=== PATIENT | female | born 1975 | race Caucasian/White ===

== ENCOUNTER 2023-08-13 11:18 | Outpatient (AMB) | payer OTHER, SELFPAY ==
--- NOTE | 2023-08-13 11:21 | A.OFFVIS_ITS ---
Intake Vital Signs 08/13/23 11:24 Height 5 ft 7 in Weight 251 lb BMI 39.3 Blood Pressure Location Lt brachial Position Sitting Respiration 12 Pulse 96 Pulse Source Pulse Oximeter Pulse Oximetry (%) 99 Oxygen Delivery Method Room Air Intake Visit Reasons: Chronic Pain Syndrome/confirmed Allergies ketorolac [From Toradol] Adverse Reaction (Severe, Verified 08/13/23 11:25) Rash levofloxacin [From Levaquin] Adverse Reaction (Severe, Verified 08/13/23 11:25) Rash Medication List - Last Reconciled 08/13/23 by Vicki Noel LPN atenolol 25 mg PO DAILY gabapentin 300 mg PO DAILY methimazole 5 mg PO DAILY oxycodone 5 mg PO Q8H PRN valsartan 320 mg PO DAILY HPI Chronic Pain Syndrome/confirmed HPI Details 47-year-old female who presents today to the office for an evaluation of chronic pain syndrome. The patient was referred by Flor Rodriguez DNP. The patient has a history of more than five years of chronic back pain, chronic pelvic pain, and chronic knee pain. She has a longstanding history of opioid dependence and opioid prescriptions from multiple providers.? She reports constant lower back pain. The pain is rated at 7-8/10 in intensity in the lower back. There is no particular radiation down the lower extremities. She used to have some radiation of pins and needles in her right leg, but that has resolved. She denies any back surgery. She denies any radiating pain in her leg. She reports pain in her sacrum/coccyx region when sitting. She also reports shoulder pain due to shoulder injuries in the past. She used to walk six miles a day and ride a bike. She has to stop riding her bike due to knee pain. She has tried physical therapy with oral medication in the past. She has been hesitant to undergo corticosteroid injections out of fear of raising her blood pressure and blood sugars. [facility] Medical History (Updated 08/17/23 @ 10:17 by Vinicio Riley MD) Fracture of tooth Nausea Vertigo Chronic low back pain Endometriosis Toothache Essential hypertension Chronic pain syndrome Opioid abuse Anxiety Hyperthyroidism Review of Systems Const All systems reviewed & are unremarkable except as noted in HPI and below Physical Exam Vital Signs: Last Vital Signs Pulse 96 08/13/23 11:24 Resp 12 08/13/23 11:24 Pulse Ox 99 08/13/23 11:24 Oxygen Delivery Method Room Air 08/13/23 11:24 BMI result Body Mass Index 39.3 General: Appears afebrile. Alert and oriented. Mood and affect appropriate. Follows and participates in conversation appropriately. Respiratory effort is unlabored. Able to transition from sit to stand unassisted. Ambulates with bilaterally normal heel strike and toe off. Forward flexion reproduces pain. Extension is limited and also reproduces pain. Results Reviewed Results Reviewed: No imaging is available for review. Assessment & Plan Assessment & Plan (1) Lumbar spondylosis: Code(s): M47.816 - Spondylosis without myelopathy or radiculopathy, lumbar region (2) Intractable low back pain: Code(s): M54.59 - Other low back pain (3) Chronic pain syndrome: Code(s): G89.4 - Chronic pain syndrome Plan I had a long discussion with the patient regarding the role of various different treatment modalities available for her pain conditions. Given her age, I think she would benefit from a rehabilitative/regenerative paradigm in terms of treatment modalities as opposed to a palliative paradigm consisting of cortisone shots and opioid medications. We discussed a trial of lumbar medial branch/multifidus stimulation for her axial low back pain. A similar approach may be used for her left shoulder pain. I also briefly discussed platelet rich plasma injections to her shoulder and lumbar facet joint for longer-term regenerative potential. For now we will schedule her for right L3 medial branch nerve stimulation trial with the Sprint device. Patient is amenable to the plan. She requested assumption of her opioid prescription at our office. I counseled her that we are no longer accepting patients for chronic opioid management. I encouraged her to continue with home exercise program in combination with rehabilitative strategies that are available with us as well as actual physical therapy including stretching and strengthening. All questions were answered. Scribed for Dr. Riley by Britton Espinosa, director medical safety, on 08/13/2023. I, Dr. Riley, have personally reviewed and agree with the information entered by the scribe. Coding Level of Care Code New Pt Level 4 (36229) Diagnoses Lumbar spondylosis M47.816 Intractable low back pain M54.59 Chronic pain syndrome G89.4
[2023-08-13 11:24] VITALS: PULSE 96; RESP 12; O2SAT 99; BMI 39.3
== END 2023-08-13 12:11 | disposition home or self-care (01) ==
PROVIDERS: Visit Provider Internal Medicine
DX: M47.816 Spondylosis without myelopathy or radiculopathy, lumbar region (principal); M54.59 Other low back pain; G89.4 Chronic pain syndrome
CPT/HCPCS: 99204

== ENCOUNTER → 2023-08-13 11:18 | Outpatient (BNVA) | payer OTHER, SELFPAY | PROVIDERS: Visit Provider Internal Medicine ==

== ENCOUNTER 2024-05-27 16:06 | Emergency (ER) | payer OTHER, SELFPAY ==
--- NOTE | ~2024-05-27 | XR_ITS ---
EXAMINATION: CHEST 2 VIEWS CLINICAL INFORMATION: cough. COMPARISON: No recent pertinent prior studies are available for comparison. TECHNIQUE: PA and lateral views of the chest obtained. FINDINGS: The lungs are well expanded. No focal infiltrate, effusion, edema, or pneumothorax. Cardiac and mediastinal silhouettes are within normal limits for technique. No acute bony abnormality seen XR/XR chest 2V IMPRESSION: No evidence of acute disease Electronically signed by: Billy Kang MD 05/27/2024 07:00 PM EDT
--- NOTE | 2024-05-27 17:14 | ED.DENTAL ---
HPI - Dental/Oral General Chief complaint: Dental/Oral Stated complaint: Dental pain Time Seen by Provider: 05/27/24 20:11 Source: patient Mode of arrival: ambulatory Limitations: no limitations History of Present Illness ED Provider: Gregory Govea PA-C HPI Narrative: 48 yo female with history of chronic pain syndrome on chronic opiates who presents to the ER for evaluation of 04/19 severe dental pain due to a broken tooth in the left upper tooth. also reporting being sick for 2 weeks with productive cough, coughing so hard she urinates herself. is also sick. tested negative for covid 2 weeks ago but would like another test. MD Complaint: tooth pain Location: Tooth # (14) Onset (ago): day(s) Duration: constant Severity: severe Severity scale (1-10): 9 Relieving factors: nothing Exacerbating factors: chewing, cold and heat Context: history of dental caries, trauma (mechanism) and poor dental care Associated symptoms: gum swelling Treatment prior to arrival: none Related Data Home Medications ?Medication ?Instructions ?Recorded ?Confirmed atenolol 25 mg tablet 25 mg PO DAILY 08/13/23 08/13/23 gabapentin 300 mg capsule 300 mg PO DAILY 08/13/23 08/13/23 methimazole 5 mg tablet 5 mg PO DAILY 08/13/23 08/13/23 oxycodone 5 mg capsule 5 mg PO Q8H PRN 08/13/23 08/13/23 valsartan 320 mg tablet 320 mg PO DAILY 08/13/23 08/13/23 Previous Rx's ?Medication ?Instructions ?Recorded amoxicillin 875 mg-potassium 1 tab PO BID #20 tabs 05/27/24 clavulanate 125 mg tablet oxycodone 5 mg tablet 5 mg PO BID PRN severe pain (scale 05/27/24 score 7-10) #6 tabs Allergies Allergy/AdvReac Type Severity Reaction Status Date / Time ketorolac [From Toradol] AdvReac Severe Rash Verified 05/27/24 17:18 levofloxacin [From Levaquin] AdvReac Severe Rash Verified 05/27/24 17:18 Review of Systems Review of Systems: Yes all other systems are reviewed and are negative PMFSH Past Medical History Medical History (Updated 05/28/24 @ 00:01 by Marce Russell) Fracture of tooth Nausea Vertigo Chronic low back pain Endometriosis Toothache Essential hypertension Chronic pain syndrome Opioid abuse Anxiety Hyperthyroidism Social History Social History Advance Directives: No Advance Directives Information Provided: No Physical Exam Vital Signs: Vital Signs: Last Vital Signs Temp 98.9 F 05/27/24 20:56 Pulse 90 05/27/24 20:56 Resp 18 05/27/24 20:56 BP 130/81 05/27/24 20:56 Pulse Ox 100 05/27/24 20:56 O2 Del Method Room Air 05/27/24 20:56 BMI result Body Mass Index 39.4 Appearance: Alert. Oriented X3. No acute distress. Head: normocephalic, atraumatic. Eyes: Pupils equal, round and reactive to light. ENT: Pharynx with moist mucus membranes. poor dentition, several broken teeth. left upper molar broken down to the gum line w/ decay, tenderness, gingival swelling and erythema, no fluctuance. No tonsillar swelling or exudate. uvula midline. Neck: Normal inspection. Neck supple. no lymphadenopathy. CVS: Normal heart rate and rhythm. Pulses normal. Respiratory: No respiratory distress. Breath sounds normal. congested cough Abdomen: Soft and nontender. +BS x4 Skin: Skin warm and dry. Normal skin color. Normal skin turgor. No rashes. Extremities: No lower extremity edema. No joint swelling. Neuro/psych: Oriented X 3. grossly normal nonfocal, normal speech, steady gait Medications Administered Discontinued Medications Generic Name Dose Route Start Last Admin Trade Name Freq PRN Reason Stop Dose Admin Amoxicillin/Clavulanate Potassium 875 mg 05/27/24 20:24 05/27/24 20:37 Amoxicillin/Potassium Clav 875 Mg Tablet PO 05/27/24 20:25 875 mg ONCE ONE Administration Oxycodone HCl 5 mg 05/27/24 20:24 05/27/24 20:37 Oxycodone Hcl Immed Release 5 Mg Tablet PO 05/27/24 20:25 5 mg ONCE ONE Administration Medical Decision Making Medical Decision Making MDM Narrative: 48 yo female with history of chronic pain on chronic opiates, [employer] reviewed, here with left upper dental pain x2 days and cough x2 weeks, overall improving. no local dentist, she gets dental work in [place] where she spends half the year. no evidence of abscess on exam. cxr is clear, no PNA. viral swab negative will treat dental pain with augmentin and short course of oxycodone, unable to take NSAIDS due to allergy list of emergency dentist provided. return precautions were discuss Differential Diagnosis Differential Diagnoses: The differential diagnosis associated with the presentation includes toothache, dental abscess, decay covid, flu, PNA, bronchitis Lab Data MDM Lab Attestation statement: I reviewed the patient's lab results. negative viral studies Labs: Lab Results 05/27/24 Range/Units 17:55 Influenza Type A (PCR) NEGATIVE (Negative) Influenza Type B (PCR) NEGATIVE (Negative) RSV RNA Qual (PCR) NEGATIVE (Negative) SARS-CoV-2 RNA (RT-PCR) NEGATIVE (Negative) Independent Interpretation I performed an independent interpretation of an: Plain X-Ray Interpretation: cxr clear, no PNA Radiology Impression Discussion of test interpretation with radiology: I have reviewed the radiologist's reading. Independent Historian Clinical information obtained from an independent historian. History obtained from or confirmed by: Spouse Prescription Management I considered prescription management with: Pain Medication and Antibiotic Chronic Conditions Patient?s care impacted by: Other (chronic pain syndrome) Critical Care Time Critical Care Time Critical Care Time: No Discharge Plan Discharge Clinical Impression: Toothache, Acute viral syndrome Patient Disposition: Home, Self-Care Instructions: Viral Syndrome (ED), Toothache (ED) Additional Instructions: Your chest x-ray today was normal. You tested negative for COVID, flu, RSV. Take the prescribed antibiotics as directed, complete the entire course and do not miss any doses It is important that he follow up with a dentist as soon as possible. If you develop new or worsening symptoms call 911 or come back to the ER for further evaluation. Call or visit any of the clinics below to establish with a dentist: [facility] [address] [place] [address] [facility] [address] [place] [address] [facility] [address] [facility], [address] [address] [place] [address] [facility] [address] [place] [id number] [facility] [address] [place] [address] [place] [address] [place] [address] Prescriptions: New amoxicillin-pot clavulanate 875-125 mg tablet 1 tab PO BID Qty: 20 0RF oxycodone 5 mg tablet 5 mg PO BID PRN (Reason: severe pain (scale score 7-10)) Qty: 6 0RF Rx Instructions: Partial Fill upon patient request. No Action valsartan 320 mg tablet 320 mg PO DAILY atenolol 25 mg tablet 25 mg PO DAILY methimazole 5 mg tablet 5 mg PO DAILY gabapentin 300 mg capsule 300 mg PO DAILY oxycodone 5 mg capsule 5 mg PO Q8H PRN Interventions: ED Discharge Assessment Last Done: 05/27/24 20:56 Discharge Date/Time: 05/27/24 20:58 Print Language: [place]
[2024-05-27 17:16] VITALS: BP 135/90; PULSE 98; RESP 18; TEMP 37; O2SAT 100; BMI 39.4
[2024-05-27 18:37] LABS: Influenza A PCR NEGATIVE (Negative); Influenza B PCR NEGATIVE (Negative); Resp Syncy Virus RNA Qual PCR NEGATIVE (Negative); SARS COV2 PCR INHOUSE NEGATIVE (Negative)
[2024-05-27] MEDS: oxyCODONE HCl Immed Release 5 MG TABLET PO (20:37)
[2024-05-27] MEDS: Amoxicillin/Potassium Clav 875 MG TABLET PO (20:37)
[2024-05-27 20:56] VITALS: BP 130/81; PULSE 90; RESP 18; TEMP 37.2; O2SAT 100
== END 2024-05-27 20:58 | disposition home or self-care (01) ==
PROVIDERS: Physician Assistant; Emergency Provider Emergency Medicine
DX: B34.9 Viral infection, unspecified (principal); K08.89 Other specified disorders of teeth and supporting structures; R05.9 Cough, unspecified; Z03.818 Encounter for observation for suspected exposure to other biological agents ruled out
CPT/HCPCS: 0241U; 71046; 99283; 99284

== ENCOUNTER 2024-06-15 15:56 | Emergency (ER) | payer OTHER, SELFPAY ==
--- NOTE | ~2024-06-15 | XR_ITS ---
EXAMINATION: XR CHEST CLINICAL INFORMATION: Cough COMPARISON: 05/27/2024 TECHNIQUE: Frontal view of the chest was obtained. FINDINGS: No significant abnormality is noted involving the heart, lungs, mediastinum, bony thorax or soft tissues. XR/XR chest 1V IMPRESSION: Unremarkable examination. Electronically signed by: Ricardo Rajan MD 06/15/2024 09:55 PM EDT
[2024-06-15 16:11] VITALS: BP 176/96; PULSE 100; RESP 19; TEMP 36.6; O2SAT 100; BMI 32.9
--- NOTE | 2024-06-15 16:34 | ED.GENADULT ---
HPI - General Adult General Chief complaint: Dental/Oral Stated complaint: dental pain Time Seen by Provider: 06/15/24 20:29 Source: patient Mode of arrival: ambulatory Limitations: no limitations History of Present Illness ED Provider: sheri WOODSON narrative: Patient with multiple dental cavities complaining increased pain in left upper 2nd molar tooth for last 1 week plan to see dentist on Augmentin for cough for last 1 week patient has been coughing for last 1 month with wheezing in the evening time no fever no chills tested negative for COVID at urgent care last week Related Data Home Medications ?Medication ?Instructions ?Recorded ?Confirmed atenolol 25 mg tablet 25 mg PO DAILY 08/13/23 08/13/23 gabapentin 300 mg capsule 300 mg PO DAILY 08/13/23 08/13/23 methimazole 5 mg tablet 5 mg PO DAILY 08/13/23 08/13/23 oxycodone 5 mg capsule 5 mg PO Q8H PRN 08/13/23 08/13/23 valsartan 320 mg tablet 320 mg PO DAILY 08/13/23 08/13/23 Previous Rx's ?Medication ?Instructions ?Recorded amoxicillin 875 mg-potassium 1 tab PO BID #20 tabs 05/27/24 clavulanate 125 mg tablet oxycodone 5 mg tablet 5 mg PO BID PRN severe pain (scale 05/27/24 score 7-10) #6 tabs albuterol sulfate 90 mcg/actuation 2 puff inhalation Q6H PRN 06/15/24 aerosol inhaler shortness of breath or wheezing #8.5 grams azithromycin 500 mg tablet 500 mg PO DAILY 3 days #3 tabs 06/15/24 (Zithromax) benzonatate 200 mg capsule 200 mg PO TID PRN cough #20 caps 06/15/24 morphine 15 mg immediate release 15 mg PO Q8H PRN pain #15 tabs 06/15/24 tablet prednisone 20 mg tablet 40 mg (2 x 20 mg) PO DAILY #10 tabs 06/15/24 Allergies Allergy/AdvReac Type Severity Reaction Status Date / Time NSAIDS (Non-Steroidal Allergy Unknown Verified 06/15/24 16:13 Anti-Inflamma ketorolac [From Toradol] AdvReac Severe Rash Verified 05/27/24 17:18 levofloxacin [From Levaquin] AdvReac Severe Rash Verified 05/27/24 17:18 Review of Systems Review of Systems: Yes all other systems are reviewed and are negative [facility] Past Medical History Medical History Fracture of tooth Nausea Vertigo Chronic low back pain Endometriosis Toothache Essential hypertension Chronic pain syndrome Opioid abuse Anxiety Hyperthyroidism Social History Social History Advance Directives: No Advance Directives Information Provided: No Do you have a plan to hurt others: No Plan Physical Exam ED Vital Signs: Vital Signs - 24 hr 06/15/24 16:11 06/15/24 20:24 06/15/24 21:31 Temperature 98 F 98.7 F 98.6 F Pulse Rate 100 84 94 Respiratory Rate 19 18 16 Blood Pressure 176/96 H 157/78 H 149/69 H Pulse Oximetry 100 100 98 Oxygen Delivery Method Room Air Room Air Room Air 06/15/24 22:37 Temperature 98.6 F Pulse Rate 94 Respiratory Rate 16 Blood Pressure 149/69 H Pulse Oximetry 98 Oxygen Delivery Method Room Air BMI result Body Mass Index 32.9 Appearance: Alert. Oriented X3. No acute distress. ENT: Pharynx normal. Oral Mucosa moist Neck: Normal inspection. Neck supple. CVS: Normal heart rate and rhythm. Pulses normal. Respiratory: No respiratory distress. Equal air entry bilateral, bilateral prolonged expiratoion Abdomen: Soft and nontender. Bowel sounds are present, no mass palpable, Skin: Skin warm and dry. Normal skin color. Normal skin turgor. Extremities: No lower extremity edema. No calf tenderness Neuro: Oriented X 3. No motor deficit. Course Course Course Narrative: RME performed by Vicki Rebolledo PA-C. Patient is a 48 year old assigned female at presenting to the emergency department with dental pain and nasal congestion. Patient states that over the last month she has had nasal congestion and dental pain. Patient states that she is currently on augmentin for this and it is not helping. Detailed physical exam and review of systems are deferred to the superintendent of schools. Patient placed back in the waiting room pending room availability. Medications Administered Discontinued Medications Generic Name Dose Route Start Last Admin Trade Name Freq PRN Reason Stop Dose Admin Albuterol Sulfate 2 puff 06/15/24 20:55 06/15/24 22:31 Albuterol Sulfate 90 Mcg 8 Gm Inhaler INHALE 06/15/24 20:56 2 puff ONCE ONE Administration Azithromycin 500 mg 06/15/24 20:57 06/15/24 21:21 Azithromycin 500 Mg Tablet PO 06/15/24 20:58 500 mg ONCE ONE Administration Benzonatate 200 mg 06/15/24 20:55 06/15/24 21:20 Benzonatate 100 Mg Capsule PO 06/15/24 20:56 200 mg ONCE ONE Administration Dexamethasone 10 mg 06/15/24 20:55 06/15/24 21:20 Dexamethasone 2 Mg Tablet PO 06/15/24 20:56 10 mg ONCE ONE Administration Morphine Sulfate 15 mg 06/15/24 20:55 06/15/24 21:20 Morphine Sulfate Immed Release 15 Mg Tablet PO 06/15/24 20:56 15 mg ONCE ONE Administration Medical Decision Making Medical Decision Making MDM Narrative: Patient with diffuse dental infection with lung congestion and cough already on Augmentin other family member also sick with test was negative at prescribe Zithromax Differential Diagnosis Differential Diagnoses: The differential diagnosis associated with the presentation includes Discharge Plan Discharge Clinical Impression: Dental caries, Bronchitis Patient Disposition: Home, Self-Care Instructions: Acute Bronchitis (ED), Toothache (ED) Additional Instructions: Continue Augmentin Start taking his Zithromax 1 tablet daily for 3 days Prednisone cough drops and inhaler as prescribed Follow with your PCP Follow up with your dentist Prescriptions: New benzonatate 200 mg capsule 200 mg PO TID PRN (Reason: cough) Qty: 20 0RF albuterol sulfate 90 mcg/actuation HFA aerosol inhaler 2 puff inhalation Q6H PRN (Reason: shortness of breath or wheezing) Qty: 8.5 0RF morphine 15 mg tablet 15 mg PO Q8H PRN (Reason: pain) Qty: 15 0RF Rx Instructions: Partial Fill upon patient request. azithromycin [Zithromax] 500 mg tablet 500 mg PO DAILY 3 Days Qty: 3 0RF prednisone 20 mg tablet 40 mg PO DAILY Qty: 10 0RF No Action amoxicillin-pot clavulanate 875-125 mg tablet 1 tab PO BID Qty: 20 0RF oxycodone 5 mg tablet 5 mg PO BID PRN (Reason: severe pain (scale score 7-10)) Qty: 6 0RF Rx Instructions: Partial Fill upon patient request. valsartan 320 mg tablet 320 mg PO DAILY atenolol 25 mg tablet 25 mg PO DAILY methimazole 5 mg tablet 5 mg PO DAILY gabapentin 300 mg capsule 300 mg PO DAILY oxycodone 5 mg capsule 5 mg PO Q8H PRN Interventions: ED Discharge Assessment Last Done: 06/15/24 22:37 Discharge Date/Time: 06/15/24 22:38 Print Language: Thai
[2024-06-15 20:24] VITALS: BP 157/78; PULSE 84; RESP 18; TEMP 37.1; O2SAT 100
[2024-06-15] MEDS: Benzonatate 100 MG CAPSULE 200 MG PO (21:20)
[2024-06-15] MEDS: dexAMETHasone 2 MG TABLET 10 MG PO (21:20)
[2024-06-15] MEDS: Morphine Sulfate Immed Release 15 MG TABLET PO (21:20)
[2024-06-15] MEDS: Azithromycin 500 MG TABLET PO (21:21)
[2024-06-15 21:31] VITALS: BP 149/69; PULSE 94; RESP 16; TEMP 37; O2SAT 98
[2024-06-15] MEDS: Albuterol Sulfate 90 MCG 8 GM INHALER 2 PUFF INHALE (22:31)
[2024-06-15 22:37] VITALS: BP 149/69; PULSE 94; RESP 16; TEMP 37; O2SAT 98
== END 2024-06-15 22:38 | disposition home or self-care (01) ==
PROVIDERS: Emergency Provider Internal Medicine
DX: J40 Bronchitis, not specified as acute or chronic (principal); K02.9 Dental caries, unspecified; K08.89 Other specified disorders of teeth and supporting structures; Z79.899 Other long term (current) drug therapy
CPT/HCPCS: 71045; 99283; 99284; J8540

== ENCOUNTER 2024-11-09 12:45 | Emergency (ER) | payer OTHER, SELFPAY ==
[2024-11-09 12:52] VITALS: BP 146/85; PULSE 81; RESP 16; TEMP 36.4; O2SAT 99; BMI 39.9
--- NOTE | 2024-11-09 12:56 | ED_ITS ---
HPI - General Adult General Chief complaint: Back Pain/Injury Stated complaint: fall Time Seen by Provider: 11/09/24 17:25 Source: patient Mode of arrival: ambulatory Limitations: no limitations History of Present Illness ED Provider: Ricardo Antonio DO HPI narrative: 49-year-old female with 2 months of back pain after a fall on ice with another fall on ice several days ago and CT imaging performed yesterday at [facility] showing L5-S1 bulging disc with ongoing follow up with Orthopedic surgery presents to the emergency department due to persistent pain at home. Patient states she received 1 day of oxycodone prescribed yesterday and has run out. She reports GI upset and ?cardiac? issues when taking NSAIDs so she does not routinely take any. She states she has been taking acetaminophen as well and does not report relief with muscle relaxants. She states her main concern is she is unable to sleep at night secondary to the pain. She states she has another appointment this week with Orthopedic surgery for a pain management plan and MRI imaging performed as an outpatient. She denies any numbness, weakness of her legs, saddle anesthesia, urinary retention, urinary or fecal incontinence or any additional symptoms and reports her back pain as diffuse over the lumbar/sacral region occasionally radiating to the bilateral hips. PDMP reviewed and shows 1 day of oxycodone prescribed on 11/07/2024 and previous prescription in early September. The patient states she understands that she can not take both opiate therapy and other muscle relaxants in combination. She also reports chronic right upper jaw dental pain and just picked up a prescription of Augmentin yesterday. Related Data Home Medications ?Medication ?Instructions ?Recorded ?Confirmed atenolol 25 mg tablet 25 mg PO DAILY 08/13/23 08/13/23 gabapentin 300 mg capsule 300 mg PO DAILY 08/13/23 08/13/23 methimazole 5 mg tablet 5 mg PO DAILY 08/13/23 08/13/23 oxycodone 5 mg capsule 5 mg PO Q8H PRN 08/13/23 08/13/23 valsartan 320 mg tablet 320 mg PO DAILY 08/13/23 08/13/23 Previous Rx's ?Medication ?Instructions ?Recorded amoxicillin 875 mg-potassium 1 tab PO BID #20 tabs 05/27/24 clavulanate 125 mg tablet oxycodone 5 mg tablet 5 mg PO BID PRN severe pain (scale 05/27/24 score 7-10) #6 tabs albuterol sulfate 90 mcg/actuation 2 puff inhalation Q6H PRN 06/15/24 aerosol inhaler shortness of breath or wheezing #8.5 grams azithromycin 500 mg tablet 500 mg PO DAILY 3 days #3 tabs 06/15/24 (Zithromax) benzonatate 200 mg capsule 200 mg PO TID PRN cough #20 caps 06/15/24 morphine 15 mg immediate release 15 mg PO Q8H PRN pain #15 tabs 06/15/24 tablet prednisone 20 mg tablet 40 mg (2 x 20 mg) PO DAILY #10 tabs 06/15/24 meloxicam 7.5 mg tablet 7.5 mg PO DAILY #20 tabs 11/09/24 naloxone 4 mg/actuation nasal 4 mg intranasal Q2M PRN opioid 11/09/24 spray (Narcan) overdose #2 ea oxycodone 5 mg tablet 5 mg PO Q6H PRN pain #7 tabs 11/09/24 Allergies Allergy/AdvReac Type Severity Reaction Status Date / Time NSAIDS (Non-Steroidal Allergy Unknown Verified 11/09/24 12:52 Anti-Inflamma ketorolac [From Toradol] AdvReac Severe Rash Verified 11/09/24 12:52 levofloxacin [From Levaquin] AdvReac Severe Rash Verified 11/09/24 12:52 Review of Systems Review of Systems: Yes all other systems are reviewed and are negative PMFSH Past Medical History Medical History Fracture of tooth Nausea Vertigo Chronic low back pain Endometriosis Toothache Essential hypertension Chronic pain syndrome Opioid abuse Anxiety Hyperthyroidism Social History Social History Advance Directives: No Advance Directives Information Provided: No Physical Exam ED Vital Signs: Vital Signs - 24 hr 11/09/24 12:52 11/09/24 17:53 Temperature 97.6 F Pulse Rate 81 82 Respiratory Rate 16 18 Blood Pressure 146/85 H 148/85 H Pulse Oximetry 99 98 Oxygen Delivery Method Room Air Room Air BMI result Body Mass Index 39.9 Constitutional: ?Alert, oriented, speaking in full sentences, in acute pain distress with movement HEENT: ?Normocephalic, atraumatic. ?Moist mucous membranes, poor dentition with no area of fluctuance, erythema or tenderness Eyes: ?PERRL, EOMI Neck: ?Supple, nontender Cardio: 2+ DP pulses symmetrically Back: ?Normal range of motion, mild diffuse tenderness of the lumbar and sacral spine with no overlying skin changes Skin: ?No rash, no lesions Neuro: ?Alert and oriented to person, place and time, moves all 4 extremities, no focal deficits, 5/5 strength and full sensation intact of the bilateral lower extremities Extremities: ?No swelling or tenderness, full range of motion Psych: ?Calm, alert and cooperative, appropriate behavior Course Course Course Narrative: RME: 49 yold female presents to the ED to the low back pain exacerbation and dental pain. Patient states falling and was evaluated at [facility] ED last night with CT of spine show bulging of L5-S1. Hip images were normal. Patient presents today for worsening back pain and also dental pain. Patient was given antibiotics with Ancef pain yesterday. Patient is scheduled to move extraction. Patient denies any urinary/bowel incontinence, new trauma, any IV drug use. Patient just wants pain medication. Patient is allergic to Toradol and NSAIDs. Patient will be evaluated in ED Medications Administered Discontinued Medications Generic Name Dose Route Start Last Admin Trade Name Freq PRN Reason Stop Dose Admin Oxycodone HCl 5 mg 11/09/24 18:23 11/09/24 19:08 Oxycodone Hcl Immed Release 5 Mg Tablet PO 11/09/24 18:24 5 mg ONCE ONE Administration Medical Decision Making Medical Decision Making [facility] Narrative: Patient presenting with chronic back pain and request for pain management to help sleep. I do not see any recent prescriptions for opiate therapy aside from the 1 day describe a couple of days ago. The patient is neurovascularly intact and there are no signs of cord compression clinically. No further imaging is indicated today. I do feel it is reasonable to prescribe very short course of oxycodone and provided dose here. The patient wanted to operate a vehicle and has a ride home today. I also discussed trialing meloxicam at home that she may tolerate this better and prescribed this as well. The patient voices clear understanding after a long discussion about the long-term risks of opiate therapy and states she will call her orthopedic surgeon tomorrow to definitively arrange appointment. Additionally, the patient has no signs of dental infection today and can continue her prescribed Augmentin. Discharge Plan Discharge Clinical Impression: Intractable low back pain Patient Disposition: Home, Self-Care Additional Instructions: There are no signs of cord compression today. Please call your orthopedic surgeon as discussed tomorrow to arrange for an appointment. We gave you a dose of oxycodone here and a very short course at home. Take this as bottle directs to help with sleep and do not drive with this medication. You can also try a Lidoderm patch at home. Ice and heat as well. We also prescribed a course of meloxicam to try as this should be easier on your stomach. Return to the emergency department immediately if you develop ANY new or worsening symptoms, especially increased pain, losing control of your bladder or bowel movements, fevers (over 100.4 F), numbness in your groin/genital area, or numbness/tingling/weakness of the extremities. Prescriptions: New naloxone [Narcan] 4 mg/actuation spray,non-aerosol 4 mg intranasal Q2M PRN (Reason: opioid overdose) Qty: 2 0RF Rx Instructions: spray 1 dose into ONE nostril; alternate nostrils w each dose until help arrives oxycodone 5 mg tablet 5 mg PO Q6H PRN (Reason: pain) Qty: 7 0RF Rx Instructions: Partial Fill upon patient request. meloxicam 7.5 mg tablet 7.5 mg PO DAILY Qty: 20 0RF No Action amoxicillin-pot clavulanate 875-125 mg tablet 1 tab PO BID Qty: 20 0RF oxycodone 5 mg tablet 5 mg PO BID PRN (Reason: severe pain (scale score 7-10)) Qty: 6 0RF Rx Instructions: Partial Fill upon patient request. benzonatate 200 mg capsule 200 mg PO TID PRN (Reason: cough) Qty: 20 0RF albuterol sulfate 90 mcg/actuation HFA aerosol inhaler 2 puff inhalation Q6H PRN (Reason: shortness of breath or wheezing) Qty: 8.5 0RF morphine 15 mg tablet 15 mg PO Q8H PRN (Reason: pain) Qty: 15 0RF Rx Instructions: Partial Fill upon patient request. azithromycin [Zithromax] 500 mg tablet 500 mg PO DAILY 3 Days Qty: 3 0RF prednisone 20 mg tablet 40 mg PO DAILY Qty: 10 0RF valsartan 320 mg tablet 320 mg PO DAILY atenolol 25 mg tablet 25 mg PO DAILY methimazole 5 mg tablet 5 mg PO DAILY gabapentin 300 mg capsule 300 mg PO DAILY oxycodone 5 mg capsule 5 mg PO Q8H PRN Interventions: ED Discharge Assessment Last Done: 11/09/24 19:13 Discharge Date/Time: 11/09/24 19:13 Print Language: Turkish
[2024-11-09 17:53] VITALS: BP 148/85; PULSE 82; RESP 18; O2SAT 98
--- OUTSIDE RECORDS SUMMARY | 2024-11-09 18:44 | XMS_ITS ---
[facility] Name [facility] Organization [facility] History of Medication Use Medication Directions Dispensed Refills Start Date End Date Stat us chlorhexidine 0.12% mucous membrane liquid 0.018 gm =, 15 mL, Oral, BID, # 480 mL, 0 Refill(s), swish and spit; do not swallow, Pharmacy: [facility]/pharmacy #[id number], 15 mL Oral BID,Instr:swish and spit; do not swallow, 170, 04/03/24 20:09:00 EDT, Height/Length Measured, cm, 81.8, 04/03/24 20:09:00 EDT... 04/04/2024 ondansetron (ZOFRAN-ODT) 8 MG disintegrating tablet Take 1 tablet (8 mg total) by mouth every 8 (eight) hours as needed for nausea. 05/05/2024 active valsartan-hydroCHLOROt hiazide (DIOVAN-HCT) 320-25 MG per tablet 11/04/2017 acti ve ibuprofen (ADVIL,MOTRIN) 600 MG tablet Take 1 tablet (600 mg total) by mouth every 6 (six) hours as needed for pain. 11/15/2017 active Allergies Allergen Reaction Severity Comment Documented Date Source Statu s LEVAQUIN Eruption of skin (disorder) CTS H TORADOL Eruption of skin (disorder) [facility] Problems Problem Status Onset Date Problem Type Date of Resolution Source Essential hypertension active 2021-03-16 ProblemAct CTTHSFRAN Endometriosis active 2022-03-08 ProblemAct CTTH SFRAN Chronic dental pain active EncounterDiagnosisAc t CTTHSFRAN Opioid use active 2022-04-21 ProblemAct CTTHSFR AN Endometriosis (disorder) active ProblemAct [facility]
--- OUTSIDE RECORDS SUMMARY | 2024-11-09 18:44 | XMS_ITS ---
Author Organization [facility] Address [address] [place] [address] Care Team Providers Care Logistics Support Name Role Phone Fouzia Blank Primary Care Provider HERSON Laurent Unavailable [phone] Encounters Encounter Location Date Provider Diagnosis [facility] [address] [place] [id number] 07/25/2024 HERSON RODRIGUEZ Plan Of Treatment No Information Progress Notes * MONIKA JOHNSONDOB:1975 (49 yo F)Acc No.[id number]:07/25/2024 Patient:?JOHNSON, MONIKA :1975???Age:48 Y???Sex:Female [address] [facility], [place], [address] * * Date:?
--- OUTSIDE RECORDS SUMMARY | 2024-11-09 18:44 | XMS_ITS | Continuity of Care Document ---
Author Organization [facility] Address [address] [place] [phone] Phone [phone] Care Team Providers Care Security Clerk Name Role Phone LESA BABB DO Care Team Information Receiv er Unavailable
--- OUTSIDE RECORDS SUMMARY | 2024-11-09 18:44 | XMS_ITS | Clinical Summary ---
Author Organization [facility] Address [address] [place] [address] Care Team Providers Care Superintendent [employer] Name Role Phone Pcp, No Primary Care Provider Unavailabl e Allergies Active Allergy Reactions Criticality Noted Date Comments Ibuprofen Other (See Comments) 05/05/2024 Chest pain Levofloxacin Benign arrhythmia,Palpitation s,Rash/Dermatitis High 03/05/2008 Ketorolac Tromethamine Rash/Dermatitis Low 05/05/20 24 Medications Medication Sig Dispensed Refills Start Date End Date Status traZODone (DESYREL) 50 MG tablet trazodone 50 mg tablet 02/08/2019 Active temazepam (RESTORIL) 15 MG capsule 02/08/2015 Active diazepam (VALIUM) 5 MG tablet 02/24/2021 Active valsartan-hydrochloro thiazide (DIOVAN-HCT) 320-25 MG per tablet 03/09/2021 Acti ve atenolol (TENORMIN) 25 MG tablet 01/05/2021 Active oxyCODONE (ROXICODONE) 5 MG immediate release tablet 2x a day 02/24/2021 Active B Complex Vitamins (B COMPLEX PO) vitamin b complex with b12 Active Active Problems Problem Noted Date Diagnosed Date Essential hypertension 03/16/2021 Chronic pain of both knees 03/16/2021 Social History Tobacco Use Types Packs/Day Years Used Date Smoking Tobacco: Former Cigarettes 0.5 4 2 011 - 2014 Smokeless Tobacco: Never Alcohol Use Standard Drinks/Week Comments Not Currently 0 (1 standard drink = 0.6 oz pur e alcohol) PHQ-2 Answer Date Recorded PHQ-2 Total Score 4 03/16/2021 Sex and Gender Information Value Date Recorded Sex Assigned at Female 03/10/2024 6:44 PM EDT Gender Identity Female 03/10/2024 6:44 PM EDT Sexual Orientation Heterosexual (straight) 03/10 6:44 PM EDT Last Filed Vital Signs Vital Sign Reading Time Taken Comments Blood Pressure 155/86 05/05/2024 4:41 PM EDT Pulse 74 05/05/2024 4:41 PM EDT Temperature 37.1 ??C (98.7 ??F) 05/05/2024 4:41 PM ED T Respiratory Rate 16 05/05/2024 4:41 PM EDT Oxygen Saturation 100% 05/05/2024 4:41 PM EDT Inhaled Oxygen Concentration - - Weight - - Height - - Body Mass Index - - Plan of Treatment Health Maintenance Due Date Last Done Comments Hepatitis C Virus Screening 1977 HIV Screening 1990 DTaP/Tdap/Td Vaccines (1 - Tdap) 1996 Hepatitis B Vaccines (1 of 3 - 19+ 3-dose series) 1996 Pap Smear (Ages 21-65) 1998 Mammogram 2017 Colonoscopy 2022 Influenza Vaccine 04/10/2024 COVID-19 Vaccine ( - 2023-2 5 season) 2024 Pneumococcal Vaccine: Pediat yash (0-5 Years) and At-Risk Patients (6 to 49 Years) Aged Out No longer eligible b ased on patient's age to complete this topic Care Teams Superintendent Car Construction Relationship Specialty Start Date End Date Pcp, No PCP - General General Medicine 02/17/21
--- OUTSIDE RECORDS SUMMARY | 2024-11-09 18:44 | XMS_ITS | Data Portability ---
Author Organization [facility], [place] Address [address] [place] [address] Assessment Encounter Date Assessment Date Assessment LastModified by Organization Details LastModified Time 05/02/2024 05/02/2024 3 views lumbar spine were obtained interpreted from orthopedic standpoint today demonstrate no obvious fracture dislocation, no significant degenerative change noted We discussed x-ray and physical exam findings, as well as treatment options, risk, benefits. Patient understands the role of ice, heat, anti-inflammato demetri and Tylenol for pain control. They understand the importance of staying active with low impact activities, however we did discuss activity modifications. as well as the option for physical therapy., she declined this at today's visit stating that she would rather have her prescription pain medication management. I will have her follow-up with Dr. Cartwright, one of our injection specialists in the next few weeks to discuss continued evaluation and management of her low back pain. [email or web address] Not available 05/02/2024 15:02:23 Plan of Treatment Reminders Order Date Submit Date Provider Last Modified By Organization Details Last Modified Time Details Appointments None recorded. Lab None recorded. Referral None recorded. Procedures None recorded. Surgeries None recorded. Imaging XR, lumbosacral spine, 2 or 3 view 2023 024 adriane 71 [facility], [address] [facility], [facility] [address], [place], [address], 15:13:52 Medication Orders None recorded. Patient TargetsNo targets recorded. Patient Instructions Encounter Date Encounter Id Patient Instructions Last Modified By Organization Details Last Modified Time 05/02/2024 [id number] radiology overread* - 6 years of low back pain no new injury. Impression: no obvious fracture, dislocation or significant degenerative changes noted ASHLEY Not available 05/05/2024 12:28:07 Reason for Referral None Reported. Results Created Date Observation Date Name Description Value Unit Range Abnormal Flag Note LastModifiedBy Organization Detail LastModifiedTime 05/02/20 24 05/02/2024 XR, lumbo sacra l spine , 2 or 3 view [facility] eUID=[id number] 7.194 [id number] [id number] [facility] [address] [place] [address], [address], 05/02/2024 14:23:56 05/02/20 24 05/02/2024 XR, lumbo sacra l spine , 2 or 3 view [facility] eUID=[id number] 7.194 [id number] .[id number] [facility] [address] [place] [address] [address], [place], [address], 05/02/2024 14:23:58 05/02/20 24 05/02/2024 XR, lumbo sacra l spine , 2 or 3 view [facility] eUID=[id number] 7.1940 [id number] [facility] [address] [place] [address] [address], [place], [address], 05/02/2024 14:54:40 05/02/20 24 05/02/2024 XR, lumbo sacra l spine , 2 or 3 view [facility] eUID=[id number] 7.1940 [id number] [id number] [facility] [address] [place] [address] [address], [place], [address], 05/02/2024 14:54:42 05/05/20 24 05/02/2024 radio logy overr ead* No observ ation record ed. [email or web address] Not Available 2023 12:36:50 Result Notes None recorded. Problems Name Problem SNOMED Code Status Onset Date Resolution Date Notes Provider Name and Address Organization Details Recorded Time Low back pain 227446791 Active Romeo Guy [place], [place] - [facility] 05/02/2024 14:20:13 Problem Notes None recorded. Procedures Surgical History None recorded. Imaging Results Imaging Date Name Status LastModified by Organiz ation Details LastModified Time 05/02/2024 XR, lumbosacral spine, 2 or 3 view completed INTERFACE [facility] [address], [place], [address], 05/02/2024 14:23:56 05/02/2024 XR, lumbosacral spine, 2 or 3 view completed INTERFACE [facility] [address], [place], [address], 05/02/2024 14:23:58 05/02/2024 XR, lumbosacral spine, 2 or 3 view completed INTERFACE [facility] [address], [place], [address], 05/02/2024 14:54:40 05/02/2024 XR, lumbosacral spine, 2 or 3 view completed INTERFACE [facility] [address], [place], [address], 05/02/2024 14:54:42 05/02/2024 radiology overread* completed [email or web address] Information not available 05/05/2024 12:36:50 Procedure Notes None recorded. Medical Equipment None Reported. Medications Name Sig Start Date Stop Date Status Note LastModified by Organization Details LastModified Time amoxicillin 500 mg capsule TAKE 1 CAPSULE (500 MG TOTAL) BY MOUTH IN THE MORNING AT NOON AT BEDTIME FOR 5 DAYS active Not Available Not Available No t Available clindamycin HCl 300 mg capsule TAKE 1 CAPSULE BY MOUTH 3 TIMES A DAY FOR 7 DAYS active Not Available Not Available N ot Available tizanidine 4 mg tablet TAKE 1 TABLET BY MOUTH TWICE DAILY NEEDED active Not Available Not Available No t Available benzonatate 200 mg capsule active Not Available Not Available Not Available hydrocodone 5 mg-acetamino phen 325 mg tablet TAKE 1 TABLET BY MOUTH EVERY 4 TO 6 HOURS FOR 2 DAYS active Not Available Not Available No t Available prednisone 20 mg tablet TAKE 1 TABLET BY MOUTH EVERY DAY FOR 7 DAYS active Not Available Not Available No t Available atenolol 25 mg tablet TAKE 1 TABLET BY MOUTH DAILY active Not Available Not Available Not Available clindamycin HCl 150 mg capsule TAKE 1 CAPSULE BY MOUTH EVERY 6 HOURS FOR 7 DAYS active Not Available Not Available No t Available penicillin V potassium 500 mg tablet TAKE 1 TABLET BY MOUTH EVERY 6 HOURS FOR 7 DAYS active Not Available Not Available No t Available hydroxyzine HCl 50 mg tablet TAKE 1 TABLET BY MOUTH TWICE DAILY NEEDED FOR ANXIETY OR WITHDRAWAL SYMPTOMS active Not Available Not Available No t Available acetaminophe n 300 mg-codeine 30 mg tablet TAKE 1 TABLET BY MOUTH EVERY 12 HOURS active Not Available Not Available No t Available tramadol 50 mg tablet TAKE 1 TABLET BY MOUTH EVERY 6 HOURS NEEDED FOR PAIN FOR UP TO 4 DOSES active Not Available Not Available N ot Available ondansetron 8 mg disintegrati ng tablet active Not Available Not Available No t Available oxycodone-ac etaminophen 5 mg-325 mg tablet TAKE 2 TABLETS BY MOUTH EVERY 4 HOURS NEEDED FOR PAIN active Not Available Not Available No t Available amitriptylin e 10 mg tablet TAKE 1 TABLET BY MOUTH EVERY DAY DIRECTED active Not Available Not Available No t Available baclofen 10 mg tablet TAKE 1 TABLET BY MOUTH EVERY DAY AT BEDTIME active Not Available Not Available No t Available methimazole 5 mg tablet TAKE 1 TABLET BY MOUTH THREE TIMES DAILY DIRECTED active Not Available Not Available Not Available gabapentin 300 mg capsule TAKE 1 CAPSULE BY MOUTH THREE TIMES A DAY active Not Available Not Available Not Available morphine ER 15 mg tablet,exten ded release TAKE 1 TABLET BY MOUTH DAILY FOR PAIN active Not Available Not Available No t Available albuterol sulfate HFA 90 mcg/actuatio n aerosol inhaler active Not Available Not Available Not Available morphine 15 mg immediate release tablet active Not Available Not Available Not Available ondansetron 4 mg disintegrati ng tablet active Not Available Not Available No t Available diazepam 5 mg tablet TAKE 2 TABLET BY MOUTH DIRECTED - TAKE 1ST TABLET AN HOUR AND 2ND TABLET 1/2 BEFORE PROCEDURE NEEDED MAXIMUM DAILY DOSE IS 2 active Not Available Not Available No t Available amoxicillin 875 mg-potassium clavulanate 125 mg tablet TAKE 1 TABLET EVERY 12 HOURS BY ORAL ROUTE WITH MEAL(S) FOR 7 DAYS. active Not Available Not Available No t Available oxycodone 5 mg tablet TAKE 1 TABLET (5 MG) BY MOUTH EVERY 6 HOURS NEEDED FOR SEVERE PAIN active Not Available Not Available Not Available azithromycin 500 mg tablet active Not Available Not Available Not Available tizanidine 4 mg capsule TAKE 1 CAPSULE BY MOUTH AT BEDTIME NEEDED active Not Available Not Available No t Available pregabalin 100 mg capsule TAKE 1 CAPSULE BY MOUTH THREE TIMES DAILY DIRECTED active Not Available Not Available Not Available chlorhexidin e gluconate 0.12 % mouthwash SWICH AND SPIT 15 ML BY MOUTH TWICE A DAY active Not Available Not Available Not Available valsartan 320 mg-hydrochlo rothiazide 25 mg tablet TAKE 1 TABLET BY MOUTH EVERY DAY FOR 30 DAYS active Not Available Not Available No t Available oxycodone 10 mg tablet TAKE 1/2 TABLET BY MOUTH 3 TIMES A DAY NEEDED FOR PAIN active Not Available Not Available No t Available Vitals Date Recorded Body height Body mass index (BMI) Body weight Provider Name and Address Organization Details Last Updated DateTime 05/02/2024 170.18 cm 40.9 kg/m2 540369.61 g Gianna [facility] 05/02/2024 14:08:25 Social History None recorded. Functional Status None recorded. Mental Status None recorded. Family History Nothing Reported. Medical History No medical history recorded. Gynecological HistoryNo gynecological history recorded. Obstetrics History GPAL:G 0 P 0 0 0 0 Past Encounters Encounter ID Performer Location Encounter Start Date Encounter Closed Date Diagnosis/Indication Diagnosis SNOMED-CT Code Diagnosis ICD10 Code Diagnosis Note [id number] COLLIN SEAY [facility] [address] [place] [address] 05/02/2024 13:46:36 05/02/2024 15:13:52 Low back pain 234955626 M54.50 Health Concerns Section Related Observation LastModified by Organization Detai ls LastModified Time None Recorded Concern Status LastModified by Organization Details LastModified Time None Recorded Advance Directives Directive None Recorded Payers Encounter Date Sequence Insurance Name Policy Number Policy Chapa Covered Member ID Chapa Member ID Guarantor Name 05/02/2024 1 [employer] (MEDICARE REPLACEMENT/A DVANTAGE - PPO) Maylin Coppola [id number] Maylin Coppola Notes Date Note Type Note Provider Name and Address Organization Details Recorded Time 05/02/2024 text/html 48-year-old female presents today complaining of atraumatic low back pain ongoing for 6 years. 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 There is been no new change in her pain or any recent injury. She complains of low back pain about the lumbar paraspinal musculature, bilateral SIJ area. There is no radicular symptoms associated this pain. Currently she takes oxycodone and gabapentin for her pain. Patient denies any gait changes, balance changes, saddle area anesthesia or bowel/bladder incontinence. COLLIN SEAY NP [address] [place] [address], [phone] 05/02/2024 15:02:36 OBGyn Episode No OBEpisode recorded.
--- OUTSIDE RECORDS SUMMARY | 2024-11-09 18:44 | XMS_ITS | Patient Health Record ---
Author Organization [facility] Address [address] [place] [address] Care Team Providers Care Precipitate Washer Name Role Phone Fouzia Blank Primary Care Provider Antonio OrtegaCINDAHERSON Unavailable [phone] Allergies Allergen (clinical drug ingredient) Drug/Non Drug Allergy documented on EMR Reaction Allergy Type Onset Date Status ibuprofen Ibuprofen hives Drug Allergy Active Levaquin hives Drug Allergy Active ketorolac Ketorolac hives Drug Allergy Active Reason For Referral No Information Medications Medication SIG (Take, Route, Frequency, Duration) Notes Start Date End Date Status Iron (Ferrous Sulfate) 325 (65 Fe) MG 1 tablet Orally Three times a Week Active Baby Aspirin Active oxyCODONE HCl 5 MG 1 capsule as needed Orally three times a day Active methIMAzole 5 MG one half tablet Oral ly Once a day Active tiZANidine HCl 4 MG 1 capsule at bedtime as needed Orally Once a day Active Atenolol 25 MG 1 tablet Orally Once a day Active Valsartan-hydroCHLOROthiazi de 320-25 MG 1 tablet Orally Once a day Active Social History Tobacco Use: Social History Observation Description Date Details (start date - stop date) Never Smoker NA - NA Tobacco Control (Standard) Question Answer Notes Tobacco use: Nonsmoker Problems Problem Type SNOMED Code ICD Code Onset Dates Problem Status W/U Status Risk Notes Problem Osteoarthritis of knee (470086990) Bilateral primary osteoarthritis of knee (M17.0) Active confirmed Problem Cervical spondylosis without myelopathy (995780358) Spondylosis without myelopathy or radiculopathy, cervical region (M47.812) Active confirmed Problem Thoracic spondylosis without myelopathy (904005375) Spondylosis without myelopathy or radiculopathy, thoracic region (M47.814) Active confirmed Problem Lumbosacral spondylosis without myelopathy (78387963) Spondylosis without myelopathy or radiculopathy, lumbar region (M47.816) Active confirmed Problem 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) Active confirmed Vital Signs Heart Rate 92 /min 07/19/2024 Temperature 98.0 degrees Fahrenheit 07/19/2024 Oximetry 99 % 07/19/2024 Blood pressure diastolic 79 mm Hg 07/19/2024 Height 67 in 07/19/2024 Blood pressure systolic 118 mm Hg 07/19/2024 Weight 220 lbs 07/19/2024 BMI 34.45 kg/m2 07/19/2024 Encounters Encounter Location Date Provider Diagnosis [facility] [address] [place] [phone] 07/19/2024 [facility] Spondylosis without myelopathy or radiculopathy, cervical region M47.812 ; Spondylosis without myelopathy or radiculopathy, lumbar region M47.816 ; Other care home (current) drug therapy Z79.899 ; Bilateral primary osteoarthritis of knee M17.0 ; Other specified mononeuropathies of bilateral upper limbs G56.83 and Spondylosis without myelopathy or radiculopathy, thoracic region M47.814 [facility] [address] [place] [address] 07/24/2024 [facility] [address] [place] [address] 07/25/2024 [facility] [address] [place] [address] 07/21/2024 [facility] [address] [place] [address] 07/24/2024 [facility] Assessments Encounter Date Diagnosis (ICD Code) Assessment Notes Treatment Notes Treatment Clinical Notes Section Notes 07/19/2024 Spondylosis without myelopathy or radiculopathy, cervical region (ICD-10 - M47.812) 07/19/2024 Spondylosis without myelopathy or radiculopathy, lumbar region (ICD-10 - M47.816) regarding medication management, we reviewed the patient's current regimen and the patient can continue current regimen if needed regarding physical therapy, continue physical therapy exercises regarding radiological studies, I reviewed the patient's lumbar MRI study done on 07/05/2022 that revealed degenerative changes in the lumbar spine I ordered x-ray studies for the cervical spine and both knees today regarding the cervical spine and both knees the patient might be eligible for a trial of diagnostic cervical medial branch blocks and steroid injections for the knees in the future if the pain in those areas does not improve with physical therapy exercises regarding interventional procedures, the patient has tried and failed conservative treatments for the last 3 months including nonsteroidals, Tylenol, physical therapy exercises with no relief she has functional difficulty sitting, standing, walking, sleeping due to the lumbar pain she has tried nonsteroidals, Tylenol, physical therapy exercises with no relief she was found to have positive bilateral lumbar facet loading test on exam negative straight leg raising test pain score is more than VAS of 6 radiological studies revealed degenerative changes, and since the pain score is more than VAS of 6 I am requesting authorization for a trial of diagnostic bilateral lumbar L4-5, 5-S1 #2 facet joints diagnostic lumbar medial branch blocks with local anesthetics only. [address], [address] bilateral If successful the patient might be eligible for radiofrequency ablation. Thank you Dr. Wyatt for your kind referral, please feel free to call me with any questions 07/19/2024 Other intermodal dispatcher (current) drug therapy (ICD-10 - Z79.899) 07/19/2024 Bilateral primary osteoarthritis of knee (ICD-10 - M17.0) 07/19/2024 Other specified mononeuropathies of bilateral upper limbs (ICD-10 - G56.83) 07/19/2024 Spondylosis without myelopathy or radiculopathy, thoracic region (ICD-10 - M47.814) 07/19/2024 Other Plan Of Treatment No Information Insurance Providers Payer Name Payer Address Payer Phone Subscriber Number Group Number Insured Name Patient Relationship to Insured Coverage Start Date Coverage End Date [employer] PPO [address] [address] [place] [address] [phone] [id number] MONIKA JOHNSON Self - patient is the insured Medical (General) History Medical History History ICD Code obesity hypertension hyperlipidemia hypothyroidism DDD osteoarthritis endometriosis Surgical History Surgery Date(Month/Year) appendectomy left side oopharectomy
--- OUTSIDE RECORDS SUMMARY | 2024-11-09 18:45 | XMS_ITS | Encounter Summary ---
Author Organization [facility] Address [address] [place] [address] Phone Care Team Providers Care Aligning Inspector Name Role Phone MatyEmily marcum Joseph SCHROEDER- Primary Care Provider [phone] Sweetie Peters Primary Care Provider [phone] Fouzia Blank MD Primary Care Provider [phone] Encounter Details Date Type Department Care Team (Late st Contact Info) Description 05/29/2024 External Contact EXTERNAL LOCATION [address] [place] [phone] Lisandro, Default Provider Social History Tobacco Use Types Packs/Day Years Used Date Smoking Tobacco: Never Assessed Sex and Gender Information Value Date Recorded Sex Assigned at Not on file Gender Identity Not on file Sexual Orientation Not on file documented as of this encounter Miscellaneous Notes * External Discharge Summary - Default Provider Lisandro - 05/29/2024 9:13 PM EDT Powered by [id number] Basic Information Time Seen: Basic Information Time Seen: Parker Castillo MD / 05/29/2024 20:00 Chief Complaint patient complain of pain with menstrual period and pain with tooth was here the other night and wants something else for pain History of Present Illness 48-year-old female comes to urgent care complaining of tooth and abdominal pain Patient with history of endometriosis Patient reports pain in her right upper molar as well as abdominal pain. Patient has multiple complaints as well, complaining of cough and cold symptoms for the past 2 weeks which have since resolved. As of today no fever chest pain shortness of breath. No nausea or vomiting. Physical Exam Vitals & Measurements T: 36.2 ??C (Temporal Artery) HR: 100(Peripheral) RR: 20 BP: 164/80 SpO2: 99% HT: 170 cm WT: 110.000 kg(Measured) General: Awake, Alert HEENT: Anicteric sclera, MMM, cracked right upper posterior molar with no abscess Neck: Supple Respiratory: No increased WOB, CTAB Cardiac: Regular, non-tachycardic Abdomen: Non-distended, nontender to palpation, patient engages in voluntary guarding Skin: No rashes on exposed skin Procedure No qualifying data available. No qualifying data available. No qualifying data available. ED Course/Medical Decision Making 48-year-old female comes to the emergency department with tooth and abdominal pain Primary concern for dental injury. Patient with benign abdominal exam Providing topical analgesia for her tooth. Recommending that she follow-up with a dentist as well as her DIRECTOR CARDIOVASCULAR. Patient is requesting oxycodone at this time. States that her DIRECTOR CARDIOVASCULAR has retired and that she does not currently have a dentist. Review of prescription records shows that patient was prescribed 6 tablets of 5 mg oxycodone yesterday. She is also had several other prescriptions of similar opiate medications over the past month. She states that she is already used all of the oxycodone she was prescribed and insist that she requires an additional prescription. At this time I do not think it is appropriate to provide her with additional opiate medications. I do not suspect acute abdominal pathology. I suspect that this is more chronic in nature. Provided topical analgesia and recommending outpatient follow-up with dentist and reestablishing care with her DIRECTOR CARDIOVASCULAR. I do not think this patient requires imaging at this time. Advised the patient that if her symptomsget significantly worse that I recommend she return to an emergency department for further evaluation. Diagnosis and Plan 1. Tooth problem K08.9 - pain management [id number] Orders: Discharge Patient Problem List/Past Medical History Ongoing No chronic problems Medications What When Instructions Unchanged amoxicillin-clavulanate (amoxicillin-clavulanate 875 mg-125 mg oral tablet) Unchanged clindamycin (clindamycin 300 mg oral capsule) Unchanged oxyCODONE (oxyCODONE 5 mg oral tablet) Unchanged oxyCODONE-acetaminophen (oxyCODONE-acetaminophen 5 mg-325 mg oral tablet) Unchanged traMADol (traMADol 50 mg oral tablet) Unchanged valsartan-hydrochlorothiazide (valsartan-hydrochlorothiazide 320 mg-25 mg oral tablet) Allergies Levaquin Toradol ibuprofen Social History Sexual Self Described Orientation: Not Clinically Appropriate to Assess. What is your current gender identity? (Check all that apply) Identifies as female., 05/26/2024 Tobacco Smoking tobacco use: Never (less than 100 in lifetime)., 05/26/2024 Lab Results No qualifying data available. Diagnostic Results No qualifying data available. Consults No qualifying data available. documented in this encounter Plan of Treatment Upcoming Encounters Date Type Department Care Team (Late st Contact Info) Description 11/18/2024 11:00 AM EDT Office Visit [facility] [address] [facility] [place] [address] Jane Gao MD [address] [place] [address] documented as of this encounter Visit Diagnoses Not on filedocumented in this encounter Care Teams Aligning Inspector Relationship Specialty Start Date End Date Emily Diop FNP- PCP - General 08/01/22 07/11/24 Sweetie Peters PA PCP - General 07/12/24 07/15/24 Fouzia Blank MD [address] [place] [address] PCP - General 07/16/24 documented as of this encounter
--- OUTSIDE RECORDS SUMMARY | 2024-11-09 18:45 | XMS_ITS | Encounter Summary ---
Author Organization [facility] stem Address [address] [place] [address] Phone Care Team Providers Care Armor Reconnaissance Vehicle Crewman Name Role Phone Matytrixie Emily SCHROEDER- Primary Care Provider [phone] Sweetie Peters Primary Care Provider [phone] Fouzia Blank MD Primary Care Provider [phone] Encounter Details Date Type Department Care Team (Late st Contact Info) Description 06/21/2024 External Contact EXTERNAL LOCATION [address] [place] [phone] Lisandro, Default Provider Social History Tobacco Use Types Packs/Day Years Used Date Smoking Tobacco: Never Assessed Sex and Gender Information Value Date Recorded Sex Assigned at Not on file Gender Identity Not on file Sexual Orientation Not on file documented as of this encounter Miscellaneous Notes * External Discharge Summary - Default Provider Lisandro - 06/21/2024 2:16 PM EDT Powered by [id number] Patient: MAYLIN COPPOLA Age: 48 years Sex: FEMALE : 1975 Author: MARII DAVIS PA-C Attachments: None Free Text A rapid assessment was made on the patient in triage, and it was determined a more comprehensive evaluation was necessary. CC: dental pain HPI: 48 year old presents for revisit of persistent dental pain physical exam: gen: patient is alert in no acute distress CV: RRR Resp: breathing comfortably on room air Neuro: no gross focal deficits. Plan: Patient will be transferred to main emergency department where another provider will assume care and evaluation of the patient documented in this encounter Plan of Treatment Upcoming Encounters Date Type Department Care Team (Late st Contact Info) Description 11/18/2024 11:00 AM EDT Office Visit [facility] [address] [facility] [place] [phone] Jane Gao MD [address] [place] [address] documented as of this encounter Visit Diagnoses Not on filedocumented in this encounter Care Teams Armor Reconnaissance Vehicle Crewman Relationship Specialty Start Date End Date Emily Diop, FHA UNDERWRITER- PCP - General 08/01/22 07/11/24 Sweetie Peters PA PCP - General 07/12/24 07/15/24 Fouzia Blank MD [address] [place] [address] PCP - General 07/16/24 documented as of this encounter
--- OUTSIDE RECORDS SUMMARY | 2024-11-09 18:45 | XMS_ITS | Clinical Summary ---
Author Organization [facility] Address [address] [place] [address] Care Team Providers Care Tunnel Kiln Operator Name Role Phone Pcp, No MD Primary Care Provider Unavailabl e Allergies Active Allergy Reactions Criticality Noted Date Comments Levofloxacin Anaphylaxis High 05/04/2024 Nsaids (Non-Steroidal Anti-Inflammatory Drug) Palpitations Low 05/04/2024 Ketorolac Other (see comments) 05/04/2024 syncope Medications valsartan-hydroc hlorothiazide (DIOVAN-HCT) 320-25 mg per tablet Take 1 tablet by mouth in the morning. Active valsartan-hydroc hlorothiazide (Diovan HCT) 320-25 mg per tablet Take 1 tablet by mouth in the morning. 5 tablet 05/04/2024 Active Social History Tobacco Use Types Packs/Day Years Used Date Smoking Tobacco: Never Smokeless Tobacco: Never Tobacco Cessation:Counseling Given: Not Answered Alcohol Use Standard Drinks/Week Comments Not Currently 0 (1 standard drink = 0.6 oz pur e alcohol) Comments No Sex and Gender Information Value Date Recorded Sex Assigned at Not on file Legal Sex Female 8:30 PM EDT Gender Identity Not on file Sexual Orientation Not on file Last Filed Vital Signs Vital Sign Reading Time Taken Comments Blood Pressure 136/75 05/04/2024 10:38 PM EDT Pulse 84 05/04/2024 10:30 PM EDT Temperature 36.7 ??C (98.1 ??F) 05/04/2024 10:30 PM E DT Respiratory Rate 18 05/04/2024 10:31 PM EDT Oxygen Saturation 99% 05/04/2024 10:30 PM EDT Inhaled Oxygen Concentration - - Weight 83.9 kg (185 lb) 05/04/2024 8:44 PM EDT Height 170.2 cm (5' 7 ) 05/04/2024 8:44 PM EDT Body Mass Index 28.98 05/04/2024 8:44 PM EDT Plan of Treatment Not on file Insurance MEDICARE [employer] PPO Care Teams Tunnel Kiln Operator Relationship Specialty Start Date End Date Kelly Fine MD [address] [place] [address] PCP - General Internal Medicine 05/04/24
--- OUTSIDE RECORDS SUMMARY | 2024-11-09 18:45 | XMS_ITS ---
Author Organization [facility] Address [address] [place] [address] Care Team Providers Care Rad Technologist Name Role Phone Fouzia Blank Primary Care Provider NOHEMI Laurent Unavailable [phone] REASON FOR VISIT not sure where she's going for xr (doesn;t want to drive all the way here if she is not going to get medication along with injections) Medications Medication SIG (Take, Route, Frequency, Duration) Notes Start Date End Date Status Iron (Ferrous Sulfate) 325 (65 Fe) MG 1 tablet Orally Three times a Week Active Baby Aspirin Active oxyCODONE HCl 5 MG 1 capsule as needed Orally three times a day Active methIMAzole 5 MG one half tablet Oral ly Once a day Active Valsartan-hydroCHLOROthiazi de 320-25 MG 1 tablet Orally Once a day Active tiZANidine HCl 4 MG 1 capsule at bedtime as needed Orally Once a day Active Atenolol 25 MG 1 tablet Orally Once a day Active Encounters Encounter Location Date Provider Diagnosis [facility] [address] [place] [phone] 08/23/2024 NOHEMI RODRIGUEZ Plan Of Treatment No Information Progress Notes * MONIKA JOHNSONDOB:1975 (49 yo F)Acc No.[id number]:08/23/2024 Progress Notes Patient:?JOHNSON, MONIKA Provider:?Nohemi Rodriguez MD :1975???Age:48 Y???Sex:Female D ate:08/23/2024 [address] [place] [facility] Pcp:Fouzia Blank Subjective: * Chief Complaints: * ???1. Not sure where she's g oing for xr (doesn;t want to drive all the way here if she is not going to get medication along with injections). * Medical History:? * Medications:?Taking Iron (Fe rrous Sulfate) 325 (65 Fe) MG Tablet 1 tablet Orally Three times a Week , Taking Baby Aspirin , Taking oxyCODONE HCl 5 MG Capsule 1 capsule as needed Orally three times a day , Taking methIMAzole 5 MG Tablet one half tablet Orally Once a day , Taking tiZANidine HCl 4 MG Capsule 1 capsule at bedtime as needed Orally Once a day , Taking Atenolol 25 MG Tablet 1 tablet Orally Once a day , Taking Valsartan-hydroCHLOROthiazide 320-25 MG Tablet 1 tablet Orally Once a day Objective: * Vitals:? Assessment: Plan: * Treatment: * * Electronic signature of SHANICE PETERSON MD on 11/09/2024 at 06:44 PM EST Sign off status: Pending * Provider:?Nohemi Rodriguez MD Date:? 024 Generated for Laila cool/Steffany/[place] on:?11/09/2024 06:44 PM EST
--- OUTSIDE RECORDS SUMMARY | 2024-11-09 18:45 | XMS_ITS | Data Portability ---
Author Organization [facility] Address [address] [place] [id number] Assessment Encounter Date Assessment Date Assessment LastModified by Organization Details LastModified Time 06/09/2024 06/09/2024 Previous records reviewed that are available. [email or web address] Not available 06/09/2024 13:19:36 06/25/2024 06/25/2024 Patient presents with upper left dental pain and broken tooth. Patient states that she has a broken tooth that she has dental pain and she has been to the ER has been given Augmentin and azithromycin and clindamycin. Patient is heading back to [place] in the next couple days. Pt given dental block. Patient given short course of pain medication until she can return to [place]. Patient is currently still taking clindamycin. Return precautions provided Not available 06/26/2024 08:10:59 06/27/2024 06/27/2024 48-year-old with multiple follow-up visits at our offices and [facility]. Most of her visits have been regarding dental pain. I did see patient last month in conjunction with ALEXANDRE Villeda. At that visit patient reported over the next couple business days she would be meeting with Dr. Rodriguez for medical pain management of her chronic pain. She never wound up seeing chronic pain management and remains off of long-term opioids. For the past month patient has had approximately 14 visits related to dental pain. She has been given a couple short fills of opioid pain medication. She has been treated with Augmentin and clindamycin. She has been treated topically with viscous lidocaine and dental blocks. She is afebrile and appears fairly comfortable on exam today. She was most recently seen yesterday at our office in the emergency department. She was given 1 dose of oxycodone in the emergency department but further prescriptions for opioid medication were declined. Patient here requesting oxycodone for her dental pain. While she does have decayed molar teeth she does not appear to be in any degree of pain necessitating opioid medications. On review of her HEAD SAMPLER there are multiple fills for opioids from multiple states. 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 In terms of her dental pain, I discussed with her the appropriate stepwise approach is for using acetaminophen, topical medication such as lidocaine gel. If still ineffective, recommend NSAIDs. If still in severe and uncontrolled pain can then conceivably use opioid. Patient reports an allergy to NSAIDs. We delved into her rationale for this intolerance of NSAIDs. She states around age 33 she was taking ibuprofen for headaches and wound up subsequently developing SVT and atrial fibrillation. She states she was hospitalized in [place] and had negative evaluation. She was subsequently seen by [facility] cardiology and had a false positive nuclear stress test. She states she never had a cardiac catheterization but was told to generally try to avoid anti-inflammatorie s. She is unsure of any of the details. She is unable to confirm that she had any obstructive coronary disease. Lack of proceeding with a coronary catheterization by cardiology strongly supports the notion that patient did not have any concerns for obstructive coronary disease. I discussed with her side effects of anti-inflammatorie s. She is most concerned that can cause elevated blood pressure and she does have hypertension. She is concerned that hypertension can then lead to tachycardia which can then lead to recurrence of SVT or atrial fibrillation. I discussed with her that NSAIDs are not typically meant for routine daily use in most patients and that a short course is likely indicated in her circumstance. She still felt unsure because she feels NSAIDs can have cardiac side effects. Patient cites the [place] not approving of some NSAIDs due to cardiac issues and that is one reason she doesn't want to take them, but she is unable to create a rational parallel to her current situation. I offered to call [facility] cardiology with her in the office, have records faxed and reviewed in-person with her and make a decision at time of the visit regarding NSAIDs (the next logical treatment step for her). Patient declined. She routinely told me she was unsettled with taking anti-inflammatorie s because it could raise her blood pressure and I felt our conversation was nonproductive. I recommended we have a third-libertarian such as a nurse in the room to listen to the conversation the 3 of us were having but patient and significant other declined having anyone else in the room. I handed patient a sheet of local dental providers where she could get in for definitive management. Patient notes that she will be going back to [place] on the next business day and will see her dentist in the walk-in clinic there and doesn't feel she will need local dentist, but she has now been in and out of local urgent/emergency care since 05/01/2024 with dental problems. In addition, patient had some menstrual cramping. Her symptoms were perhaps worse than they have been in the past but she had only minimal discomfort on suprapubic palpation and did not appear to need any further evaluation today in terms of this. Patient and significant other continued the rationale for why I should prescribe oxycodone for patient. They stated that some providers were scared of prescribing opioids like yourself. Informed patient that her comment was inappropriate and I prescribe opiate pain medications when necessary. Patient significant other stated he called his oral surgeon who laughed at our treatment recommendations. I offered an appropriate treatment plan for this patient. I believe she truly does not have any reason she cannot take anti-inflammatorie s, especially for a short course. She has tolerated ibuprofen previously. She declined my rationale and stepwise approach for treatment and declined to me speaking with or getting records from her prior cardiology office to see what contraindication she could have to NSAIDs. I discussed with her that since she declines this next logical step of treatment I would be unable to proceed to the most extreme step for pain control, prescription for opioids. Patient was in no obvious physical distress at end of visit and able to ambulate down the [place]gett without any significant antalgic gait. My decision to not Rx opioids is based on my independent evaluation of patient and the above rational, step-walton treatment plan that I would treat any patient with, including my own family. Patient declines cardiology referral. She believes she has been having palpitations lately, but declines cardio referral or EKG today. Discussed with patient that her weight is significantly lower today than prior. Recommend we get an updated weight since today's reading is only a stated weight. Patient declines. Patient discussing her recent ED visits at [facility] and I reviewed the visit documentation with her. [email or web address] Not available 06/27/2024 17:20:42 Plan of Treatment Reminders Order Date Submit Date Provider Last Modified By Organization Details Last Modified Time Details Appointments None recorded. Lab lipid panel, serum [address] [facility], [address] [place] [address], [id number], 4 12:31:19 HbA1c (hemoglobin A1c), blood [address] [facility], [address] [place] [address], [id number], 4 12:31:19 lyme disease igg+igm, serum, reflex western blot [address] [facility], [address] [place] [address], [id number], 4 12:31:19 KADE (antinuclea r antibodies) screen, serum [email or web address] [place] [address] Lab, [address] [place] [address], [id number], 4 12:31:19 vitamin D, 25-hydroxy, total, serum [email or web address] [facility], [address] [place] [address], [id number], 4 12:31:19 rf (rheumatoid factor), serum [email or web address] [place] [address] Lab, [address] [place] [address], [id number], 4 12:31:19 ESR (erythrocyt e sedimentati on rate), blood [email or web address] [place] [address] Lab, [address] [place] [address], [id number], 4 12:31:19 C-reactive protein, quantitativ e, serum or plasma 2023 024 [email or web address] [facility], [address] [place] [address], [address], 4 12:31:19 CMP, serum or plasma 2023 024 [email or web address] [facility], [address] [place] [address], [address], 4 12:31:19 CBC 2023 024 [email or web address] [facility], [address] [place] [address], [id number], 4 12:31:19 Referral None recorded. Procedures None recorded. Surgeries None recorded. Imaging None recorded. Medication Orders hydrocodone 5 mg-acetamin ophen 325 mg tablet 2023 024 [email or web address] [facility] #22980, [address] [place] [address], [id number], 4 14:13:44 hydrocodone 5 mg-acetamin ophen 325 mg tablet 2023 [facility] #0419, [address] [place], [address], 4 14:13:47 valsartan 320 mg-hydrochl orothiazide 25 mg tablet 2023 024 [email or web address] [facility] #83713, [address] [place], [place], [id number], 4 18:14:13 valsartan 320 mg-hydrochl orothiazide 25 mg tablet 2023 024 [facility] #0419, [address] [place], [address], 4 18:16:11 prednisone 20 mg tablet 2023 [facility] #0419, [address] [facility], [place], [address], 14:13:13 LolliCaine 20 % mucosal gel packet 2023 [email or web address] Not available 05:31:24 valsartan 320 mg-hydrochl orothiazide 25 mg tablet 2023 [facility] #0419, [address] [facility], [place], [address], 19:40:16 amoxicillin 875 mg-potassiu m clavulanate 125 mg tablet 2023 [facility] [address], [place], [address], 16:57:07 Patient TargetsNo targets recorded. Patient Instructions Encounter Date Encounter Id Patient Instructions Last Modified By Organization Details Last Modified Time 06/09/2024 [id number] medical record request* - Patient here to establish please send records. ? This request is our first attempt to obtain medical records for a patient being treated at [facility]. [facility] STATES Provider must permit visual inspection within 10 days and furnish a copy within a reasonable time if the provider has space available to permit visual inspection or must provide a copy within 10 days if the provider does not have space available to permit visual inspection. If records are not received if 10 days, we will follow up via fax. Our preferred method of receiving records is fax. Thank you [email or web address] Not available 09/08/2024 09:05:45 06/25/2024 [id number] Meds as prescribed if symptoms get worse return here or go to the ER. Not available 06/25/2024 18:04:30 Reason for Referral None Reported. Problems Name Problem SNOMED Code Status Onset Date Resolution Date Notes Provider Name and Address Organization Details Recorded Time Toothache [id number] Active Corie Chavez, ALEXANDRE-LOBITO [address], [place], [address] , [facility] 14:31:48 Problem Notes None recorded. Procedures Surgical History Date Name Laterality Status Provider Name and Address Organization Details Recorded Time 06/25/2024 Procedure completed Alli Prasad PA-C [address], [place], [address], [facility] 06/26/2024 08:13:06 Imaging Results None recorded. Procedure Notes None recorded. Medical Equipment None Reported. Allergies Allergen ID Allergen Name Allergen Category Reaction Reaction Severity Criticality Documentation Date Start Date Code Code System Note Provider Name and Address Organization Details Recorded Time 434366 Levaquin medicatio n rash Not available Not available 05/30/2024 01138 2 RxNorm Not Available Not Available Not Available 701127 Non-stero idal anti-infl ammatory agent (product) medicatio n Not available Not available Not available 06/04/2024 22105 005 SNOMED 06/27 : [place] ated ibupr ofen previ oulsy . Had react ion to Tor[facility] - synco pe? Fabiola bernard saw [facility] appro x [facility], denie s us acces s to those recor ds to deter mine if she can take NSAID s or not. Fabiola bernard recal ls being told to gener ally avoid NSAID s, stati ng she has histo ry of SVT and AFib. She does not recou nt any histo ry of CAD or any objec tive evide nce as to why she canno t take NSAID s for acute pain. Discu ssed at 06/27 visit that opioi ds for pain would NOT be indic ated if she can take NSAID s but choos es not to try those first . With fabiola bernard denyi ng acces s to previ ous cardi ology recor ds, she is not allow ing us to make this infor med decis ion. Not Available Not Available Not Available 036175 hydrocodo ne Not available rash Not available low 06/27/2024 5489 RxNorm Not Available Not Available Not Available Medications Name Sig Start Date Stop Date Status Note LastModified by Organization Details LastModified Time amoxicill in 500 mg capsule TAKE 1 CAPSULE (500 MG TOTAL) BY MOUTH IN THE MORNING AT NOON AT BEDTIME FOR 5 DAYS 06/09 completed Not Available Not Available Not Available clindamyc in HCl 300 mg capsule TAKE 1 CAPSULE BY MOUTH 3 TIMES A DAY FOR 7 DAYS active pt states has 2-3 days left of antibiot ic 06/27/24 Not Available Not Available Not Available tizanidin e 4 mg tablet TAKE 1 TABLET BY MOUTH TWICE DAILY NEEDED 06/04 completed Not Available Not Available Not Available benzonata te 200 mg capsule 06/27 completed Not Available Not Available Not Available hydrocodo ne 5 mg-acetam inophen 325 mg tablet Take 1 tablet every 4-6 hours by oral route for 2 days. 06/26 completed Not Available Not Available Not Available prednison e 20 mg tablet Take 1 tablet every day by oral route for 7 days. 06/26 completed Not Available Not Available Not Available atenolol 25 mg tablet TAKE 1 TABLET BY MOUTH DAILY active Not Available Not Available No t Available clindamyc in HCl 150 mg capsule TAKE 1 CAPSULE BY MOUTH EVERY 6 HOURS FOR 7 DAYS 06/09 completed Not Available Not Available Not Available penicilli n V potassium 500 mg tablet TAKE 1 TABLET BY MOUTH EVERY 6 HOURS FOR 7 DAYS 06/04 completed Not Available Not Available Not Available hydroxyzi ne HCl 50 mg tablet TAKE 1 TABLET BY MOUTH TWICE DAILY NEEDED FOR ANXIETY OR WITHDRAW AL SYMPTOMS 06/04 completed Not Available Not Available Not Available acetamino phen 300 mg-codein e 30 mg tablet TAKE 1 TABLET BY MOUTH EVERY 12 HOURS 06/04 completed Not Available Not Available Not Available tramadol 50 mg tablet TAKE 1 TABLET BY MOUTH EVERY 6 HOURS NEEDED FOR PAIN FOR UP TO 4 DOSES active Not Available Not Available No t Available ondansetr on 8 mg disintegr ating tablet TAKE 1 TABLET BY MOUTH EVERY 8 HOURS NEEDED FOR NAUSEA active Not Available Not Available No t Available oxycodone -acetamin ophen 5 mg-325 mg tablet TAKE 2 TABLETS BY MOUTH EVERY 4 HOURS NEEDED FOR PAIN 06/04 completed Not Available Not Available Not Available amitripty line 10 mg tablet TAKE 1 TABLET BY MOUTH EVERY DAY DIRECTED 06/04 completed Not Available Not Available Not Available baclofen 10 mg tablet TAKE 1 TABLET BY MOUTH EVERY DAY AT BEDTIME 06/04 completed Not Available Not Available Not Available methimazo le 5 mg tablet TAKE 1 TABLET BY MOUTH THREE TIMES DAILY DIRECTED 06/27 completed Not Available Not Available Not Available gabapenti n 300 mg capsule TAKE 1 CAPSULE BY MOUTH THREE TIMES A DAY active Not Available Not Available No t Available morphine ER 15 mg tablet,ex tended release TAKE 1 TABLET BY MOUTH DAILY FOR PAIN 06/04 completed Not Available Not Available Not Available albuterol sulfate HFA 90 mcg/actua tion aerosol inhaler 06/27 completed Not Available Not Available Not Available morphine 15 mg immediate release tablet TAKE 1 TABLET BY MOUTH EVERY 8 HOURS NEEDED FOR PAIN 06/26 completed Not Available Not Available Not Available ondansetr on 4 mg disintegr ating tablet 06/04 completed Not Available Not Available Not Available diazepam 5 mg tablet TAKE 2 TABLET BY MOUTH DIRECTED - TAKE 1ST TABLET AN HOUR AND 2ND TABLET 1/2 BEFORE PROCEDUR E NEEDED MAXIMUM DAILY DOSE IS 2 06/04 completed Not Available Not Available Not Available amoxicill in 875 mg-potass ium clavulana te 125 mg tablet TAKE 1 TABLET EVERY 12 HOURS BY ORAL ROUTE WITH MEAL(S) FOR 7 DAYS. 06/25 completed Not Available Not Available Not Available oxycodone 5 mg tablet TAKE 1 TABLET BY MOUTH EVERY DAY AT BEDTIME NEEDED FOR PAIN FOR 3 DAYS active Not Available Not Available No t Available azithromy jewel 500 mg tablet TAKE 1 TABLET BY MOUTH EVERY DAY FOR 3 DAYS 06/24 completed Not Available Not Available Not Available tizanidin e 4 mg capsule TAKE 1 CAPSULE BY MOUTH AT BEDTIME NEEDED 06/04 completed Not Available Not Available Not Available pregabali n 100 mg capsule TAKE 1 CAPSULE BY MOUTH THREE TIMES DAILY DIRECTED 06/04 completed Not Available Not Available Not Available chlorhexi dine gluconate 0.12 % mouthwash SWICH AND SPIT 15 ML BY MOUTH TWICE A DAY active Not Available Not Available No t Available Clindamyc in 06/09 completed Not Available Not Available Not Available valsartan 320 mg-hydroc hlorothia zide 25 mg tablet TAKE 1 TABLET BY MOUTH EVERY DAY FOR 30 DAYS active Not Available Not Available No t Available oxycodone 10 mg tablet TAKE 1/2 TABLET BY MOUTH 3 TIMES A DAY NEEDED FOR PAIN 06/04 completed Not Available Not Available Not Available LolliCain e 20 % mucosal gel packet Take 1 applicat ion every 6 hours by mucous route as needed, for dental pain. 2023 active Not Available Not Available Not Avai lable Vitals Date Recorded Body height Body mass index (BMI) Body weight Oxygen saturation Oxygen saturation in Arterial blood by Pulse oximetry Respiratory rate Heart rate Body temperature Systolic blood pressure Diastolic blood pressure Provider Name and Address Organization Details Last Updated DateTime 4 170.18 cm 38.4 kg/m2 123421. 83 g 100 % 100 % 16 /min 84 /min 97.5 [degF] 128 mm[Hg] 82 mm[Hg] Karina Cortes LPN [facility] 4 11:43:17 Date Recorded Body height Body mass index (BMI) Body weight Respiratory rate Body temperature Oxygen saturation Oxygen saturation in Arterial blood by Pulse oximetry Heart rate Systolic blood pressure Diastolic blood pressure Provider Name and Address Organization Details Last Updated DateTime 4 170.18 cm 39.6 kg/m2 581090. 87 g 16 /min 98.6 [degF] 98 % 98 % 72 /min 136 mm[Hg] 88 mm[Hg] Taylor Cortes LPN [facility] 4 19:19:10 Date Recorded Body height Body mass index (BMI) Body weight Body temperature Respiratory rate Oxygen saturation Oxygen saturation in Arterial blood by Pulse oximetry Heart rate Systolic blood pressure Diastolic blood pressure Provider Name and Address Organization Details Last Updated DateTime 4 170.18 cm 39.6 kg/m2 012197. 87 g 97.7 [degF] 18 /min 100 % 100 % 78 /min 143 mm[Hg] 87 mm[Hg] Flora Cárdenas RN [facility] 4 16:59:30 Date Recorded Body height Body temperature Heart rate Oxygen saturation Oxygen saturation in Arterial blood by Pulse oximetry Respiratory rate Systolic blood pressure Diastolic blood pressure Provider Name and Address Organization Details Last Updated DateTime 4 170.18 cm 97.8 [degF] 76 /min 100 % 100 % 18 /min 146 mm[Hg] 82 mm[Hg] Irene Diaz [facility] 4 14:20:26 Date Recorded Body height Body mass index (BMI) Body weight Body temperature Heart rate Respiratory rate Oxygen saturation Oxygen saturation in Arterial blood by Pulse oximetry Systolic blood pressure Diastolic blood pressure Systolic blood pressure Diastolic blood pressure Provider Name and Address Organization Details Last Updated DateTime 4 170.18 cm 32.9 kg/m2 03373.4 g 97.5 [degF] 74 /min 18 /min 97 % 97 % 153 mm[Hg] 88 mm[Hg] 137 mm[Hg] 90 mm[Hg] Anushka Pickard MA [facility] 4 14:19:02 Social History Question Answer Notes LastModified by Organizat ion Details LastModified Time Tobacco Smoking Status Former Smoker Ambrosio Abraham RN [facility], [facility] 05/30/2024 13:52:52 What Is Your Level Of Alcohol Consumption? None [email or web address] Information not available 05/30/2024 Are You Blind Or Do You Have Difficulty Seeing? No [email or web address] Information not available 06/04/2024 Are You A Caregiver? No [email or web address] Information not available 06/04/2024 Are You Currently Employed? No Information not available 06/04/2024 Are You Deaf Or Do You Have Serious Difficulty Hearing? No [email or web address] Information not available 06/04/2024 What Is The Highest Grade Or Level Of School You Have Completed Or The Highest Degree You Have Received? [id number] Information not available 06/04/2024 When Did You Quit Smoking? 11-15yearssi [email or web address] ette [email or web address] Information not available 06/04/2024 Are There Any Guns Present In Your Home? No [email or web address] Information not available 06/04/2024 HIV Testing Offered Yes - Patient Declined [email or web address] Information not available 06/04/2024 Last Dental Visit 10 Years Ago In [place]. [email or web address] Information not available 06/04/2024 HepC Testing Offered Yes - Patient Declined [email or web address] Information not available 06/04/2024 Do You Have An Advance Directive? No [email or web address] Information not available 06/04/2024 Do You Have A Health Care Proxy On File? No [email or web address] Information not available 06/04/2024 Do You Have A MOLST Form On File? No [email or web address] Information not available 06/04/2024 What Was The Date Of Your Most Recent Tobacco Screening? 06/27/2024 [email or web address] Information not available 06/27/2024 How Many Children Do You Have? 0 [email or web address] Information not available 06/04/2024 What Is Your Relationship Status? [email or web address] Information not available 06/04/2024 Are You Passively Exposed To Smoke? No [email or web address] Information not available 06/04/2024 Do You Use Any Illicit Or Recreational Drugs? No [email or web address] Information not available 05/30/2024 Do You Or Have You Ever Used Any Other Forms Of Tobacco Or Nicotine? No [email or web address] Information not available 06/04/2024 Sex: Unknown Functional Status None recorded. Mental Status None recorded. Family History Relationship Description Onset Age of this Age Resolved Age Notes LastModified by Organization Details LastModified Time Mother Cerebrovascu lar accident [email or web address] Not available 14:14:35 Notes:ARCHANA TORO, 06/26/2024 Medical History Condition Response Communication Need N Gynecological History Statement/Question Response Flow Moderate Date of LMP 06/26/2024 LMP Approximate Frequency of Cycle (Q days) 5 Obstetrics History GPAL:G 0 P 0 0 0 0 Past Encounters Encounter ID Performer Location Encounter Start Date Encounter Closed Date Diagnosis/Indication Diagnosis SNOMED-CT Code Diagnosis ICD10 Code Diagnosis Note [id number] Louise Camarena PA-C [facility] - Urgent [address] [address] 05/30/2024 13:38:48 05/30/2024 14:47:06 Pulpitis 36892486 K04.01 Presentati on concerning for dental infection Finish course of abx as previously prescribed Advised rest, fluids, salt water gargles, regular NSAID's. Will provide short course of medication for breakthrou gh pain. Lollicaine s also provided. Needs to f/u with dentist for ultimate cure. RTC if sxs persist or worsen. Menorrhagia [id number] N9 2.0 History of endometrio sisNo current apparel pattern maker careMenses have been getting heavier and more painfulWil l order updated U/SReferra l submitted for pt to [facility] [id number] Kierra Urena, [facility] [address] [place] [address] 06/04/2024 10:40:01 06/04/2024 11:45:04 Chronic low back pain [id number] M54.50 Dr [facility] centersPer pt, annular tear and herniated disc.Pt has referral to Dr. Harrison's office. He will be back on Sunday.Ask ing for a bridge rx.Records /MRI [address] Jaquez and no indication for narcotic.E ncouraged pt to follow up with PM prescriber / PM injections .Continue gabapentin . Rx sent. Pulpitis [id number] K04.01 Pt has poor dentition and has been unable to find dentist recently.C ompleted course of abx.Huang yonny considered sending additional rx for hydrocodon e, but I do not typically treat dental infections with narcotics. After review of records, I will renew gabapentin but will not prescribe narcotics at this time. Endometrio sis of pelvis [id number] N80.9 Pelvic US pending. [id number] Lana Hale, [facility] [address] [place] [phone] 06/04/2024 16:04:57 06/04/2024 17:41:01 Toothache [id number] K08.89 [id number] Divine Ansari, [facility] [address] [place] [address] 06/09/2024 11:31:07 06/09/2024 12:46:27 Pulpitis [id number] K04.01 Using chlorhexid ine mouth rinse. Will treat sinusitis as well as for dental infection as she is having redness and swelling of surroundin g gums. If pain persists can consider use of magic mouthwash as an alternativ e to opioid. Acute sinusitis [id number] J01.90 Recommend rest, liquids and OTC analgesics . If worsens, including any high fever, worsened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
--- OUTSIDE RECORDS SUMMARY | 2024-11-09 18:45 | XMS_ITS | Encounter Summary ---
Author Organization [place] [address] Care Team Providers Care Body Coverer Name Role Phone Staci Rice KENNEDY Primary Care Provider [phone] Reason for Visit * Reason Comments Back Pain Pt present ambulator y for evaluation of right lower back pain. Pt sts she fell on the ice yesterday and pain has been there. Does have pmhx of disk herniation. Pain is non radiating. Encounter Details Date Type Department Care Team (Late st Contact Info) Description 10/11/2024 5:47 PM EST - 10/11/2024 7:10 PM EST Emergency [facility] Emergency [address] [place] [id number] Nav Lopez MD [address] [place] [address] Low back pain without sciatica, unspecified back pain laterality, unspecified chronicity (Primary Dx); Drug-seeking behavior Discharge Disposition: Home or Self Care Social History Tobacco Use Types Packs/Day Years Used Date Smoking Tobacco: Former Cigarettes Q uit: 2015 Smokeless Tobacco: Never Comments:Quit 2014 Alcohol Use Standard Drinks/Week Comments Not Currently 0 (1 standard drink = 0.6 oz pur e alcohol) Housing Instability Answer Date Recorde d Are you worried that in the next 2 months you may not have stable housing? No 07/01/2024 Food Access & Nutrition Answer Date Rec orded Do you have access to a vari ety of food including fruits and vegetables? Yes 07/01/2024 Access to Healthcare Answer Date Record ed Within the last 3 months, ho w many times did you visit the emergency department for your medical care? 1 07/12/2022 Health Literacy Answer Date Recorded How often do you need to hav e someone help you when you read instructions, pamphlets, or other written material from your doctor or pharmacy? Rarely 10/01/2023 Caregiver: How often do you need to have someone help you when you read instructions, pamphlets, or other written material from your doctor or pharmacy? Not on file 10/01/2023 Financial Risk Answer Date Recorded How hard is it for you to pa y for the very basics like food, housing, medical care, and air conditioning / heating? Somewhat hard 07/01/2024 Transportation Answer Date Recorded Has the lack of transportati on kept you from meetings, work, or from getting things needed for daily living? Yes Has the lack of transportati on kept you from medical appointments or from getting medications? Yes 07/01/2024 Social Isolation Answer Date Recorded How often do you feel lonely or isolated from those around you? Sometimes 07/01/2024 Food Risk Answer Date Recorded Within the past 12 months we worried whether our food would run out before we got money to buy more. Never true 07/01/2024 Within the past 12 months th e food we bought just didn't last and we didn't have money to get more. Never true 07/01/2024 [place] [facility] Literacy Answer Date Re corded How often do you need to hav e someone help you when you read instructions, pamphlets, or other written material from your doctor or pharmacy? Rarely 07/01/2024 Caregiver: How often do you need to have someone help you when you read instructions, pamphlets, or other written material from your doctor or pharmacy? Rarely 07/01/2024 Education Answer Date Recorded What is the highest level of school you have completed or the highest degree you have received? 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 Not on file Not on file Not on file documented as of this encounter Last Filed Vital Signs Vital Sign Reading Time Taken Comments Blood Pressure 147/75 10/11/2024 4:00 PM EST Pulse 91 10/11/2024 4:00 PM EST Temperature 36.3 ??C (97.4 ??F) 10/11/2024 4:00 PM ES T Respiratory Rate 16 10/11/2024 4:00 PM EST Oxygen Saturation 100% 10/11/2024 4:00 PM EST Inhaled Oxygen Concentration - - Weight - - Height - - Body Mass Index - - documented in this encounter Discharge Instructions * Discharge Instructions* LONG Dickson - 10/11/2024 6:26 PM EST You are seen in the ER for evaluation of a fall resulting in a injury to your lower back. X-ray imaging did not show any fracture to your lumbar spine or pelvis. Please continue to use your previously prescribed muscle relaxers and pain medication. Please call to arrange a follow-up appointment with your previously seen pain management provider for reevaluation. Please return to the ER for any discussed or worsening symptoms. * Attachments The following attachments cannot be sent through Care Everywhere. * Back Pain (Korean) documented in this encounter Medications at Time of Discharge ascorbic acid (VITAMIN C) 1,000 mg tablet Take 1 tablet (1,000 mg total) by mouth 1 (one) time each day. atenoloL (TENORMIN) 25 mg tabletIndications :Encounter to establish care with new doctor TAKE 1 TABLET BY MOUTH ONCE DAILY 90 tablet 01/31/2024 cholecalciferol (VITAMIN D-3) 50 mcg (2,000 unit) tablet Take 1 tablet (2,000 Units total) by mouth 1 (one) time each day. 90 tablet 03/08/2022 gabapentin (NEURONTIN) 300 mg capsule Take 1 capsule (300 mg total) by mouth 3 (three) times a day. 12/09/2022 valsartan-hydroCH LOROthiazide (DIOVAN-HCT) 320-25 mg per tablet TAKE 1 TABLET BY MOUTH DAILY 90 tablet 01/31/2024 documented as of this encounter Discharge Disposition Disposition Code Departure Means Destination Comment s Home or Self Care documented in this encounter Progress Notes * LONG Kowalski - 10/11/2024 3:58 PM EST The patient Maylin Coppola is a 49 y.o. female who presents with R sided lumbar back pain since falling on the ice yesterday. Has a couple herniated discs . Is on baby ASA. Deies other injury, LE numbness/weakness, incontinence. ED Triage Vitals Temp Pulse Resp BP -- -- -- -- SpO2 Temp src Heart Rate Source Patient Position -- -- -- -- BP Location FiO2 (%) -- -- Physical Exam: No midline lumbar spine TTP, R paralumabr TTP. BLE strength and sensation intact. Medical Decision Making: x-ray, analgesia A brief triage medical screening exam was performed by Stefani suazo PA . Initial orders including diagnostics implemented. Patient to be fully evaluated, treated, and disposition arranged by Provider on duty. Orders placedby LONG Kowalski that result in a positive finding or have an abnormal test result will be the sole responsibility of the provider that assumes final care over this patient. * LONG Dickson - 10/11/2024 3:15 PM EST Chief Complaint Patient presents with Back Pain Pt present ambulatory for evaluation of right lower back pain. Pt sts she fell on the ice yesterdayand pain has been there. Does have pmhx of disk herniation. Pain is non radiating. HISTORY OF PRESENT ILLNESS: Maylin Coppola is a 49 y.o. female, with PMHx of chronic back pain for which she is followed by pain management at [facility], presenting to the ER for evaluation of a fall resulting in low back pain. She reports that yesterday she slipped and fell backwards on the snow and ice and injured her lower back. Since then she has had worsening of her chronic back pain. She denies any blood thinner use, head strike, neck pain, upper back pain, saddle anesthesia, pain radiation to her legs, urine or bowel incontinence or retention, inability to ambulate. Asides from herback pain, no other injuries from the fall. PMD: Staci Rice NP REVIEW OF SYSTEMS: All other systems reviewed including constitutional, integumentary, HEENT, cardiovascular, respiratory, gastrointestinal, genitourinary, musculoskeletal, neurologic, hematologic/lymphatic, allergic/immunologic, endocrine, psychiatric, and are negative unless indicated in the HPI. Past Medical History: Diagnosis Date Anxiety Disease of thyroid gland Endometriosis Hypertension Past Surgical History: Procedure Laterality Date APPENDECTOMY LEFT OOPHORECTOMY Left 2006 Social History Tobacco Use Smoking status: Former Current packs/day: 0.00 Types: Cigarettes Quit date: 2014 Years since quittin.0 Smokeless tobacco: Never Tobacco comments: Quit 2014 Vaping Use Vaping status: Never Used Substance Use Topics Alcohol use: Not Currently Drug use: Not Currently Types: Marijuana/Cannabis Comment: uses marijuana tinture for sleep Family History Problem Relation Name Age of Onset Stroke Mother Hypertension Mother Atrial fibrillation Father Hypertension Sister No Known Problems Sister Current Outpatient Medications Medication Instructions ascorbic acid (VITAMIN C) 1,000 mg, oral, Daily atenoloL (TENORMIN) 25 mg tablet TAKE 1 TABLET BY MOUTH ONCE DAILY cholecalciferol (VITAMIN D-3) 2,000 Units, oral, Daily gabapentin (NEURONTIN) 300 mg, oral, 3 times daily valsartan-hydroCHLOROthiazide (DIOVAN-HCT) 320-25 mg per tablet TAKE 1 TABLET BY MOUTH DAILY Allergies Allergen Reactions Levofloxacin Anaphylaxis, Palpitations and Rash Other reaction(s): Irregular Heart Rate Ibuprofen Palpitations, Rash and Dizziness Ketorolac Hives and Rash Hydrocodone Rash ED Triage Vitals [10/11/24 1600] Temp Heart Rate Resp BP 36.3 ??C (97.4 ??F) 91 16 (!) 147/75 SpO2 Temp Source Heart Rate Source Patient Position 100 % Temporal Monitor -- BP Location FiO2 (%) -- -- PHYSICAL EXAMINATION: GENERALIZED APPEARANCE: Patient is a middle-aged female who is laying on the stretcher and is in no apparent distress. VITAL SIGNS: Reviewed by me SKIN: Warm, dry. (-) cyanosis, (-) rash HEAD: (+) normocephalic, (+) atraumatic, (-) scalp swelling, (-) tenderness EYES: (-) conjunctival pallor, (-) scleral icterus ENMT: Mucous membranes moist. Oropharynx clear, (-) erythema; airway patent. (-) stridor NECK: Supple, (-) tenderness CHEST AND RESPIRATORY: Lungs are clear to auscultation bilaterally. (-) chest wall tenderness. HEART AND CARDIOVASCULAR: Regular rate and rhythm. ABDOMEN AND GI: Soft, Non-distended. (-) tenderness. (-) guarding, rebound, or rigidity. (-) palpable masses appreciated. (-) CVA tenderness MUSCULOSKELETAL/EXTREMITIES: (-) deformities, (+) normal capillary refill intact. Distal pulses 2+,equal bilaterally. BACK: (-) (+) diffuse lumbar spine tenderness NEURO AND PSYCH: A&O x 4. Strength is 5/5 in all 4 extremities, equal throughout. Sensation is grossly intact. The diagnostic results contained in this document reflect the information available to the physician at the time of the patient encounter. Final results, when completed, will be found in the patient's [facility] medical chart. DIAGNOSTICS: Laboratory results: Labs Reviewed - No data to display Radiology results: XR Lumbar Spine 2-3 Views Final Result Impression: No compression fracture or subluxation of the lumbar spine. No discrete fracture or dislocation within the pelvic osseous structures. Mild degenerative changes of the lumbar spine without significant listhesis or scoliosis. Mild lower lumbar facet arthropathy. Mild degenerative change of the bilateral sacroiliac joints. Intact soft tissues of the pelvis and lumbar spine. -------- FINAL REPORT -------- Dictated By: Juju Weber Dictated Date: 10/11/2024 17:36 Assigned Physician: Juju Weber Reviewed and Electronically Signed By: Juju Weber Signed Date: 10/11/2024 17:40 Workstation ID: [id number] Transcribed By: Self Edit Transcribed Date: 10/11/2024 17:36 XR Pelvis 1-2 Views Final Result Impression: No compression fracture or subluxation of the lumbar spine. No discrete fracture or dislocation within the pelvic osseous structures. Mild degenerative changes of the lumbar spine without significant listhesis or scoliosis. Mild lower lumbar facet arthropathy. Mild degenerative change of the bilateral sacroiliac joints. Intact soft tissues of the pelvis and lumbar spine. -------- FINAL REPORT -------- Dictated By: Juju Weber Dictated Date: 10/11/2024 17:36 Assigned Physician: Juju Weber Reviewed and Electronically Signed By: Juju Weber Signed Date: 10/11/2024 17:40 Workstation ID: [id number] Transcribed By: Self Edit Transcribed Date: 10/11/2024 17:36 Pulse ox: 100% on RA, indicating adequate oxygenation. EMERGENCY DEPARTMENT COURSE AND TREATMENT: Initial examination and assessment performed. Decision made to obtain prior medical records. Prior medical records reviewed by me. Contributory information noted. Medical Decision Making: Maylin Coppola is a 49 y.o. female with PMHx of chronic back pain for which she is followed by pain management at [facility], presenting to the ER for evaluation of a fall resulting in worsening of her lower back pain. Fall was purely mechanical in nature and she did not sustain any other injuries, head strike, loss conscious, neck pain and she is without any back pain red flags and has been seen ambulating. Prior to my evaluation patient was seen and evaluated by a provider triage to initiate appropriate x-ray imaging of her L-spine and pelvis which returned negative for any acute findings which showed chronic degenerative findings. All results were relayed to the patient whom is request ing a bridge prescription for her opiate pain medication stating that she cannot get a hold of her pain management provider at [facility]. Made patient aware that she received a 30-day supply of her oxycodone on 09/13/2024 and that she will not be receiving a refill of this today and that she must follow-up with her pain management provider. Will provide her with a one-time dose while here in e ED. Patient ready has prescription for muscle relaxers at home. Patient otherwise stable for discharge at this time with instructions to follow-up with her pain management provider at [facility]. Sheverbalized understanding of the conditions to return to ED and she will follow-up as discussed. Of note, during discharge process when patient was receiving her oral pain med from GALA Mcadams,patient then told the DISTRIBUTION ESTIMATOR that this provider would send her with a paper prescription for opiate pain medication. This conversation never happened and this provider made no such promises to the patient or spouse. Patient's condition remained stable during Emergency Department evaluation. Clinical Impressions as of 10/11/24 1842 Low back pain without sciatica, unspecified back pain laterality, unspecified chronicity Drug-seeking behavior PLAN AND FOLLOW-UP: The results and limitations of this evaluation including the need for possible further care, treatment, and testing were discussed. Follow-up as instructed WITHOUT FAIL, or if unable to do so return to the emergency department. These instructions were given to the patient who was given the opportunity to ask questions and verbalized understanding. ED Prescriptions None PHYSICIAN NOTE The PIO, Benito Craig PA-C, conducted the evaluation, management, and treatment of this patient. I was the Supervising Physician. I was available for real time consultation, as needed by the PIO. Benito Craig PA-C [facility] Emergency Department 10/11/24 6:32 PM EST LONG Dickson 10/11/241834 LONG Dickson 10/11/241844 Cosigned by Nav Lopez MD at 10/12/2024 1:32 AM EST documented in this encounter Plan of Treatment Not on file documented as of this encounter Procedures Procedure Name Priority Date/Time Associated Diagnosis Comments XR PELVIS 1-2 VIEWS STAT 10/11/2024 5 :34 PM EST XR LUMBAR SPINE 2-3 VIEWS STAT 10/11/2024 5:34 PM EST documented in this encounter Results * XR Pelvis 1-2 Views (10/11/2024 5:34 PM EST) Anatomical Region Laterality Modality Body, Pelvis Radiographic Arlin ging 10/11/2024 5:36 PM EST Impressions 10/11/2024 5:40 PM EST Impression: No compression fracture or subluxation of the lumbar spine. No discrete fracture or dislocation within the pelvic osseous structures. Mild degenerative changes of the lumbar spine without significant listhesis or scoliosis. ??Mild lower lumbar facet arthropathy. Mild degenerative change of the bilateral sacroiliac joints. Intact soft tissues of the pelvis and lumbar spine. -------- FINAL REPORT -------- Dictated By: Juju Weber Dictated Date: 10/11/2024 17:36 Assigned Physician: Juju Weber Reviewed and Electronically Signed By: Juju Weber Signed Date: 10/11/2024 17:40 Workstation ID: [id number] Transcribed By: Self Edit Transcribed Date: 10/11/2024 17:36 Narrative 10/11/2024 5:40 PM EST Comparison: None. Procedure Note Juju Weber MD - 10/11/2024 Comparison: None. IMPRESSION: Impression: No compression fracture or subluxation of the lumbar spine. No discrete fracture or dislocation within the pelvic osseousstructures. Mild degenerative changes of the lumbar spine without significantlisthesis or scoliosis. Mild lower lumbar facet arthropathy. Mild degenerative change of the bilateral sacroiliac joints. Intact soft tissues of the pelvis and lumbar spine. -------- FINAL REPORT -------- Dictated By: Juju Weber Dictated Date: 10/11/2024 17:36 Assigned Physician: Juju Weber Reviewed and Electronically Signed By: Juju Weber Signed Date: 10/11/2024 17:40 Workstation ID: [id number] Transcribed By: Self Edit Transcribed Date: 10/11/2024 17:36 Stefani ALVES IMG XR PROCEDURES Final Resu lt * XR Lumbar Spine 2-3 Views (10/11/2024 5:34 PM EST) Anatomical Region Laterality Modality Spine, L-spine Radiographic Arlin ging 10/11/2024 5:36 PM EST Impressions 10/11/2024 5:40 PM EST Impression: No compression fracture or subluxation of the lumbar spine. No discrete fracture or dislocation within the pelvic osseous structures. Mild degenerative changes of the lumbar spine without significant listhesis or scoliosis. ??Mild lower lumbar facet arthropathy. Mild degenerative change of the bilateral sacroiliac joints. Intact soft tissues of the pelvis and lumbar spine. -------- FINAL REPORT -------- Dictated By: Juju Weber Dictated Date: 10/11/2024 17:36 Assigned Physician: uJju Weber Reviewed and Electronically Signed By: Juju Weber Signed Date: 10/11/2024 17:40 Workstation ID: [id number] Transcribed By: Self Edit Transcribed Date: 10/11/2024 17:36 Narrative 10/11/2024 5:40 PM EST Comparison: None. Procedure Note Juju Weber MD - 10/11/2024 Comparison: None. IMPRESSION: Impression: No compression fracture or subluxation of the lumbar spine. No discrete fracture or dislocation within the pelvic osseousstructures. Mild degenerative changes of the lumbar spine without significantlisthesis or scoliosis. Mild lower lumbar facet arthropathy. Mild degenerative change of the bilateral sacroiliac joints. Intact soft tissues of the pelvis and lumbar spine. -------- FINAL REPORT -------- Dictated By: Juju Weber Dictated Date: 10/11/2024 17:36 Assigned Physician: Juju Weber Reviewed and Electronically Signed By: Juju Weber Signed Date: 10/11/2024 17:40 Workstation ID: [id number] Transcribed By: Self Edit Transcribed Date: 10/11/2024 17:36 Stefani ALVES IMG XR PROCEDURES Final Resu lt documented in this encounter Visit Diagnoses Diagnosis Low back pain without sciatica, unspecified back pain laterality, unspecified chronicity- Primary Drug-seeking behavior Other, mixed, or unspecified nondependent drug abuse, unspecified documented in this encounter Administered Medications Inactive Administered Medications - up to 3 most recent administrations Medication Order MAR Action Action Date Dose Rate Site cyclobenzaprine (FLEXERIL) tablet 10 mg 10 mg, oral, Once, On 10/11/24 at 1603, For 1 dose Given 10/11/2024 5:03 PM EST 10 mg lidocaine 4 % patch 1 patch 1 patch, Topical, Administer over 12 Hours, Once, On 10/11/24 at 1603, For 1 dose, Apply to R posterior hip Patch Applied 10/11/2024 5:04 PM EST 1 patch Other oxyCODONE (ROXICODONE) immediate release tablet 5 mg 5 mg, oral, Once, On 10/11/24 at 1825, For 1 dose Given 10/11/2024 6:37 PM EST 5 mg documented in this encounter Active and Recently Administered Medications Times are shown in EST. Scheduled Medication Order 10/09/2024 10/10/2024 10/11/2024 cyclobenzaprine (FLEXERIL) tablet 10 mg (COMPLETED) 10 mg, oral, Once, On 10/11/24 at 1603, For 1 dose 1703 (Given - Provid er: Melany Segura LPN) lidocaine 4 % patch 1 patch 1 patch, Topical, Administer over 12 Hours, Once, On 10/11/24 at 1603, For 1 dose, Apply to R posterior hip 1704 (Patch Applied - Provider: Melany Segura LPN - Comment: R Hip)1910 (Due: Patch Removed - Provider: Automatic Discharge Provider - Comment: Time automatically adjusted from order being discontinued) oxyCODONE (ROXICODONE) immediate release tablet 5 mg (COMPLETED) 5 mg, oral, Once, On 10/11/24 at 1825, For 1 dose 1837 (Given - Provid er: Yandy Mcadams LPN) documented in this encounter Additional Health Concerns Assessment Noted Time PHQ-9 Depression Total Score: 4 07/01/20 10:28 AM EDT A fall risk assessment has been complete d for the patient 10/01/2023 10:36 AM EST documented as of this encounter Care Teams Body Coverer Relationship Specialty Start Date End Date Staci Rice NP [address] [place] [address] PCP - General Internal Medicine 07/16/24 Edmund Cartagena Consulting Physician Pain Medicine 10/05/23 documented as of this encounter
--- OUTSIDE RECORDS SUMMARY | 2024-11-09 18:45 | XMS_ITS | Encounter Summary ---
Author Organization [facility] Address [address] [place] [address] Phone Care Team Providers Care B2B Appointment Setter Name Role Phone MatytrixieEmily- Primary Care Provider [phone] Sweetie Peters Primary Care Provider [phone] Fouzia Blank MD Primary Care Provider [phone] Encounter Details Date Type Department Care Team (Late st Contact Info) Description 06/22/2024 External Contact EXTERNAL LOCATION [address] [place] [phone] Lisandro, Arelis Provider Social History Tobacco Use Types Packs/Day Years Used Date Smoking Tobacco: Never Assessed Sex and Gender Information Value Date Recorded Sex Assigned at Not on file Gender Identity Not on file Sexual Orientation Not on file documented as of this encounter Miscellaneous Notes * External Discharge Summary - Default Provider Lisandro - 06/22/2024 1:58 PM EDT Powered by [id number] Patient: AMYLIN COPPOLA Age: 48 years Sex: FEMALE : 1975 Author: KERRY SOFIA Attachments: None Free Text Patient briefly evaluated in triage 48-year-old female patient Andrea presenting with complaints of persistent dental pain, stating she ran out of pain medications and does not yet have a dentist. Was seen for the same yesterday. Brief physical exam: Nontoxic in appearance, ambulates into triage without difficulty or apparent discomfort. Normal work of breathing with equal chest rise. Visualized extremities are well-perfused,skin is warm and dry. No gross neurologic deficits Triaged to the main ED documented in this encounter Plan of Treatment Upcoming Encounters Date Type Department Care Team (Late st Contact Info) Description 11/18/2024 11:00 AM EDT Office Visit [facility] [address] [facility] [place] [phone] Jane Gao MD [address] [place] [address] documented as of this encounter Visit Diagnoses Not on filedocumented in this encounter Care Teams B2B Appointment Setter Relationship Specialty Start Date End Date Emily Diop, BIOMETRIC TECHNICIAN- PCP - General 08/01/22 07/11/24 Sweetie Peters PA PCP - General 07/12/24 07/15/24 Fouzia Blank MD [address] [place] [id number] PCP - General 07/16/24 documented as of this encounter
--- OUTSIDE RECORDS SUMMARY | 2024-11-09 18:45 | XMS_ITS | Clinical Summary ---
Author Organization [facility] Address [address] [place] [address] Phone Care Team Providers Care Senior Gis Analyst Name Role Phone Dwayne Staci KENNEDY Primary Care Provider [phone] Allergies Active Allergy Reactions Criticality Noted Date Comments Hydrocodone Rash Low 06/29/2024 Ibuprofen Palpitations,Rash,Di zzin ess Medium 07/12/2022 Ketorolac Hives,Rash Medium 07/12/2022 Levofloxacin Anaphylaxis,Palpitat ions ,Rash High 03/05/2008 Other reaction(s): Irregular Heart Rate Medications ascorbic acid (VITAMIN C) 1,000 mg tablet Take 1 tablet (1,000 mg total) by mouth 1 (one) time each day. Active cholecalciferol (VITAMIN D-3) 50 mcg (2,000 unit) tablet Take 1 tablet (2,000 Units total) by mouth 1 (one) time each day. 90 tablet 03/08/2022 Active valsartan-hydro CHLOROthiazide (DIOVAN-HCT) 320-25 mg per tablet TAKE 1 TABLET BY MOUTH DAILY 90 tablet 01/31/2024 Active atenoloL (TENORMIN) 25 mg tabletIndicatio ns:Encounter to establish care with new doctor TAKE 1 TABLET BY MOUTH ONCE DAILY 90 tablet 01/31/2024 Active gabapentin (NEURONTIN) 300 mg capsule Take 1 capsule (300 mg total) by mouth 3 (three) times a day. 12/09/2022 Active Active Problems Problem Noted Date Diagnosed Date Encounter to establish care 07/16/2024 Assessment & Plan (07/16/2024 1:46 PM EST): Multiple joint pain 07/01/2024 Assessment & Plan (07/16/2024 1:46 PM EST): Orders: Ambulatory referral to Rheumatology; Future Anaplasma phagocytophilum and ehrlichia chaffeensis antibody, IGG and IGM; Future Borrelia burgdorferi antibodies IgG and IgM, western blot; Future Assessment & Plan (07/01/2024 12:08 PM EDT): Patient appears to have fibromyalgia but we will rule out inflammatory disorders Immunization due 07/01/2024 Assessment & Plan (07/01/2024 12:09 PM EDT): Patient has declined influenza vaccine, COVID-19 vaccine, Adacel and hepatitis B vaccination Encounter for screening mamm ogram for malignant neoplasm of breast 07/01/2024 Assessment & Plan (07/01/2024 12:09 PM EDT): Patient is average risk. Mammogram was ordered Cervical cancer screening 07/01/2024 Assessment & Plan (07/01/2024 12:09 PM EDT): Patient was referred to [facility] gynecology Annual physical exam 07/01/2024 Assessment & Plan (07/01/2024 12:06 PM EDT): Patient will do regular aerobic exercise, low-fat and low carbohydrate diet and seatbelt use Chronic pain syndrome 07/01/2024 Assessment & Plan (07/01/2024 12:07 PM EDT): History and physical exam is highly suggestive of fibromyalgia. There is no significant arthritis in neck, shoulder and knee joints. Opioids are not indicated for chronic pain syndrome. Patient will continue with gabapentin 300 mg 3 times a day. She refuses to take duloxetine. She is not compliant with gabapentin Prediabetes 07/12/2022 Assessment & Plan (07/01/2024 12:08 PM EDT): Patient is known to have prediabetes. She will be eating low carbohydrate diet and daily exercise Assessment & Plan (07/12/2022 12:44 PM EDT): Patient? s last 3 A1C results are Lab Results Component Value Date HGBA1C 5.7 (H) 07/11/2022 Medication adjustment?: Diet modifications only at this time. Recommendations are as follows: Importance of a proper low carb diet was emphasized such as staying away from bread, pasta, potatoes, rice, corn, sweetened drinks, and baked goods. Patient also advised to increase exercise as tolerated and discussed the benefits of keeping BMI in the normal range. Hyperthyroidism 07/12/2022 Assessment & Plan (07/01/2024 12:09 PM EDT): Follows with [place] [facility]. She is not on methimazole anymore Assessment & Plan (10/24/2022 6:30 AM EST): Patient has a low TSH and normal T4, I explained to her this is borderline. She is extremely symptomatic and states she is anxious, having insomnia, etc. States she has been dealing with her thyroid for many years. Last visit she was started on a low-dose of Tapazole for the interim to see how this helps with her symptomatology, she hadnt started it d/t fear of alopecia, she would like 2nd opinion for her treatment, new endo referral was placed for her. Assessment & Plan (07/12/2022 12:44 PM EDT): Patient has a low TSH and normal T4, I explained to her this is borderline. She is extremely symptomatic and states she is anxious, having insomnia, etc. States she has been dealing with her thyroid for many years. She does have an granulizing machine operator that she is going to follow-up with. We will trial starting her on a low-dose of Tapazole for the interim to see how this helps with her symptomatology. However, she was made abundantly clear that the granulizing machine operator will very likely change her therapy. Atypical pigmented lesion 07/12/2022 Assessment & Plan (07/12/2022 12:44 PM EDT): Referral to Derm. Thyroid nodule 06/09/2022 Assessment & Plan (07/01/2024 12:07 PM EDT): Patient apparently follows with [place] [facility] and she will need to go for needle biopsy. She do not remember her granulizing machine operator. We will try to get records. Assessment & Plan (10/24/2022 6:29 AM EST): She needs a new thyroid u/s, order was placed. Assessment & Plan (07/12/2022 12:44 PM EDT): Patient is here granulizing machine operator to follow-up on this. Assessment & Plan (06/09/2022 12:59 PM EDT): I have no records of this thyroid nodule but she will need evaluation with an ultrasound in the near future. Breast nodule 06/09/2022 Overview (07/01/2024): BIOPsY neg Assessment & Plan (07/01/2024 12:10 PM EDT): Patient apparently had breast biopsy which was negative and she do not feel the nodule anymore. Vitamin D deficiency 06/09/2022 Assessment & Plan (07/12/2022 12:43 PM EDT): Patient? s vitamin D is low and patient advised to take __4000___ iu of vitamin D supplementation to assist in repletion for 6 months, they are then to switch over to 2000 iu of vitamin D per day, that script was placed. Will recheck labs again. Assessment & Plan (06/09/2022 12:58 PM EDT): I will check her levels. Class 2 severe obesity due t o excess calories with serious comorbidity and body mass index (BMI) of 36.0 to 36.9 in adult 06/09/2022 Assessment & Plan (07/16/2024 1:46 PM EST): Opioid use 04/21/2022 Assessment & Plan (07/01/2024 12:08 PM EDT): Opioids are not indicated for chronic pain anymore.. Assessment & Plan (10/24/2022 6:37 AM EST): See anxiety tab. Assessment & Plan (06/09/2022 1:03 PM EDT): See arthritis section. Assessment & Plan (05/02/2022 3:14 PM EDT): Opioid contract signed today. Last dose of oxycodone was approx 20 hours ago. Urine toxicology completed today. Addendum: urine sample was not sent out for toxicology. Patient was given 7 days of opioid medication, enough to get her to her next PCP apt. Endometriosis 03/08/2022 Assessment & Plan (07/01/2024 12:09 PM EDT): Patient was referred to [facility] gynecology Assessment & Plan (07/12/2022 12:46 PM EDT): Referral to OB. Assessment & Plan (06/09/2022 1:03 PM EDT): Referral to gynecology for further evaluation and management. Assessment & Plan (05/02/2022 3:15 PM EDT): Endometriosis should be managed by OBGYN. Patient states she is in need of one at this time. Referral placed. Assessment & Plan (03/08/2022 6:15 PM EDT): Opioid use BID due to such. We did not discuss this in the office today, since most of the conversation was about Valium. I will discuss inappropriate use of chronic opioid use at the next office apt. In the future, will begin tapering down. Unsure if she follows with OBGYN. Anxiety 03/08/2022 Assessment & Plan (07/01/2024 12:10 PM EDT): Patient has scored 4 on PHQ-9 and 15 and ALBA-7. She refuses to take SSRI medications including duloxetine. No suicidal ideations Assessment & Plan (10/24/2022 10:05 AM EST): Emphasized that her hyperthyroidism is what is causing the exacerbation of her anxiety and her valium is just a bandaid on it. She was requesting more, I advised her that I am not willing to go up but I could refer her to psychiatry, she was in agreement with that. Originally I said I would cover her valium for 3 months until she was able to establish with [facility] and have an evaluation. However, we performed a customary UDS- she told me she took her oxycodone last the day prior, 10/19/22 in the afternoon and her valium was 6 days prior on a Sunday d/t running out. Her uds results below, there are no opioids in her system, she is prescribed 90 tabs a month from her pain medicine provider. Given the fact that her last reported time of taking the medication and it not being produced in her urine, I ethically do not feel comfortable to continue to prescribe her valium anymore. I was advised by my collaborating MD, Dr. Giles, to alert her pain management provider of these results, which I did do. She was on a low dose, 38 a month since July 2022 and has been out of them for the past week, so very low risk for any adverse outcomes for abrupt discontinuation. She last picked up her script in 09/26/22 and ran out by 10/14/22 per her report. Pain Management Panel Pain Management Panel Latest Ref Rng & Units 10/20/2022 AMPHETAMINE SCRN UR Negative <1000 ng/mL Negative BARBITURATE SCRN UR Negative <200 ng/mL Negative BENZODIAZEPINE SCRN UR Negative <200 ng/mL Positive(A) COCAINE SCREEN, URINE Negative <300 ng/mL Negative METHADONE SCREEN, URINE Negative <300 ng/mL Negative OPIATE SCRN UR Negative <300 ng/mL Negative PCP SCRN UR Negative <25 ng/mL Negative CANNABINOID PRESENCE Negative <50 ng/mL Positive(A) Assessment & Plan (07/12/2022 12:45 PM EDT): Explained to patient that she cannot stay on benzodiazepines for the rest of her life due to the risk of dementia and how they are not a good medication to control her anxiety. Patient agreed to start Celexa daily. Continue to quickly titrate her off the high doses of benzodiazepines. We discussed in depth how it takes 3 to 4 weeks to titrate to euthymic levels in their brain. Patient will measure today is 0% and I will ask them at their next visit how much better they are feeling. Treatment with SSRI discussed with patient including the potential side effects of drowsiness, dizziness, jitteriness, nightmares, mood changes, suicidal ideation and/or allergic reaction. If the patient is to experience any of these side effect or allergic reaction then they are to call me during office hours or report to Urgent Care. Assessment & Plan (06/09/2022 1:01 PM EDT): Patient is taking Valium twice daily, she last had a dispensed on 05/19/2022. She saw another provider that is out of her health system and a separate provider name than the one she got the oxycodone from. I am unsure who this provider is. I would not prescribing these long-term as they are not appropriate controllers. The lead to increased dementia and a controller medication would need to be considered. Patient was prescribed a medication that is in the class called benzodiazepine (benzos). They work by triggering a tranquilizing chemical in the brain (LISETH inhibition.) Side effects include but are not limited to: dizziness, drowsiness, poor co-ordination and feelings of depression. Driving or operating machinery or performing other hazardous asks can be dangerous while using these drugs. Drinking alcohol in combination with benzos may heighten these effects and should not be done. Psychological and or physical dependence may occur with prolonged use (>10 days). Do not stop treatment abruptly if there is prolong use. Slow taper to discontinuation. Most recent research is focusing on the possible adverse effects on cognition (thinking and reasoning ability) in patients using benzos for long periods of time. Therefore again short duration of medication is recommended. Assessment & Plan (03/08/2022 6:13 PM EDT): Patient was previously medicated with Valium 5 mg BID. Last dispense of such was 01/13/2022. She is out of the withdrawal period and I will no longer be prescribing this for her. Did review the literature which showed increased risk of central nervous system disturbances including oversedation, dizziness, impaired coordination, cognitive dysfunction , potential dementia, falls, balance issues with chronic use of benzodiazepines. This is especially severe in older patients. These adverse effects may lead to falls, fractures, and other accidents, particularly when used in combination with opioids. These medications also have a likelihood for addiction, which I have concerns for at this time. Safe, effective ways to manage anxiety reviewed with the patient: including SSRIs, SNRIs, other off-label medication options for such. She declines other medication options. I have given her information for [facility] and have encouraged her to follow up with Psychiatry. Resolved Problems Problem Noted Date Diagnosed Date Resolved Date Elevated BP without diagnosis of hypertension 07/12/2007/12/2022 Hematuria 07/12/2022 07/01/2024 Assessment & Plan (07/12/2022 12:46 PM EDT): Likely secondary to her endometriosis, referral to OB. Arthritis 06/09/2022 07/01/2024 Assessment & Plan (07/12/2022 12:46 PM EDT): Patient is seeing pain management, per I stop they are giving her 90 tablets of oxycodone a month. Assessment & Plan (06/09/2022 1:03 PM EDT): She is taking twice daily dosing of oxycodone, her last dispense was 06/06/2022 rom a provider that I am unsure where they are located because they were out of our health system. This is not something I will be prescribing long-term as it is not a a medication that is meant to be utilized long-term. I will refer her to pain management if she is interested in next visit. I will titrate her down to avoid risk of withdrawal. Hypertension 03/08/2022 07/12/2022 Assessment & Plan (06/09/2022 12:55 PM EDT): BP Readings from Last 3 Encounters: 06/09/22 124/80 04/27/22 122/86 04/21/22 118/72 Blood pressure is well controlled with current medication. Med changes today : none needed The patient is not experiencing any chest pain or pressure. No orthopnea or paroxysmal nocturnal dyspnea. No edema. No palpitations or syncope. No focal neurologic deficit. No severe headaches or acute visual changes. The patient is aware of the need to avoid added salt. The patient is aware of the importance of weight reduction with exercise. Assessment & Plan (03/08/2022 6:10 PM EDT): Currently taking Valsartan-HCTZ 320-25 mg daily and atenolol 25 mg daily. BP controlled in the office today. Insomnia 03/08/2022 07/01/2024 Assessment & Plan (05/02/2022 3:14 PM EDT): Trazodone prescription sent to the pharmacy for her. Assessment & Plan (03/08/2022 6:14 PM EDT): I will send in 30 tablets of Trazodone for her to help with sleep. Of course, diet and exercise should be exhausted in addition to medication options. Patient encouraged to increase exercise to a goal of 150 minutes of moderate-intensity exercise per week. Hx of thyroid nodule 03/08/2022 023 Assessment & Plan (04/21/2022 3:40 PM EDT): She has seen Endocrinology. I do not have the records. She was again encouraged to have records faxed over to our office. Assessment & Plan (03/08/2022 6:17 PM EDT): Patient reports this history. States she is working with someone to establish with [employer]. She refuses blood work in our office today. She was asked to send office notes to our office. She is apparently working with provider in [place], which is also concerning for medication duplicates. Encounters Date Type Department Care Team Description 10/11/2024 5:47 PM EST - 10/11/2024 7:10 PM EST Emergency [facility] Emergency [facility] [place] [address] Nav Lopez MD Low back pain without sciatica, unspecified back pain laterality, unspecified chronicity (Primary Dx); Drug-seeking behavior Discharge Disposition: Home or Self Care from Last 3 Months Surgical History Surgery Date Site/Laterality Comments APPENDECTOMY LEFT OOPHORECTOMY 09/10/2006 - 09/09/2007 Left Medical History Medical History Date Comments Anxiety Hypertension Endometriosis Disease of thyroid gland Family History Medical History Relation Name Comments Atrial fibrillation Father Hypertension Mother Stroke Mother Hypertension Sister 1 No Known Problems Sister 2 Relation Name Status Comments Father Alive Mother Alive Sister 1 Alive Sister 2 Alive Social History Tobacco Use Types Packs/Day Years Used Date Smoking Tobacco: Former Cigarettes Q uit: 2014 Smokeless Tobacco: Never Comments:Quit 2014 Alcohol Use [...] money to get more. 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 Not on file Not on file Obstetrics History Para Term AB IAB SAB Ectopic Multiple Livin g Live Births 1 1 1 Date Outcome GA Total Labor Labor/2nd/3rd Weight Sex Type Anes PTL Shannon A1 A5 Name Clin Ectopic Last Filed Vital Signs Vital Sign Reading Time Taken Comments Blood Pressure 147/75 10/11/2024 4:00 PM EST Pulse 91 10/11/2024 4:00 PM EST Temperature 36.3 ??C (97.4 ??F) 10/11/2024 4:00 PM ES T Respiratory Rate 16 10/11/2024 4:00 PM EST Oxygen Saturation 100% 10/11/2024 4:00 PM EST Inhaled Oxygen Concentration - - Weight 113 kg (249 lb 12.8 oz) 07/16/2024 1:01 P M EST Height 170.2 cm (5' 7 ) 07/16/2024 1:01 PM EST Body Mass Index 39.12 07/16/2024 1:01 PM EST Plan of Treatment Health Maintenance Due Date Last Done Comments Breast Cancer Screening 1977 Hepatitis A Vaccines (1 of 2 - Risk 2-dose series) 1996 Hepatitis B Vaccines (1 of 3 - 19+ 3-dose series) 1996 Cervical Cancer Screening: Pap Smear 1998 Colorectal Cancer Screening: Colonoscopy 09/25/2019 Medicare Annual Wellness Visit 10/01/2024 10/01/2023, 07/12/2022 COVID-19 Vaccine (3 - season) 2025 05/12/2021, 04/08/2021 Postponed from 05/11/2024 (Patient Refused) DTaP,Tdap,and Td Vaccines (1 - Tdap) 07/01/2025 Postponed from 1996 (Patient Refused) Depression Screening 07/01/2025 07/01/2024 HIV Screening 07/01/2025 Postponed from 09/25/2019 (Patient Refused) Hypertension/CHF/CAD Annual BMP Blood Test 07/01/2025 07/01/2024, 07/01/2024, 10/01/2023, Additional history exists Influenza Vaccine (#1) 2025 Postp oned from 05/11/2024 (Patient Refused) Social Influencers of Health Screening 07/01/2025 07/01/2024, 07/12/2022 Cholesterol Screening (Lipid Panel) 07/01/2029 07/01/2024, 10/01/2023, 07/11/2022 Hepatitis C Screening Completed 07/01/2024 , 10/01/2023, 10/01/2023 HIB Vaccines Aged Out No longer eligi ble based on patient's age to complete this topic HPV Vaccines Aged Out No longer eligi ble based on patient's age to complete this topic IPV Vaccines Aged Out No longer eligi ble based on patient's age to complete this topic MMR Vaccines Aged Out No longer eligi ble based on patient's age to complete this topic Meningococcal ACWY Vaccine Aged Out N o longer eligible based on patient's age to complete this topic Meningococcal B Vacine Aged Out No lo nger eligible based on patient's age to complete this topic Pneumococcal Vaccine: Pediatrics (0 to 5 Years) and At-Risk Patients (6 to 64 Years) Aged Out No longer eligible based on patient's age to complete this topic RSV Immunization Patients Under 20 months Aged Out No longer eligible based on patient's age to complete this topic Varicella Vaccines Aged Out No longer eligible based on patient's age to complete this topic Procedures Procedure Name Priority Date/Time Associated Diagnosis Comments XR PELVIS 1-2 VIEWS STAT 10/11/2024 5 :34 PM EST XR LUMBAR SPINE 2-3 VIEWS STAT 10/11/2024 5:34 PM EST HEPATITIS C ANTIBODY WITH REFLEX TO MOLECULAR STUDY Routine 07/01/2024 11:40 AM EDT Multiple joint pain COMPREHENSIVE METABOLIC PANEL Routine 07/01/2024 11:40 AM EDT Multiple joint pain LIPID PANEL Routine 07/01/2024 11:40 AM EDT Class 2 severe obesity due to excess calories with serious comorbidity and body mass index (BMI) of 36.0 to 36.9 in adult (CMS/[facility]) from Last 3 Months or Most Recently Relevant to Health Maintenance Results * XR Pelvis 1-2 Views (10/11/2024 [...] Weber Signed Date: 10/11/2024 17:40 Workstation ID: [id number] Transcribed By: Self Edit Transcribed Date: 10/11/2024 [...] Weber Signed Date: 10/11/2024 17:40 Workstation ID: [id number] Transcribed By: Self Edit Transcribed Date: 10/11/2024 [...] Weber Signed Date: 10/11/2024 17:40 Workstation ID: [id number] Transcribed By: Self Edit Transcribed Date: 10/11/2024 [...] Weber Signed Date: 10/11/2024 17:40 Workstation ID: [id number] Transcribed By: Self Edit Transcribed Date: 10/11/2024 17:36 Stefani ALVES IMG XR PROCEDURES Final Resu lt * Hepatitis C antibody with reflex to molecular study (07/01/2024 11:40 AM EDT) Hepatitis C Antibody Negative/ Nonreacti ve Negative/ Nonreacti ve LAB CHEMISTRY METHOD 07/01/2024 6:15 PM EDT [facility] Blood Venous blood specimen / Unknown Venipuncture / Unknown 07/01/2024 11:40 AM EDT 07/01/2024 11:40 AM EDT Narrative [facility] - 07/01/2024 6:15 PM EDT 1. These results were obtained with Siemens analyzer, aHCV assay. Results obtained from other manufacturers' methods may not be used interchangeably. ?? August 2008. 2. POSITIVE / REACTIVE Reported to the [facility]. Quantitative HCV RNA by PCR will follow. 3. LOW POSITIVE/LOW REACTIVITY Confirmation by Quantitative HCV RNA by PCR will follow. 4. NEGATIVE / NONREACTIVE result is normal. 5. [facility] requires all positive results to include an ALT. This test will reflex. No charge. us Vinicio Siddiqi MD LAB BLOOD ORDERABLES Final Resul t Performing Organization Address City/[facility]/ZIP Co de Phone Number [facility] [address] [place] [address] * Lipid panel (07/01/2024 11:40 AM EDT) Cholesterol 178 <200 mg/dL LAB CHEMISTRY METHOD 07/01/2024 3:[address] [facility] Triglycerides 144 <150 mg/dL LAB CHEMISTRY METHOD 07/01/2024 3:[address] [facility] HDL 68 >59 mg/dL LAB CHEMISTRY METHOD 07/01[facility]2024 [facility] Comment: <35 mg/dl is the cut-point for increased Coronary Heart Disease (CHD) risk. LDL Calculated 81 0 - 99 mg/dL LAB CHEMISTRY METHOD 07/01/2024 3:[facility] PM [facility] VLDL Cholesterol Georgi 28.8 <=30 mg/dL LAB CHEMISTRY METHOD 07/01/2024 3:05 PM [facility] Blood Venous blood specimen / Unknown Venipuncture / Unknown 07/01/2024 11:40 AM EDT 07/01/2024 11:40 AM EDT us Vinicio Siddiqi MD LAB BLOOD ORDERABLES Final Resul t [facility] [address] [place] [address] * (ABNORMAL) Comprehensive metabolic panel (07/01/2024 11:40 AM EDT) Sodium 137 136 - 145 mmol/L LAB CHEMISTRY METHOD 07/01/2024 3:[address] [facility] Potassium 3.8 3.5 - 5.1 mmol/L LAB CHEMISTRY METHOD 07/01/2024 3:[address] [facility] Chloride 103 98 - 107 mmol/L LAB CHEMISTRY METHOD 07/01/2024 3:05 PM [facility] CO2 28 21 - 32 mmol/L LAB CHEMISTRY METHOD 07/01/2024 3:05 PM [facility] Anion Gap 6 3 - 11 LAB CHEMISTRY METHOD 07/01/2024 3:05 PM [facility] Glucose 123(H) 70 - 99 mg/dL LAB CHEMISTRY METHOD 07/01/2024 3:05 PM [facility] BUN 9 7 - 18 mg/dL LAB CHEMISTRY METHOD 07/01/2024 3:05 PM [facility] Creatinine 0.64 0.55 - 1.02 mg/dL LAB CHEMISTRY METHOD 07/01/2024 3:05 PM [facility] eGFR 111 >=60 mL/min/1. 73m2 LAB CHEMISTRY METHOD 07/01/2024 3:05 PM [facility] Comment: Please note that this estimated GFR value is not recommended for use in individuals under the age of 18, individuals with unstable creatinine concentrations (including and acute renal failure), or individuals with extremes of body mass or diet (including amputees, paraplegics and obese individuals). Calculation based on the??Chronic Kidney Disease Epidemiology Collaboration (CKD-EPI) equation refit??without adjustment for race. BUN/Creatinine Ratio 14.1 12.0 - 20.0 LAB CHEMISTRY METHOD 07/01/2024 3:05 PM [facility] Calcium 9.9 8.5 - 10.1 mg/dL LAB CHEMISTRY METHOD 07/01/2024 3:05 PM [facility] AST (SGOT) 9(L) 15 - 37 unit/L LAB CHEMISTRY METHOD 07/01/2024 3:05 PM [facility] ALT (SGPT) 19 13 - 56 unit/L LAB CHEMISTRY METHOD 07/01/2024 3:[address] [facility] Alkaline Phosphatase 75 42 - 98 unit/L LAB CHEMISTRY METHOD 07/01/2024 3:[address] [facility] Total Protein 7.3 6.4 - 8.2 g/dL LAB CHEMISTRY METHOD 07/01/2024 3:[address] [facility] Albumin 3.5 3.4 - 5.0 g/dL LAB CHEMISTRY METHOD 07/01/2024 3:[address] [facility] Total Bilirubin 0.6 0.2 - 1.0 mg/dL LAB CHEMISTRY METHOD 07/01/2024 3:[address] [facility] Blood Venous blood specimen / Unknown Venipuncture / Unknown 07/01/2024 11:40 AM EDT 07/01/2024 11:40 AM EDT Vinicio Siddiqi MD LAB BLOOD ORDERABLES Final Resul t [facility] [address] [place], [place] [id number] from Last 3 Months or Most Recently Relevant to Health Maintenance Insurance [employer] MEDICARE ADVANTAGE MEDICARE Care Teams Senior Gis Analyst Relationship Specialty Start Date End Date Staci Rice NP [address] [place] [address] PCP - General Internal Medicine 07/16/24 Edmund Cartagena Consulting Physician Pain Medicine 10/05/23
--- OUTSIDE RECORDS SUMMARY | 2024-11-09 18:45 | XMS_ITS | Clinical Summary ---
Author Organization [facility] Address [address] [place] [address] Phone Care Team Providers Care Kitchen Food Server Name Role Phone Fouzia Blank MD Primary Care Provider [phone] Allergies Active Allergy Reactions Criticality Noted Date Comments Ibuprofen Dizziness,Palpitatio ns,Rash Medium 07/12/2022 Pt states she gets Chest Pain Ketorolac Hives,Rash Medium 07/12/2022 Levofloxacin Palpitations,Rash,An aphylaxis High 03/05/2008 Other Reaction(s): Arrhythmia Other reaction(s): Irregular Heart Rate Ketorolac Tromethamine Rash Low 03/03/2024 Medications Medication Sig Dispensed Refills Start Date End Date Status traMADol (Ultram) 50 MG tablet Take 1 tablet (50 mg) by mouth every 6 (six) hours if needed for severe pain for up to 5 doses. 5 tablet 03/03/2024 Active oxyCODONE (Roxicodone) 5 MG immediate release tablet Take 1 tablet (5 mg) by mouth every 6 (six) hours if needed for severe pain. 10 tablet 07/12/2024 Active Social History Tobacco Use Types Packs/Day Years Used Date Smoking Tobacco: Never Smokeless Tobacco: Never Tobacco Cessation:Counseling Given: Not Answered Alcohol Use Standard Drinks/Week Comments Not Currently 0 (1 standard drink = 0.6 oz pur e alcohol) Sex and Gender Information Value Date Recorded Sex Assigned at Not on file Gender Identity Not on file Sexual Orientation Not on file Last Filed Vital Signs Vital Sign Reading Time Taken Comments Blood Pressure 110/59 07/12/2024 3:02 PM EDT Pulse 72 07/12/2024 3:02 PM EDT Temperature 36.8 ??C (98.2 ??F) 07/12/2024 12:01 PM E DT Respiratory Rate 18 07/12/2024 3:02 PM EDT Oxygen Saturation 97% 07/12/2024 3:02 PM EDT Inhaled Oxygen Concentration - - Weight 95.3 kg (210 lb) 07/12/2024 12:01 PM EDT Height 170.2 cm (5' 7 ) 07/12/2024 12:01 PM EDT Body Mass Index 32.89 07/12/2024 12:01 PM EDT Plan of Treatment Upcoming Encounters Date Type Department Care Team (Late st Contact Info) Description 11/18/2024 11:00 AM EDT Office Visit [facility] [address] [facility] [place] [address] Jane Gao MD [address] [place] [address] Health Maintenance Due Date Last Done Comments CT Colonography 1975 Cologuard 1975 Colonoscopy 1975 Colorectal Cancer Screening 1975 Creatinine Level 1977 FIT 1975 FOBT 1975 Lipid Panel 1975 Medicare Annual Wellness (AWV) 1975 Potassium Level 1977 Sigmoidoscopy 1977 MMR Vaccines (1 of 1 - Stand sarkis series) 1978 DTaP/Tdap/Td Vaccines (1 - Tdap) 1984 Hepatitis C Screening 1995 Hepatitis A Vaccines (1 of 2 - Risk 2-dose series) 1996 Hepatitis B Vaccines (1 of 3 - 19+ 3-dose series) 1996 Pap Smear 1998 Cervical Cancer Screening 2007 HPV/Cotest 2007 Mammogram 2017 Influenza Vaccine (#1) 2024 Zoster Vaccines (1 of 2) 2027 HIB Vaccines Aged Out No longer eligi ble based on patient's age to complete this topic HPV Vaccines Aged Out No longer eligi ble based on patient's age to complete this topic IPV Vaccines Aged Out No longer eligi ble based on patient's age to complete this topic Meningococcal Vaccine Aged Out No maximiliano rosie eligible based on patient's age to complete this topic Pneumococcal Vaccine: Pediat rics (0 to 5 Years) and At-Risk Patients (6 to 64 Years) Aged Out No longer eligible b ased on patient's age to complete this topic Rotavirus Vaccines Aged Out No longer eligible based on patient's age to complete this topic Care Teams Kitchen Food Server Relationship Specialty Start Date End Date Fouzia Blank MD [address] [place] [address] PCP - General 07/16/24
--- OUTSIDE RECORDS SUMMARY | 2024-11-09 18:45 | XMS_ITS ---
Author Organization [facility] Address [address] [place] [address] Care Team Providers Care Level Vial Setter Name Role Phone Fouzia Blank Primary Care Provider HERSON Laurent Unavailable [phone] Encounters Encounter Location Date Provider Diagnosis [facility] [address] [place] [phone] 07/24/2024 HERSON RODRIGUEZ Plan Of Treatment No Information Progress Notes * MONIKA JOHNSONDOB:1975 (49 yo F)Acc No.[id number]:07/24/2024 Patient:?JOHNSON, MONIKA :1975???Age:48 Y???Sex:Female [facility] [facility] [place], [address] * * Date:?
--- OUTSIDE RECORDS SUMMARY | 2024-11-09 18:45 | XMS_ITS | Encounter Summary ---
Author Organization [facility] Address [address] [place] [address] Phone Care Team Providers Care Pattern Carrier Name Role Phone Matytrixie Emily SCHROEDER- Primary Care Provider [phone] Sweetie Peters Primary Care Provider [phone] Fouzia Blank MD Primary Care Provider [phone] Encounter Details Date Type Department Care Team (Late st Contact Info) Description 05/01/2024 External Contact EXTERNAL LOCATION [address] [place] [phone] Lisandro, Default Provider Social History Tobacco Use Types Packs/Day Years Used Date Smoking Tobacco: Never Assessed Sex and Gender Information Value Date Recorded Sex Assigned at Not on file Gender Identity Not on file Sexual Orientation Not on file documented as of this encounter Miscellaneous Notes * External Discharge Summary - Default Provider Lisandro - 05/01/2024 3:12 PM EDT Powered by [id number] Patient: MAYLIN COPPOLA Age: 48 years Sex: FEMALE : 1975 Author: KERRY SOFIA Attachments: None Free Text Patient briefly evaluated in triage 48-year-old female patient presenting with complaints of a broken tooth in her left upper jaw. States his tooth was partially broken to begin with and she bit into and all of that was not pitted. Hasbeen taking Tylenol with no relief. Brief physical exam: Nontoxic in appearance, ambulates into triage without difficulty or apparent discomfort. Normal work of breathing with equal chest rise. Visualized extremities are well-perfused,skin is warm and dry. No gross neurologic deficits Patient reports chest pain with Toradol ibuprofen therefore we will forego this potential therapy, triaged to the main ED or disposition area for management documented in this encounter Plan of Treatment Upcoming Encounters Date Type Department Care Team (Late st Contact Info) Description 11/18/2024 11:00 AM EDT Office Visit [facility] [address] [facility] [place] [address] Jane Gao MD [address] [place] [address] documented as of this encounter Visit Diagnoses Not on filedocumented in this encounter Care Teams Pattern Carrier Relationship Specialty Start Date End Date Emily Diop, FACILITIES ENGINEER- PCP - General 08/01/22 07/11/24 Sweetie Peters PA PCP - General 07/12/24 07/15/24 Fouzia Blank MD [address] [place] [address] PCP - General 07/16/24 documented as of this encounter
--- OUTSIDE RECORDS SUMMARY | 2024-11-09 18:45 | XMS_ITS | Encounter Summary ---
Author Organization [facility] Address [address] [place] [address] Phone Care Team Providers Care Mission Analyst Name Role Phone MatyEmily marcum [facility] Primary Care Provider [phone] Sweetie Peters Primary Care Provider [phone] Fouzia Blank MD Primary Care Provider [phone] Encounter Details Date Type Department Care Team (Late st Contact Info) Description 06/22/2024 External Contact EXTERNAL LOCATION [address] [place] [phone] Lisandro, Default Provider Social History Tobacco Use Types Packs/Day Years Used Date Smoking Tobacco: Never Assessed Sex and Gender Information Value Date Recorded Sex Assigned at Not on file Gender Identity Not on file Sexual Orientation Not on file documented as of this encounter Miscellaneous Notes * External Discharge Summary - Default Provider Lisandro - 06/22/2024 12:58 AM EDT Powered by [id number] [address] [address] NAME: MAYLIN COPPOLA ADM/RES DATE: 06/22/24 MED REC # [id number] DICTATED BY: Humble Steinberg MD LOCATION: [facility] ATTENDING MD: Humble Steinberg MD DATE OF : 79 [employer] SUPERVISOR: Celi,Doctor HISTORY OF PRESENT ILLNESS Date/Time Seen by Provider: 06/22/24 0223 Chief Complaint: Dental pain Source: Patient HPI: This a 48-year-old female presents the emergent care for dental pain. On initial evaluation the patient requested that we perform the history with her present. Will reassess when returns. HISTORY Medical History Any pertinent medical history: Yes COVID-19 Vaccination completed Yes HTN: Yes Social History Tobacco Use: Never Used Vape: No ALLERGIES AND HOME MEDICATIONS Allergies Allergies: Coded Allergies: NSAIDS (Non-Steroidal Anti-Inflamma (06/21/24) ketorolac (From TORADOL) (Rash (ALG) 07/11/23) levofloxacin (From LEVAQUIN) (RASH/PALPITATIONS 07/03/23) Home Medications Reconcile Home Medications: Active Scripts AMOXICILLIN/POTASSIUM CLAV (Amox-Clav 875-125 MG Tablet) 1 TAB ORAL Q12H AMOXICILLIN/POTASSIUM CLAV (Amox-Clav 875-125 MG Tablet) 1 TAB ORAL Q12H #20 TABS Prov: 07/03/23 Reported Medications Atenolol (Atenolol 25 MG) 25 MG DAILY REVIEW OF SYSTEMS Review of Systems: See HPI, greater than 10 pertinent review of systems reviewed with the patient an are otherwise negative. EC EXAM Vital Signs: Vital Signs Date Time Temp Pulse Resp B/P B/P Pulse O2 O2 Flow FiO2 Mean Ox Delivery Rate 06/22 0132 98.2 80 16 100 Room Air Vital Sign Status: Normal Physical Exam: General: Patient is well-appearing, nontoxic. HEENT: Pupils equal, round, reactive to light. Extraocular muscles intact. Sclera white. Conjunctiva clear. Lungs: No respiratory distress. Breathing normally. No tachypnea. Musculoskeletal: All joints have full range of motion. Strength 5 out of 5 bilateral upper and lower extremities. Skin: Warm and dry with no rash or lesions. Lymphatics: No peripheral edema. Neuro: Awake, alert, oriented. GCS = 15. Psych: Alert, cooperative, well behaved with normal affect. DIAGNOSTIC STUDIES HIV Testing HIV testing offered+ Declined Date offered: 06/22/24 [facility] Emergent Care Course: This a 48-year-old female who presents for left upper dental pain. On initial evaluation the patient requested that I wait for her to arrive before performing history and physical. I read her previous records which included her emergency department visit from in which she presented with similar symptoms, she was requesting narcotics however this was not given to her, she was offered other routes of analgesia but deferred and left the emergency department. I evaluated her PDMP as well as her prescription logs which notes 10 pills of 5 mg oxycodone from [facility][id number] on 06/20 which was also noted in the emergency department documentation. Upon agreeing to evaluating her when her returns and leaving to attend to other patients, I indicated to the patient that she will not be receiving narcotics on her visit here regardless, and she stated that she would like to leave. While I was with other patients, allegedly the patient had been discussing with nurses indicating that she was unhappy with her care. She subsequently was refusing to leave. I spoke with the patient as she was speaking with nursing as police had been called while she was leaving without completing a full medical screening examination, considering she was deciding to leave. She was frustrated that she was not being given narcotic medications and stated that she felt like she was not evaluated. I indicated this was correct, narcotic medications will be given, I did offer her a dental block which is a reasonable alternative, and I never disagreed to completing a medical screening examination for her she decided to leave on her own accord. Her and her continue to argue with me, and considering she had already left her room and was stating that she does not believe the hospital records are correct or the [facility] PDMP records are correct, I could not stand the room any longer and needed to attend other patients. Considering she has had a full medical screening examination within the last 24 hours and multiple evaluations recently as well as multiple narcotic prescriptions including 7 providers for controlled substance prescriptions within the last year I do not believe she requires further evaluation and she can check back in if she needs to. The police subsequently escorted her out as she continued to be irate with the nursing staff. Pain Score (0-10): 10 BMI: 32.9 Medications/allergies reviewed Yes Tobacco Use+ Never Used Departure Departure Forms: Adult Blood Pressure/Pain Return to Work/School Release Referrals: Other,Doctor (PCP) Clinical Impression: Primary Impression: Pain, dental Disposition: AGAINST MEDICAL ADVICE/ELOPE Condition STABLE at 0600 documented in this encounter Plan of Treatment Upcoming Encounters Date Type Department Care Team (Late st Contact Info) Description 11/18/2024 11:00 AM EDT Office Visit [facility] [address] [facility] [place] [address] Jane Gao MD [address] [place] [address] documented as of this encounter Visit Diagnoses Not on filedocumented in this encounter Care Teams Mission Analyst Relationship Specialty Start Date End Date Emily Diop, SR. LOGISTICS ANALYST- PCP - General 08/01/22 07/11/24 Sweetie Peters PA PCP - General 07/12/24 07/15/24 Fouzia Blank MD [address] [place] [address] PCP - General 07/16/24 documented as of this encounter
--- OUTSIDE RECORDS SUMMARY | 2024-11-09 18:45 | XMS_ITS | Encounter Summary ---
Author Organization [facility] Address [address] [place] [address] Phone Care Team Providers Care Instructional Technology Specialist Name Role Phone MatyEmily marcum Joseph SCHROEDER- Primary Care Provider [phone] Sweetie Peters Primary Care Provider [phone] Fouzia Blank MD Primary Care Provider [phone] Encounter Details Date Type Department Care Team (Late st Contact Info) Description 06/24/2024 External Contact EXTERNAL LOCATION [address] [place] [phone] Lisandro, Default Provider Social History Tobacco Use Types Packs/Day Years Used Date Smoking Tobacco: Never Assessed Sex and Gender Information Value Date Recorded Sex Assigned at Not on file Gender Identity Not on file Sexual Orientation Not on file documented as of this encounter Miscellaneous Notes * External Discharge Summary - Default Provider Lisandro - 06/24/2024 3:43 PM EDT Powered by [id number] Patient: MAYLIN COPPOLA Age: 48 years Sex: FEMALE : 1975 Author: FRED CRANE Attachments: None Free Text BRIEF TRIAGE ENCOUNTER CC: Dental pain HPI: 48-year-old female presenting for dental pain. She has been seen here multiple times recently for dental pain. Says that she has a cracked left upper molar that has been causing her quite a bit of pain, has been on antibiotics and was prescribed oxycodone which she ran out of and is having significant pain still. Denies any fever or chills, difficulty swallowing, throat or neck swelling or pain. She was seen here through triage yesterday but left before completion of care. Physical: General: Alert and oriented x3, in no acute distress. Nontoxic. HEENT: normocephalic, atrumatic. Has a few cracked or broken teeth, primary tooth of concern is theleft upper molar which is cracked with no surrounding erythema, no purulent drainage. Posterior oropharynx is clear. No facial swelling or edema, erythema or warmth. Muskuloskeletal: Moving all 4 extremities with no obvious bony deformities. Skin: No obvious rashes, lesions, or wounds. Assessment and plan: 48-year-old female presenting for dental pain, this is her fourth time recently. There does not appear to be any drainable abscess or signs of significant infection, she is currently on antibiotics, per chart review of other notes, it seems inappropriate to prescribe further opioid pain management at this time, she has allergies to ibuprofen and NSAIDs. I informed the patient that there would be nothing else that we can do for her besides give her Tylenol here, I advised that I would likely discharge her home and encourage close follow-up with her dentist and PCP. She become quite frustrated that I was not willing to prescribe her any further stronger pain medications and says that she would like to see another provider. She will be triaged to the main [facility] for furtherevaluation and management. documented in this encounter Plan of Treatment Upcoming Encounters Date Type Department Care Team (Late st Contact Info) Description 11/18/2024 11:00 AM EDT Office Visit [facility] [address] [facility] [place] [phone] Jane Gao MD [address] [place] [address] documented as of this encounter Visit Diagnoses Not on filedocumented in this encounter Care Teams Instructional Technology Specialist Relationship Specialty Start Date End Date Emily Diop FNP-BC PCP - General 08/01/22 07/11/24 Sweetie Peters PA PCP - General 07/12/24 07/15/24 Fouzia Blank MD [address] [place] [address] PCP - General 07/16/24 documented as of this encounter
--- OUTSIDE RECORDS SUMMARY | 2024-11-09 18:45 | XMS_ITS | Encounter Summary ---
Author Organization [facility] Address [address] [place] [address] Phone Care Team Providers Care Senior It Engineer Name Role Phone Emily Diop [facility] Primary Care Provider [phone] Sweetie Peters Primary Care Provider [phone] Rishabh Blank MD Primary Care Provider [phone] Encounter Details Date Type Department Care Team (Late st Contact Info) Description 06/26/2024 External Contact EXTERNAL LOCATION [address] [place] [phone] Lisandro, Default Provider Social History Tobacco Use Types Packs/Day Years Used Date Smoking Tobacco: Never Assessed Sex and Gender Information Value Date Recorded Sex Assigned at Not on file Gender Identity Not on file Sexual Orientation Not on file documented as of this encounter Miscellaneous Notes * External Discharge Summary - Default Provider Lisandro - 06/26/2024 4:45 PM EDT Powered by [id number] Patient: MAYLIN COPPOLA Age: 48 years Sex: FEMALE : 1975 Author: TOLU LAND Attachments: None Basic Information Time seen: 06/26/24 17:05:56. Pt Identification: ID dulce maria was verified for correct name and .. Mode of Arrival: Ambulatory. PCP: RISHABH BLANK MD. History of Present Illness Chief Complaint: Dental pain. HPI: This is a 48-year-old female who presents to the emergency department for the fifth time in 1 week. She complains of dental pain. States that this been going on for a long time and that she plans on following up with a dentist as soon as she returns home to [place]. During one of her recent visits, and I-STOP report was generated that indicates multiple narcotic prescriptions from different providers over the past 2 years. She is taking antibiotics. She denies fever, chills, facial swelling or difficulty swallowing.. Past Medical/ Family/ Social History Medical history: Chronic pain. Social history: Tobacco history Never smoker, Alcohol history No, Drugs: Denies drug use. Physical Examination Vital signsT:37 P:84 AP: RR:18 SB:162 DB:87 . Exam:General: Vital signs are stable. Patient is alert and oriented x3. HEENT: Head is normocephalic, atraumatic. There is fracture and decay of the left upper posterior most molar. There is no surrounding gum swelling. Musculoskeletal: Moves all four extremities. Neuro: There are no gross focal deficits. Skin: Warm and dry. No obvious rashes or lesions. . Medical Decision Making Reassessment Patient presenting to the emergency department once again for evaluation of dental pain. She is specifically asking for oxycodone. She has received multiple prescriptions for the same. She states that she is allergic to Toradol, and cannot take other NSAIDs because of a cardiac issue . She will not receive any narcotic prescription today. I do not believe that this would be responsible, given her I-STOP findings. She does not appear to be in any distress. I believe this to be more or less a chronic issue. She was given 1 dose of oxycodone in the emergency department. She was advised to continue her antibiotics and Tylenol. She should follow-up to see a dentist as soon as she can. Diagnosis Acute on chronic dental pain Condition: stable Discharge to: Home Follow up with RISHABH Maddox As Needed Disclaimer This note was partially generated using voice recognition system, and there may be some incorrect words, spellings, and punctuation that were not noted in checking the note before saving. documented in this encounter Plan of Treatment Upcoming Encounters Date Type Department Care Team (Late st Contact Info) Description 11/18/2024 11:00 AM EDT Office Visit [facility] [address] [place] [address] [place] [address] Jane Gao MD [address] [place] [address] documented as of this encounter Visit Diagnoses Not on filedocumented in this encounter Care Teams Senior It Engineer Relationship Specialty Start Date End Date Emily Diop, [facility]- PCP - General 08/01/22 07/11/24 Sweetie Peters PA PCP - General 07/12/24 07/15/24 Rishabh Blank MD [address] [place] [id number] PCP - General 07/16/24 documented as of this encounter
--- OUTSIDE RECORDS SUMMARY | 2024-11-09 18:45 | XMS_ITS | Encounter Summary ---
Author Organization [facility] Address [address] [place] [address] Phone Care Team Providers Care Immigration Coordinator Name Role Phone [facility] Primary Care Provider [phone] Sweetie Peters Primary Care Provider [phone] Fouzia Blank MD Primary Care Provider [phone] Encounter Details Date Type Department Care Team (Late st Contact Info) Description 05/01/2024 External Contact EXTERNAL LOCATION [address] [place] [phone] iLsandro, Default Provider Social History Tobacco Use Types Packs/Day Years Used Date Smoking Tobacco: Never Assessed Sex and Gender Information Value Date Recorded Sex Assigned at Not on file Gender Identity Not on file Sexual Orientation Not on file documented as of this encounter Miscellaneous Notes * External Discharge Summary - Default Provider Lisandro - 05/01/2024 12:20 PM EDT Powered by [id number] [place] [id number] ER History and Physical Status: Signed Mnemonic: Patient name: Maylin Coppola Date of : 1975 Age/Sex: 48 / F ADM Date: 05/01/24 Loc: ER cc: LONG Abdalla; Kevin Hairston MD This Copy To: Addendum # 1 change in mdm to i reviewed the patient's ISTOP This addendum was Initialized in the [employer] System by LONG Helton on 05/06/24 at 1434. Addendum Signed By: Santiago Ram <Electronically signed by Santiago ALVES> 05/06/24 1434 Kevin Hairston MD <Electronically signed by Kevin Hairston MD> 05/07/24 0713 End of Addendum # 1 HPI - General Medical Adult General Time Seen by Provider: 05/01/24 13:21 Triage Chief Complaint: Dental/Oral Patient Stated Complaint in Triage: Busted tooth, no sleep x2 days Provider Chief Complaint: Same HPI Narrative Patient is a 48-year-old female who presents emergency room complaining of tooth ache. She states that she broke her tooth yesterday and has her tooth and a container. She states that she is here from [place] and they fly out Sunday. She states that she is here for pain medicines. She states that she usually takes oxycodone for chronic pain but she forgot her pills in [place]. She states that she is waiting to see her dentist in [place] on Sunday. States that she just needs couple pills. Until she goes back to [place] Review of Systems Status of ROS Reports: 10 or more systems reviewed and unremarkable except as noted in History and below [facility] Social History Smoking Status: Never smoker Alcohol Intake Frequency: does not drink Substance Use Type: does not use Exam Physical Exam Physical Exam Narrative: General: Alert no acute distress HEENT: Atraumatic normocephalic, EOMI, PERRLA,, moist membranes, no facial swelling, severe dental decay noted throughout, tenderness to palpation of the left upper first molar with dental decay, no surrounding gingival erythema Neck: Supple with trachea midline Respiratory: Clear to auscultate bilaterally with equal chest expansion, no respiratory distress Cardiac: S1-S2 present with RRR Abdomen: Soft, nontender throughout Back: Normal inspection Extremities: No pitting edema noted Skin: Warm and dry Psych: Cooperative with normal affect Neuro: Alert and oriented Course Vital Signs Triage Vital Signs: 3 Temperature 97.2 F L 05/01/24 12:31 Pulse Rate 81 05/01/24 12:31 Respiratory Rate 16 05/01/24 12:31 Blood Pressure 154/89 H 05/01/24 12:31 Pulse Oximetry 99 05/01/24 12:31 Oxygen Delivery Method Room Air 05/01/24 12:31 ED Vital Signs: 3 05/01/24 12:31 Temperature 97.2 F L Pulse Rate [Pulse Oximetry] 81 Respiratory Rate 16 Blood Pressure [Right Arm] 154/89 H Pulse Oximetry 99 Oxygen Delivery Method Room Air Medical Decision Making Medical Decision Making Medical Decision Making Narrative: Patient presents emergency room for toothache requesting oxycodone. . She states that she is allergic to Motrin and cannot have Toradol. I did offer her dental block in which she states that she has had it before and she would rather just have oxycodone. Informed her that I will check her records as oxycodone is a controlled substance. Patient's at bedside came out afterwards and was asking for different provider because I was rude and was not compassionate. He I did review the patient takes knee which show significant narcotic use by different providers including emergency room providers. I did confront the patient of this and her and her stated that they will go somewhere else and eloped. They were demonstrating drug-seeking behavior. I did offer antibiotics initially as well Discharge Plan Discharge Patient Disposition: Eloped Clinical Impression: Drug-seeking behavior Condition: Fair Print Language: Citizen Of [place] This report was initialized in the [employer] System by DAVON on 05/01/24 at 1417. Documented By: LONG Abdalla on 05/01/24 at 1414. Electronically Signed By: LONG Abdalla 05/01/24 1417 Kevin Hairston MD 05/01/24 1450 documented in this encounter Plan of Treatment Upcoming Encounters Date Type Department Care Team (Late st Contact Info) Description 11/18/2024 11:00 AM EDT Office Visit [facility] [address] [facility] [place] [phone] Jane Gao MD [address] [place] [id number] documented as of this encounter Visit Diagnoses Not on filedocumented in this encounter Care Teams Immigration Coordinator Relationship Specialty Start Date End Date Emily Diop, [facility]- PCP - General 08/01/22 07/11/24 Sweetie Peters PA PCP - General 07/12/24 07/15/24 Fouzia Blank MD [address] [place] [id number] PCP - General 07/16/24 documented as of this encounter
--- OUTSIDE RECORDS SUMMARY | 2024-11-09 18:45 | XMS_ITS | Encounter Summary ---
Author Organization [facility] Address [address] [place] [address] Phone Care Team Providers Care Named Account Executive Name Role Phone MatyEmily marcum Joseph [facility] Primary Care Provider [phone] Sweetie Peters Primary Care Provider [phone] Rishabh Blank MD Primary Care Provider [phone] Encounter Details Date Type Department Care Team (Late st Contact Info) Description 06/19/2024 External Contact EXTERNAL LOCATION [address] [place] [phone] Lisandro, Default Provider Social History Tobacco Use Types Packs/Day Years Used Date Smoking Tobacco: Never Assessed Sex and Gender Information Value Date Recorded Sex Assigned at Not on file Gender Identity Not on file Sexual Orientation Not on file documented as of this encounter Miscellaneous Notes * External Discharge Summary - Default Provider Lisandro - 06/19/2024 7:18 PM EDT Powered by [id number] Patient: MAYLIN COPPOLA Age: 48 years Sex: FEMALE : 1975 Author: ESCOBAR SOSA PA-C Attachments: None Basic Information Time seen: 06/19/24 19:30:54. Pt Identification: ID dulce maria was verified for correct name and .. Mode of Arrival: Standard. PCP: RISHABH BLANK MD. History of Present Illness Chief Complaint: Left upper dental pain. HPI: This is a 48-year-old female patient who presents to the ED today for chief complaint of left upper dental pain. Patient states that she has had an ongoing throbbing pain in her left upper molarfor the last week or so. The tooth is already broken in several spots. Her dentist is down in [place], but she does not plan on returning back home until next month. She has also been experiencing cough and cold symptoms for the last month. She has been to several outside urgent cares where she hashad 3 negative chest x-rays as well as negative COVID- 19 and flu tests. She recently completed a course of Augmentin which just ended yesterday. Denies fevers, chills, stridor, trismus, drooling, chest pain, or dyspnea.. Past Medical/ Family/ Social History Medical history: Negative. Surgical history: Reviewed as documented in chart. Social history: Reviewed as documented in chart. Medications: Reviewed, None. Physical Examination Vital signs Temperature Oral 36.5 DegC Peripheral Pulse Rate 88 bpm Respiratory Rate 18 br/min Systolic Blood Pressure 151 mmHg HI Diastolic Blood Pressure 89 mmHg Oxygen Saturation 99 % Oxygen Mode Room Air Dosing Weight 94.45 KG Height/Length Measured 170.18 cm . Exam:CONSTITUTIONAL: _Appears mildly uncomfortable while sitting in chair in room, otherwise well appearing, nontoxic EYES: _Pupils are equally round, extraocular movements intact without nystagmus, clear conjunctiva,nonicteric sclera HENT: _Normocephalic, atraumatic, moist mucous membranes. Nose is congested. Oropharynx is clear without exudates. There is symmetrical rise of the soft palate without uvula deviation. There is no stridor, trismus, or drooling appreciated. Dental examination reveals an approximate 75% avulsed left upper molar. There is surrounding gingival erythema with slight swelling appreciated to the lateral aspect. This does not extend into the hard palate. NECK: _Nontender and supple with no nuchal rigidity, no lymphadenopathy, full range of motion NECK: _Full active range of motion. No thyroid enlargement appreciated PULMONARY: _Normal chest rise and fall, no respiratory distress or stridor CARDIOVASCULAR: _Regular rate, intact distal perfusion GASTROINTESTINAL: _Nondistended GENITOURINARY: _Deferred LYMPHATICS: _Deferred MUSCULOSKELETAL: _No gross deformities SKIN: _Warm, dry, no jaundice, hives, or petechia NEUROLOGIC: _Alert and oriented at baseline status. No acute focal neurological deficits. PSYCHIATRIC: _Normal mood and affect. Impression and Plan This is a 48-year-old female patient who presents to the ED today for chief complaint of left upperdental pain. Patient is not interested in having her URI symptoms worked up further, stating that she has already had 3 negative chest x- rays as well as negative COVID-19 and flu test. She is just here for her left upper dental pain. It is reassuring she does not have signs or symptoms concerning for Tomer's angina, therefore will defer further medical interventions at this time. I had an at length discussion with the patient regarding antibiotic use as she has been on several in the last few months for both dental infections as well as what sounds like viral symptoms. She verbalized her understanding and plans on following up with her dentist when she is back home. Prescriptions for clindamycin, oxycodone, and Peridex were sent to her preferred pharmacy. She was instructed to not drive,operate heavy machinery, or drink alcohol while taking the oxycodone. She has an intolerance to NSAIDs, so she was counseled on multiple supportive care measures including the use of Tylenol and frequent warm salt water rinses. She was given strict return precautions back to the ED and was discharged in stable condition. Medical Decision Making Diagnosis 1) left upper dental infection RX written this visit: chlorhexidine topical(Peridex 0.12% topical liquid) 15 Milliliter 0.018 gram (Swish & Spit) TWOTIMES A DAY Dispensed: 480 clindamycin(clindamycin 300 mg oral capsule) 1 cap 300 Milligram (Oral) THREE TIMES A DAY Dispensed: 21 oxycodone(oxycodone 5 mg oral tablet) 1 Tablet 5 Milligram (Oral) Every 6 Hours As needed: For PainDispensed: 10 Condition: stable Discharge to: Home Follow up with A dentist Within 5 to 7 days; Patient was given the following educational materials DENTAL ABSCESS Medications given in ED clindamycin(clindamycin) 300 Milligram (Oral) oxycodone(oxycodone) 5 Milligram (Oral) Immediate Release (IR) Tablet Disclaimer This note was partially generated using voice recognition system, and there may be some incorrect words, spellings, and punctuation that were not noted in checking the note before saving. documented in this encounter Plan of Treatment Upcoming Encounters Date Type Department Care Team (Late st Contact Info) Description 11/18/2024 11:00 AM EDT Office Visit [facility] [address] [facility] [place] [phone] Jane Gao MD [address] [place] [address] documented as of this encounter Visit Diagnoses Not on filedocumented in this encounter Care Teams Named Account Executive Relationship Specialty Start Date End Date Emily Diop, GENERAL LABORER- PCP - General 08/01/22 07/11/24 Sweetie Peters PA PCP - General 07/12/24 07/15/24 Rishabh Blank MD [address] [place] [address] PCP - General 07/16/24 documented as of this encounter
--- OUTSIDE RECORDS SUMMARY | 2024-11-09 18:45 | XMS_ITS | Encounter Summary ---
Author Organization [facility] Address [address] [place] [address] Phone Care Team Providers Care Binding Bench Worker Name Role Phone MatyEmily marcum Joseph [facility] Primary Care Provider [phone] Sweetie Peters Primary Care Provider [phone] Fouzia Blank MD Primary Care Provider [phone] Encounter Details Date Type Department Care Team ([facility] st Contact Info) Description 06/21/2024 External Contact EXTERNAL LOCATION [address] [place] [phone] Syedxfadia, Default Provider Social History Tobacco Use Types Packs/Day Years Used Date Smoking Tobacco: Never Assessed Sex and Gender Information Value Date Recorded Sex Assigned at Not on file Gender Identity Not on file Sexual Orientation Not on file documented as of this encounter Miscellaneous Notes * External Discharge Summary - Default Provider Lisandro - 06/21/2024 11:29 PM EDT Powered by [id number] ED PHYSICIAN ASSESSMENT [address] [address] Name: MAYLIN COPPOLA MED REC #: [id number] ROOM/BED: ED ADM/RES DATE: 06/21/24 DIS DATE: ATTENDING MD: Mandeep Hernandez MD DATE OF : [birth year] DICTATING MD: Mandeep Hernandez MD NEWSPAPER DELIVERY COUNSELOR: Divine Ansari NP HISTORY Date/Time Seen by Provider: 06/22/24 0009 Chief Complaint: dental pain HPI: 48 yo female presents to the emergency department for evaluation of left upper molar dental pain. Patient has been to other emergency departments and urgent care for similar symptoms, was given prescription for oxycodone 5 mg at [facility] within the past 24 hours, but states the medication has been working to control pain. ALLERGIES AND HOME MEDICATIONS Allergies Allergies: Coded Allergies: NSAIDS (Non-Steroidal Anti-Inflamma (06/21/24) ketorolac (From TORADOL) (Rash (ALG) 07/11/23) levofloxacin (From LEVAQUIN) (RASH/PALPITATIONS 07/03/23) Home Medications Reconcile Home Medications: Active Scripts AMOXICILLIN/POTASSIUM CLAV (Amox-Clav 875-125 MG Tablet) 1 TAB ORAL Q12H AMOXICILLIN/POTASSIUM CLAV (Amox-Clav 875-125 MG Tablet) 1 TAB ORAL Q12H #20 TABS Prov: 07/03/23 REVIEW OF SYSTEMS Review of Systems: 10 system review of systems was negative unless otherwise noted in the HPI ED EXAM Vital Signs: Vital Signs Date Time Temp Pulse Resp B/P B/P Pulse O2 O2 Flow FiO2 Mean Ox Delivery Rate 06/21 2308 96.8 79 16 158/86 100 Room Air Physical Exam: General: alert, cooperative HEENT: Poor dentition, dental carry noted left upper molar Neuro: moving all extremities appropriately and symmetrically x4, no facial droop or slurred speech CV: Regular rate and rhythm, no murmurs Resp: CTAB, no wheezes, rhonchi or rales Abdominal: Soft, nondistended MSK: No gross deformities Skin: dry, intact. DIAGNOSTIC STUDIES HIV Testing HIV testing offered+ Declined Date offered: 07/03/23 [facility] ED Course: 48-year-old female presents the emergency department with left upper molar dental pain, acute on chronic; patient was given clindamycin and oxycodone prescription at outside hospital within the past 24 hours; states that pain medication has not been helping. At this time for patient I discussed pain management options including ropivacaine dental block , and none narcotic analgesia, including Tylenol; at this time patient is refusing. Patient and left the department subsequently. Patient stated that she does have an oral surgeon whom she plans to follow-up with. Do you have pain: Yes Pain Score (0-10): 7 DEPARTURE Patient Instructions: Toothache (ED) Additional Instructions: Please return immediately to the emergency department for any worsening symptoms, such as fever, inability to eat or drink or any other concerning symptoms. Departure Forms: Adult Blood Pressure/Pain Return to Work/School Release Referrals: Divine Ansari STEAM BLOCKER (PCP) Clinical Impression: Primary Impression: Tooth pain Disposition: * Routine Discharge Home Time of disposition: 23 Condition: STABLE at 0025 documented in this encounter Plan of Treatment Upcoming Encounters Date Type Department Care Team (Late st Contact Info) Description 11/18/2024 11:00 AM EDT Office Visit [facility] [address] [facility] [place] [address] Jane Gao MD [address] [place] [address] documented as of this encounter Visit Diagnoses Not on filedocumented in this encounter Care Teams Binding Bench Worker Relationship Specialty Start Date End Date Emily Diop, COMMISSARY HELPER- PCP - General 08/01/22 07/11/24 Sweetie Peters PA PCP - General 07/12/24 07/15/24 Fouzia Blank MD [address] [place] [address] PCP - General 07/16/24 documented as of this encounter
[2024-11-09] MEDS: oxyCODONE HCl Immed Release 5 MG TABLET PO (19:08)
[2024-11-09 19:13] VITALS: BP 148/85; PULSE 82; RESP 18; TEMP 36.8; O2SAT 98
== END 2024-11-09 19:13 | disposition home or self-care (01) ==
PROVIDERS: Emergency Provider Emergency Medicine
DX: S39.92XA Unspecified injury of lower back, initial encounter (principal); W00.0XXA Fall on same level due to ice and snow, initial encounter; Y93.01 Activity, walking, marching and hiking; Y92.9 Unspecified place or not applicable; Y99.8 Other external cause status; Z79.899 Other long term (current) drug therapy
CPT/HCPCS: 99283

== ENCOUNTER 2024-12-10 15:48 | Emergency (ER) | payer OTHER, SELFPAY ==
--- NOTE | ~2024-12-10 | US_ITS ---
CLINICAL HISTORY: BL leg swelling Venous duplex ultrasound bilateral lower extremity Comparison: None Findings: The visualized deep veins are fully compressible with normal Doppler color flow and spectral tracings. In right lower extremity veins [id number] were not visualized. No popliteal cyst. IMPRESSION: 1. Negative for bilateral lower extremity deep vein thrombosis. This document has been electronically signed by: Tanya Fernandez MD on 12/10/2024 17:21:17
[2024-12-10 16:09] VITALS: BP 150/83; PULSE 117; RESP 18; TEMP 36.8; O2SAT 98; BMI 34.5
--- NOTE | 2024-12-10 16:23 | ED_ITS ---
HPI - General Adult General Chief complaint: Extremity Injury, Lower Stated complaint: Swelling both ankles/legs Time Seen by Provider: 12/10/24 22:39 Source: patient Mode of arrival: ambulatory Limitations: no limitations History of Present Illness ED Provider: Sari Pham NP HPI narrative: Patient is a 49-year-old female who presents emergency department for evaluation of 2 different complaints. She has been experiencing bilateral lower extremity redness and swelling over the past week. Reports that she has been seen at various urgent cares as well as [facility] in [facility], was told that she had cellulitis. Reports that after leaving the hospital she did not take the antibiotic she want to be certain that she really needed the antibiotics in the past she has experienced significant stomach upset from antibiotics therefore has not been treating this accordingly. She states that the redness and swelling has not significantly changed but is not getting any better. She denies any associated fevers or chills. She states that she has had similar symptoms once in the past. She also states that while at [facility] she endorsed them that she has been having a pressure sensation in her head intermittently over the past month. A CT scan was obtained and subsequently an MRI which showed a brain tumor. She states that they discussed with her transferred to [facility] for neurosurgical evaluation, there seems to be some underlying displeasure with care family had received at this hospital ultimately she was not transferred there. She does not have any care establish for Neurosurgery follow-up. When asked she denies headache, dizziness, lightheadedness, vision changes, numbness or tingling of the extremities. Related Data Home Medications ?Medication ?Instructions ?Recorded ?Confirmed atenolol 25 mg tablet 25 mg PO DAILY 08/13/23 08/13/23 gabapentin 300 mg capsule 300 mg PO DAILY 08/13/23 08/13/23 methimazole 5 mg tablet 5 mg PO DAILY 08/13/23 08/13/23 oxycodone 5 mg capsule 5 mg PO Q8H PRN 08/13/23 08/13/23 valsartan 320 mg tablet 320 mg PO DAILY 08/13/23 08/13/23 Previous Rx's ?Medication ?Instructions ?Recorded amoxicillin 875 mg-potassium 1 tab PO BID #20 tabs 05/27/24 clavulanate 125 mg tablet oxycodone 5 mg tablet 5 mg PO BID PRN severe pain (scale 05/27/24 score 7-10) #6 tabs albuterol sulfate 90 mcg/actuation 2 puff inhalation Q6H PRN 06/15/24 aerosol inhaler shortness of breath or wheezing #8.5 grams azithromycin 500 mg tablet 500 mg PO DAILY 3 days #3 tabs 06/15/24 (Zithromax) benzonatate 200 mg capsule 200 mg PO TID PRN cough #20 caps 06/15/24 morphine 15 mg immediate release 15 mg PO Q8H PRN pain #15 tabs 06/15/24 tablet prednisone 20 mg tablet 40 mg (2 x 20 mg) PO DAILY #10 tabs 06/15/24 meloxicam 7.5 mg tablet 7.5 mg PO DAILY #20 tabs 11/09/24 naloxone 4 mg/actuation nasal 4 mg intranasal Q2M PRN opioid 11/09/24 spray (Narcan) overdose #2 ea oxycodone 5 mg tablet 5 mg PO Q6H PRN pain #7 tabs 11/09/24 cephalexin 500 mg capsule 500 mg PO QID #28 caps 12/11/24 Allergies Allergy/AdvReac Type Severity Reaction Status Date / Time NSAIDS (Non-Steroidal Allergy Unknown Verified 12/10/24 16:10 Anti-Inflamma ketorolac [From Toradol] AdvReac Severe Rash Verified 12/10/24 16:10 levofloxacin [From Levaquin] AdvReac Severe Rash Verified 12/10/24 16:10 Review of Systems 2 Review of Systems: Yes all other systems are reviewed and are negative PMFSH Past Medical History Attestation statement: The following information was validated with the patient. Source: old records reviewed Medical History Fracture of tooth Nausea Vertigo Chronic low back pain Endometriosis Toothache Essential hypertension Chronic pain syndrome Opioid abuse Anxiety Hyperthyroidism Social History Social History Advance Directives: No Advance Directives Information Provided: Yes Do you have a plan to hurt others: No Plan Physical Exam ED Vital Signs: Vital Signs - 24 hr 12/10/24 16:09 12/10/24 21:49 12/11/24 00:22 Temperature 98.2 F 98.2 F 98.1 F Pulse Rate 117 H 106 H 108 H Respiratory Rate 18 20 20 Blood Pressure 150/83 H 144/79 H 137/92 H Pulse Oximetry 98 99 99 Oxygen Delivery Method Room Air Room Air Room Air BMI result Body Mass Index 34.5 Appearance: Alert.?Oriented to person, place and time. No acute distress.?Normal affect. Eyes: Pupils equal, round and reactive to light.? ENT: Pharynx normal.?? Neck: Normal inspection.? Neck supple.?? CVS: Heart sounds normal. ? Pulses normal.?? Respiratory: No respiratory distress.? Lung sounds clear to auscultation bilaterally?? Abdomen: Soft and non-tender. Normoactive bowel sounds. ?? Skin: Skin warm and dry.? Normal skin color.? Extremities: 1+ bilateral lower extremity pitting edema with erythema and warmth from the ankle to the mid calf circumferential and symmetrical bilaterally without open wounds or lesions. 1+ DP/PT pulse. Neuro: Moves all extremities spontaneously. Sensation intact bilaterally. CN II- XII intact. No focal neuro deficits. Ambulates with normal steady gait. Course Course Course Narrative: This is an RME: Additional HPI, ROS, PE not included below will be deferred to primary provider. RME assessment and note performed by: Nelly Meza PA-C This is a 49-year-old female who presents emergency department with concerns for bilateral leg swelling and redness. She was seen at a hospital in [place] however left against medical advice. She states that she was told she had cellulitis in her lower legs and was given 1 dose of Keflex. She states that she was hesitant to take her antibiotics as she was concerned for side effects. Patient also reports that she was found to have a mass in her brain. Patient with bilateral pitting edema noted with erythema and warmth noted. Will obtain labs, ultrasound, further ER evaluation needed. Plan: labs, us, further ER eval needed Medical Decision Making Medical Decision Making MDM Narrative: Patient is a 49-year-old female with past medical history of vertigo, endometriosis, chronic pain syndrome, history of opiate abuse ago, hypertension, anxiety, hyperthyroidism who presents emergency department for evaluation of bilateral lower extremity cellulitis previously diagnosed not currently on any treatment for, and incidental finding of a brain mass for which she has not received neurosurgical evaluation as per HPI. Overall she is well-appearing, nontoxic, afebrile. Chest no focal neurological deficits at the time of my evaluation. The bilateral lower extremities are neurovascularly intact distally. Bilateral venous duplex ultrasound was obtained prior to my assumption of care and is without evidence of DVT. On review of her serum labs she has a leukocytosis, has a mild normocytic anemia that does not meet transfusion criteria, no thrombocytopenia. No electrolyte derangement. No ASHLEY. Minimally elevated AST/ALT with benign abdominal examination unlikely acute biliary etiology. She has no respiratory distress, lung sounds are clear to the apices bilaterally, BNP is normal, do not suspect that the lower extremity edema is secondary to CHF and she has a history of such. Feel that she would benefit from antibiotics for the cellulitis, she declines receiving a dose in the emergency department this evening as she has not had anything to eat recently she prefers to take this at home. I have sent prescription to her pharmacy. She did request her antihypertensive medications as she did not take them today including valsartan, HCTZ, atenolol, she is mildly hypertensive here but not consistent with hypertensive crisis and she is asymptomatic. I have provided him with a dose of her antihypertensive medications. Provided with contact information to [facility] neurosurgical office. I did review the below MRI image findings from prior hospital with my attending Dr. 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 No acute intracranial abnormality . Differential Diagnosis Differential Diagnoses: The differential diagnosis associated with the presentation includes (See narrative above) Admission/Observation Consideration of admission/observation: Escalation of care including admission/observation considered Lab Data MDM Lab Attestation statement: I reviewed the patient's lab results. (See narrative above) 12/10/24 17:29 12/10/24 17:29 Labs: Lab Results 12/10/24 Range/Units 17:29 WBC 10.5 (4.8-10.8) X10*3/uL RBC 4.28 (4.20-5.50) X10*6/uL Hgb 11.0 L (12.0-16.0) g/dl Hct 34.9 L (37.0-47.0) % MCV 81.5 (80.0-98.0) fL MCH 25.7 L (27.0-33.0) pg MCHC 31.5 (31.0-35.0) g/dl RDW 14.2 (11.0-16.0) % Plt Count 358 (160-400) X10*3/uL MPV 10.1 (9.4-12.3) fL Immature Gran % (Auto) 0.5 H (0.0-0.4) % Neut % (Auto) 58.7 (45-73) % Lymph % (Auto) 29.5 (20-40) % [place] % (Auto) 8.3 (2-11) % Eos % (Auto) 2.6 (0-4) % Baso % (Auto) 0.4 (0-2) % Lymph # (Auto) 3.1 (1.2-4.9) X10*3/uL [place] # (Auto) 0.9 (0.1-1.2) X10*3/uL Eos # (Auto) 0.3 (0.0-0.4) X10*3/uL Baso # (Auto) 0.0 (0.0-0.2) X10*3/uL Abs Immat Gran (auto) 0.05 H (0.00-0.03) X10*3/uL Absolute Neuts (auto) 6.2 (2.0-8.3) x10*3/uL Absolute Nucleated RBC 0.000 (0.0-0.012) X10*3/uL Nucleated RBC % (auto) 0.0 (0.0-0.2) /100WBC Sodium 139 (135-145) mmol/L Potassium 3.4 (3.3-5.1) mmol/L Chloride 105 (96-108) mmol/L Carbon Dioxide 26 (22-29) mmol/L Anion Gap 11 L (12-20) BUN 5 L (9-16) mg/dL Creatinine 0.58 (0.5-1.4) mg/dL Estim Creat Clear Calc 145.6 Estimated GFR > 60 Random Glucose 135 H (60-115) mg/dL Calcium 8.8 (8.4-10.2) mg/dL Magnesium 1.9 (1.6-2.6) mg/dL Total Bilirubin 0.5 (0.0-1.0) mg/dL Direct Bilirubin 0.2 (0.0-0.5) mg/dL AST 32 H (5-31) U/L ALT 56 H (0-31) U/L Alkaline Phosphatase 60 (39-117) U/L B-Natriuretic Peptide < 10 (<100) pg/mL Total Protein 6.8 (6.5-8.0) g/dL Albumin 3.5 (3.5-5.0) g/dL Independent Historian Clinical information obtained from an independent historian. History obtained from or confirmed by: Spouse External Record Review External record reviewed: Prior outpatient radiology Prescription Management I considered prescription management with: Antibiotic Chronic Conditions Patient?s care impacted by: Other (See narrative above) Discharge Plan Discharge Clinical Impression: Cellulitis of both lower extremities, Brain mass Patient Disposition: Home, Self-Care Instructions: Cellulitis (ED) Additional Instructions: Prescription for antibiotic is being sent to your pharmacy [facility] in [place] as discussed. Cephalexin take 4 times daily for 7 days. As mentioned, monitor for signs of worsening of infection if there is significant spread past the area on the skin that is marked you should seek prompt re-evaluation. Further symptoms that would be worrisome include fevers, chills, worsening pain, swelling, inability to feel the lower legs. When you were evaluated at [facility] in [facility], there was an incidental finding of a brain mass, as previously discussed this warrants further evaluation with a neurosurgeon. Reassuringly, urine neurological examination today is without abnormal findings. It is important that you follow-up with a neurosurgeon. Locally the closest neurosurgeon office would be associated with [facility], you may contact their office guarding a new patient appointment. [facility] neurosurgery; [address] [place] [address]. Phone number is [phone] Prescriptions: New cephalexin 500 mg capsule 500 mg PO QID Qty: 28 0RF No Action amoxicillin-pot clavulanate 875-125 mg tablet 1 tab PO BID Qty: 20 0RF oxycodone 5 mg tablet 5 mg PO BID PRN (Reason: severe pain (scale score 7-10)) Qty: 6 0RF Rx Instructions: Partial Fill upon patient request. benzonatate 200 mg capsule 200 mg PO TID PRN (Reason: cough) Qty: 20 0RF albuterol sulfate 90 mcg/actuation HFA aerosol inhaler 2 puff inhalation Q6H PRN (Reason: shortness of breath or wheezing) Qty: 8.5 0RF morphine 15 mg tablet 15 mg PO Q8H PRN (Reason: pain) Qty: 15 0RF Rx Instructions: Partial Fill upon patient request. azithromycin [Zithromax] 500 mg tablet 500 mg PO DAILY 3 Days Qty: 3 0RF prednisone 20 mg tablet 40 mg PO DAILY Qty: 10 0RF naloxone [Narcan] 4 mg/actuation spray,non-aerosol 4 mg intranasal Q2M PRN (Reason: opioid overdose) Qty: 2 0RF Rx Instructions: spray 1 dose into ONE nostril; alternate nostrils w each dose until help arrives oxycodone 5 mg tablet 5 mg PO Q6H PRN (Reason: pain) Qty: 7 0RF Rx Instructions: Partial Fill upon patient request. meloxicam 7.5 mg tablet 7.5 mg PO DAILY Qty: 20 0RF valsartan 320 mg tablet 320 mg PO DAILY atenolol 25 mg tablet 25 mg PO DAILY methimazole 5 mg tablet 5 mg PO DAILY gabapentin 300 mg capsule 300 mg PO DAILY oxycodone 5 mg capsule 5 mg PO Q8H PRN Referrals: Physician,Unknown J [Primary Care Provider] - Print Language: Libyan
[2024-12-10 17:35] LABS: MANUAL DIFF FLAG NO
[2024-12-10 17:36] LABS: Basophils Percent Auto 0.4 % (0-2); Eosinophils Absolute Auto 0.3 X10*3/uL (0.0-0.4); Eosinophils Percent Auto 2.6 % (0-4); Hematocrit 34.9 % (37.0-47.0); Imm Gran Abs Auto 0.05 X10*3/uL (0.00-0.03); Imm Gran Pct Auto 0.5 % (0.0-0.4); Lymphocytes Absolute Auto 3.1 X10*3/uL (1.2-4.9); Lymphocytes Percent Auto 29.5 % (20-40); Mean Corpuscular HGB Conc 31.5 g/dl (31.0-35.0); Mean Corpuscular Hemoglobin 25.7 pg (27.0-33.0); Mean Corpuscular Volume 81.5 fL (80.0-98.0); Mean Platelet Volume 10.1 fL (9.4-12.3); Monocytes Absolute Auto 0.9 X10*3/uL (0.1-1.2); Monocytes Percent Auto 8.3 % (2-11); Neutrophils Absolute Auto 6.2 x10*3/uL (2.0-8.3); Neutrophils Percent Auto 58.7 % (45-73); Platelet Count 358 X10*3/uL (160-400); Red Blood Count 4.28 X10*6/uL (4.20-5.50); Red Cell Distribution Width 14.2 % (11.0-16.0); White Blood Count 10.5 X10*3/uL (4.8-10.8)
[2024-12-10 17:50] LABS: Alanine Aminotransferase 56 U/L (0-31); Albumin Level 3.5 g/dL (3.5-5.0); Alkaline Phosphatase 60 U/L (39-117); Anion Gap 11 (12-20); Aspartate Amino Transferase 32 U/L (5-31); Bilirubin Direct 0.2 mg/dL (0.0-0.5); Bilirubin Total 0.5 mg/dL (0.0-1.0); Blood Urea Nitrogen 5 mg/dL (9-16); Calcium 8.8 mg/dL (8.4-10.2); Carbon Dioxide 26 mmol/L (22-29); Chloride 105 mmol/L (96-108); Creatinine Clr Calc Pharmacy 145.6; Estimated Glomerular Filt Rate > 60; Glucose Random 135 mg/dL (60-115); Magnesium 1.9 mg/dL (1.6-2.6); Potassium 3.4 mmol/L (3.3-5.1); Sodium 139 mmol/L (135-145); Total Protein 6.8 g/dL (6.5-8.0)
[2024-12-10 17:56] LABS: B Type Natriuretic Peptide < 10 pg/mL (<100)
[2024-12-10 21:49] VITALS: BP 144/79; PULSE 106; RESP 20; TEMP 36.8; O2SAT 99
[2024-12-11 00:22] VITALS: BP 137/92; PULSE 108; RESP 20; TEMP 36.7; O2SAT 99
[2024-12-11 00:48] VITALS: BP 137/92; PULSE 108
[2024-12-11] MEDS: atenoloL 25 MG TABLET PO (00:48)
[2024-12-11] MEDS: hydroCHLOROthiazide 25 MG TABLET PO (00:48)
[2024-12-11] MEDS: Valsartan 320 MG TABLET PO (00:49)
--- NOTE | 2024-12-11 01:18 | PC.NURSE ---
T/w went in room to outline redness on legs, give meds and provide discharge instructions when pt stated they would be going to another hospital because they did not agree with the care here. Pt and then reporting they were told they would be seeing a male doctor. They were unhappy with the care they received today and were talking poorly about staff. upset stating that his is in pain, upset that [employer] would not order pain medication requesting oxycodone. Stating the other hospital was supposed to send it and never did. T/w spoke with [employer] and and who did not disagree with [employer] disposition. T/w attempted to discharge patient after medication was administered and pt was in the bathroom while was in the room and they were talking negatively about staff. T/w informed them the discharge would be reviewed when pt was done in the bathroom. After approximately 15 minutes pt came out of the bathroom and when t/w attempted to review discharge paperwork pt stated I know how to read and refused to sign discharge paperwork. 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 As they were leaving they stated that it was against their hippa writes to discuss their care with another doctor. Charge nurse aware of situation with patient
[2024-12-11 01:29] VITALS: BP 137/92; PULSE 108; RESP 18; TEMP -17.7; TEMP 0; O2SAT 0
== END 2024-12-11 01:10 | disposition home or self-care (01) ==
PROVIDERS: Physician Assistant Medical; Emergency Provider Emergency Medicine Emergency Medical Services
DX: L03.116 Cellulitis of left lower limb (principal); L03.115 Cellulitis of right lower limb; G93.9 Disorder of brain, unspecified; R60.0 Localized edema; Z79.899 Other long term (current) drug therapy
CPT/HCPCS: 36415; 80048; 80076; 83735; 83880; 85025; 87040; 93970; 99284

== ENCOUNTER → 2024-12-10 16:25 | Outpatient (BNV) | payer OTHER, SELFPAY | PROVIDERS: Visit Provider Specialist | DX: R22.43 Localized swelling, mass and lump, lower limb, bilateral (principal) | CPT/HCPCS: 93970 ==

== ENCOUNTER 2025-01-18 14:13 | Emergency (ER) | payer OTHER, SELFPAY ==
[2025-01-18 14:24] VITALS: BP 150/86; PULSE 83; RESP 18; TEMP 37; O2SAT 97; BMI 38.7
--- NOTE | 2025-01-18 14:25 | ED_ITS ---
HPI - General Adult General Chief complaint: Headache Stated complaint: headache hx of brain mass Time Seen by Provider: 01/18/25 16:07 Source: patient Mode of arrival: ambulatory Limitations: no limitations History of Present Illness ED Provider: Dr. Jorge Alberto Joseph HPI narrative: 49-year-old female history of vertigo, chronic lower back pain, endometriosis, hypertension, chronic pain syndrome, opiate use disorder, anxiety, hyperthyroidism, brain tumor who presents emergency department for evaluation of headache. Patient states she was diagnosed with a brain tumor on 12/08/2024 and has had a follow-up MRI. Patient states she has a 10 mm x 7 mm x 7 mm tumor that is deep in her brain. She states that she recently went to the [facility] and was scheduled for three-month follow-up to follow the tumor. She states that that has also concerns that she might have lymphadenopathy and that she may need a malignancy workup. Patient states that she has chronic pain and has been taking oxycodone for her pain. She states she has run out of her oxycodone. She is currently complaining of a 7/10 pressure-like headache located on the top of her head and to her right temporal area. She states she gets this headache 2 to 3 times a week. The headaches associated with dizziness, nausea, photophobia and phonophobia. She states that occasionally her hands get tingly. She denied any perioral numbness or difficulty talking. She states she has had visual changes which she describes as double vision. She has had no scotoma. The patient states that since lying back from [place] the pressure in her headache is gotten worse, therefore she came to the emergency department for evaluation. The patient is from [place], [place] and states she is having difficulty with her insurance and that is why she came to [facility] to get see for her headache. This is her 3rd ED visit here since 11/09/2024 where she was seen with intractable lower back pain, brain mass in today for headache. Related Data Home Medications ?Medication ?Instructions ?Recorded ?Confirmed atenolol 25 mg tablet 25 mg PO DAILY 08/13/23 08/13/23 gabapentin 300 mg capsule 300 mg PO DAILY 08/13/23 08/13/23 methimazole 5 mg tablet 5 mg PO DAILY 08/13/23 08/13/23 oxycodone 5 mg capsule 5 mg PO Q8H PRN 08/13/23 08/13/23 valsartan 320 mg tablet 320 mg PO DAILY 08/13/23 08/13/23 Previous Rx's ?Medication ?Instructions ?Recorded amoxicillin 875 mg-potassium 1 tab PO BID #20 tabs 05/27/24 clavulanate 125 mg tablet oxycodone 5 mg tablet 5 mg PO BID PRN severe pain (scale 05/27/24 score 7-10) #6 tabs albuterol sulfate 90 mcg/actuation 2 puff inhalation Q6H PRN 06/15/24 aerosol inhaler shortness of breath or wheezing #8.5 grams azithromycin 500 mg tablet 500 mg PO DAILY 3 days #3 tabs 06/15/24 (Zithromax) benzonatate 200 mg capsule 200 mg PO TID PRN cough #20 caps 06/15/24 morphine 15 mg immediate release 15 mg PO Q8H PRN pain #15 tabs 06/15/24 tablet prednisone 20 mg tablet 40 mg (2 x 20 mg) PO DAILY #10 tabs 06/15/24 meloxicam 7.5 mg tablet 7.5 mg PO DAILY #20 tabs 11/09/24 naloxone 4 mg/actuation nasal 4 mg intranasal Q2M PRN opioid 11/09/24 spray (Narcan) overdose #2 ea oxycodone 5 mg tablet 5 mg PO Q6H PRN pain #7 tabs 11/09/24 cephalexin 500 mg capsule 500 mg PO QID #28 caps 12/11/24 Allergies Allergy/AdvReac Type Severity Reaction Status Date / Time NSAIDS (Non-Steroidal Allergy Unknown Verified 01/18/25 14:29 Anti-Inflamma ketorolac [From Toradol] AdvReac Severe Rash Verified 01/18/25 14:29 levofloxacin [From Levaquin] AdvReac Severe Rash Verified 01/18/25 14:29 Review of Systems 2 Review of Systems: Yes all other systems are reviewed and are negative PMFSH Past Medical History Medical History Fracture of tooth Nausea Vertigo Chronic low back pain Endometriosis Toothache Essential hypertension Chronic pain syndrome Opioid abuse Anxiety Hyperthyroidism Social History Social History Smoked in Last 30 Days: No Use of substances other than those prescribed or required for medical reasons: No Advance Directives: No Advance Directives Information Provided: Yes Patient : No Physical Exam ED Vital Signs: Vital Signs - 24 hr 01/18/25 14:24 01/18/25 15:28 Temperature 98.6 F 98.4 F Pulse Rate 83 87 Respiratory Rate 18 16 Blood Pressure 150/86 H 139/85 Pulse Oximetry 97 98 Oxygen Delivery Method Room Air Room Air BMI result Body Mass Index 38.7 vital signs revealed elevated blood pressure of 150/86 Exam: General: Awake, alert in no distress Head: Normocephalic, atraumatic EENT: PERRL, Lids normal, sclera normal, conjunctiva normal, nose normal , ears normal, throat without erythema or exudates Neck: Supple, no adenopathy Lung: breath sounds symmetric, no wheezing, rales or rhonchi Chest: symmetric movement, nontender Heart: regular rate and rhythm, normal S1, S2 no murmurs or rubs Abdomen: soft, non-tender, nondistended, normal bowel sounds Back: no vertebral tenderness, no CVAT Extremities: no deformities, moves all extremities symmetrically Neuro: General: Awake, alert, oriented, normal speech Cranial nerves: Cranial nerves intact Strength:moves all extremities symmetrically , normal symmetric strength Cerebellar: Good irbwdh-bc-ocow-to-finger, good rapid finger movement, normal heel to roland Psych: Pleasant, cooperative Course Course Course Narrative: RME performed by Vicki Rebolledo PA-C. Patient is a 49 year old assigned female at presenting to the emergency department with worsening headaches. Patient states that she was recently diagnosed with a brain mass (she follows with [facility] and [facility] in [place]). Patient states that ever since flying back here, she has had worsening pressure in her head and she is out of the oxycodone the surgeon in [place] gave her because they are by law only allowed to prescribe 5 days worth. Detailed physical exam and review of systems are deferred to the contract forester. Patient placed back in the waiting room pending room availability. Medical Decision Making Medical Decision Making MDM Narrative: 49-year-old female history of vertigo, chronic lower back pain, endometriosis, hypertension, chronic pain syndrome, opiate use disorder, anxiety, hyperthyroidism, brain tumor who presents emergency department for evaluation of headache. Patient states she was diagnosed with a brain tumor on 12/08/2024 and has had a follow-up MRI. Patient states she has a 10 mm x 7 mm x 7 mm tumor that is deep in her brain. She states that she recently went to the [facility] and was scheduled for three-month follow-up to follow the tumor. She states that that has also concerns that she might have lymphadenopathy and that she may need a malignancy workup. Patient states that she has chronic pain and has been taking oxycodone for her pain. She states she has run out of her oxycodone. She is currently complaining of a 7/10 pressure-like headache located on the top of her head and to her right temporal area. She states she gets this headache 2 to 3 times a week. The headaches associated with dizziness, nausea, photophobia and phonophobia. She states that occasionally her hands get tingly. She denied any perioral numbness or difficulty talking. She states she has had visual changes which she describes as double vision. She has had no scotoma. vital signs revealed an elevated blood pressure otherwise unremarkable. Physical examination neurologic exam were normal. Differential diagnosis: Includes but is not limited to Migraine headache, headache, anemia, electrolyte abnormalities , multiple prescriptions for controlled substances from multiple providers and multiple pharmacies - concerning for drug-seeking behavior Course: 16:55 my independent interpretation patient's laboratory evaluation is as follows: Platelet count elevated 404,000. WBC normal 10,400. CMP was normal. At this time I suspect that the patient has a migraine-like syndrome and I did give her oxycodone 10 mg orally. In reviewing the patient's [place] prescription monitoring program there are several very concerning issues. Patient has had 45 prescriptions from 29 different prescribers from 14 pharmacies. The patient lives in [place] in his here in [place] without a good explanation seeking care for her headaches. Given these findings, I am concerned that she may be addicted to prescription opiates and I did discuss this with her. Told her that I can not give her a prescription. I told her that she needs to get 1 doctor that can manage her chronic pain. The patient was discharged home with printed and verbal instructions on migraine-like headaches. I do not think that this headache is related to the vaibhav tumor that she is describing especially since the [facility] that she saw recommended a imaging study in 3 months and no other acute studies.. Admission/Observation Consideration of admission/observation: Escalation of care including admission/observation considered ( Yes) Lab Data MDM Lab Attestation statement: I reviewed the patient's lab results. 01/18/25 14:38 01/18/25 14:38 Labs: Lab Results 01/18/25 Range/Units 14:38 WBC 10.4 (4.8-10.8) X10*3/uL RBC 4.92 (4.20-5.50) X10*6/uL Hgb 13.0 (12.0-16.0) g/dl Hct 40.5 (37.0-47.0) % MCV 82.3 (80.0-98.0) fL MCH 26.4 L (27.0-33.0) pg MCHC 32.1 (31.0-35.0) g/dl RDW 14.4 (11.0-16.0) % Plt Count 404 H (160-400) X10*3/uL MPV 10.4 (9.4-12.3) fL Immature Gran % (Auto) 0.5 H (0.0-0.4) % Neut % (Auto) 61.6 (45-73) % Lymph % (Auto) 29.3 (20-40) % [place] % (Auto) 7.0 (2-11) % Eos % (Auto) 1.1 (0-4) % Baso % (Auto) 0.5 (0-2) % Lymph # (Auto) 3.0 (1.2-4.9) X10*3/uL [place] # (Auto) 0.7 (0.1-1.2) X10*3/uL Eos # (Auto) 0.1 (0.0-0.4) X10*3/uL Baso # (Auto) 0.1 (0.0-0.2) X10*3/uL Abs Immat Gran (auto) 0.05 H (0.00-0.03) X10*3/uL Absolute Neuts (auto) 6.4 (2.0-8.3) x10*3/uL Absolute Nucleated RBC 0.000 (0.0-0.012) X10*3/uL Nucleated RBC % (auto) 0.0 (0.0-0.2) /100WBC Sodium 139 (135-145) mmol/L Potassium 4.3 D (3.3-5.1) mmol/L Chloride 103 (96-108) mmol/L Carbon Dioxide 26 (22-29) mmol/L Anion Gap 14 (12-20) BUN 8 L (9-16) mg/dL Creatinine 0.68 (0.5-1.4) mg/dL Estim Creat Clear Calc 132.0 Estimated GFR > 60 Random Glucose 110 (60-115) mg/dL Calcium 9.6 D (8.4-10.2) mg/dL Magnesium 2.3 (1.6-2.6) mg/dL Total Bilirubin 1.1 H (0.0-1.0) mg/dL AST 20 (5-31) U/L ALT 17 (0-31) U/L Alkaline Phosphatase 61 (39-117) U/L Total Protein 7.8 (6.5-8.0) g/dL Albumin 4.2 (3.5-5.0) g/dL Independent Historian Clinical information obtained from an independent historian. History obtained from or confirmed by: Spouse External Record Review External record reviewed: Other ( ED records) Chronic Conditions Patient?s care impacted by: Hypertension Discharge Plan Discharge Clinical Impression: Acute headache Patient Disposition: Home, Self-Care Additional Instructions: Your blood work was unremarkable except for an elevated platelet count of 404,000, this has not related to your headaches. Your physical examination was unremarkable, you had a normal neurologic exam which is reassuring. At this time, I do not think that the headache that your experiencing today is related to your brain tumor in his more likely related to a migraine-like headache or other headache pattern. You were given oxycodone 10 mg orally here in the emergency department for your headache. I did review your [place] prescription monitoring program. You have received 45 prescriptions for controlled medications from 29 different prescribe from 14 pharmacies. You received prescriptions for oxycodone on 12/29/2024, 12/31/2024 and 01/03/2025 from 3 different providers. This has a very concerning pattern. You should consider getting off narcotic medications in getting a pain management doctor to try to manage your pain without narcotic medications. Follow-up with your doctor in 2 days. Please return to the emergency department if your symptoms get worse or if you develop any symptoms that are concerning to you. Prescriptions: No Action amoxicillin-pot clavulanate 875-125 mg tablet 1 tab PO BID Qty: 20 0RF oxycodone 5 mg tablet 5 mg PO BID PRN (Reason: severe pain (scale score 7-10)) Qty: 6 0RF Rx Instructions: Partial Fill upon patient request. cephalexin 500 mg capsule 500 mg PO QID Qty: 28 0RF benzonatate 200 mg capsule 200 mg PO TID PRN (Reason: cough) Qty: 20 0RF albuterol sulfate 90 mcg/actuation HFA aerosol inhaler 2 puff inhalation Q6H PRN (Reason: shortness of breath or wheezing) Qty: 8.5 0RF morphine 15 mg tablet 15 mg PO Q8H PRN (Reason: pain) Qty: 15 0RF Rx Instructions: Partial Fill upon patient request. azithromycin [Zithromax] 500 mg tablet 500 mg PO DAILY 3 Days Qty: 3 0RF prednisone 20 mg tablet 40 mg PO DAILY Qty: 10 0RF naloxone [Narcan] 4 mg/actuation spray,non-aerosol 4 mg intranasal Q2M PRN (Reason: opioid overdose) Qty: 2 0RF Rx Instructions: spray 1 dose into ONE nostril; alternate nostrils w each dose until help arrives oxycodone 5 mg tablet 5 mg PO Q6H PRN (Reason: pain) Qty: 7 0RF Rx Instructions: Partial Fill upon patient request. meloxicam 7.5 mg tablet 7.5 mg PO DAILY Qty: 20 0RF valsartan 320 mg tablet 320 mg PO DAILY atenolol 25 mg tablet 25 mg PO DAILY methimazole 5 mg tablet 5 mg PO DAILY gabapentin 300 mg capsule 300 mg PO DAILY oxycodone 5 mg capsule 5 mg PO Q8H PRN Print Language: British
[2025-01-18 14:53] LABS: MANUAL DIFF FLAG NO
[2025-01-18 14:54] LABS: Basophils Absolute Auto 0.1 X10*3/uL (0.0-0.2); Basophils Percent Auto 0.5 % (0-2); Eosinophils Absolute Auto 0.1 X10*3/uL (0.0-0.4); Eosinophils Percent Auto 1.1 % (0-4); Hematocrit 40.5 % (37.0-47.0); Imm Gran Abs Auto 0.05 X10*3/uL (0.00-0.03); Imm Gran Pct Auto 0.5 % (0.0-0.4); Lymphocytes Percent Auto 29.3 % (20-40); Mean Corpuscular HGB Conc 32.1 g/dl (31.0-35.0); Mean Corpuscular Hemoglobin 26.4 pg (27.0-33.0); Mean Corpuscular Volume 82.3 fL (80.0-98.0); Mean Platelet Volume 10.4 fL (9.4-12.3); Monocytes Absolute Auto 0.7 X10*3/uL (0.1-1.2); Neutrophils Absolute Auto 6.4 x10*3/uL (2.0-8.3); Neutrophils Percent Auto 61.6 % (45-73); Platelet Count 404 X10*3/uL (160-400); Red Blood Count 4.92 X10*6/uL (4.20-5.50); Red Cell Distribution Width 14.4 % (11.0-16.0); White Blood Count 10.4 X10*3/uL (4.8-10.8)
[2025-01-18 15:20] LABS: Alanine Aminotransferase 17 U/L (0-31); Albumin Level 4.2 g/dL (3.5-5.0); Alkaline Phosphatase 61 U/L (39-117); Anion Gap 14 (12-20); Aspartate Amino Transferase 20 U/L (5-31); Bilirubin Total 1.1 mg/dL (0.0-1.0); Blood Urea Nitrogen 8 mg/dL (9-16); Calcium 9.6 mg/dL (8.4-10.2); Carbon Dioxide 26 mmol/L (22-29); Chloride 103 mmol/L (96-108); Estimated Glomerular Filt Rate > 60; Glucose Random 110 mg/dL (60-115); Magnesium 2.3 mg/dL (1.6-2.6); Potassium 4.3 mmol/L (3.3-5.1); Sodium 139 mmol/L (135-145); Total Protein 7.8 g/dL (6.5-8.0)
[2025-01-18 15:28] VITALS: BP 139/85; PULSE 87; RESP 16; TEMP 36.9; O2SAT 98
[2025-01-18 16:09] VITALS: BP 122/74; PULSE 80; RESP 18; TEMP 36.7; O2SAT 98
[2025-01-18] MEDS: oxyCODONE HCl Immed Release 5 MG TABLET 10 MG PO (17:22)
[2025-01-18 17:23] VITALS: BP 122/79; PULSE 81; RESP 14; TEMP 36.8; O2SAT 98
== END 2025-01-18 17:36 | disposition home or self-care (01) ==
PROVIDERS: Physician Assistant Medical; Emergency Provider Emergency Medicine Emergency Medical Services
DX: R51.9 Headache, unspecified (principal); I10 Essential (primary) hypertension; M54.50 Low back pain, unspecified; R42 Dizziness and giddiness; R11.0 Nausea; H53.149 Visual discomfort, unspecified; Z79.899 Other long term (current) drug therapy
CPT/HCPCS: 36415; 80053; 83735; 85025; 99283; 99284

== ENCOUNTER 2025-03-22 02:00 | Emergency (ER) | payer OTHER, SELFPAY ==
--- OUTSIDE RECORDS SUMMARY | 2025-01-13 07:25 | XMS_ITS ---
Author Organization [facility] Address [address] [place] [address] [address] [place] [address] Care Team Providers Care Air Defence Officer Name Role Phone Conchita Mathis Primary Care Provider Jaylen Santiago Unavailable [phone] REASON FOR VISIT knee, hip and lumbar radiculopathy Encounters Encounter Location Date Provider [facility] [address] [facility] [address] [place] [address] 01/13/2025 Jaylen Huerta Assessments Encounter Date Diagnosis [...] patient was also directed to our website [email or web address] for more information regarding specific treatment options, non-opioid alternatives, opioid REMS patient counseling guide, narcan, bowel regimen, and tips for managing chronic pain. 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
[2025-03-22 02:06] VITALS: BP 148/89; PULSE 85; RESP 17; TEMP 36.3; O2SAT 98; BMI 34.5
[2025-03-22 02:51] LABS: MANUAL DIFF FLAG NO
[2025-03-22 02:54] LABS: Hematocrit 38.7 % (37.0-47.0); Hemoglobin 12.9 g/dl (12.0-16.0); Imm Gran Abs Auto 0.05 X10*3/uL (0.00-0.03); Imm Gran Pct Auto 0.6 % (0.0-0.4); Lymphocytes Absolute Auto 3.2 X10*3/uL (1.2-4.9); Mean Corpuscular HGB Conc 33.3 g/dl (31.0-35.0); Mean Corpuscular Hemoglobin 26.9 pg (27.0-33.0); Mean Corpuscular Volume 80.6 fL (80.0-98.0); NRBC Abs Auto 0.000 X10*3/uL (0.0-0.012); NRBC Pct Auto 0.0 /100WBC (0.0-0.2); Platelet Count 335 X10*3/uL (160-400); Red Blood Count 4.80 X10*6/uL (4.20-5.50); White Blood Count 8.4 X10*3/uL (4.8-10.8)
[2025-03-22 03:09] LABS: Alanine Aminotransferase 34 U/L (0-31); Albumin Level 4.1 g/dL (3.5-5.0); Alkaline Phosphatase 73 U/L (39-117); Anion Gap 14 (12-20); Aspartate Amino Transferase 25 U/L (5-31); Blood Urea Nitrogen 5 mg/dL (9-16); Calcium 9.4 mg/dL (8.4-10.2); Carbon Dioxide 24 mmol/L (22-29); Chloride 106 mmol/L (96-108); Creatinine Clr Calc Pharmacy 134.0; Estimated Glomerular Filt Rate > 60; Potassium 3.3 mmol/L (3.3-5.1); Sodium 141 mmol/L (135-145); Total Protein 7.8 g/dL (6.5-8.0)
--- OUTSIDE RECORDS SUMMARY | 2025-03-22 03:44 | XMS_ITS ---
Author Name [facility] Organization Unknown Results Test Name/Text Value Interpretation Date Range Source THROAT, CULTURE (FOR STREP) NO BETA HEMOLYTIC STREPTOCOCCI ISOLATED. 5 [facility] Glucose Bld-mCnc 93.0 mg/dL Normal 5 70 - 199 [facility] Calcium SerPl-mCnc 8.9 mg/dL Normal 5 8.4 - 10.2 [facility] Albumin SerPl-mCnc 4.0 g/dL Normal 5 3.5 - 5 [facility] Glucose SerPl-mCnc 101.0 mg/dL Normal 5 70 - 199 [facility] Chloride SerPl-sCnc 100.0 mmol/L Normal 01/02/20 2 5 98 - 107 [facility] AST SerPl-cCnc 31.0 unit/L Normal 5 5 - 40 [facility] Sodium SerPl-sCnc 137.0 mmol/L Normal 5 135 - 145 [facility] Potassium SerPl-sCnc 4.6 mmol/L Normal 5 3.5 - 5.1 [facility] Anion Gap SerPl-sCnc 7.0 Normal 5 5 - 14 [facility] BUN SerPl-mCnc 10.0 mg/dL Normal 5 7 - 17 [facility] ALP SerPl-cCnc 52.0 unit/L Normal 5 34 - 104 [facility] BUN/Creat SerPl 14.3 Normal 5 12 - 20 [facility] Prot SerPl-mCnc 7.6 g/dL Normal 5 6.4 - 8.5 [facility] ALT SerPl-cCnc 16.0 unit/L Normal 5 7 - 52 [facility] CO2 SerPl-sCnc 30.0 mmol/L Normal 5 24 - 32 [facility] Bilirub SerPl-mCnc 0.6 mg/dL Normal 5 0.3 - 1 [facility] Creat SerPl-mCnc 0.7 mg/dL Normal 5 0.5 - 1 [facility] eGFRcr SerPlBld CKD-EPI 2020 108.0 mL/min/1.73m2 Normal 5 - [facility] TSH SerPl DL<=0.005 mIU/L-aCnc 0.46 mcIU/mL Normal 5 0.45 - 5.33 [facility] Magnesium SerPl-mCnc 2.1 mg/dL Normal 5 1.7 - 2.8 [facility] LACTIC ACID 1.2 mmol/L Normal 5 0.5 - 2.2 [facility] BUN SerPl-mCnc 16.0 mg/dL Normal 5 8 - 21 [facility] Prot SerPl-mCnc 7.3 g/dL Normal 5 6.3 - 8.3 [facility] CO2 SerPl-sCnc 27.0 mmol/L Normal 5 22 - 33 [facility] ALP SerPl-cCnc 61.0 U/L Normal 5 32 - 122 [facility] Anion Gap Bld-sCnc 8.0 Normal 5 7 - 17 [facility] Potassium SerPl-sCnc 4.3 mmol/L Normal 5 3.4 - 5.3 [facility] BUN/Creat SerPl 20.0 Ratio Normal 5 10 - 25 [facility] Bilirub SerPl-mCnc 0.6 mg/dL Normal 5 0.2 - 1 [facility] Globulin Ser Calc-mCnc 3.4 g/dL Normal 5 1.5 - 3.9 [facility] Creat SerPl-mCnc 0.8 mg/dL Normal 5 0.4 - 1.1 [facility] ALT SerPl-cCnc 20.0 U/L Normal 5 10 - 50 [facility] Sodium SerPl-sCnc 138.0 mmol/L Normal 5 136 - 145 [facility] AST SerPl-cCnc 19.0 U/L Normal 5 10 - 50 [facility] Chloride SerPl-sCnc 103.0 mmol/L Normal 12/29/19 2 5 98 - 107 [facility] Albumin/Glob SerPl 1.1 Ratio Normal 5 1 - 3 [facility] GFR/BSA.pred SerPlBld JIX-[id number] >90.0 Normal 5 59 - [facility] Calcium SerPl-mCnc 9.1 mg/dL Normal 5 8.7 - 10.5 [facility] Glucose SerPl-mCnc 144.0 mg/dL Above high normal 12/10 5 65 - 99 [facility] Albumin SerPl-mCnc 3.9 g/dL Normal 5 3.5 - 5 [facility] INR PPP 1.1 Normal 5 [facility] Prothrombin time 11.8 seconds Normal 5 10 - 13.5 [facility] Anticoagulant NO ANTI COAGULANT MEDS Normal 5 [facility] WBC num Bld Auto 8.2 Thou/uL Normal 5 4 - 11 [facility] MCH RBC Qn Auto 25.8 pg Below low normal 12/29/19 2 5 26 - 34 [facility] Eosinophil/leuk NFr Bld Auto 3.0 % Normal 5 [facility] Platelet num Bld Auto 384.0 Thou/uL Normal 5 150 - 450 [facility] Neutrophils/leuk NFr Bld Auto 43.1 % Normal 5 [facility] Imm Granulocytes/leuk NFr Bld Auto 0.2 % Normal 5 [facility] MCV RBC Auto 84.0 fL Normal 5 80 - 100 [facility] Neutrophils num Bld Auto 3.54 Thou/uL Normal 5 2 - 7.5 [facility] PMV Bld Auto 10.7 fL Normal 5 7.5 - 12.5 [facility] RBC num Bld Auto 4.42 Mil/uL Normal 5 4 - 5.4 [facility] Lymphocytes num Bld Auto 3.51 Thou/uL Normal 5 1.5 - 4.5 [facility] Monocytes num Bld Auto 0.85 Thou/uL Normal 5 0.2 - 1.5 [facility] Hgb Bld-mCnc 11.4 g/dL Below low normal 5 11.7 - 15.7 [facility] Basophils num Bld Auto 0.04 Thou/uL Normal 5 0 - 0.2 [facility] Basophils/leuk NFr Bld Auto 0.5 % Normal 5 [facility] Lymphocytes/leuk NFr Bld Auto 42.8 % Normal 5 [facility] Imm Granulocytes num Bld Auto 0.02 Thou/uL Normal 5 0 - 0.1 [facility] Eosinophil num Bld Auto 0.25 Thou/uL Normal 5 0 - 0.7 [facility] Hct VFr Bld Auto 37.2 % Normal 5 35 - 47 [facility] RDW RBC Auto-Rto 14.8 % Above high normal 5 11.5 - 14.5 [facility] Monocytes/leuk NFr Bld Auto 10.4 % Normal 5 [facility] MCHC RBC Auto-mCnc 30.6 g/dL Normal 5 30 - 36 [facility] Fortine LC Free Ur-mCnc 5.89 mg/L Normal 5 - [facility] Fortine LC Free/Lambda Free Ur 7.27 Normal 5 - [facility] Lambda LC Free Ur-mCnc 0.81 mg/L Normal 5 - [facility] Prot Ur-mCnc 6.0 mg/dL Below low normal 5 - [facility] Prot/Creat Ur 0.07 mg/mg creat Normal 5 - [facility] Creat Ur-mCnc 89.2 mg/dL Normal 5 [facility] Sp Gr Ur 1.01 Normal 5 1.005 - 1.03 [facility] Leukocyte esterase Ur Ql Strip Trace Abnormal 5 - [facility] Ketones Ur-mCnc Negative Normal 5 - [facility] Glucose Ur Ql Negative Normal 5 - [facility] Nitrite Ur Ql Negative Normal 5 - [facility] Mucous Threads #/area UrnS HPF Present Abnormal 5 - [facility] WBC #/area UrnS HPF 4.0 /HPF Normal 12/15/19 2 5 0 - 5 [facility] Prot Ur Strip-mCnc Negative Normal 5 - [facility] RBC #/area UrnS HPF <1.0 /HPF Normal 12/15/19 2 5 0 - 3 [facility] Bacteria #/area UrnS HPF Present Abnormal 5 - [facility] Hgb Ur Ql Negative Normal 5 - [facility] Clarity Ur Clear Normal 5 - [facility] Squamous #/area UrnS HPF 21.0 /HPF Above high normal 5 0 - 5 [facility] Color Ur Yellow Normal 5 - [facility] pH Ur 6.0 pH Normal 5 5 - 8 [facility] Magnesium SerPl-mCnc 1.8 mg/dL Normal 5 1.7 - 2.8 [facility] AST SerPl-cCnc 24.0 unit/L Normal 5 5 - 40 [facility] Creat SerPl-mCnc 0.6 mg/dL Normal 5 0.5 - 1 [facility] Potassium SerPl-sCnc 3.5 mmol/L Normal 5 3.5 - 5.1 [facility] Sodium SerPl-sCnc 137.0 mmol/L Normal 5 135 - 145 [facility] Prot SerPl-mCnc 7.3 g/dL Normal 5 6.4 - 8.5 [facility] BUN SerPl-mCnc 6.0 mg/dL Below low normal 5 7 - 17 [facility] Albumin SerPl-mCnc 3.7 g/dL Normal 5 3.5 - 5 [facility] Chloride SerPl-sCnc 98.0 mmol/L Normal 12/15/19 2 5 98 - 107 [facility] ALT SerPl-cCnc 36.0 unit/L Normal 5 7 - 52 [facility] Glucose SerPl-mCnc 123.0 mg/dL Normal 5 70 - 199 [facility] ALP SerPl-cCnc 55.0 unit/L Normal 5 34 - 104 [facility] Bilirub SerPl-mCnc 0.6 mg/dL Normal 5 0.3 - 1 [facility] Anion Gap SerPl-sCnc 9.0 Normal 5 5 - 14 [facility] Calcium SerPl-mCnc 9.0 mg/dL Normal 5 8.4 - 10.2 [facility] BUN/Creat SerPl 10.0 Below low normal 12/15/19 2 5 12 - 20 [facility] CO2 SerPl-sCnc 30.0 mmol/L Normal 5 24 - 32 [facility] eGFRcr SerPlBld CKD-EPI 2020 112.0 mL/min/1.73m2 Normal 5 - [facility] BNP SerPl-mCnc 90.0 pcg/mL Normal 5 0 - 100 [facility] BNP SerPl-mCnc 140.0 pcg/mL Normal 5 - [facility] Creat SerPl-mCnc 0.6 mg/dL Normal 5 0.5 - 1 [facility] Glucose SerPl-mCnc 120.0 mg/dL Normal 5 70 - 199 [facility] BUN/Creat SerPl 10.0 Below low normal 12/14/19 2 5 12 - 20 [facility] Chloride SerPl-sCnc 103.0 mmol/L Normal 12/14/19 2 5 98 - 107 [facility] eGFRcr SerPlBld CKD-EPI 2020 112.0 mL/min/1.73m2 Normal 5 - [facility] Sodium SerPl-sCnc 139.0 mmol/L Normal 5 135 - 145 [facility] BUN SerPl-mCnc 6.0 mg/dL Below low normal 5 7 - 17 [facility] Potassium SerPl-sCnc 3.5 mmol/L Normal 5 3.5 - 5.1 [facility] Anion Gap SerPl-sCnc 9.0 Normal 5 5 - 14 [facility] Calcium SerPl-mCnc 8.1 mg/dL Below low normal 12/13 5 8.4 - 10.2 [facility] CO2 SerPl-sCnc 27.0 mmol/L Normal 5 24 - 32 [facility] Magnesium SerPl-mCnc 1.9 mg/dL Normal 5 1.7 - 2.8 [facility] LACTIC ACID 1.0 mmol/L Normal 5 0.5 - 2.2 [facility] Eosinophil/leuk NFr Bld Auto 2.8 % Normal 5 0 - 6 [facility] Basophils # Bld Auto 0.0 K/mcL Normal 5 0 - 0.2 [facility] MCV RBC Auto 80.9 FL Normal 5 78 - 100 [facility] Platelet # Bld Auto 322.0 K/mcL Normal 12/14/19 2 5 150 - 450 [facility] Basophils/leuk NFr Bld Auto 0.5 % Normal 5 0 - 2 [facility] RBC # Bld Auto 3.89 M/mcL Below low normal 5 4.2 - 5.4 [facility] MCH RBC Qn Auto 26.0 pcg Normal 5 25 - 33 [facility] MCHC RBC Auto-mCnc 32.1 g/dL Normal 5 32 - 36 [facility] Neutrophils # Bld Auto 4.1 K/mcL Normal 5 1.8 - 7.8 [facility] Hct VFr Bld Auto 31.5 % Below low normal 02 5 37 - 47 [facility] Lymphocytes # Bld Auto 3.1 K/mcL Normal 5 1 - 3.2 [facility] WBC # Bld Auto 8.2 K/mcL Normal 5 4 - 10.5 [facility] Monocytes/leuk NFr Bld Auto 9.1 % Normal 5 2 - 12 [facility] Lymphocytes/leuk NFr Bld Auto 37.3 % Normal 5 20 - 48 [facility] RDW RBC Auto-Rto 15.7 % Normal 5 12.1 - 16.2 [facility] Eosinophil # Bld Auto 0.2 K/mcL Normal 5 0 - 0.5 [facility] PMV Bld Auto 8.7 FL Normal 5 7.4 - 11.4 [facility] Monocytes # Bld Auto 0.7 K/mcL Normal 5 0 - 0.8 [facility] Neutrophils/leuk NFr Bld Auto 50.3 % Normal 5 44 - 74 [facility] Hgb Bld-mCnc 10.1 g/dL Below low normal 5 12.5 - 16 [facility] BNP SerPl-mCnc 33.0 pcg/mL Normal 5 - [facility] Troponin I SerPl HS-mCnc 3.0 ng/L Normal 5 0 - 14 [facility] Procalcitonin SerPl-mCnc <0.05 ng/mL Normal 5 - [facility] eGFRcr SerPlBld CKD-EPI 2020 112.0 mL/min/1.73m2 Normal 5 - [facility] Potassium SerPl-sCnc 3.2 mmol/L Below low normal 5 3.5 - 5.1 [facility] Glucose SerPl-mCnc 126.0 mg/dL Normal 5 70 - 199 [facility] BUN SerPl-mCnc 7.0 mg/dL Normal 5 7 - 17 [facility] Sodium SerPl-sCnc 139.0 mmol/L Normal 5 135 - 145 [facility] Creat SerPl-mCnc 0.6 mg/dL Normal 5 0.5 - 1 [facility] CO2 SerPl-sCnc 28.0 mmol/L Normal 5 24 - 32 [facility] Calcium SerPl-mCnc 8.4 mg/dL Normal 5 8.4 - 10.2 [facility] BUN/Creat SerPl 11.7 Below low normal 12/14/19 2 5 12 - 20 [facility] Chloride SerPl-sCnc 100.0 mmol/L Normal 12/14/19 2 5 98 - 107 [facility] Anion Gap SerPl-sCnc 11.0 Normal 5 5 - 14 [facility] LACTIC ACID 2.6 mmol/L Above high normal 5 0.5 - 2.2 [facility] MCV RBC Auto 82.0 FL Normal 5 78 - 100 [facility] RDW RBC Auto-Rto 15.4 % Normal 5 12.1 - 16.2 [facility] Lymphocytes # Bld Auto 3.1 K/mcL Normal 5 1 - 3.2 [facility] Basophils # Bld Auto 0.1 K/mcL Normal 5 0 - 0.2 [facility] Platelet # Bld Auto 336.0 K/mcL Normal 12/14/19 2 5 150 - 450 [facility] Basophils/leuk NFr Bld Auto 0.6 % Normal 5 0 - 2 [facility] PMV Bld Auto 8.5 FL Normal 5 7.4 - 11.4 [facility] Monocytes # Bld Auto 0.7 K/mcL Normal 5 0 - 0.8 [facility] Neutrophils/leuk NFr Bld Auto 56.1 % Normal 5 44 - 74 [facility] WBC # Bld Auto 9.3 K/mcL Normal 5 4 - 10.5 [facility] Eosinophil/leuk NFr Bld Auto 2.7 % Normal 5 0 - 6 [facility] Monocytes/leuk NFr Bld Auto 7.9 % Normal 5 2 - 12 [facility] Lymphocytes/leuk NFr Bld Auto 32.7 % Normal 5 20 - 48 [facility] Hct VFr Bld Auto 33.7 % Below low normal 02 5 37 - 47 [facility] MCH RBC Qn Auto 26.4 pcg Normal 5 25 - 33 [facility] RBC # Bld Auto 4.11 M/mcL Below low normal 5 4.2 - 5.4 [facility] MCHC RBC Auto-mCnc 32.2 g/dL Normal 5 32 - 36 [facility] Eosinophil # Bld Auto 0.3 K/mcL Normal 5 0 - 0.5 [facility] Neutrophils # Bld Auto 5.2 K/mcL Normal 5 1.8 - 7.8 [facility] Hgb Bld-mCnc 10.8 g/dL Below low normal 5 12.5 - 16 [facility] History of Medication Use Medication Directions Dispensed Refills Start Date End Date Status acetaminophen (Tylenol) tablet 975 mg 975 mg, oral, Once, On Sun02/27/25 at 2006, For 1 dose 2024 completed oxyCODONE (Roxicodone) immediate release tablet 10 mg 10 mg, oral, Once, On Sun02/27/25 at 2120, For 1 dose, TO GO 2024 completed valsartan (DIOVAN) tablet 320 mg 320 mg, oral, Once, On Sun02/27/25 at 0535, For 1 dose 2024 completed 1 tab(s) Oral every 6 hours prn for 3 days 5-325 MG Tablet, 1 tab(s) Oral every 6 hours prn completed oxyCODONE (ROXICODONE) immediate release tablet 5 mg 5 mg, oral, Once, On Sun02/04/25 at 1744, For 1 dose 2024 completed oxyCODONE (ROXICODONE) 5 mg immediate release tablet Take 2 tablets (10 mg total) by mouth every 6 (six) hours if needed for severe pain. Max Daily Amount: 40 mg active hydroCHLOROthiazide (HYDRODIURIL) 25 MG tablet Take 1 tablet (25 mg total) by mouth daily. active oxyCODONE (ROXICODONE) 10 mg immediate release tablet Take 1 tablet (10 mg total) by mouth 4 times daily (every 6 hours) as needed for severe pain. Max Daily Amount: 40 mg active valsartan-hydroCHLOROt hiazide (DIOVAN-HCT) 320-25 MG per tablet Take 1 tablet by mouth daily. active amoxicillin-clavulanat e (AUGMENTIN) 500-125 mg per tablet Take 1 tablet by mouth 2 (two) times a day for 4 days. active atenoloL (TENORMIN) 25 mg tablet TAKE 1 TABLET BY MOUTH ONCE DAILY active cephalexin (KEFLEX) 250 mg/5 mL suspension 250 mg 250 mg, oral, Every 6 hours scheduled, First dose on Sun12/15/24 at 1200, For 4 days, Indication: Skin/Soft Tissue active enoxaparin (LOVENOX) injection 40 mg 40 mg, subcutaneous, Every 24 hours scheduled, First dose on Sun12/15/24 at 0900, Indication: VTE/PE Prophylaxis active valsartan (DIOVAN) tablet 320 mg [Order 1 Start] Name: valsartan (DIOVAN) tablet 320 mg Signed Summary: 320 mg, oral, Daily, First dose on Sun12/15/24 at 0945 [Order 1 End] [Order 2 Start] Name: hydroCHLOROthiazide (MICROZIDE) capsule 25 mg Signed Summary: 25 mg, oral, Daily, First dose on Sun12/15/24 at 0945 [Order 2 End] active valsartan-hydroCHLOROt hiazide (DIOVAN-HCT) 320-25 mg per tablet TAKE 1 TABLET BY MOUTH DAILY active diazePAM (VALIUM) tablet 5 mg 5 mg, oral, 2 times daily PRN, anxiety, Starting on Sun12/14/24 at 1206 active ceFAZolin (ANCEF) 2 g in sterile water 20 mL IV syringe 2 g, intravenous, Administer over 3 Minutes, Every 8 hours, First dose (after last modification) on 12/13/24 at 0530, For 5 days, Indication: Skin/Soft Tissue 2024 aborted bumetanide (BUMEX) injection 1 mg 1 mg, intravenous, Once, On Sun12/14/24 at 1145, For 1 dose 2024 completed potassium chloride (KLOR-CON M20) CR tablet 40 mEq 40 mEq, oral, Once, On Sun12/14/24 at 0900, For 1 dose, Tablet may be swallowed whole (do not crush/chew/suck on) OR broken in half and each half swallowed separately OR dissolved (whole tablet) in ~4 ounces of water (allow ~2 minutes to dissolve, stir well and administer immediately). 2024 completed fentaNYL (PF) (SUBLIMAZE) injection 50 mcg 50 mcg, intravenous, Once, On Sun12/12/24 at 2050, For 1 dose 2024 completed morphine 2 mg/mL injection 2 mg 2 mg, intravenous, Once, On 12/13/24 at 0415, For 1 dose 2024 completed vancomycin (VANCOCIN) 1,000 mg in sodium chloride 0.9 % 250 mL IVPB 1,000 mg, intravenous, at 250 mL/hr, Administer over 60 Minutes, Once, On Sun12/12/24 at 2157, For 1 dose, Indication: Skin/Soft Tissue 2024 completed atenoloL (TENORMIN) tablet 25 mg 25 mg, oral, Daily, First dose on 12/13/24 at 0900, Hold sbp<100 p<60 active spironolactone (ALDACTONE) tablet 25 mg active cephalexin (KEFLEX) 500 mg capsule Take 1 capsule (500 mg total) by mouth 3 (three) times a day for 10 days. 2024 aborted oxyCODONE (OXY-IR) 5 mg immediate release capsule Take 1 capsule (5 mg total) by mouth every 6 (six) hours if needed for severe pain for up to 3 days. Max Daily Amount: 20 mg 2024 aborted oxyCODONE (ROXICODONE) 5 mg immediate release tablet Take 1 tablet (5 mg total) by mouth every 6 (six) hours if needed for severe pain for up to 4 days. Max Daily Amount: 20 mg 024 2024 active ondansetron (ZOFRAN-ODT) 8 MG disintegrating tablet Take 1 tablet (8 mg total) by mouth every 8 (eight) hours as needed for nausea. active chlorhexidine 0.12% mucous membrane liquid 0.018 gm =, 15 mL, Oral, BID, # 480 mL, 0 Refill(s), swish and spit; do not swallow, Pharmacy: [facility]/pharmacy #[id number], 15 mL Oral BID,Instr:swish and spit; do not swallow, 170, 04/03/24 20:09:00 EDT, Height/Length Measured, cm, 81.8, 04/03/24 20:09:00 EDT... 024 atenoloL (TENORMIN) 25 mg tablet TAKE 1 TABLET BY MOUTH ONCE DAILY 2024 active valsartan-hydroCHLOROt hiazide (DIOVAN-HCT) 320-25 mg per tablet TAKE 1 TABLET BY MOUTH DAILY 024 2024 active gabapentin (NEURONTIN) 300 mg capsule Take 1 capsule (300 mg total) by mouth 3 (three) times a day. 023 active gabapentin (NEURONTIN) capsule 300 mg 300 mg, oral, Nightly, First dose on 12/13/24 at 2100 023 active cholecalciferol (VITAMIN D-3) 50 mcg (2,000 unit) tablet Take 1 tablet (2,000 Units total) by mouth 1 (one) time each day. 022 active cholecalciferol (VITAMIN D-3) 50 mcg (2,000 unit) tablet Take 1 tablet (2,000 Units total) by mouth 1 (one) time each day. 022 active diazepam (VALIUM) 5 MG tablet 021 active atenolol (TENORMIN) 25 MG tablet 021 active traZODone (DESYREL) 50 MG tablet trazodone 50 mg tablet 019 active ibuprofen (ADVIL,MOTRIN) 600 MG tablet Take 1 tablet (600 mg total) by mouth every 6 (six) hours as needed for pain. 018 active valsartan-hydroCHLOROt hiazide (DIOVAN-HCT) 320-25 MG per tablet 018 active temazepam (RESTORIL) 15 MG capsule 015 active ascorbic acid (VITAMIN C) 1,000 mg tablet Take 1 tablet (1,000 mg total) by mouth 1 (one) time each day. active ascorbic acid (VITAMIN C) 1,000 mg tablet Take 1 tablet (1,000 mg total) by mouth 1 (one) time each day. active B Complex Vitamins (B COMPLEX PO) vitamin b complex with b12 active diazePAM (VALIUM) 5 mg tablet TAKE 2 TABLET BY MOUTH DIRECTED - TAKE 1ST TABLET AN HOUR AND 2ND TABLET 1/2 BEFORE PROCEDURE NEEDED MAXIMUM DAILY DOSE IS 2 active diazePAM (VALIUM) 5 mg tablet TAKE 2 TABLET BY MOUTH DIRECTED - TAKE 1ST TABLET AN HOUR AND 2ND TABLET 1/2 BEFORE PROCEDURE NEEDED MAXIMUM DAILY DOSE IS 2 active diclofenac (VOLTAREN) 50 mg EC tablet TAKE 1 TABLET, DELAYED RELEASE (ENTERIC COATED) ORALLY TWICE A DAY TAKE WITH FOOD NEEDED active diclofenac (VOLTAREN) 50 mg EC tablet TAKE 1 TABLET, DELAYED RELEASE (ENTERIC COATED) ORALLY TWICE A DAY TAKE WITH FOOD NEEDED active gabapentin (NEURONTIN) 300 MG capsule Take 1 capsule (300 mg total) by mouth 3 (three) times a day. active spironolactone (ALDACTONE) 25 mg tablet Take 1 tablet (25 mg total) by mouth 1 (one) time each day in the morning. active tiZANidine (ZANAFLEX) 2 mg tablet TAKE 1-2 TABLETS ORALLY EVERY [address] WHEN TAKING TIZANIDINE active tiZANidine (ZANAFLEX) 2 mg tablet TAKE 1-2 TABLETS ORALLY EVERY [address] WHEN TAKING TIZANIDINE active Allergies Allergen Reaction Severity Comment Documented Date Source Status KETOROLAC RASHOTHER 02/27/2025 [facility] active RED DYE GI INTOLERANCE 12/31/2024 [facility] act leila HYDROCODONE RASH/DERMATITIS 06/29/2024 [facility] a ctive KETOROLAC TROMETHAMINE RASH/DERMATITIS 05/05/2024 [facility] active NSAIDS UNKNOWN/PATIENT AND FAMILY UNABLE TO DEFINE 05/03/2024 [facility] active NSAIDS (NON-STEROIDAL ANTI-INFLAMMATORY DRUG) 05/03/2024 [facility] active LEVOFLOXACIN RASH/DERMATITISR REYNA 03/05/2008 [facility] active IBUPROFEN OTHER (SEE COMMENTS)DIZZINE SS Chest pain [facility] LEVAQUIN RASH CTSH TORADOL RASH CTS Problems Problem Status Onset Date Problem Type Date of Resolution Source Myalgia, unspecified site active ProblemAct [facility] Anxiety disorder, unspecified active ProblemAct [facility] Low back pain, unspecified active ProblemAct [facility] Neoplasm of uncertain behavior of brain, unspecified active ProblemAct [facility] Pain in unspecified knee active ProblemAct [facility] Essential (primary) hypertension active ProblemAct [facility] Chronic pain syndrome active ProblemAct [facility] Headache, unspecified active ProblemAct [facility] Insomnia, unspecified active ProblemAct [facility] Multiple joint pain active 2024-06-11 2 ProblemAct [facility] Hyperthyroidism active 2 ProblemAct [facility] Opioid use disorder active 2024-12-10 3 ProblemAct [facility] Endometriosis active 2022-02-09 9 ProblemAct [facility] Immunization due active 2024-06-11 2 ProblemAct [facility] Cervical cancer screening active 2024-06-11 2 ProblemAct [facility] Encounter for screening mammogram for malignant neoplasm of breast active 2024-06-11 2 ProblemAct [facility] Brain mass active EncounterDiagnosisAct [facility] Edema, unspecified type active 6 ProblemAct [facility] Class 2 severe obesity due to excess calories with serious comorbidity and body mass index (BMI) of 36.0 to 36.9 in adult (CMS/HCC V24, [facility] V28) active 2022-05-13 0 ProblemAct [facility] Breast nodule active 2022-05-13 0 ProblemAct [facility] Encounter to establish care active 6 ProblemAct [facility] Prediabetes active 2 ProblemAct [facility] Vitamin D deficiency active 2022-05-13 0 ProblemAct [facility] Drug-seeking behavior active 2024-06-11 2 ProblemAct [facility] Anxiety active 2022-02-09 9 ProblemAct [facility] Other chronic pain active EncounterDiagnosisAct [facility] Atypical pigmented lesion active 2 ProblemAct [facility] Cellulitis active 4 ProblemAct [facility] Medical orders for life-sustaining treatment (MOLST) form in chart active 2024-11-09 4 ProblemAct [facility] Thyroid nodule active 2022-05-13 0 ProblemAct [facility] Neoplasm of uncertain behavior of brain, unspecified active ProblemAct [facility] Low back pain, unspecified active ProblemAct [facility] Chronic pain syndrome active ProblemAct [facility] Headache, unspecified active ProblemAct [facility] Intracranial mass active 2024-12-10 0 ProblemAct [facility] Essential hypertension active 7 ProblemAct [facility] Chronic pain of both knees active 7 ProblemAct [facility] Chronic dental pain active EncounterDiagnosisAc t [facility] Opioid use active 2022-04-10 2 ProblemAct [facility] Endometriosis (disorder) active ProblemAct [facility] Encounters Encounter Type Encounter Reason Primary Diagnosis Location Date Emergency headache Headache, unspecified [facility] 03/21/2025 Emergency HEADACHES HEADACHES [facility] 03/20/2025 Emergency I NEED PAIN MANAGEMENT I NEED PAIN MANAGEMENT [facility] 03/20/2025 Emergency HEAD PRESSURE, CLUSTER HEADHEACHE, BRAIN TUMOR HEAD PRESSURE, CLUSTER HEADHEACHE, BRAIN TUMOR [facility] 03/20/2025 Emergency HEADACHES CLUSTER BRAIN TUMOR HEADACHES CLUSTER BRAIN TUMOR [facility] 03/19/2025 Emergency MIGRAINE H/A MIGRAINE H/A [facility] 03/13/2025 Emergency Headache, unspecified Headache, unspecified [facility] 02/27/2025 Emergency HEADACHE, BRAIN TUMOR Headache, unspecified [facility] 02/27/2025 Emergency Persons encountering health services in other specified circumstances Persons encountering health services in other specified circumstances [facility] 02/27/2025 Ambulatory [facility] 02/27/2025 Ambulatory [facility] 02/26/2025 Emergency HEAD ACHE, REQ REFILL HEAD ACHE, REQ REFILL [facility] 02/25/2025 Ambulatory [facility] 02/25/2025 Ambulatory Chronic pain syndrome Chronic pa in syndrome [facility] 02/13/2025 Emergency RX REFILL RX REFILL [facility] 02/11/2025 Ambulatory [facility] 02/11/2025 Ambulatory [facility] 02/11/2025 Emergency HEADACHE HEADACHE [facility] 02/07/2025 [facility] 02/05/2025 Ambulatory [facility] 02/05/2025 Emergency medication refill Encounter for issue of repeat prescription [facility] 02/04/2025 Ambulatory Intracranial space-occupying lesion found on diagnostic imaging of central nervous system Intracranial space-occupying lesion found on diagnostic imaging of central nervous system [facility] 02/02/2025 Ambulatory [facility] 01/30/2025 Ambulatory [facility] 01/29/2025 Ambulatory Other chronic pain Other chronic pain [facility] 01/29/2025 Ambulatory [facility] 01/29/2025 Ambulatory [facility] 01/29/2025 Ambulatory [facility] 01/29/2025 Ambulatory Intracranial space-occupying lesion found on diagnostic imaging of central nervous system Intracranial space-occupying lesion found on diagnostic imaging of central nervous system [facility] 01/28/2025 Ambulatory [facility] 01/12/2025 Ambulatory Intracranial space-occupying lesion found on diagnostic imaging of central nervous system Intracranial space-occupying lesion found on diagnostic imaging of central nervous system [facility] 01/02/2025 Ambulatory [facility] 01/02/2025 Ambulatory Intracranial space-occupying lesion found on diagnostic imaging of central nervous system Intracranial space-occupying lesion found on diagnostic imaging of central nervous system [facility] 01/01/2025 Emergency Medical eval Opioid use, unspecified, uncomplicated [facility] 12/31/2024 Emergency Headache, unspecified Headache, unspecified [facility] 12/31/2024 Inpatient Headache, unspecified Headache, unspecified [facility] 12/28/2024 Inpatient Leg Swelling Edema, unspecified [facility] 12/14/2024 Ambulatory [facility] 07/24/2024 Emergency Other specified disorders of teeth and supporting structures Other specified disorders of teeth and supporting structures [facility] 06/29/2024 Emergency Disorder of teeth an d supporting structures, unspecified Disorder of teeth and supporting structures, unspecified [facility] [place]/28/2024 Emergency Other specified disorders of teeth and supporting structures Other specified disorders of teeth and supporting structures [facility] [place]/05/2024 Emergency Other specified disorders of teeth and supporting structures Other specified disorders of teeth and supporting structures [facility] 05/05/2024 Emergency Other specified disorders of teeth and s Other specified disorders of teeth and supporting structures [facility] 05/04/2024 Emergency tooth pain Other specified disorders of teeth and supporting structures [facility] 05/03/2024 Emergency Malingerer (consciou s simulation) Malingerer (conscious simulation) [facility] 03/10/2024 Emergency Other specified disorders of teeth and supporting structures Other specified disorders of teeth and supporting structures [facility] 08/25/2023 Emergency DENTAL PAIN DENTAL PAIN [facility] 08/24/2023 Emergency BROKEN TOOTH/ FILLIN G CAME OUT/PAIN LT ARM BROKEN TOOTH/ FILLING CAME OUT/PAIN LT ARM [facility]. 08/23/2023 Care Team Organization Name Specialty Phone Email Start Date End Da te [facility] 03/13/2025 [facility] 02/27/2025 [facility] 02/27/2025 [facility] GONZALEZ OSCAR Primary Care 02/13/2025 [facility] provided,No Primary Care 02/07/2025 [facility] Patient remember Primary Care 02/07/2025 [facility] No provided Primary Care 02/07/2025 [facility] PHYSICIAN Primary Care 02/04/2025 [facility] NO PHYSICIAN Primary Care 02/04/2025 [facility] 12/15/2024 [facility] NO PHYSICIAN Primary Care 12/13/2024 [facility] 12/12/2024 [facility] 07/25/2024 [facility] [place]/2024 [facility] [place]/[facility]/2024 [facility] NO PCP Primary Care 05/05/2024 [facility] 05/05/2024 [facility] none Primary Care 05/03/2024 [facility] PCPONLY NONE Primary Care 2023 [facility] NO PCP Primary Care 03/11/2024 [facility] PCP Licensed And Certified Midwife 03/11/2024 [facility] provided,No Primary Care 09/30/2023 [facility] 08/26/2023 [facility] 08/25/202308/10 [facility] provided No Primary Care 08/25/2023 [facility]. No provided Primary Care
--- OUTSIDE RECORDS SUMMARY | 2025-03-22 03:44 | XMS_ITS | Clinical Summary ---
Author Organization [facility] Address [address] [place] [address] Care Team Providers Care Broach Grinder Name Role Phone Saba Al DO Primary Care Provider [phone] Allergies Active Allergy Reactions Criticality Noted Date Comments Hydrocodone Rash/Dermatitis Low 06/29/2024 Ibuprofen Other (See Comments) 05/05/2024 Chest pain Latex Rash/Dermatitis Low 02/27/2025 Levofloxacin Benign arrhythmia,Palpitatio ns,Rash/Dermatitis High 03/05/2008 Nsaids Other (See Comments),Palpitation s,Unknown/Patient and Family Unable to Define Medium 05/03/2024 Red Dye #40 (Allura Red) GI Intolerance/Nausea/Vo miting Low 12/31/2024 Ketorolac Tromethamine Rash/Dermatitis Low 05/05/20 24 Medications traZODone (DESYREL) 50 MG tablet trazodone 50 mg tablet 02/09/20 19 Active temazepam (RESTORIL) 15 MG capsule 02/09/20 15 Active diazepam (VALIUM) 5 MG tablet 02/25/20 21 Active atenolol (TENORMIN) 25 MG tablet 01/06/20 21 Active B Complex Vitamins (B COMPLEX PO) vitamin b complex with b12 Active gabapentin (NEURONTIN) 300 MG capsule Take 1 capsule (300 mg total) by mouth 3 (three) times a day. Active valsartan-hydroC HLOROthiazide (DIOVAN-HCT) 320-25 MG per tabletIndication s:Essential hypertension Take 1 tablet by mouth daily. 30 tablet 12/30/19 25 Active hydroCHLOROthiaz yola (HYDRODIURIL) 25 MG tabletIndication s:Essential hypertension Take 1 tablet (25 mg total) by mouth daily. 10 tablet 12/31/19 25 Active Additional Information Patient not taking.Reported on 02/13/2025 aspirin 81 MG chewable tablet Chew 1 tablet (81 mg total) daily. Active ascorbic acid (VITAMIN C) 1000 MG tablet Take 1 tablet (1,000 mg total) by mouth daily. Active Iron, Ferrous Sulfate, 325 (65 Fe) MG Tab Take by mouth 3 (three) times a week. Active LORazepam (ATIVAN) 1 MG tablet Take 1 tablet (1 mg total) by mouth daily as needed. FOR ANXIETY 01/16/20 25 Active oxyCODONE-acetam inophen (PERCOCET) 5-325 mg per tablet Take 1 tablet by mouth. 01/14/20 25 Active cloNIDine (CATAPRES) 0.1 MG tabletIndication s:Essential hypertension Take 1 tablet (0.1 mg total) by mouth 2 (two) times a day. 120 tablet 01/29/20 25 025 Active methocarbamol (ROBAXIN) 500 MG tablet 02/01/20 25 Active oxyCODONE (ROXICODONE) 10 mg immediate release tabletIndication s:Chronic pain syndrome Take 1 tablet (10 mg total) by mouth 3 times daily (every 8 hours) as needed for severe pain. Max Daily Amount: 30 mg 9 tablet 02/14/20 25 Active baclofen (LIORESAL) 10 MG tabletIndication s:Chronic pain syndrome Take 1 tablet (10 mg total) by mouth 2 (two) times a day as needed (Take twice a day as needed for severe muscle spasms and musculoskeletal pain). 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 Other chronic pain 02/02/2025 Liver lesion 01/01/2025 Assessment & Plan (01/01/2025 2:20 PM EDT): Patient's CT 12/28/24 Within the inferior most aspect of the right hepatic lobe there is a hypodense, slightly lobulated lesion measuring up to 5.1 x 4.8 x 3.8cm and approximately 45 Hounsfield units. Findings are nonspecific and could represent complex cystic structure. Given the primary neoplasm a metastatic lesion cannot be entirely excluded. Ultrasound or hepatic MRI without and with contrast could help further evaluate if clinically indicated. No additional hepatic parenchymal lesion or biliary ductal dilatation. Patient says has hemangioma before. Discussed ordering ultrasound, patient would like this ordered. Intracranial mass 12/28/2024 Assessment & Plan (01/01/2025 2:54 PM EDT): [place], patient is currently in [place] comfortable with establishing pcp with [facility]. Patient says also goes back and forth to [place]. Patient is going to [place] today is scheduled for follow up with neurosurgery 01/09/25 through [facility] patient says they are trying to determine if this is benign. Patient says initially not having symptoms but now having headaches. Discussed CT scan with Multiple subcentimeter superior mediastinal lymph nodes without significant lymphadenopathy, patient made aware. Thoracic spondylosis without myelopathy 11/19/19 Narcotic abuse 11/18/2024 Lumbosacral spondylosis without myelopathy 11/18 Liver hemangioma 11/18/2024 Depressive disorder 11/18/2024 Multiple joint pain 07/01/2024 Drug-seeking behavior 07/01/2024 Hyperthyroidism 07/12/2022 Prediabetes 07/12/2022 Vitamin D deficiency 06/09/2022 Class 2 severe obesity due t o excess calories with serious comorbidity and body mass index (BMI) of 36.0 to 36.9 in adult 06/09/2022 Breast nodule 06/09/2022 Overview (02/04/2025): BIOPsY neg Opioid use 04/21/2022 Overview (02/04/2025): Last Assessment & Plan: See anxiety tab. Endometriosis 03/08/2022 Overview (02/04/2025): Last Assessment & Plan: Referral to OB. Essential hypertension 03/16/2021 Assessment & Plan (01/01/2025 2:16 PM EDT): Patient is on hydrochlorothiazide additional 25mg for 7-10 days prescription shows 10 days patient says due to lymphedema, patient's also takes valsartan-hydrochlorothiazide 320-25mg and atenolol 25mg. Patient says bp has been lower than normal in ED yesterday 121/68. Chronic pain of both knees 03/16/2021 Osteoarthritis of both knees 07/28/2018 Overview (02/04/2025): Diagnosis made later by [facility] [place] Liver abscess 03/16/2007 Overview (02/04/2025): Have 2 lesions found on ultrasound from 2018, follow up most likely needed Encounters Date Type Department Care Team Description 03/17/2025 Telephone [facility] [address] [place] [address] Saba Al DO 03/02/2025 Nurse Triage [facility] [address] [place] [address] Pcp, No 03/01/2025 Travel 02/27/2025 2:18 AM EDT - 02/27/2025 3:33 AM EDT Emergency [facility] Emergency Department [address] [place] [address] Encounter for medication administration (Primary Dx) Discharge Disposition: Home or Self Care 02/24/2025 Telephone [facility] [address] [place] [address] Saba Al DO Other 02/19/2025 Refill [facility] [address] [place] [address] Saba Al DO Chronic pain syndrome (Primary Dx) 02/19/2025 Refill [facility] [address] [place] [address] Saba Al DO Chronic pain syndrome 02/18/2025 Telephone [facility] [place] [address] [place] [phone] Saba Al DO 02/13/2025 1:30 PM EDT Office Visit [facility] [place] [address] [place] [address] Saba Al DO Chronic pain syndrome (Primary Dx); Inflammatory back pain; Brain mass; Establishing care with new doctor, encounter for; BMI 37.0-37.9, adult; Elevated cholesterol; Elevated glucose; Vitamin D deficiency; Vitamin B12 deficiency; Folate deficiency; Iron deficiency anemia, unspecified iron deficiency anemia type 02/13/2025 Travel 02/11/2025 2:10 PM EDT Ancillary Procedure [facility] Radiology [address] [place] [phone] Provider, File Room 02/11/2025 2:05 PM EDT Ancillary Procedure [facility] [address] [place] [phone] Provider, File Room 02/02/2025 1:10 PM EDT Telemedicine [facility] [address] [phone] Laurie Tristan APRN Intracranial mass (Primary Dx); Other chronic pain; Anxiety about health 01/29/2025 6:05 PM EDT Telemedicine [facility] [address] [phone] Skylar Olivera MD Other chronic pain (Primary Dx); Mass of brain 01/29/2025 2:25 PM EDT Ancillary Procedure [facility] [address] [place] [phone] Provider, File Room 01/29/2025 2:25 PM EDT Ancillary Procedure [facility] [address] [place] [phone] Provider, File Room 01/28/2025 3:00 PM EDT Telemedicine [facility] Telehealth [address] [place] [phone] Oksana Hutchison PA-C Intracranial mass (Primary Dx); Essential hypertension 01/28/2025 Travel 01/20/2025 Scanned Document [facility] [place] [address] [facility] [address] [place] [address] Primary Care, Scan 01/08/2025 Telephone [facility] [address] [facility] [place] [phone] Pcp, No 01/03/2025 Telephone [facility] [address] [place] [address] Skylar Olivera MD 01/02/2025 9:[address] [facility] [address] [place] [phone] Skylar Olivera MD Intracranial mass (Primary Dx); Uncontrolled pain 01/02/2025 Scanned Document [facility] [address] [facility] [address] [facility] [place] [phone] Provider, Generic 01/01/2025 12:15 PM EDT Telemedicine [facility] [address] [place] [address] Angelica Rios PA-C Intracranial mass (Primary Dx); Liver lesion; Anemia, unspecified type; Essential hypertension 01/01/2025 Telephone [facility] Telehealth [address] [place] [address], [place] [address] Angelica Rios PA-C 01/01/2025 Telephone [facility] [address] [place] [address], [place] [address] Angelica Rios PA-C 12/31/2024 2:04 PM EDT - 12/31/2024 4:27 PM EDT Emergency [facility] Emergency Department [address] [place] [address] Headache (Primary Dx); Chronic pain; Opioid use Discharge Disposition: Home or Self Care 12/31/2024 Travel 12/30/2024 Telephone [facility] [address] [facility] [place] [address] Pcp, No PALL[facility]I Outreach 12/28/2024 2:58 PM EDT - 12/29/2024 3:03 PM EDT Hospital Encounter [facility] [address] [place] [address] Nico Elias MD Patel, Kishan, MD Butler, Christopher, APRN Mohamed, Mohamed S, MD Headache (Primary Dx); Brain mass; Essential hypertension; Intracranial mass Discharge Disposition: Home or Self Care 12/28/2024 Travel from Last 3 Months Family History Medical History Relation Name Comments Heart disease Father Multiple myeloma Maternal Uncle Stroke Mother Skin cancer Paternal Aunt Relation Name Status Comments Father Alive Maternal Uncle Mother Alive Paternal Aunt Social History Tobacco Use Types Packs/Day Years Used Date Smoking Tobacco: Former Cigarettes 0.5 4 2 011 - 2015 Smokeless Tobacco: Never Tobacco Cessation:Counseling Given: Not Answered Alcohol Use Standard Drinks/Week Comments Not Currently 0 (1 standard drink = 0.6 oz pur e alcohol) [facility] Utilities Answer Date Recorded In the past 12 months has e electric, gas, oil, or water [employer] threatened to shut off services in your home? No 12/29/2024 PHQ-2 Answer Date Recorded PHQ-2 Total Score 4 03/16/2021 Hunger Vital Sign Answer Date Recorded Within the past 12 months, y ou worried that your food would run out before you got the money to buy more. Never true 12/30/19 25 Within the past 12 months, t he food you bought just didn't last and you didn't have money to get more. Never true 12/29/2024 PRAPARE - Transportation Answer Date Re corded In the past 12 months, has l ack of transportation kept you from medical appointments or from getting medications? No 12/10 In the past 12 months, has l ack of transportation kept you from meetings, work, or from getting things needed for daily living? No 12/29/2024 Housing Stability Vital Sign Answer [place] e Recorded In the last 12 months, was t here a time when you were not able to pay the mortgage or rent on time? No 12/29/2024 In the past 12 months, how m any times have you moved where you were living? 1 12/29/2024 At any time in the past 12 m [facility], were you homeless or living in a mcc (including now)? No 12/29/2024 Comments No Sex and Gender Information Value Date Recorded Sex Assigned at Female 03/10/2024 6:44 PM EDT Legal Sex Female 12:12 PM EDT Gender Identity Female 03/10/2024 6:44 PM EDT Sexual Orientation Heterosexual (straight) 03/10 6:44 PM EDT Last Filed Vital Signs Vital Sign Reading Time Taken Comments Blood Pressure 145/81 02/27/2025 2:16 AM EDT Pulse 94 02/27/2025 2:16 AM EDT Temperature 35.7 C (96.2 F) 02/27/2025 2:16 AM EDT Respiratory Rate 18 02/27/2025 2:16 AM EDT Oxygen Saturation 97% 02/27/2025 2:16 AM EDT Inhaled Oxygen Concentration - - Weight 111 kg (245 lb) 02/13/2025 1:09 PM EDT Height 172.7 cm (5' 8 ) 02/13/2025 1:09 PM EDT Body Mass Index 37.25 02/13/2025 1:09 PM EDT Plan of Treatment Health Maintenance Due Date Last Done Comments Hepatitis C Virus Screening 1977 HIV Screening 1990 Annual Wellness Visit 1995 Chronic Controlled Substance Toxicology Screening 1995 Controlled Substance Agreement Initial and Annual Review 1995 Physical 1995 DTaP/Tdap/Td Vaccines (1 - Tdap) 1996 Hepatitis B Vaccines (1 of 3 - 19+ 3-dose series) 1996 Pap Smear (Ages 21-65) 1998 Mammogram 2017 Colonoscopy 2022 COVID-19 Vaccine ( - 2023-2 5 season) 2024 05/12/2021, 04/08/2021 Influenza Vaccine 04/10/2025 Chronic Controlled Substance User PDMP Review 05/28/2025 02/27/2025, 02/13/2025 Pneumococcal Vaccine: Pediatric (0-5 Years) and At-Risk Patients (6 to 49 Years) Aged Out No longer eligible b ased on patient's age to complete this topic Procedures Procedure Name Priority Date/Time Associated Diagnosis Comments MR HEAD ARCHIVE FOR REFERENCE ONLY Routine 02/11/2025 2:[address] HEAD ARCHIVE FOR REFERENCE ONLY Routine 02/11/2025 2:04 PM EDT MR HEAD ARCHIVE FOR REFERENCE ONLY Routine 01/29/2025 2:[address] HEAD ARCHIVE FOR REFERENCE ONLY Routine 01/29/2025 2:21 PM EDT MRI BRAIN W W/O CONTRAST STAT 12/28/2024 11:[address] CHEST/ABDOMEN+PELVIS W/O CONTRAST Routine 12/28/2024 9:44 PM EDT XR HIP W PELVIS 2 OR 3 VIEWS-LEFT STAT 12/28/2024 5:[address] HEAD W/O CONTRAST STAT 12/28/2024 5:08 PM EDT PROTIME-INR STAT 12/28/2024 3:46 PM EDT COMPREHENSIVE METABOLIC PANEL STAT 12/28/2024 3:46 PM EDT COMPLETE BLOOD COUNT, WITH DIFFERENTIAL STAT 12/28/2024 3:46 PM EDT from Last 3 Months Results * MR Head Archive for Reference Only (02/11/2025 2:08 PM EDT) Only the most recent of2 resultswithin the time period is included. Narrative PRAMOD - 02/11/2025 2:08 PM EDT This study has been auto finalized and does not contain a result. us File Room Provider IMG DIGITIZE FILMS Final Resu lt Performing Organization Address [facility] de Phone Number PRAMOD [phone] * CT Head Archive for Reference Only (02/11/2025 2:04 PM EDT) Only the most recent of2 resultswithin the time period is included. Narrative PRAMOD - 02/11/2025 2:04 PM EDT This study has been auto finalized and does not contain a result. us File Room Provider IMG DIGITIZE FILMS Final Resu lt Performing Organization Address [facility] de Phone Number PRAMOD [phone] * MRI Brain w w/o contrast (12/28/2024 11:34 PM EDT) Anatomical Region Laterality Modality Head Magnetic Resonan ce 12/28/2024 10:5 7 PM EDT Impressions 12/29/2024 9:24 AM EDT 1. No acute intracranial abnormality. 2. Circumscribed lesion in the right ventricle with benign features. 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 Consider short-term interval follow-up to assess stability/progression. Please note, this is a preliminary resident report for the purpose of identifying acute or emergent findings. Full attending radiologist report/addendum to follow. Interpreted by: Nimesh Walker DO Efficiency Miner I personally reviewed the images and the resident's preliminary report and AGREE with the report as it is now presented. Narrative 12/29/2024 9:24 AM EDT EXAM: MRI OF THE BRAIN WITHOUT AND WITH CONTRAST INDICATION: Known intraventricular tumor COMPARISON: CT head 12/28/2024 TECHNIQUE: Multiplanar multisequence MR imaging of the brain was obtained on the high field 1.5 Ivette MRI unit without and following the administration of 9 mL Gadavist intravenous contrast. FINDINGS: This examination is limited by patient motion during image acquisition. No acute infarct or intracranial hemorrhage. No hydrocephalus, extra-axial collection, or herniation. Circumscribed, T2 FLAIR hyperintense lesion in the body of the right lateral ventricle measures 10 x 7 x 7 mm (AP, transverse and craniocaudad was present. No appreciable restricted diffusion. No susceptibility artifact. No enhancement. Scattered T2 hyperintensities in the periventricular and deep white matter consistent with mild underlying microangiopathy. The midline structures are normal. The cerebellum and brainstem are normal. The craniocervical junction is normal. Osseous marrow signal intensity is homogenous. The visualized soft tissues are without significant abnormality. No signal abnormality within the paranasal sinuses or within the mastoid air cells. Procedure Note Malcolm Holly MD - 12/29/2024 EXAM: MRI OF THE BRAIN WITHOUT AND WITH CONTRAST INDICATION: Known intraventricular tumor COMPARISON: CT head 12/28/2024 TECHNIQUE: Multiplanar multisequence MR imaging of the brain was obtained on the high field 1.5 Ivette MRI unit without and following the administration of 9 mL Gadavist intravenous contrast. FINDINGS: This examination is limited by patient motion during image acquisition. No acute infarct or intracranial hemorrhage. No hydrocephalus, extra-axial collection, or herniation. Circumscribed, T2 FLAIR hyperintense lesion in the body of the right lateral ventricle measures 10 x 7 x 7 mm (AP, transverse and craniocaudad was present. No appreciable restricted diffusion. No susceptibility artifact. No enhancement. Scattered T2 hyperintensities in the periventricular and deep white matter consistent with mild underlying microangiopathy. The midline structures are normal. The cerebellum and brainstem are normal. The craniocervical junction is normal. Osseous marrow signal intensity is homogenous. The visualized soft tissues are without significant abnormality. No signal abnormality within the paranasal sinuses or within the mastoid air cells. IMPRESSION: 1. No acute intracranial abnormality. 2. Circumscribed lesion in the right ventricle with benign features. 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 Consider short-term interval follow-up to assess stability/progression. Please note, this is a preliminary resident report for the purpose of identifying acute or emergent findings. Full attending radiologist report/addendum to follow. Interpreted by: Nimesh Walker DO Efficiency Miner I personally reviewed the images and the resident's preliminary report and AGREE with the report as it is now presented. Tashi Mesa MD [facility] [place] MRI ORDERABLES Final Result * CT Chest/abdomen+pelvis w/o contrast (12/28/2024 9:44 PM EDT) Anatomical Region Laterality Modality Chest, Abdomen, Pelvis Computed Tomography 12/28/2024 9:37 PM EDT Impressions 12/30/2024 12:35 PM EDT Unremarkable exam. No evidence of metastatic disease. ATTENDING ADDENDUM: Within the inferior most aspect of the right hepatic lobe there is a hypodense, slightly lobulated lesion measuring up to 5.1 x 4.8 x 3.8 cm and approximately 45 Hounsfield units. Findings are nonspecific and could represent a complex cystic structure. Given the primary neoplasm a metastatic lesion cannot be entirely excluded. Ultrasound or hepatic MRI without and with contrast could help further evaluate if clinically indicated. No additional hepatic parenchymal lesion or biliary ductal dilatation. The addended findings were discussed with Dr. Jackson at 12:35 PM on 12/30/2024 and it was ascertained that the content and urgency of the report was understood at the time of direct communication. I personally reviewed the images and the resident's preliminary report and made the MAJOR addendum above ([id number]). Narrative 12/30/2024 12:35 PM EDT EXAMINATION: CT CHEST, ABDOMEN AND PELVIS WITHOUT CONTRAST CLINICAL INFORMATION: metastatic workup, Pt refuses contrast COMPARISON: CT head and MRI brain 12/28/2024 TECHNIQUE: Multidetector volumetric imaging was performed from the thoracic inlet through the pubic symphysis. Sagittal and coronal reformatted images were obtained on the technologist workstation. This CT examination was performed using dose optimization techniques as appropriate, variously including the following: * Automated exposure control * Adjustment of mA and/or kV according to patient size (this includes techniques or standardized protocols for targeted exams where dose is matched to indication/reason for exam; i.e. extremities or head) * Use of iterative reconstruction technique Total exam dose-length product: 712 mGy-cm FINDINGS: CHEST-- LUNG/PLEURA: Central airways are patent. No focal consolidation. No nodules or masses. No pleural effusion or pneumothorax. MEDIASTINUM: Normal heart size. No pericardial effusion. Multiple subcentimeter superior mediastinal lymph nodes without significant lymphadenopathy. Evaluation limited without contrast. Normal thyroid. CORONARY ARTERY CALCIFICATIONS: None. VASCULAR: Normal caliber thoracic aorta. CHEST WALL/AXILLA: Unremarkable. No axillary lymphadenopathy. ABDOMEN-- LIVER: Normal size, contours, and attenuation. No focal lesion. GALLBLADDER: Normal. PANCREAS: Normal. SPLEEN: Normal. ADRENAL GLANDS: Normal. KIDNEYS: Normal renal parenchyma. No hydronephrosis. No calculi. BLADDER: Normal. GASTROINTESTINAL TRACT: Stomach nondistended. Normal small bowel. Normal colon. Appendectomy. No bowel obstruction. PERITONEUM: No free fluid. ABDOMINAL WALL/SOFT TISSUES: No hernia. LYMPHOVASCULAR: No abdominopelvic lymphadenopathy. Normal caliber aorta. No atherosclerosis. PELVIC VISCERA: Normal. OSSEOUS: No acute or suspicious osseous findings. Procedure Note Aquiles Nelson MD - 12/30/2024 EXAMINATION: CT CHEST, ABDOMEN AND PELVIS WITHOUT CONTRAST CLINICAL INFORMATION: metastatic workup, Pt refuses contrast COMPARISON: CT head and MRI brain 12/28/2024 TECHNIQUE: Multidetector volumetric imaging was performed from the thoracic inlet through the pubic symphysis. Sagittal and coronal reformatted images were obtained on the technologist workstation. This CT examination was performed using dose optimization techniques as appropriate, variously including the following: * Automated exposure control * Adjustment of mA and/or kV according to patient size (this includes techniques or standardized protocols for targeted exams where dose is matched to indication/reason for exam; i.e. extremities or head) * Use of iterative reconstruction technique Total exam dose-length product: 712 mGy-cm FINDINGS: CHEST-- LUNG/PLEURA: Central airways are patent. No focal consolidation. No nodules or masses. No pleural effusion or pneumothorax. MEDIASTINUM: Normal heart size. No pericardial effusion. Multiple subcentimeter superior mediastinal lymph nodes without significant lymphadenopathy. Evaluation limited without contrast. Normal thyroid. CORONARY ARTERY CALCIFICATIONS: None. VASCULAR: Normal caliber thoracic aorta. CHEST WALL/AXILLA: Unremarkable. No axillary lymphadenopathy. ABDOMEN-- LIVER: Normal size, contours, and attenuation. No focal lesion. GALLBLADDER: Normal. PANCREAS: Normal. SPLEEN: Normal. ADRENAL GLANDS: Normal. KIDNEYS: Normal renal parenchyma. No hydronephrosis. No calculi. BLADDER: Normal. GASTROINTESTINAL TRACT: Stomach nondistended. Normal small bowel. Normal colon. Appendectomy. No bowel obstruction. PERITONEUM: No free fluid. ABDOMINAL WALL/SOFT TISSUES: No hernia. LYMPHOVASCULAR: No abdominopelvic lymphadenopathy. Normal caliber aorta. No atherosclerosis. PELVIC VISCERA: Normal. OSSEOUS: No acute or suspicious osseous findings. IMPRESSION: Unremarkable exam. No evidence of metastatic disease. ATTENDING ADDENDUM: Within the inferior most aspect of the right hepatic lobe there is a hypodense, slightly lobulated lesion measuring up to 5.1 x 4.8 x 3.8 cm and approximately 45 Hounsfield units. Findings are nonspecific and could represent a complex cystic structure. Given the primary neoplasm a metastatic lesion cannot be entirely excluded. Ultrasound or hepatic MRI without and with contrast could help further evaluate if clinically indicated. No additional hepatic parenchymal lesion or biliary ductal dilatation. The addended findings were discussed with Dr. Jackson at 12:35 PM on 12/30/2024 and it was ascertained that the content and urgency of the report was understood at the time of direct communication. I personally reviewed the images and the resident's preliminary report and made the MAJOR addendum above (RADPAL3). Tashi Mesa MD [facility] ORDERABLES Final Result * XR Hip w pelvis 2 or 3 views-Left (12/28/2024 5:17 PM EDT) Anatomical Region Laterality Modality Hip Left Computed Radiogr aphy 12/28/2024 5:17 PM EDT Impressions 12/28/2024 5:20 PM EDT Normal left hip. Narrative 12/28/2024 5:20 PM EDT EXAMINATION: XR HIP, LEFT CLINICAL INFORMATION: left hip pain COMPARISON: None available. TECHNIQUE: Two views of the left hip. FINDINGS: No fracture. Alignment is anatomic. Hip joint space is maintained. Soft tissues are unremarkable. Procedure Note Fiorella Garcia MD - 12/28/2024 EXAMINATION: XR HIP, LEFT CLINICAL INFORMATION: left hip pain COMPARISON: None available. TECHNIQUE: Two views of the left hip. FINDINGS: No fracture. Alignment is anatomic. Hip joint space is maintained. Soft tissues are unremarkable. IMPRESSION: Normal left hip. Nico Elias MD [facility] ORDERAB LES Final Result * CT Head w/o contrast (12/28/2024 5:08 PM EDT) Anatomical Region Laterality Modality Head Computed Tomogra phy 12/28/2024 4:57 PM EDT Impressions 12/28/2024 5:35 PM EDT 1. Ovoid mass in the anterior right lateral ventricle may represent choroid plexus cyst. Recommend further evaluation with nonemergent contrast enhanced MRI. 2. No acute intracranial abnormalities. Differential diagnoses included ependymoma or potentially a atypical colloid cyst, ependymal and subependymal lesion as well. MRI indicated as above. No hydrocephalus. Interpreted by: Cl Espinoza DO Efficiency Miner I personally reviewed the images and the resident's preliminary report and AGREE with the report as it is now presented (RADPAL1). Narrative 12/28/2024 5:35 PM EDT EXAMINATION: CT HEAD WITHOUT CONTRAST CLINICAL INFORMATION: hx of brain mass presenting with headache, dizziness COMPARISON: None available. TECHNIQUE: Noncontrast CT of the head was performed. DLP: 793 mGy-cm DOSE LOWERING TECHNIQUES: This CT examination was performed using dose optimization techniques as appropriate, variously including the following: - Automated exposure control - Adjustment of mA and/or kV according to patient size (this includes techniques or standardized protocols for targeted exams were dose is matched to indication/reason for exam; i.e. extremities or head) - Use of iterative reconstruction technique FINDINGS: Ovoid soft tissue mass in the anterior right lateral ventricle measuring 1.0 x 0.6 cm in the axial plane. No acute intracranial hemorrhage or large edematous territorial infarction. No abnormal mass effect or midline shift. Benavides to white matter differentiation is well preserved. No extra-axial fluid collections. No hydrocephalus. No significant volume loss. There is no abnormal attenuation within the brain parenchyma. The cerebellar tonsils are well positioned. No acute osseous or soft tissue abnormality. Visualized portions of the orbits are unremarkable. The mastoid air cells and visualized portions of the paranasal sinuses are well aerated. Procedure Note Jacques Redmond MD - 12/28/2024 EXAMINATION: CT HEAD WITHOUT CONTRAST CLINICAL INFORMATION: hx of brain mass presenting with headache, dizziness COMPARISON: None available. TECHNIQUE: Noncontrast CT of the head was performed. DLP: 793 mGy-cm DOSE LOWERING TECHNIQUES: This CT examination was performed using dose optimization techniques as appropriate, variously including the following: - Automated exposure control - Adjustment of mA and/or kV according to patient size (this includes techniques or standardized protocols for targeted exams were dose is matched to indication/reason for exam; i.e. extremities or head) - Use of iterative reconstruction technique FINDINGS: Ovoid soft tissue mass in the anterior right lateral ventricle measuring 1.0 x 0.6 cm in the axial plane. No acute intracranial hemorrhage or large edematous territorial infarction. No abnormal mass effect or midline shift. Benavides to white matter differentiation is well preserved. No extra-axial fluid collections. No hydrocephalus. No significant volume loss. There is no abnormal attenuation within the brain parenchyma. The cerebellar tonsils are well positioned. No acute osseous or soft tissue abnormality. Visualized portions of the orbits are unremarkable. The mastoid air cells and visualized portions of the paranasal sinuses are well aerated. IMPRESSION: 1. Ovoid mass in the anterior right lateral ventricle may represent choroid plexus cyst. Recommend further evaluation with nonemergent contrast enhanced MRI. 2. No acute intracranial abnormalities. Differential diagnoses included ependymoma or potentially a atypical colloid cyst, ependymal and subependymal lesion as well. MRI indicated as above. No hydrocephalus. Interpreted by: Cl sEpinoza DO Efficiency Miner I personally reviewed the images and the resident's preliminary report and AGREE with the report as it is now presented (RADPAL1). us Nico Elias MD IM CT ORDERABLES Final Result * (ABNORMAL) Complete Blood Count, with Differential (12/28/2024 3:46 PM EDT) White Blood Cell Count 8.2 4.0 - 11.0 Thou/uL 12/28/2024 4:09 PM [facility] Platelet Count 384 150 - 450 Thou/uL 12/28/2024 4:09 PM [facility] Hemoglobin 11.4(L) 11.7 - 15.7 g/dL 12/28/2024 4:09 PM [facility] Hematocrit 37.2 35.0 - 47.0 % 12/28/2024 4:09 PM [facility] Red Blood Cell Count 4.42 4.00 - 5.40 Mil/uL 12/28/2024 4:09 PM [facility] MCV 84 80 - 100 fL 12/28/2024 4:09 PM EDT [facility] MCH 25.8(L) 26.0 - 34.0 pg 12/28/2024 4:09 PM EDT [facility] MCHC 30.6 30.0 - 36.0 g/dL 12/28/2024 4:09 PM [facility] RDW 14.8(H) 11.5 - 14.5 % [facility] 10.7 7.5 - 12.5 fL 12/28/2024 4:09 PM [facility] Neutrophils Auto 43.1 % 12/29[facility] Immature Granulocytes 0.2 % 12/28/2024 4:09 PM [facility] Lymphocytes Auto 42.8 % 12/29/19 4:09 PM [facility] Monocytes Auto 10.4 % 12/28/2024 4:09 PM [facility] Eosinophils Auto 3.0 % 12/29/19 4:09 PM [facility] Basophils Auto 0.5 % 12/28/2024 4:09 PM [facility] Abs Neutrophils Auto 3.54 2.00 - 7.50 Thou/uL 12/28/2024 4:09 PM [facility] Abs Immature Granulocytes 0.02 0.00 - 0.10 Thou/uL 12/28/2024 4:09 PM [facility] Abs Lymphocytes Auto 3.51 1.50 - 4.50 Thou/uL [facility] Abs Monocytes Auto 0.85 0.20 - 1.50 Thou/uL 12/28/2024 4:09 PM [facility] Abs Eosinophils Auto 0.25 0.00 - 0.70 Thou/uL 12/[facility]24 [facility] Abs Basophils Auto 0.04 0.00 - 0.20 Thou/uL 12/28/2024 4:09 PM [facility] Blood Blood specimen / Unknown 12/28/2024 3:46 PM EDT 12/28/2024 3:57 PM EDT Chely Martinez MD LAB BLOOD [place] [address], [address] [address] * INR (12/28/2024 3:46 PM EDT) Anticoagulant NO ANTI COAGULANT MEDS 12/28/2024 3:30 PM EDT [facility] Prothrombin Time (PT) 11.8 10.0 - 13.5 seconds 12/28/2024 4:13 PM EDT [facility] INR 1.1 12/28/2024 4:13 PM EDT [facility] Comment:INR Therapeutic Rang es: Standard dose anticoagulant 2.0 to 3.0, High dose anticoagulant 2.5-3.5. Blood Blood specimen / Unknown 12/28/2024 3:46 PM EDT 12/28/2024 3:57 PM EDT Chely Martinez MD LAB BLOOD [place] [address], [address] [address] * (ABNORMAL) Comprehensive Metabolic Panel (12/28/2024 3:46 PM EDT) Glucose 144(H) 65 - 99 mg/dL 12/28/2024 4:23 PM EDT [facility] Comment:Fasting: <100 mg/dL, Non-Fasting: <200 mg/dL (ADA 2005) Blood Urea Nitrogen (BUN) 16 8 - 21 mg/dL 12/28/2024 4:23 PM EDT [facility] Creatinine 0.8 0.4 - 1.1 mg/dL 12/28/2024 4:23 PM EDT [facility] eGFR >90 >59 12/28/2024 4:23 PM EDT [facility] Comment:CKD-EPI (2020) in mL /min/1.73 sq meters. Sodium 138 136 - 145 mmol/L 12/28/2024 4:23 PM EDT [facility] Potassium 4.3 3.4 - 5.3 mmol/L 12/28/2024 4:23 PM [facility] Chloride 103 98 - 107 mmol/L 12/28/2024 4:23 PM [facility] CO2 27 22 - 33 mmol/L 12/28/2024 4:23 PM [facility] Calcium 9.1 8.7 - 10.5 mg/dL 12/28/2024 4:23 PM T [facility] Alkaline Phosphatase 61 32 - 122 U/L 12/28/2024 4:23 PM EDT [facility] Aspartate Aminotrans (AST) 19 10 - 50 U/L 12/28/2024 4:23 PM [facility] Alanine Aminotrans (ALT) 20 10 - 50 U/L 12/28/2024 4:23 PM [facility] Bilirubin, Total 0.6 0.2 - 1.0 mg/dL 12/28/2024 4:23 PM [facility] Protein, Total 7.3 6.3 - 8.3 g/dL 12/28/2024 4:23 PM [facility] Albumin 3.9 3.5 - 5.0 g/dL 12/28/2024 4:23 PM [facility] BUN/Creatinine Ratio 20 10.0 - 25.0 Ratio 12/28/2024 4:23 PM [facility] Globulin 3.4 1.5 - 3.9 g/dL 12/28/2024 4:23 PM [facility] Albumin/Globulin Ratio 1.1 1.0 - 3.0 Ratio 12/28/2024 4:23 PM [facility] Anion Gap 8 7 - 17 12/28/2024 4:23 PM [facility] Blood Blood specimen / Unknown 12/28/2024 3:46 PM EDT 12/28/2024 3:57 PM EDT Chely Martinez MD LAB BLOOD ORDERABLES Final Result [address] [address], [address] [address] from Last 3 Months Insurance [facility] MEDICARE [facility] MEDICARE [facility] MEDICARE [place] [id number] Advance Directives * Full Code (Latest Code Status on File) Date Activated Date Inactivated Comments 12/28/2024 8:53 PM 12/31/2024 1:40 PM Question Answer Comments Decision Thoroughly Discussed with: Patient Care Teams Broach Grinder Relationship Specialty Start Date End Date Saba Al DO [address] [place] [id number] PCP - General Internal Medicine 03/17/25
--- OUTSIDE RECORDS SUMMARY | 2025-03-22 03:44 | XMS_ITS | Data Portability ---
Author Organization [facility], [place] Address [address] [place] [address] Assessment Encounter Date Assessment Date Assessment LastModified [...] or 3 view 2023 024 adriane 71 [facility], [address] [place] [address], [facility], [place], [address], 15:13:52 Medication Orders None recorded. Patient TargetsNo targets recorded. Patient Instructions Encounter Date Encounter Id Patient Instructions Last Modified By Organization Details Last Modified Time 05/02/2024 [id number] radiology overread* - 6 years of low back pain no new injury. Impression: no obvious fracture, dislocation or significant degenerative changes noted ASHLEY Not available 05/05/2024 12:28:07 Reason for Referral None Reported. Results Created Date Observation Date Name Description Value Unit Range Abnormal Flag Note LastModifiedBy Organization Detail LastModifiedTime 05/02/20 24 05/02/2024 XR, lumbo sacra l spine , 2 or 3 view [facility] eUID=[id number] 7.194 [id number] .[id number] INTERFACE [facility] [address] [place] [address] [facility] [address], [address], 05/02/2024 14:23:56 05/02/20 24 05/02/2024 XR, lumbo sacra l spine , 2 or 3 view [facility] eUID=[id number] [id number] 7.194 [id number] .37466 [facility] [address] [place] [address] Ave [facility], [place], [address], 05/02/2024 14:23:58 05/02/20 24 05/02/2024 XR, lumbo sacra l spine , 2 or 3 view [facility] eUID=[id number] [id number] 7.1940 [id number] 3.4507 .09448 [facility] [address] [place] [address] [address], [place], [address], 05/02/2024 14:54:40 05/02/20 24 05/02/2024 XR, lumbo sacra l spine , 2 or 3 [id number] [id number] 7.1940 [id number] 3.4507 .83436 [facility] [address] [place] [address] Ave [facility], [place], [address], 05/02/2024 14:54:42 05/05/20 24 05/02/2024 radio logy overr ead* No observ ation record ed. [email or web address] Not Available 2023 12:36:50 Result Notes Documentation Provider Name and Address Organization Details Recorded Time Xr, Lumbosacral Spine, 2 Or 3 View : StudyInstanceUID=[id number] Not Available [facility], 1928–1983 05/02/2024 14:23:56 Xr, Lumbosacral Spine, 2 Or 3 View : StudyInstanceUID=[id number] Not Available [facility], 1928–1983 05/02/2024 14:23:58 Xr, Lumbosacral Spine, 2 Or 3 View : StudyInstanceUID=[id number] Not Available [facility], 1928–1983 05/02/2024 14:54:40 Xr, Lumbosacral Spine, 2 Or 3 View : StudyInstanceUID=[id number] Not Available [facility], 1928–1983 05/02/2024 14:54:42 Problems Name Problem SNOMED Code Status Onset Date Resolution Date Notes Provider Name and Address Organization Details Recorded Time Low back pain 622592348 Active 024 Arlette Guy [facility] 05/02/2024 14:20:13 Problem Notes None recorded. Medical Equipment None Reported. [...] Updated DateTime 05/02/2024 170.18 cm 40.9 kg/m2 879475.61 g Gianna [facility] 05/02/2024 14:08:25 Social History None recorded. Functional Status None recorded. Mental Status None recorded. Family History Nothing Reported. Medical History No medical history recorded. Gynecological HistoryNo gynecological history recorded. Obstetrics History GPAL:G 0 P 0 0 0 0 Past Encounters Encounter ID Performer Location Encounter Start Date Encounter Closed Date Diagnosis/Indication Diagnosis SNOMED-CT Code Diagnosis ICD10 Code Diagnosis Note [id number] Ash Jones MD [facility] [address] [place] [phone] 05/02/2024 13:46:36 05/02/2024 15:13:52 Low back pain 938640942 M54.50 Health Concerns Section Related Observation LastModified by Organization Detai ls LastModified Time None Recorded Concern Status LastModified by Organization Details LastModified Time None Recorded Advance Directives Directive None Recorded Payers Insurance Date Sequence Insurance Name Policy Number Policy Chapa Covered Member ID Chapa Member ID Guarantor Name 11/05/2024 1 [employer] (MEDICARE REPLACEMENT/A DVANTAGE - PPO) Maylin Coppola [id number] Maylin Coppola Notes Date Note Type Note Provider Name and Address Organization Details Recorded Time 05/02/2024 text/html 48-year-old female presents today complaining of atraumatic low back pain ongoing for 6 years. 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 COLLIN SEAY, KENNEDY [address] [place], [address], [facility] 05/02/2024 15:02:36 OBGyn Episode No OBEpisode recorded.
--- OUTSIDE RECORDS SUMMARY | 2025-03-22 03:45 | XMS_ITS | Continuity of Care Document ---
Author Organization [facility] Address [address] [place] [address] Phone [phone] Care Team Providers Care Hvac Service Manager Name Role Phone LESA BABB DO Care Team Information Receiv er Unavailable
--- OUTSIDE RECORDS SUMMARY | 2025-03-22 03:45 | XMS_ITS | Clinical Summary ---
Author Organization [facility] Address [address] [place] [address] Care Team Providers Care Armor Reconnaissance Vehicle Crewman Name Role Phone Pcp, No MD Primary [...] 84 05/04/2024 10:30 PM EDT Temperature 36.7 C (98.1 F) 05/04/2024 10:30 PM EDT Respiratory Rate 18 05/04/2024 10:31 PM EDT Oxygen Saturation 99% 05/04/2024 10:30 PM EDT Inhaled Oxygen Concentration - - Weight 83.9 kg (185 lb) 05/04/2024 8:44 PM EDT Height 170.2 cm (5' 7 ) 05/04/2024 8:44 PM EDT Body Mass Index 28.98 05/04/2024 8:44 PM EDT Plan of Treatment Not on file Insurance MEDICARE [employer] PPO Care Teams Armor Reconnaissance Vehicle Crewman Relationship Specialty Start Date End Date Kelly Fine MD [address] [place] [address] PCP - General Internal Medicine 05/04/24
--- OUTSIDE RECORDS SUMMARY | 2025-03-22 03:45 | XMS_ITS | Patient Health Record ---
Author Organization [facility] Address [address] [place] [address] Care Team Providers Care Construction Or Leak Gang Laborer Name Role Phone Fouzia Blank Primary Care Provider Antonio OrtegaCINDAHERSON Unavailable [phone] Allergies Allergen (clinical drug ingredient) Drug/Non Drug [...] Status Risk Notes Problem Osteoarthritis of knee (640058191) Bilateral primary osteoarthritis of knee (M17.0) Active confirmed Problem Cervical spondylosis without myelopathy (693202364) Spondylosis without myelopathy or radiculopathy, cervical region (M47.812) Active confirmed Problem Thoracic spondylosis without myelopathy (617303911) Spondylosis without myelopathy or radiculopathy, thoracic region (M47.814) Active confirmed Problem Lumbosacral spondylosis without myelopathy (31228726) Spondylosis without myelopathy or radiculopathy, lumbar region (M47.816) Active confirmed Problem 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) Active confirmed Vital Signs Heart Rate 92 /min 07/19/2024 Temperature 98.0 degrees Fahrenheit 07/19/2024 Blood pressure diastolic 79 mm Hg 07/19/2024 Oximetry 99 % 07/19/2024 Height 67 in 07/19/2024 Blood pressure systolic 118 mm Hg 07/19/2024 Weight 220 lbs 07/19/2024 BMI 34.45 kg/m2 07/19/2024 Encounters Encounter Location Date Provider Diagnosis [facility] [address] [place] [phone] 07/19/2024 [facility] Spondylosis without myelopathy or radiculopathy, cervical region M47.812 ; Spondylosis without myelopathy or radiculopathy, lumbar region M47.816 ; Other residential (current) drug therapy Z79.899 ; Bilateral primary osteoarthritis of knee M17.0 ; Other specified mononeuropathies of bilateral upper limbs G56.83 and Spondylosis without myelopathy or radiculopathy, thoracic region M47.814 [facility] [address] [place] [phone] 07/24/2024 [facility] [address] [place] [phone] 07/25/2024 [facility] [address] [place] [phone] 07/21/2024 [facility] [address] [place] [phone] 07/24/2024 [facility] Assessments Encounter Date Diagnosis (ICD Code) Assessment [...] medial branch blocks with local anesthetics only. 19265, 65873 bilateral If successful the patient might be eligible for radiofrequency ablation. Thank you Dr. Wyatt for your kind referral, please feel free to call me with any questions 07/19/2024 Other termite helper (current) drug therapy (ICD-10 - Z79.899) 07/19/2024 [...] End Date [employer] Medicare PPO [address] [address] [place] [address] [id number] MONIKA JOHNSON Self - patient is the insured Medical (General) History Medical History History ICD Code obesity hypertension hyperlipidemia hypothyroidism DDD osteoarthritis endometriosis Surgical History Surgery Date(Month/Year) appendectomy left side oopharectomy
[2025-03-22 07:05] VITALS: BP 131/85; PULSE 89; RESP 16; TEMP 36.8; O2SAT 98
--- NOTE | 2025-03-22 07:22 | ED.HA ---
HPI - Headache General Chief Complaint: Headache Stated Complaint: headache Time Seen by Provider: 03/22/25 07:22 Source: patient and family () Mode of arrival: ambulatory Limitations: no limitations History of Present Illness ED Provider: HPI Narrative: 49-year-old woman, reports seeing Dr. Castañeda at [facility] for intraventricular mass, states has been out of her medications and some medications for her flight to [facility], she also states that she has a pain manage my physician in [place] however after further discussion it is that she is planning to obtain a pain management physician in [place], and she is requesting medications for her flight to [facility]. Related Data Home Medications ?Medication ?Instructions ?Recorded ?Confirmed atenolol 25 mg tablet 25 mg PO DAILY 08/13/23 08/13/23 gabapentin 300 mg capsule 300 mg PO DAILY 08/13/23 08/13/23 methimazole 5 mg tablet 5 mg PO DAILY 08/13/23 08/13/23 oxycodone 5 mg capsule 5 mg PO Q8H PRN 08/13/23 08/13/23 valsartan 320 mg tablet 320 mg PO DAILY 08/13/23 08/13/23 Previous Rx's ?Medication ?Instructions ?Recorded amoxicillin 875 mg-potassium 1 tab PO BID #20 tabs 05/27/24 clavulanate 125 mg tablet oxycodone 5 mg tablet 5 mg PO BID PRN severe pain (scale 05/27/24 score 7-10) #6 tabs albuterol sulfate 90 mcg/actuation 2 puff inhalation Q6H PRN 06/15/24 aerosol inhaler shortness of breath or wheezing #8.5 grams azithromycin 500 mg tablet 500 mg PO DAILY 3 days #3 tabs 06/15/24 (Zithromax) benzonatate 200 mg capsule 200 mg PO TID PRN cough #20 caps 06/15/24 morphine 15 mg immediate release 15 mg PO Q8H PRN pain #15 tabs 06/15/24 tablet prednisone 20 mg tablet 40 mg (2 x 20 mg) PO DAILY #10 tabs 06/15/24 meloxicam 7.5 mg tablet 7.5 mg PO DAILY #20 tabs 11/09/24 naloxone 4 mg/actuation nasal 4 mg intranasal Q2M PRN opioid 03/02/25 spray (Narcan) overdose #2 ea oxycodone 5 mg tablet 5 mg PO Q6H PRN pain #7 tabs 11/09/24 cephalexin 500 mg capsule 500 mg PO QID #28 caps 12/11/24 Allergies Allergy/AdvReac Type Severity Reaction Status Date / Time NSAIDS (Non-Steroidal Allergy Unknown Verified 03/22/25 02:07 Anti-Inflamma ketorolac (From Toradol) AdvReac Severe Rash Verified 03/22/25 02:07 levofloxacin (From Levaquin) AdvReac Severe Rash Verified 03/22/25 02:07 Review of Systems Constitutional: Constitutional: Reports as per [facility] Past Medical History Medical History Fracture of tooth Nausea Vertigo Chronic low back pain Endometriosis Toothache Essential hypertension Chronic pain syndrome Opioid abuse Anxiety Hyperthyroidism Social History Social History Smoked in Last 30 Days: No Use of substances other than those prescribed or required for medical reasons: No Advance Directives: No Advance Directives Information Provided: Yes Do you have a plan to hurt others: No Plan Physical Exam Vital Signs: Vital Signs: Last Vital Signs Temp 98.3 F 03/22/25 07:05 Pulse 89 03/22/25 07:05 Resp 16 03/22/25 07:05 BP 131/85 03/22/25 07:05 Pulse Ox 98 03/22/25 07:05 O2 Del Method Room Air 03/22/25 07:05 BMI result Body Mass Index 34.5 Const: Other: Patient is speaking full sentences alert and oriented x4, no facial asymmetry noted Patient is ambulatory Moving upper and lower extremities symmetrically Medical Decision Making Medical Decision Making MDM Narrative: I reviewed patient's prior visits, 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 Multiple visits to various hospitals for the same. Neurological examination at bedside unremarkable, explained to the patient that due to her red flags in the THEORETICAL PHYSICS TEACHER system I am not able to prescribe outpatient opiates for her we will medicate her in ED. Lab Data 03/22/25 02:46 03/22/25 02:46 Labs: Lab Results 03/22/25 Range/Units 02:46 WBC 8.4 (4.8-10.8) X10*3/uL RBC 4.80 (4.20-5.50) X10*6/uL Hgb 12.9 (12.0-16.0) g/dl Hct 38.7 (37.0-47.0) % MCV 80.6 (80.0-98.0) fL MCH 26.9 L (27.0-33.0) pg MCHC 33.3 (31.0-35.0) g/dl RDW 14.2 (11.0-16.0) % Plt Count 335 (160-400) X10*3/uL MPV 9.7 (9.4-12.3) fL Immature Gran % (Auto) 0.6 H (0.0-0.4) % Neut % (Auto) 52.5 (45-73) % Lymph % (Auto) 38.0 (20-40) % [place] % (Auto) 6.6 (2-11) % Eos % (Auto) 1.7 (0-4) % Baso % (Auto) 0.6 (0-2) % Lymph # (Auto) 3.2 (1.2-4.9) X10*3/uL [place] # (Auto) 0.6 (0.1-1.2) X10*3/uL Eos # (Auto) 0.1 (0.0-0.4) X10*3/uL Baso # (Auto) 0.1 (0.0-0.2) X10*3/uL Abs Immat Gran (auto) 0.05 H (0.00-0.03) X10*3/uL Absolute Neuts (auto) 4.4 (2.0-8.3) x10*3/uL Absolute Nucleated RBC 0.000 (0.0-0.012) X10*3/uL Nucleated RBC % (auto) 0.0 (0.0-0.2) /100WBC Sodium 141 (135-145) mmol/L Potassium 3.3 D (3.3-5.1) mmol/L Chloride 106 (96-108) mmol/L Carbon Dioxide 24 (22-29) mmol/L Anion Gap 14 (12-20) BUN 5 L (9-16) mg/dL Creatinine 0.63 (0.5-1.4) mg/dL Estim Creat Clear Calc 134.0 Estimated GFR > 60 Random Glucose 109 (60-115) mg/dL Calcium 9.4 (8.4-10.2) mg/dL Total Bilirubin 0.4 (0.0-1.0) mg/dL Direct Bilirubin 0.2 (0.0-0.5) mg/dL AST 25 (5-31) U/L ALT 34 H (0-31) U/L Alkaline Phosphatase 73 (39-117) U/L Total Protein 7.8 (6.5-8.0) g/dL Albumin 4.1 (3.5-5.0) g/dL Discharge Plan Discharge Clinical Impression: Recurrent headache Patient Disposition: Home, Self-Care Additional Instructions: As discussed I am not able to prescribe outpatient opiate medications due to the reasons with discussed, I did medicate you in ER, it would be easier for you to be started on Suboxone for chronic pain in the [facility] area. I understand you do not have a PCP or pain management locally however utilization of emergency department for refilling of opiate medications at least in the [facility] is systematically discouraged. Prescriptions: No Action amoxicillin-pot clavulanate 875-125 mg tablet 1 tab PO BID Qty: 20 0RF oxycodone 5 mg tablet 5 mg PO BID PRN (Reason: severe pain (scale score 7-10)) Qty: 6 0RF Rx Instructions: Partial Fill upon patient request. cephalexin 500 mg capsule 500 mg PO QID Qty: 28 0RF benzonatate 200 mg capsule 200 mg PO TID PRN (Reason: cough) Qty: 20 0RF albuterol sulfate 90 mcg/actuation HFA aerosol inhaler 2 puff inhalation Q6H PRN (Reason: shortness of breath or wheezing) Qty: 8.5 0RF morphine 15 mg tablet 15 mg PO Q8H PRN (Reason: pain) Qty: 15 0RF Rx Instructions: Partial Fill upon patient request. azithromycin [Zithromax] 500 mg tablet 500 mg PO DAILY 3 Days Qty: 3 0RF prednisone 20 mg tablet 40 mg PO DAILY Qty: 10 0RF naloxone [Narcan] 4 mg/actuation spray,non-aerosol 4 mg intranasal Q2M PRN (Reason: opioid overdose) Qty: 2 0RF Rx Instructions: spray 1 dose into ONE nostril; alternate nostrils w each dose until help arrives oxycodone 5 mg tablet 5 mg PO Q6H PRN (Reason: pain) Qty: 7 0RF Rx Instructions: Partial Fill upon patient request. meloxicam 7.5 mg tablet 7.5 mg PO DAILY Qty: 20 0RF valsartan 320 mg tablet 320 mg PO DAILY atenolol 25 mg tablet 25 mg PO DAILY methimazole 5 mg tablet 5 mg PO DAILY gabapentin 300 mg capsule 300 mg PO DAILY oxycodone 5 mg capsule 5 mg PO Q8H PRN Print Language: Angolan
[2025-03-22] MEDS: oxyCODONE HCl Immed Release 5 MG TABLET 20 MG PO (07:52)
[2025-03-22 07:57] VITALS: BP 112/87; PULSE 88; RESP 16; TEMP 36.2; O2SAT 96
[2025-03-22 08:05] VITALS: BP 112/87; PULSE 88; RESP 16; TEMP 36.2; O2SAT 96
== END 2025-03-22 08:05 | disposition home or self-care (01) ==
PROVIDERS: Emergency Provider Emergency Medicine
DX: R51.9 Headache, unspecified (principal); Z79.899 Other long term (current) drug therapy
CPT/HCPCS: 36415; 80048; 80076; 85025; 99283; 99284

== ENCOUNTER 2025-07-13 09:35 | Emergency (ER) | payer OTHER, SELFPAY ==
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
--- OUTSIDE RECORDS SUMMARY | 2025-01-15 05:10 | XMS_ITS ---
Author Organization [facility] Address [address] [place] [address] [address] [place] [address] Care Team Providers Care Machinist Supervisor Name Role Phone Conchita Mathis Primary Care Provider Jaylen Santiago Unavailable [phone] REASON FOR VISIT knee, hip and lumbar radiculopathy Encounters Encounter [facility] Date [facility] [address] [facility] [address] [place] [address] 01/15/2025 Jaylen Huerta Assessments Encounter Date Diagnosis (ICD Code) Assessment Notes Treatment Notes Treatment Clinical Notes Section Notes 01/15/2025 Other Diagnostics: -Imaging: -Labs: Medications: - -Failed: [...] patient was also directed to our website [email or web address] for more information regarding specific treatment options, non-opioid alternatives, opioid REMS patient counseling guide, narcan, bowel regimen, and tips for managing chronic pain. Plan Of Treatment No Information Progress Notes * Maylin COPPOLA MDOB:[birth year] (49 yo F)Acc No.[id number]:01/15/2025 Progress Notes Patient: Maylin BROWN Provider: Merlin Huerta MD :1975 A ge:49 Y S ex:Female Date:01/15/2025 Address:[facility] [address], [address] [place], [place] [id number] Pcp:Conchita Mathis Subjective: * Chief Complaints: * 1 . Knee, hip and lumbar radiculopathy. * HPI: P ain Management: 01/15/25 The patient presents to our office to [...] a drink first thing in the morning (Eye-clinical lab assistant) to steady your nerves or to get [...] of Jos Huerta MD on 07/13/2025 at 01:06 PM EST Sign off status: Pending * Provider: Merlin Huerta MD Date: 0 01/15/2025 Generated for Aureliai silvina/Steffany/eTransmitting on: 09/12/2024 01:06 PM EST History and Physical Notes * [...] a drink first thing in the morning (Eye-clinical lab assistant) to steady your nerves or to get [...]
--- OUTSIDE RECORDS SUMMARY | 2025-01-20 10:30 | XMS_ITS ---
Author Organization [facility] Address [address] [place] [address] Care Team Providers Care Treasurer [employer] Name Role Phone Conchita Mathis Primary Care Provider Jaylen Santiago Unavailable [phone] REASON FOR VISIT knee, hip and lumbar radiculopathy Encounters Encounter Location Date [facility] [address] [facility] [address] [place] [address] 01/20/2025 Jaylen Huerta Plan Of Treatment No Information Progress Notes * Maylin COPPOLA MDOB:[birth year] (49 yo F)Acc No.[id number]:01/20/2025 Progress Notes Patient: Maylin BROWN Provider: Merlin Huerta MD :1975 A ge:49 Y S ex:Female Date:01/20/2025 Address:[address], [address], [facility] Pcp:Conchita Mathis Subjective: * Chief Complaints: * 1 . Knee, hip and lumbar radiculopathy. * Medical History: Objective: * Vitals: Assessment: Plan: * Treatment: * Billing Information: * Visit Code: * Procedure Codes: * Electronic signature of Jos Huerta MD on 07/13/2025 at 01:06 PM EST Sign off status: Pending * Provider: Merlin Huerta MD Date: 01/20/2025 Generated for Aureliai ng/Faxing/eTransmitting on: 09/12/2024 01:06 PM EST
--- OUTSIDE RECORDS SUMMARY | 2025-01-28 12:30 | XMS_ITS ---
Author Organization [facility] Address [address] [address] Care Team Providers Care Slip Operator Name Role Phone ETHAN DUBON Unavailable [phone] REASON FOR VISIT Hospital Discharge/Follow Up, icu tech Encounters Encounter Location Date Provider Diagnosis [facility] [address] [address] 01/28/2025 ETHAN DUBON Plan Of Treatment No Information Progress Notes * Maylin COPPOLADOB:1975 (49 yo F)Acc No.[id number]:01/28/2025 Patient: Maylin BROWN Provider: Gretchen Dubon :1975 A ge:49 Y S ex:Female Date:01/28/2025 Address:[address] [place] [address] Subjective: * Chief Complaints: * 1 . Hospital Discharge/Follow Up, icu tech. * Medical History: Objective: * Vitals: Assessment: Plan: * Treatment: * * Electronic signature of JACQUELINE JIMENEZ MD on 07/13/2025 at 01:07 PM EST Sign off status: Pending * Provider: Gretchen Dubon Date: 0 01/28/2025 Generated for Laila cool/Steffany/[place] on: 09/12/2024 01:07 PM EST
--- OUTSIDE RECORDS SUMMARY | 2025-01-29 05:00 | XMS_ITS ---
Author Organization [facility] Address [address] [address] Care Team Providers Care Bakery Technician Name Role Phone ETHAN DUBON [phone] Allergies No Known Allergies REASON FOR VISIT hospital discharge Encounters Encounter Location Date Provider Diagnosis [facility] [address] [address] 01/29/2025 ETHAN DUBON Plan Of Treatment No Information Progress Notes * Maylin COPPOLADOB:1975 (49 yo F)Acc No.[id number]:01/29/2025 Progress Notes Patient: Maylin BROWN Provider: Gretchen Dubon :1975 A ge:49 Y S ex:Female Date:01/29/2025 Address:[address] [place], [place] [id number] Subjective: * Chief Complaints: * 1 . Hospital discharge. * HPI: C onstitutional: 49-year-old female presents for initial visit. * ROS: N egative, as per HPI . * Medical History: M edical History Verified. * Surgical History: D enies Past Surgical History. * Hospitalization/Major Diagno stic Procedure: D enies Past Hospitalization. * Family History: N on-Contributory. * Social History: h istory of smoking? No Alcohol? No Drugs/Marijuana? No Caffeine intake? No Have you ever felt you needed to Cut down on your drinking? No Have people Annoyed you by criticizing your drinking? No Have you ever felt Guilty about drinking? No Have you ever felt you needed a drink first thing in the morning (Eye-soda room operator) to steady your nerves or to get rid of a hangover? No . * Medications: N one * Allergies: N .K.D.A. Objective: * Vitals: * Physical Examination: G eneral: alert, oriented, no acute distress HEENT: PERRLA, EOMI Heart: S1S2 present Lungs: Clear bilaterally Neuro: Alert/Oriented x 3 . Assessment: Plan: * Treatment: * Procedure Codes: 9 9401 P/M CLINICAL REHAB SPECIALIST, INDIV 15 MIN * Preventive Medicine: W hat kind of exercises do you enjoy? cardio How do you prefer your medications? pills? Liquid? injected? pills What foods will you be willing to give up for better health? fast food Do you have any goals related to your health that we can work together on? yes Are there any barriers to reaching the goals in your treatment? no How can we address the barriers to your treatment? n/a Do you understand why the doctor prescribed this medicine? yes Do you understand how to take your medication? yes Do you understand your healthcare needs? yes When was your last dentist appointment? need referral? n/a . * * Electronic signature of JACQUELINE JIMENEZ MD on 07/13/2025 at 01:06 PM EST Sign off status: Pending * Provider: Gretchen Dubon Date: 0 01/29/2025 Generated for Laila Viveros/[place] on: 09/12/2024 01:06 PM EST History and Physical Notes * HPI (History of Present Illness) Category Sub-Category Detail Notes Category Not es Constitutional 49-year-old gretchen leger presents for initial visit. Physical Examination Category Sub-Category Detail Notes Section Note s General: alert, oriented, no acute distress HEENT: PERRLA, EOMI Heart: S1S2 present Lungs: Clear bilaterally Neuro: Alert/Oriented x 3
--- OUTSIDE RECORDS SUMMARY | 2025-04-06 11:30 | XMS_ITS ---
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 * HPI: C onstitutional: Televisit consent obtained from the patient: 49-year-old female presents for initial visit. * [...] a drink first thing in the morning ([employer] program technician) to steady your nerves or to get rid of a hangover? No . * Medications: N one * Allergies: N .K.D.A. Objective: * Vitals: Assessment: Plan: * Treatment: * Procedure Codes: 9 9401 P/M COMFORT FILLER, INDIV 15 MIN * Preventive Medicine: W [...] Pending * Provider: Gretchen Dubon Date: 0 04/06/2025 Generated for Laila Viveros/Antonysmatul on: 09/12/2024 01:06 PM EST History and Physical Notes * HPI (History of Present Illness) Category Sub-Category Detail Notes Category Not es Constitutional Televisit consent obtained from the patient: 49-year-old female presents for initial visit.
--- OUTSIDE RECORDS SUMMARY | 2025-04-25 05:00 | XMS_ITS ---
Author Organization [facility] Address [address] [place] [address] Care Team Providers Care Supervisor Mirror Fabrication Name Role Phone Carlos Grace Primary Care Provider REASON FOR VISIT Psychiatry Consultation Encounters Encounter Location Date Provider Diagnosis [facility] [address] [place] [address] 04/25/2025 Carlos Grace Plan Of Treatment No Information Progress Notes * Maylin COPPOLADOB:1975 (49 yo F)Acc No.[id number]:04/25/2025 Progress Notes Patient: Maylin BROWN Provider: Lucy Grace MD :1975 A ge:49 Y S ex:Female Date:04/25/2025 Address:[address] [place] [address] Subjective: * Chief Complaints: * 1 . Psychiatry Consultation. * Medical History: Objective: * Vitals: Assessment: Plan: * Treatment: * Billing Information: * Visit Code: * Procedure Codes: * Electronic signature of Ethan Grace on 07/13/2025 at 01:07 PM EST Sign off status: Pending * Provider: Lucy Grace MD Date: 0 04/25/2025 Generated for Laila cool/Steffany/eTmary ellensmatul on: 09/12/2024 01:07 PM EST
--- OUTSIDE RECORDS SUMMARY | 2025-05-05 11:30 | XMS_ITS ---
Author Organization [facility] Address [address] [place] [address] Care Team Providers Care Early Interventionist Name Role Phone Aramis Spain Primary Care Provider REASON FOR VISIT Chronic Pain Encounters Encounter Location Date Provider Diagnosis [facility] [address] [place] [address] 05/05/2025 Aramis Spain Plan Of Treatment Next Appt Details Provider Name:Debbie Lopez , 08/12/2025 02:00:00 PM, [address], [place], [address], Progress Notes * Maylin COPPOLADOB:1975 (49 yo F)Acc No.[id number]:05/05/2025 Patient: Maylin BROWN Provider: Liliya Spain APRN :1975 A ge:49 Y S ex:Female Date:05/05/2025 Address:[address] [place], [place] [id number] Subjective: * Chief Complaints: * 1 . Chronic Pain. * Medical History: Objective: * Vitals: Assessment: Plan: * Treatment: Care Plan: * Problems: * Images: * Electronic signature of Scout Spain APRN on 07/13/2025 at 01:08 PM EST Sign off status: Pending * Provider: Liliya Spain APRN Date: 0 05/05/2025 Generated for Laila cool/Steffany/eTmary ellensmitting on: 09/12/2024 01:08 PM EST
--- OUTSIDE RECORDS SUMMARY | 2025-07-07 06:30 | XMS_ITS ---
Author Organization [facility] Address [address] [place] [address] Care Team Providers Care Powdered Metal Supervisor Name Role Phone Aramis Spain Primary Care Provider [phone] REASON FOR VISIT est care Encounters Encounter Location Date Provider Diagnosis [facility] [address] [place] [address] 07/07/2025 Aramis Spain Plan Of Treatment Next Appt Details Provider Name:Debbie Jaylanzi , 08/12/2025 02:00:00 PM, [address], [place], [address], Progress Notes * Maylin COPPOLADOB:1975 (49 yo F)Acc No.[id number]:07/07/2025 Patient: Maylin BROWN Provider: Liliya Spain APRN :1975 A ge:49 Y S ex:Female Date:07/07/2025 Address:[address] [place], [place] [id number] Subjective: * Chief Complaints: * 1 . Est care. * Medical History: Objective: * Vitals: Assessment: Plan: * Treatment: * Images: * Electronic signature of Scout Spain APRN on 07/13/2025 at 01:07 PM EST Sign off status: Pending * Provider: Liliya Spain APRN Date: Generated for Aureliai ng/Faefra/eTransmitting on: 09/12/2024 01:07 PM EST
--- OUTSIDE RECORDS SUMMARY | 2025-07-08 11:00 | XMS_ITS ---
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 Name Role Phone Aramis Spain Primary Care Provider Debbie Mcnair Unavailable [phone] Allergies Allergen (clinical drug ingredient) Drug/Non Drug Allergy documented on EMR Reaction Allergy Type Onset Date Status ibuprofen stomach upset Drug Allergy Act leila Reason For Referral Reason EVAL AND TREAT Diagnosis 1 Chronic pain (G89.29 ) Diagnosis 2 Hip pain (M25.559) Diagnosis 3 Back pain (M54.9) Referral Organization [facility] Referring Provider First Name Debbie Referring Provider Last Name Xu Referring Provider Speciality Nurse Prac titioner Referred Provider Specialty Pain Managem ent General Notes Evan Pain Managem ent , P: [phone], F: [phone], Gisella Bethea 07/09/2025 09:59:30 AM > Sent Referral Priority Routine REASON FOR VISIT Establishing care w/new provider, Brain mass, Chronic pain (L hip pain and lower back pain) Medications Medication SIG (Take, Route, Frequency, Duration) Notes Start Date End Date Status gabapentin 300 mg 1 cap(s) orally 3 ti mes a day; Duration: 30 days Active Vitamin C 500 mg 1 tab bid Act leila oxyCODONE 10 mg 1 tab(s) orally every 12 hours 4 times daily Active atenolol 25 mg 1 tab(s) orally once a day Active cloNIDine 0.1 mg 1 tab(s) orally 2 ti mes a day Active levoFLOXacin 250 mg 1 tab(s) orally ever y 24 hours Active hydrochlorothiazide-losarta n 25 mg-100 mg 1 tab(s) orally once a day Active Social History AUDIT-C (Standard) Question Answer Notes Did you have a drink contain ing alcohol in the past year? Yes How often did you have a dri nk containing alcohol in the past year? Monthly or less (1 point) How many drinks did you have on a typical day when you were drinking in the past year? 1 or 2 drinks (0 point) How often did you have six o r more drinks on one occasion in the past year? 2 to 4 times a month (2 points) Points 3 Interpretation Positive Problems Problem Type SNOMED Code ICD Code Onset Dates Problem Status W/U Status Risk Notes Problem Chronic pain (32612430) Chronic pain (G89.29) Active confirmed Problem Hyperthyroidism (48817361) Hyperthyroidism (E05.90) Active confirmed Problem Brain mass (490258488) Brain mass (G93.9) Active confirmed Problem Neuropathy (484867756) Neuropathy (G62.9) Active confirmed Problem Elevated blood pressure (50437429) Elevated blood pressure (I10) Active confirmed Vital Signs Temperature 98.3 degrees Fahrenheit 07/08/20 25 Blood pressure systolic 138 mm Hg 07/08/20 25 Blood pressure diastolic 80 mm Hg 025 Heart Rate 91 /min 07/08/2025 Respiratory Rate 16 /min 07/08/2025 Height 67 In 07/08/2025 Weight 248 lbs 07/08/2025 Oximetry 98 % 07/08/2025 BMI 38.84 kg/m2 07/08/2025 Encounters Encounter Location Date Provider Diagnosis [address] [address] 07/08/2025 Debbie Mcnair Screening for lipid disorders Z13.220 ; Encounter to establish care with new provider Z76.89 ; Screening for deficiency anemia Z13.0 ; Encounter for screening for other disorder Z13.89 ; Depression screen Z13.31 ; Alcohol screening Z13.39 ; Chronic pain G89.29 ; Hyperthyroidism E05.90 ; Brain mass G93.9 ; Neuropathy G62.9 and Elevated blood pressure I10 Assessments Encounter Date Diagnosis (ICD Code) Assessment Notes Treatment Notes Treatment Clinical Notes Section Notes 07/08/2025 Screening for lipid disorders (ICD-10 - Z13.220) - Baseline labs ordered for preventive screening as part of establishing care/CPE. - Will f/u with lab results. 07/08/2025 Encounter to establish care with new provider (ICD-10 - Z76.89) - Baseline labs ordered for preventive screening as part of establishing care. - Will f/u with lab results. 07/08/2025 Screening for deficiency anemia (ICD-10 - Z13.0) - Baseline labs ordered for preventive screening as part of establishing care. - Will f/u with lab results. 07/08/2025 Encounter for screening for other disorder (ICD-10 - Z13.89) - Baseline labs ordered for preventive screening as part of establishing care/CPE. - Will f/u with lab results. 07/08/2025 Depression screen (ICD-10 - Z13.31) 07/08/2025 Alcohol screening (ICD-10 - Z13.39) 07/08/2025 Chronic pain (ICD-10 - G89.29) - Patient requesting oxycodone for chronic L hip pain and lower back pain. - Assessment: High-risk medication use/ concern for opioid dependence. - PDMP reviewed today, which shows multiple controlled substance prescriptions from various prescribers and states, including recent oxycodone prescriptions from emergency departments. - Due to high risk for misuse and multi-state prescribing pattern, no controlled substances will be prescribed at this time. - Patient left the office before results of PDMP could be discussed and before a treatment plan could be finalized; patient contacted after visit to inform her of findings and to discuss safe pain management options and referral to pain management. 07/08/2025 Hyperthyroidism (ICD-10 - E05.90) - Tolerating current levothyroxine regimen. - Follow up with Endocrinology as scheduled. - TSH ordered for evaluation and management. 07/08/2025 Brain mass (ICD-10 - G93.9) - Follow up with neurosurgeon as scheduled. - Offered referral to neuro in [place]; declined at this time. 07/08/2025 Neuropathy (ICD-10 - G62.9) 07/08/2025 Elevated blood pressure (ICD-10 - I10) - Patient reports history of high blood pressure - Blood pressure today is 138/80. - Will repeat at CPE appt and reasses. - Lifestyle: Encouraged low sodium diet, adequate hydration, regular physical activity, weight management, and limiting caffeine and alcohol intake. 07/08/2025 Other Spent with patient 50 min time allotted for a regular evaluation and management visit in addition to any other services performed the same day. More than half of that time was spend on counseling and care coordination. The time included face to face interactions with patient, reviewing records, performing a physical exam, and other activities that contribute to the patient's care. - Baseline labs ordered for preventive screening as part of establishing care/CPE. - Will f/u with lab results. Plan Of Treatment Medication Medication Name Sig Start Date Stop Date Notes gabapentin 300 mg 1 cap(s) orally 3 ti mes a day; Duration: 30 days Treatment Notes Assessment Notes Screening for lipid disorders - Baseline labs ordered for preventive screening as part of establishing care/CPE. - Will f/u with lab results. Encounter to establish care with new provider - Baseline labs ordered for preventive screening as part of establishing care. - Will f/u with lab results. Screening for deficiency anemia - Baseline labs ordered for preventive screening as part of establishing care. - Will f/u with lab results. Encounter for screening for other disord er - Baseline labs ordered for preventive screening as part of establishing care/CPE. - Will f/u with lab results. Chronic pain - Patient requesting oxycodone for chronic L hip pain and lower back pain. - Assessment: High-risk medication use/ concern for opioid dependence. - PDMP reviewed today, which shows multiple controlled substance prescriptions from various prescribers and states, including recent oxycodone prescriptions from emergency departments. - Due to high risk for misuse and multi-state prescribing pattern, no controlled substances will be prescribed at this time. - Patient left the office before results of PDMP could be discussed and before a treatment plan could be finalized; patient contacted after visit to inform her of findings and to discuss safe pain management options and referral to pain management. Hyperthyroidism - Tolerating current levothyroxine regimen. - Follow up with Endocrinology as scheduled. - TSH ordered for evaluation and management. Brain mass - Follow up with neurosurgeon as scheduled. - Offered referral to neuro in [place]; declined at this time. Elevated blood pressure - Patient reports history of high blood pressure - Blood pressure today is 138/80. - Will repeat at CPE appt and reasses. - Lifestyle: Encouraged low sodium diet, adequate hydration, regular physical activity, weight management, and limiting caffeine and alcohol intake. Other Spent with patient 50 min time allotted for a regular evaluation and management visit in addition to any other services performed the same day. More than half of that time was spend on counseling and care coordination. The time included face to face interactions with patient, reviewing records, performing a physical exam, and other activities that contribute to the patient's care. - Baseline labs ordered for preventive screening as part of establishing care/CPE. - Will f/u with lab results. Pending Test Test Name Order Date COMPREHENSIVE METABOLIC PANEL W/EGFR *CBC (INCLUDES DIFF/PLT) 07/08/2025 *LIPID PANEL 07/08/2025 *TSH, 3RD GENERATION 07/08/2025 *URINALYSIS, COMPLETE W/REFLEX TO CULTUR E 07/08/2025 Referrals Referral Date Details 07/08/2025 07/08/2025, EVAL AND TREAT Next Appt Details Follow Up: Schedule CPE, [place] son: Provider Name:Debbie miranda, 08/12/2025 02:00:00 PM, [address] [place] [address], [id number], Progress Notes * Maylin COPPOLADOB:1975 (49 yo F)Acc No.[id number]:07/08/2025 Patient: Maylin BROWN Provider: Nasima Mcnair APRN :1975 A ge:49 Y S ex:Female Date:07/08/2025 Address:[address] [place] [address], [place] [address] Pcp:Aramis Spain Subjective: * Chief Complaints: * 1 . Establishing care w/new provider. 2. Brain mass. 3. Chronic pain (L hip pain and lower back pain). * HPI: R gloria for Visit: 49 y o female patient with a medical history of endometriosis, hyperthyroidism, elevated blood pressure and chronic pain (lower back and L hip pain) presents to establish care. - S he is in no acute distress. - She lives in [place]; Used to live in [place]; travels back and forth to [place]. Traveled 1.5 hours for this office visit; having difficulty finding a PCP in her area of [place]. Patient concerns: - Started having headaches in 2023; MRI completed in [place]; found a soft tissue mass; likely benign in nature. - Seen at [facility] in December or a repeat MRI; no major changes. - F/b Neurosurgeon in [place] who ordered a repeat MRI and recommended repeat MRI every 3 -4 months. - She is having trouble getting the repeat MRI because she is claustrophobic and needs an open MRI.? - Currently having i ntermittent headaches; no vision issues, no dizziness, no nausea, vomiting or sensitivity to light. - She is also requesting refill of gabapentin and Oxycodone for chronic pain; states she use to follow pain management in the past. Denies fever, chills, fatigue, or weight loss. Denies chest pain, palpitations, shortness of breath, cough, or wheezing. Denies nausea, vomiting, diarrhea, constipation, or abdominal pain. Denies joint pain, swelling, stiffness, or muscle weakness. Denies current headache, dizziness, numbness, or tingling. Denies anxiety, depression, or mood changes. Denies polyuria, polydipsia, rash, or recurrent infections. F/b: [facility] in [facility]: Dr. Spivey Neurologist: [facility]; Dr. Jagdish Castañeda. D epression Screening: PHQ-9 L ittle interest or pleasure in doing things S everal days, F eeling down, depressed, or hopeless S everal days, T rouble falling or staying asleeep, or sleeping too much M ore than half the days, F eeling tired or having little energy M ore than half the days, P oor appetite or overeating S everal days, F eeling bad about yourself or that you are a failure, or have let yourself or your family down S everal days, T rouble concentrating on things, such as reading the newspaper or watching television?Several days, M oving or speaking so slowly that other people could have noticed; or the opposite, being so fidgety or restless that you have been moving around a lot more than usual N ot at all, T houghts that you would be better off or hurting yourself in some way N ot at all, T otal Score 9 , I nterpretation M ild Depression. * ROS: - ALLERGY: Cough n one. C ongestion n one. E ye symptoms?none. R ml n one. - CONSTITUTIONAL: denies B eileen aches. d enies M alaise. F ever?None. d enies C hills. d enies S weats. d enies W eight loss. d enies?Weight gain. d enies L oss of appetite. d enies G eneralized weakness. d enies F atigue. - CARDIOLOGY: denied C hest Pain. d enied S hortness of breath.?denied P alpitations. L ightheadedness d enies. d enied P edal Edema. O rthopnea d enies. P ND (paroxsymal nocturnal dyspnea) d enies. S yncope d enies.? - DERMATOLOGY: Rash n one. D ry/sensitive skin d enied. - ENDOCRINOLOGY: Polyuria n one. P olydipsia n one. W eight change n one. F atigue n one. T emperature sensitivity n one. S kin/hair changes?none. B owel changes n one. P alpitations n one. S leep disturbance n one. - ENT: Ear symptoms n one. N marcela symptoms n one reported.?Throat symptoms n one reported. S inus symptoms n one reported. V oice symptoms n one. - HEMATOLOGY/LYMPH NODES: Swollen glands n one. A bnormal bleeding n one.?Bruising n one. B one pain n one. - GASTROENTEROLOGY: Abdominal pain n one. N ausea/Vomiting n one. H eartburn denies. I ndigestion none. D ysphagia denies. B loating none. A ltered bowel habits n one. R ectal bleeding n one. - FEMALE REPRODUCTIVE: Abnormal vaginal discharge d enies. I rregular menses? denies. D ysmenorrhea denies. D yspareunia denies. I nfertility denies. S TD's none. B reast complaints n one. P elvic pain none. ? - MUSCULOSKELETAL: Joint pain Admits, L hip chronic pain . D enies J oint stiffness, none. D enies J oint swelliing, none. A rthritis? Admits. o ther L ower back pain chronic . - NEUROLOGY: Headache p ressure-like, chronic, not associated with:, aura. W eakness n one. T ingling/Numbness n one. S peech change n one. V isual change n one. D izziness none. M leela Loss none. G ait abnormality? none. S eizures none. - OPHTHALMOLOGY: Visual change n one. E ye irritation n one. P eriorbital problem n one. - PSYCHOLOGY: Anxiety none. D epression none. P sychotic symptoms none. E ating disorder d enies. S leep disturbance none. S uicidal thoughts denied. - RESPIRATORY: denies S hortness of Breath. d enies C ough. d enies C hest pain. d enies W heezing. d enies C hest congestion. d enies?Hemoptysis. d enies O rthopnea. - UROLOGY: Dysuria none. U rinary frequency none. U rinary urgency none. H ematuria denies. O bstructive symptoms d enies. U rinary incontinence denies. K idney stones denies. U rethral discharge denies. * Medical History: C hronic pain- Back and L hip, Headaches (pressure-like), Hyperthyroidism, Elevated blood pressure. * Social History: A MAREK-C (Standard) D id you have a drink containing alcohol in the past year? Y es,?How often did you have a drink containing alcohol in the past year? M onthly or less (1 point), H ow many drinks did you have on a typical day when you were drinking in the past year? 1 or 2 drinks (0 point), H ow often did you have six or more drinks on one occasion in the past year? 2 to 4 times a month (2 points), P oints 3 , I nterpretation P ositive.? * Medications: T aking atenolol 25 mg tablet 1 tab(s) orally once a day , Taking cloNIDine 0.1 mg tablet 1 tab(s) orally 2 times a day , Taking gabapentin 300 mg capsule 1 cap(s) orally 3 times a day , Taking hydrochlorothiazide-losartan 25 mg-100 mg tablet 1 tab(s) orally once a day , Taking levoFLOXacin 250 mg tablet 1 tab(s) orally every 24 hours , Taking oxyCODONE 10 mg tablet, extended release 1 tab(s) orally every 12 hours 4 times daily, Taking Vitamin C 500 mg 1 tab bid , Medication List reviewed and reconciled with the patient * Allergies: I buprofen: Stomach Upset. Objective: * Vitals: B WY:38.84Index, Wt: 248, Ht: 67 In, BP:138/80, Temp: 98.3 F, HR: 91 /min, RR: 16 /min, SaO2: 98 %. * Physical Examination: - GENERAL: General Appearance: a lert and oriented, no acute distress.? - SKIN: Rash: n one. - LYMPH NODES: Cervical: n one. S upraclavicular: n one. - HEENT: Head: a traumatic, normocephalic. - NECK: General: u nremarkable. C ervical Lymph Nodes: n o lymphadenopathy noted. T hyroid: u nremarkable. N rip Mass: n one palpated. J VD: n one. C arotid bruit: n one. - HEART: PMI: n on-displaced. R ate: n ormal. R hythm:?regular. H eart sounds: n ormal S1S2. M urmurs: n one. - LUNGS: Effort: n ormal. R ate: n ormal. B reath sounds: C TA bilaterally, no wheezing/rhonchi/rales. A irflow: n ormal. - ABDOMEN: General: s oft. B owel Sounds: n ormal. T enderness: n one. R ebound tenderness: a bsent. G uarding: n one. D istention:?none. L iver, spleen: n o hepatosplenomegaly. M asses: n one palpated. B ruits: n one audible. A scites: n one observed. - BACK: Tenderness: n one. - EXTREMITIES: Edema: n one. - NEUROLOGICAL: Orientation: a lert and oriented X 3. C ognition: n ormal. C ranial nerves: C N's II-XII grossly intact. M otor: n ormal strength bilaterally. S ensory: n ormal. G ait: n ormal. T remor: n one noted. Assessment: * Assessment: 1. E ncounter to establish care with new provider - Z76.89 (Primary) 2 . S creening for lipid disorders - Z13.220 3 . S creening for deficiency anemia - Z13.0 4 . E ncounter for screening for other disorder - Z13.89 5 . Depression screen - Z13.31 6 . A lcohol screening - Z13.39 ?7. C hronic pain - G89.29 8 . H yperthyroidism - E05.90 9 . B rain mass - G93.9 1 0. N europathy - G62.9 1 1. E levated blood pressure - I10 Plan: * Treatment: 2. S creening for lipid disorders L AB: *LIPID PANEL Notes: - Baseline labs ordered for preventive screening as part of establishing care/CPE. - Will f/u with lab results. 3. S creening for deficiency anemia L AB: *CBC (INCLUDES DIFF/PLT) Notes: - Baseline labs ordered for preventive screening as part of establishing care. - Will f/u with lab results. 4. E ncounter for screening for other disorder Notes: - Baseline labs ordered for preventive screening as part of establishing care/CPE. - Will f/u with lab results. 5. C hronic pain Notes: - Patient requesting oxycodone for chronic L hip pain and lower back pain. - Assessment: High-risk medication use/ concern for opioid dependence. - PDMP reviewed today, which shows multiple controlled substance prescriptions from various prescribers and states, including recent oxycodone prescriptions from emergency departments. - Due to high risk for misuse and multi-state prescribing pattern, no controlled substances will be prescribed at this time. - Patient left the office before results of PDMP could be discussed and before a treatment plan could be finalized; patient contacted after visit to inform her of findings and to discuss safe pain management options and referral to pain management. Referral To:Pain Management Reason:EVAL AND TREAT 6. H yperthyroidism L AB: *TSH, 3RD GENERATION Notes: - Tolerating current levothyroxine regimen. - Follow up with Endocrinology as scheduled. - TSH ordered for evaluation and management. 7. B rain mass Notes: - Follow up with neurosurgeon as scheduled. - Offered referral to neuro in [place]; declined at this time. 8. N europathy Refill gabapentin capsule, 300 mg, 1 cap(s), orally, 3 times a day, 30 days, 90 Capsule, Refills 0.? 9. E levated blood pressure L AB: COMPREHENSIVE METABOLIC PANEL W/EGFR L AB: *URINALYSIS, COMPLETE W/REFLEX TO CULTURE Notes: - Patient reports history of high blood pressure - Blood pressure today is 138/80. - Will repeat at CPE appt and reasses. - Lifestyle: Encouraged low sodium diet, adequate hydration, regular physical activity, weight management, and limiting caffeine and alcohol intake. 10. O thers Notes: Spent with patient 50 min time allotted for a regular evaluation and management visit in addition to any other services performed the same day. More than half of that time was spend on counseling and care coordination. The time included face to face interactions with patient, reviewing records, performing a physical exam, and other activities that contribute to the patient's care. - Baseline labs ordered for preventive screening as part of establishing care/CPE. - Will f/u with lab results. Referral To:Pain Management Reason:EVAL AND TREAT * Procedure Codes: 9 6127 BRIEF EMOTIONAL/BEHAV ASSMT, 39076 Alcohol Screening [facility] * Follow Up: S noel CABEZAS * Images: * Sign off status: Completed true * Provider: Nasima Mcnair APRN Date: Generated for Laila cool/Steffany/Shravanitting on: 09/12/2024 01:08 PM EST History and Physical Notes * HPI (History of Present Illness) Category Sub-Category Detail Notes Category Not es Depression Screening PHQ-9 Little inte rest or pleasure in doing things: Several days Feeling down, depressed, or hopeless: Se veral days Trouble falling or staying a sleeep, or sleeping too much: More than half the days Feeling tired or having little energy: M ore than half the days Poor appetite or overeating: Several day s Feeling bad about yourself o r that you are a failure, or have let yourself or your family down: Several days Trouble concentrating on thi ngs, such as reading the newspaper or watching television: Several days Moving or speaking so slowly that other people could have noticed; or the opposite, being so fidgety or restless that you have been moving around a lot more than usual: Not at all Thoughts that you would be b raissa off or hurting yourself in some way: Not at all Total Score: 9 Interpretation: Mild Depression Reason for Visit 49 yo female patient with a medical history of endometriosis, hyperthyroidism, elevated blood pressure and chronic pain (lower back and L hip pain) presents to establish care. - She is in no acute distress. - She lives in [place]; Used to live in [place]; travels back and forth to [place]. Traveled 1.5 hours for this office visit; having difficulty finding a PCP in her area of [place]. Patient concerns: - Started having headaches in 2023; MRI completed in [place]; found a soft tissue mass; likely benign in nature. - Seen at [facility] in December for a repeat MRI; no major changes. - F/b Neurosurgeon in [place] who ordered a repeat MRI and recommended repeat MRI every 3-4 months. - She is having trouble getting the repeat MRI because she is claustrophobic and needs an open MRI. - Currently having intermittent headaches; no vision issues, no dizziness, no nausea, vomiting or sensitivity to light. - She is also requesting refill of gabapentin and Oxycodone for chronic pain; states she use to follow pain management in the past. Denies fever, chills, fatigue, or weight loss. Denies chest pain, palpitations, shortness of breath, cough, or wheezing. Denies nausea, vomiting, diarrhea, constipation, or abdominal pain. Denies joint pain, swelling, stiffness, or muscle weakness. Denies current headache, dizziness, numbness, or tingling. Denies anxiety, depression, or mood changes. Denies polyuria, polydipsia, rash, or recurrent infections. F/b: [facility] in [facility]: Dr. Spivey Neurologist: [facility]; Dr. Jagdish Castañeda Physical Examination Category Sub-Category Detail Notes Section Note s -GENERAL General Appearance: alert and oriented, n o acute distress -SKIN Rash: none -LYMPH NODES Cervical: none Supraclavicular: none -HEENT Head: atraumatic, normocephalic -NECK General: unremarkable Cervical Lymph Nodes: no lymphadenopathy noted Thyroid: unremarkable Neck Mass: none palpated JVD: none Carotid bruit: none -HEART PMI: non-displaced Rate: normal Rhythm: regular Heart sounds: normal S1S2 Murmurs: none -LUNGS Effort: normal Rate: normal Breath sounds: CTA bilaterally, no wheezing/rhonchi/rales Airflow: normal -ABDOMEN General: soft Bowel Sounds: normal Tenderness: none Rebound tenderness: absent Guarding: none Distention: none Liver, spleen: no hepatosplenomegal y Masses: none palpated Bruits: none audible Ascites: none observed -BACK Tenderness: none -NEUROLOGICAL Orientation: alert and oriented X 3 Cognition: normal Cranial nerves: CN's II-XII grossly intact Motor: normal strength bila terally Sensory: normal Gait: normal Tremor: none noted -EXTREMITIES Edema: none Consultation Request Notes Referral Date Referring Provider Referred Provider Not es 07/08/2025 Debbie Mcnair EVAL AND Salena HENRY
--- OUTSIDE RECORDS SUMMARY | 2025-07-09 08:30 | XMS_ITS | Encounter Summary ---
Author Organization [facility]ly [facility] Address [address] [place] [address] Care Team Providers Care Building Carpenter Name Role Phone Sera Campos PA-C Primary Care Provider [phone] Encounter Details Date Type Department Care Team (Late st Contact Info) Description 07/09/2025 9:30 AM EDT Telemedicine [facility] Telehealth [address] [phone] [facility], RN TRIAGE [address] [address] Viral upper respiratory tract infection (Primary Dx) Social History Tobacco Use Types Packs/Day Years Used Date Smoking Tobacco: Former Cigarettes 0.5 4 2 - 2014 Smokeless Tobacco: Never Alcohol Use Standard Drinks/Week Comments Not Currently 0 (1 standard drink = 0.6 oz pur e alcohol) [facility] Utilities Answer Date Recorded In the past 12 months has [employer] electric, gas, oil, or water company threatened to shut off services in your [...] any time in the past 12 m [facility], were you homeless or living in a fpc (including now)? No 12/29/2024 Comments No Sex and Gender Information Value Date Recorded Sex Assigned at Female 03/10/2024 6:44 PM EDT Legal Sex Female 12:12 PM EDT Gender Identity Female 03/10/2024 6:44 PM EDT Sexual Orientation Heterosexual (straight) 03/10 6:44 PM EDT documented as of this encounter Progress Notes * Erica Sethi, RN TRIAGE - 07/09/2025 10:31 AM EDT Images from the original note were not included. Assessment & Plan: Discussed with patient who is requesting a direct hospital admission for MRI under sedation. Explained that such coordination cannot be performed through this office. Advised patient to establish care with a primary care provider in person for referral and coordination. Patient reports having a neurosurgeon in [place] but would like imaging done in [place] for comparison with previous scans. Discussed that she can request CDs of her prior scans to be sent to her neurosurgeon for comparison. Patient reports she resides in both [place] and [place], traveling frequently between the two states. Follow up as needed. Problem List Items Addressed This Visit None Visit Diagnoses Viral upper respiratory tract infection - Primary Follow Up: Return if symptoms worsen or fail to improve. Communication barriers and lifestyle preferences were addressed with the patient. The care plan including medications and self-management goals were reviewed to the best of the patient's abilities. All questions and concerns were answered. Patient and/or family verbalized understanding of the plan of care. Subjective Subjective Patient ID: Maylin Coppola is a 49 y.o. female. Patient was seen today for a visit via telehealth technology. Patient and provider interacted via Video based communication Before beginning the virtual visit, patient identity was confirmed by Name and Date of Patient phone number confirmed Preferred: [phone] Patient location: Patient is located within a home setting Home address [address] [place] [phone] Additional persons present during telehealth visit: No other parties present At time of session, this provider is licensed to provide care in the state in which the patient is currently located. Provider License #: [place] RN TRIAGE [id number] Providers must enter state and license number to fulfill regulatory requirements The patient was advised that in the event that the connection was lost during the visit, to resume the virtual appointment by re-connecting to the previously provided video-conference link or by contacting the office by phone. Technical quality of visit: Good HPI: 49 years-old Female presenting with Acute Follow Up. AI SUMMARY: A 49-year-old female presents for follow-up care of a previously diagnosed brain tumor (CT and MRI,November and December), reporting possible progression with cognitive issues, slight short-term memory loss, and new left leg numbness; no medications or treatments have been used for this condition. NOTE FROM PATIENT: I need help with follow up care and obtaining updated MRI for diagnosis. I have a brain tumor found on CT and MRI from November and December provider acute follow up - Jul 09, 2025 - Patient presents for follow-up care regarding a previously diagnosed brain tumor identified on CTand MRI in November and December. - The patient reports that their condition is approximately the same since the last evaluation, though they are uncertain about any changes. - There is possible progression of symptoms, including issues with cognitive function and slight short-term memory loss. - A new symptom of left leg numbness has been reported. - No medications or treatments have been used for the current medical problem. I have reviewed the patients medications, allergies, past medical history, social history and family history as documented. Past Medical History: Diagnosis Date Brain tumor (HCC) 11/2024 Endometriosis Hypertension Hypothyroid Insomnia Past Surgical History: Procedure Laterality Date APPENDECTOMY OOPHORECTOMY Social History[3] Family History Problem Relation Age of Onset Stroke Mother Heart disease Father Multiple myeloma Maternal Uncle Skin cancer Paternal Aunt Objective Objective Physical Exam: A hands-on physical exam was not performed given the limitations of a virtual healthvisit. Any physical exam documentation was done based on visual inspection done remotely via video camera. General: Non-toxic appearing, in no distress. Eyes: No visible icteric sclera. Respiratory: No visible increased work of breathing Neuro: Awake, alert and answering questions appropriately. Skin: Visible skin without diffuse rash. Administrative Information: Level of Service: 72490 - OFFICE O/P EST LOW 20 MIN [3] Social History Tobacco Use Smoking status: Former Current packs/day: 0.00 Average packs/day: 0.5 packs/day for 4.0 years (2.0 ttl pk-yrs) Types: Cigarettes Start date: 2010 Quit date: 2014 Years since quittin.8 Smokeless tobacco: Never Vaping Use Vaping status: Never Used Substance Use Topics Alcohol use: Not Currently Drug use: Never documented in this encounter Plan of Treatment Upcoming Encounters Date Type Department Care Team (Late st Contact Info) Description 10/14/2025 1:30 PM EST Office Visit [facility] [address] [place] [phone] Mable Nair MD [address] [place] [address] documented as of this encounter Visit Diagnoses Diagnosis Viral upper respiratory tract infection- Primary Acute upper respiratory infections of unspecified site documented in this encounter Care Teams Building Carpenter Relationship Specialty Start Date End Date Sera Campos PA-C [address] [place] [address] PCP - General Internal Medicine 05/25/25 documented as of this encounter
--- OUTSIDE RECORDS SUMMARY | 2025-07-11 07:45 | XMS_ITS | Encounter Summary ---
Author Organization [facility] Address [address] [place] [address] Care Team Providers Care Blast Furnace Blower Name Role Phone Sera Campos PA-C Primary Care Provider [phone] Encounter Details Date Type Department Care Team (Late st Contact Info) Description 07/11/2025 8:45 AM EDT Telemedicine [facility] Telehealth [address] [phone] Jack Shay PA-C [address] [phone] Drug-seeking behavior (Primary Dx); Opioid dependence with opioid-induced disorder (HCC); Hospital hopping; Malingering Social History Tobacco Use Types Packs/Day Years Used Date Smoking Tobacco: Former Cigarettes 0.5 4 2 011 - 2015 Smokeless Tobacco: Never Alcohol Use Standard Drinks/Week Comments Not Currently 0 (1 standard drink = 0.6 oz pur e alcohol) [facility] Utilities Answer Date Recorded In the past 12 months has e electric, gas, oil, or water company threatened [...] any time in the past 12 m [facility], were you homeless or living in a snf (including now)? No 12/29/2024 Comments No Sex and Gender Information Value Date Recorded Sex Assigned at Female 03/10/2024 6:44 PM EDT Legal Sex Female 12:12 PM EDT Gender Identity Female 03/10/2024 6:44 PM EDT Sexual Orientation Heterosexual (straight) 03/10 6:44 PM EDT documented as of this encounter Progress Notes * Jack Shay PA-C - 07/11/2025 9:19 AM EDT Images from the original note were not included. Assessment & Plan Problem List Items Addressed This Visit Drug-seeking behavior - Primary Other Visit Diagnoses Opioid dependence with opioid-induced disorder (HCC) PDMP reviewed, multiple prescriptions from various providers for oxycodone . I provided patient with information for [facility] if she is interested. Hospital hopping Goes to various hospitals stating that she has a brain tumor and needs pain meds and she is findingpain management. Review CareEverywhere Malingering intentional production of symptoms to obtain opiods Follow Up: Return if symptoms worsen or [...] Date of Patient phone number confirmed Preferred: [phone] Patient location: Patient is located within a clinical facility Additional persons present during telehealth visit: No other parties present At time of session, this provider is licensed to provide care in the state in which the patient is currently located. Provider License #: [id number] Providers must enter state and license number to fulfill regulatory requirements The patient was advised that in the event that the connection was lost during the visit, to resume the virtual appointment by re-connecting to the previously provided video-conference link or by contacting the office by phone. Technical quality of visit: Good HPI: 49 years-old Female presenting with Medication refill. AI SUMMARY: 49-year-old female presents for medication refill, reporting she ran out of her most recent prescription 7-30 days ago; taking medication as directed and finds it effective, but has side effects and wishes to adjust her current regimen, noting pain management will hopefully address current issues. NOTE FROM PATIENT: I need help with getting my medicine.. Medication refill - Jul 11, 2025 - Most recent prescription given by clinic/ER - Ran out of medication - Time of running out: 7-30 days ago - Taking the medication as directed - Medication is effective - Has side effects ?? - Wants to adjust current regimen - Current regimen issue/s (free text): pain MGMT will handle hopefully - Other medication(s) selected: - Oxycodone Hydrochloride 5 MG Oral Capsule & intake - Jul 11, 2025 - Denies possibility of - Not currently I have reviewed the patients medications, allergies, [...] diffuse rash. Administrative Information: Level of Service: 12364 - OFFICE O/P EST LOW 20 MIN [...] Description 10/14/2025 1:30 PM EST Office Visit [address] [phone] Mable Nair MD [address] [place] [phone] documented as of this encounter Visit Diagnoses Diagnosis Drug-seeking behavior- Primary Other, mixed, or unspecified nondependent drug abuse, unspecified Opioid dependence with opioid-induced disorder (HCC) Hospital hopping Person feigning illness Malingering Person feigning illness documented in this encounter Care Teams Blast Furnace Blower Relationship Specialty Start Date End Date Sera Campos PA-C [address] [place] [address] PCP - General Internal Medicine 05/25/25 documented as of this encounter
[2025-07-13 09:47] VITALS: BP 183/85; PULSE 79; RESP 18; TEMP 36.3; O2SAT 100; BMI 41.3
--- NOTE | 2025-07-13 10:05 | ED_ITS ---
HPI - General Adult General Chief complaint: General Medical Stated complaint: Med refill Time Seen by Provider: 07/13/25 11:11 Source: patient, family and old records reviewed Mode of arrival: ambulatory Limitations: no limitations History of Present Illness ED Provider: MARK WOODSON narrative: 49-year-old female with past medical history of intraventricular lesion noted back in December of 2024 states she follows with neurosurgeon in [place] from the [facility] Dr. Mendoza. She also notes multiple orthopedic pain complaints as well. She has been on oxycodone for 7 years. She states she travels back and forth with her all over [place] and also resides in [place]. Initially Dr. Mejias was going to see the patient but then was fired for unknown reasons. They then demanded a male provider. I went into the room, and the who had pinpoint pupils 1 is to know why it was there and who I was, he was unhappy with the room size, he was unhappy that nurse Henry would be present for the conversation. During the conversation they demanded Henry leave, she remained outside the door still able to listen at my request. The patient spoke about many things that I had a hard time following including having a background check, a concerning FLORAL MANAGER, and being told only in [place] these were red flags. I tried to offer MRI but she declined and stated she had one scheduled already. She then ultimately wanted oxycodone or some other less potent narcotic. I explained I would not be prescribing any narcotics and her and her became very upset and walked out of the ED without any difficulty ambulating. complaint: chronic pain Onset (ago): year(s) Severity: severe Pain Consistency: constant Relieving factors: none Exacerbating factors: other Associated symptoms: headaches Related Data Home Medications ?Medication ?Instructions ?Recorded ?Confirmed atenolol 25 mg tablet 25 mg PO DAILY 08/13/2312/31 gabapentin 300 mg capsule 300 mg PO DAILY 08/13/2312/31 methimazole 5 mg tablet 5 mg PO DAILY 08/13/2308/13 oxycodone 5 mg capsule 5 mg PO Q8H PRN 08/13/2312/31 valsartan 320 mg tablet 320 mg PO DAILY 08/13/2312/31 Previous Rx's ?Medication ?Instructions ?Recorded amoxicillin 875 mg-potassium 1 tab PO BID #20 tabs clavulanate 125 mg tablet oxycodone 5 mg tablet 5 mg PO BID PRN severe pain (scale 05/27/24 score 7-10) #6 tabs albuterol sulfate 90 mcg/actuation 2 puff inhalation Q 6H PRN 06/15/24 aerosol inhaler shortness of breath or wheez ing #8.5 grams azithromycin 500 mg tablet 500 mg PO DAILY 3 days #3 t abs 06/15/24 (Zithromax) benzonatate 200 mg capsule 200 mg PO TID PRN cough #20 caps 06/15/24 morphine 15 mg immediate release 15 mg PO Q8H PRN pain #15 tabs 06/15/24 tablet prednisone 20 mg tablet 40 mg (2 x 20 mg) PO DAILY # 10 tabs 06/15/24 meloxicam 7.5 mg tablet 7.5 mg PO DAILY #20 tabs 11/04 naloxone 4 mg/actuation nasal 4 mg intranasal Q2M PRN opioid 11/09/24 spray (Narcan) overdose #2 ea oxycodone 5 mg tablet 5 mg PO Q6H PRN pain #7 tabs 11/09/24 cephalexin 500 mg capsule 500 mg PO QID #28 caps 12/11 Allergies Allergy/AdvReac Type Severity Reaction Status Date / Time NSAIDS (Non-Steroidal Allergy Unknown Verified 07/13/25 09:51 Anti-Inflamma ketorolac (From Toradol) AdvReac Severe Rash Verified 07/13/25 09:51 levofloxacin (From Levaquin) AdvReac Severe Rash Verified 07/13/25 09:51 Review of Systems Review of Systems: ROS unable to be obtained due to poor interaction [facility] Past Medical History Attestation statement: The following information was validated with the patient. Source: old records reviewed Medical History Fracture of tooth Nausea Vertigo Chronic low back pain Endometriosis Toothache Essential hypertension Chronic pain syndrome Opioid abuse Anxiety Hyperthyroidism Social History Social History Advance Directives: No Advance Directives Information Provided: No Physical Exam ED Vital Signs: Vital Signs - 24 hr 07/13/25 09:47 07/13/25 11:15 07/13/25 12:03 Temperature 97.3 F 0 F L Pulse Rate 79 92 92 Respiratory Rate 18 16 16 Blood Pressure 183/85 H 149/84 H 149/84 H Pulse Oximetry 100 100 100 Oxygen Delivery Method Room Air Room Air Room Air BMI result Body Mass Index 41.3 Appearance: Alert. Oriented X3. No acute distress. Eyes: Pupils appear 4mm. ENT: Pharynx nMMM Neck: Normal inspection. CVS: fingers and hands appear pink in appearance Respiratory: No respiratory distress. Skin: Normal skin color. Extremities: walks without issue Neuro: Oriented X 3. moves all extremities, steady gait, no ataxia Course Course Course Narrative: Rapid medical examination performed in triage by Vicki Rebolledo PA-C. Patient is a 49 year old assigned female at presenting to the emergency department requesting medication refill. Patient states that she would like to have a bridge prescription of 10mg Oxycodone to last her until her pain management appointment in 3 days. Detailed physical exam and review of systems are deferred to the primary teaching assistant. Patient placed back in the waiting room pending room availability. Medical Decision Making Medical Decision Making MDM Narrative: 49-year-old female with past medical history of intraventricular lesion noted back in December of 2024 who is now here in our ED with a very convoluted history has fired other providers, refused to have RN witnessed in room during my interview the RN did stay outside the room. Her appears under the influence. Ultimately after a very long 20+ minute conversation, I offered to help get an outpatient MRI, which she declined. The patient at the end of our very long conversation did want narcotics for her chronic pain. I told her we would not be prescribing that from this emergency department given her very concerning FLORAL MANAGER. She is quite unhappy with her care. She told me she was at [facility] last night, had labs and a normal head CT. At this time she has no emergent needs for opiate prescription and can be discharged home Differential Diagnosis Differential Diagnoses: The differential diagnosis associated with the presentation includes chronic pain Independent Historian Clinical information obtained from an independent historian. History obtained from or confirmed by: Spouse External Record Review External record reviewed: Outpatient record Discharge Plan Discharge Clinical Impression: Chronic pain syndrome Patient Disposition: Home, Self-Care Instructions: Chronic Pain (ED) Additional Instructions: At this time he just had an extensive workup including head CT at [facility] follow-up with outpatient providers for opiate management You were offered [facility] to start on MAT therapy but you declined Return for any worsening symptoms or concerns Prescriptions: No Action amoxicillin-pot clavulanate 875-125 mg tablet 1 tab PO BID Qty: 20 0RF oxycodone 5 mg tablet 5 mg PO BID PRN (Reason: severe pain (scale score 7-10)) Qty: 6 0RF Rx Instructions: Partial Fill upon patient request. cephalexin 500 mg capsule 500 mg PO QID Qty: 28 0RF benzonatate 200 mg capsule 200 mg PO TID PRN (Reason: cough) Qty: 20 0RF albuterol sulfate 90 mcg/actuation HFA aerosol inhaler 2 puff inhalation Q6H PRN (Reason: shortness of breath or wheezing) Qty: 8.5 0RF morphine 15 mg tablet 15 mg PO Q8H PRN (Reason: pain) Qty: 15 0RF Rx Instructions: Partial Fill upon patient request. azithromycin [Zithromax] 500 mg tablet 500 mg PO DAILY 3 Days Qty: 3 0RF prednisone 20 mg tablet 40 mg PO DAILY Qty: 10 0RF naloxone [Narcan] 4 mg/actuation spray,non-aerosol 4 mg intranasal Q2M PRN (Reason: opioid overdose) Qty: 2 0RF Rx Instructions: spray 1 dose into ONE nostril; alternate nostrils w each dose until help arrives oxycodone 5 mg tablet 5 mg PO Q6H PRN (Reason: pain) Qty: 7 0RF Rx Instructions: Partial Fill upon patient request. meloxicam 7.5 mg tablet 7.5 mg PO DAILY Qty: 20 0RF valsartan 320 mg tablet 320 mg PO DAILY atenolol 25 mg tablet 25 mg PO DAILY methimazole 5 mg tablet 5 mg PO DAILY gabapentin 300 mg capsule 300 mg PO DAILY oxycodone 5 mg capsule 5 mg PO Q8H PRN Interventions: ED Discharge Assessment Last Done: 07/13/25 12:03 Discharge Date/Time: 07/13/25 12:03 Print Language: Malay
--- NOTE | 2025-07-13 11:07 | PC.NURSE ---
Patient's approached this RN requesting that the patient be evaluated by a male provider. Awaiting ED MD/Provider evaluation.
[2025-07-13 11:15] VITALS: BP 149/84; PULSE 92; RESP 16; O2SAT 100
--- NOTE | 2025-07-13 11:40 | PC.NURSE ---
Dr. Mejias went to bedside, pt refused evaluation at that time due to BP being obtained. Pt then asked for another provider because I have stuff to do . Dr. Curry came to bedside. director of special events (Naa Moon) also aware. and patient are audibly arguing with each other at times. Care ongoing by this RN.
--- NOTE | 2025-07-13 12:00 | PC.NURSE ---
Patient and left the room after Dr. Curry spoke with the patient. Henry Campos (RN) was also present for this interaction. Patient upset about not receiving Rx Oxycodone or other meds. Has already had multiple scripts filled at various pharmacies in multiple states & cities. Has follow-up pain management appointment on 07/16/25. Walked out/refused discharge paperwork.
[2025-07-13 12:03] VITALS: BP 149/84; PULSE 92; RESP 16; TEMP -17.7; TEMP 0; O2SAT 100
--- OUTSIDE RECORDS SUMMARY | 2025-07-13 13:06 | XMS_ITS | Clinical Summary ---
Author Organization [facility] Address [address] [place] [address] Care Team Providers Care Activity Aide Name Role Phone Pcp, No Primary Care Provider Unavailabl e Allergies Active Allergy Reactions Criticality Noted Date Comments Levofloxacin Anaphylaxis,Unknown, Hive s,Palpitations,Rash High 03/05/2008 palpitations Other reaction(s): Irregular Heart Rate Ketorolac Rash Low 02/27/2025 Medications oxyCODONE-acetam inophen (Percocet) 5-325 mg tablet Take 1 tablet by mouth every 6 (six) hours if needed for severe pain for up to 9 doses. 9 tablet 04/09/2025 Active Encounters Date Type Department Care Team Description 06/17/2025 4:06 PM EDT - 06/17/2025 5:40 PM EDT Emergency [facility] [place] [address] Mey Lozano MD Uncomplicated opioid dependence (HCC) (Primary Dx); Does not refill medications appropriately Discharge Disposition: Eloped 06/17/2025 Travel 04/22/2025 Telephone [facility] [place] [address] Pcp, No Headache from Last 3 Months Social History Tobacco Use Types Packs/Day Years Used Date Smoking Tobacco: Never Assessed Comments No Sex and Gender Information Value Date Recorded Sex Assigned at Not on file Legal Sex Female 6:18 PM EDT Gender Identity Not on file Sexual Orientation Not on file Last Filed Vital Signs Vital Sign Reading Time Taken Comments Blood Pressure 110/75 06/17/2025 2:57 PM EDT Pulse 85 06/17/2025 2:57 PM EDT Temperature 36.8 C (98.3 F) 06/17/2025 2:57 PM EDT Respiratory Rate 14 06/17/2025 2:57 PM EDT Oxygen Saturation 100% 06/17/2025 2:57 PM EDT Inhaled Oxygen Concentration - - Weight 121.6 kg (268 lb 1.3 oz) 06/17/2025 2:57 PM EDT Height 170.2 cm (5' 7 ) 06/17/2025 2:57 PM EDT Body Mass Index 41.99 06/17/2025 2:57 PM EDT Plan of Treatment Health Maintenance Due Date Last Done Comments CT Colonography 1977 Colonoscopy 1977 Colorectal Cancer Screening 1977 FIT-DNA 1977 FIT 1977 FOBT 1977 Hepatitis C Screening 1977 Mammogram 1977 Sigmoidoscopy 1977 Hepatitis A Vaccines (1 of 2 - Risk 2-dose series) 1996 Pneumococcal Vaccine: Peds ( 0 to 5 Yrs) and At-Risk Pts (6 to 49 Yrs) (1 of 2 - PCV) 1996 Tdap and Td Vaccines Adult 1996 Pap Smear 1998 Cervical Cancer Screening 2007 HPV/Cotest 2007 COVID-19 Vaccine (2024-2 6 season) 2025 05/12/2021, 04/08/2021 Influenza Vaccine (#1) 2025 Medicare Annual Wellness Visit 07/01/2025 07/01/2024 HIB Vaccines Aged Out No longer eligi ble based on patient's age to complete this topic HPV Vaccines (No Doses Required) Completed IPV Vaccines Aged Out No longer eligi ble based on patient's age to complete this topic Lipid Panel Discontinued Meningococcal Vaccine Aged Out No maximiliano rosie eligible based on patient's age to complete this topic RSV <20 Months Aged Out No longer jean gible based on patient's age to complete this topic Insurance [employer] Care Teams Activity Aide Relationship Specialty Start Date End Date Pcp, No No PCP On File R[place] Hernandez [id number] PCP - General 02/27/25
--- OUTSIDE RECORDS SUMMARY | 2025-07-13 13:06 | XMS_ITS | Encounter Summary ---
Author Organization [facility] Address [address] [place] [address] Care Team Providers Care Radiology Ct Technologist Name Role Phone Pcp, No Primary Care Provider Unavailabl e Reason for Visit * Reason Onset Date Comments Headache 04/22/2025 Encounter Details Date Type Department Care Team ([facility] st Contact Info) Description 04/22/2025 Telephone [facility] [place] [address] Pcp, [place] [address] Headache Social History Tobacco Use Types Packs/Day Years Used Date Smoking Tobacco: Never Assessed Comments No Sex and Gender Information Value Date Recorded Sex Assigned at Not on file Legal Sex Female 6:18 PM EDT Gender Identity Not on file Sexual Orientation Not on file documented as of this encounter Miscellaneous Notes * Telephone Encounter - Denia An - 04/22/2025 9:49 AM EDT Patient's spouse called the office during evening hours 8/12 approx 6:30pm looking for the patient to estab care. He explained the patient has a brain tumor and pressure CORRAL right now. They will be traveling to [place] to a surgeon's office there. I explained she would need to estab care and if having medical distress at this time, she should goto the UC or ED. Spouse thought I could call a doctor in to see her now . I explained again, she is not a patient of our practice and if care is needed immediately, she needs to go to UC or ED. I spoke with a nurse today regarding this patient. She has had multiple estab care appts in the past 2 months and another scheduled in May all with different PC offices [place]. documented in this encounter Plan of Treatment Not on file documented as of this encounter Visit Diagnoses Not on filedocumented in this encounter Care Teams Radiology Ct Technologist Relationship Specialty Start Date End Date Pcp, No [place] [address] PCP - General 02/27/25 documented as of this encounter
--- OUTSIDE RECORDS SUMMARY | 2025-07-13 13:06 | XMS_ITS | Encounter Summary ---
Author Organization [facility] Address [address] [place] [address] Care Team Providers Care Bronc Buster Name Role Phone Pcp, No Primary Care Provider Unavailabl e Encounter Details Date Type Department Care Team ([facility] st Contact Info) Description 02/27/[address] [facility], Radiology (CT Scan) [address] [place] [address] Social History Tobacco Use Types Packs/Day Years Used Date Smoking Tobacco: Never Assessed Comments No Sex and Gender Information Value Date Recorded Sex Assigned at Not on file Legal Sex Female 6:18 PM EDT Gender Identity Not on file Sexual Orientation Not on file documented as of this encounter Plan of Treatment Not on file documented as of this encounter Visit Diagnoses Not on filedocumented in this encounter Care Teams Bronc Buster Relationship Specialty Start Date End Date Pcp, No [place] [address] PCP - General 02/27/25 documented as of this encounter
--- OUTSIDE RECORDS SUMMARY | 2025-07-13 13:06 | XMS_ITS ---
Author Organization [facility] Address [address] [place] [address] Phone [phone] Care Team Providers Care Letter Stamping Machine Operator Name Role Phone LESA BABB DO Care Team Information Receiv er Unavailable Augustina Ansari DO Primary Care Physician Unavail able Problems Active Problems Provider Date Essential hypertension ALKA Renee Onset: 0 04/14/2025 Medications Active Medications SIG Qnty Indications Ordering Provider Date Aiesybw57ac Tablets 1 by mouth every day Unknown Referrals Refer to Reason for Referral Status Appt Leon Pickett MD Referral to Dr Queen for pharmacologically pain management Created [facility] [address] [place] [address] [phone]
--- OUTSIDE RECORDS SUMMARY | 2025-07-13 13:07 | XMS_ITS | Patient Health Record ---
Author Organization [facility] Address [address] [place] [address] Care Team Providers Care Computer Processing Scheduler Name Role Phone Kayodemar Patchip Primary Care Provider Debbie Mcnair Unavailable [phone] Allergies Allergen (clinical drug ingredient) Drug/Non Drug Allergy documented on EMR Reaction Allergy Type Onset Date Status ibuprofen stomach upset Drug Allergy Act leila Reason For Referral Reason EVAL AND TREAT Diagnosis 1 Chronic pain (G89.29 ) Diagnosis 2 Hip pain (M25.559) Diagnosis 3 Back pain (M54.9) Referral Organization [facility] Referring Provider First Name Debbie Referring Provider Last Name Xu Referring Provider Speciality Nurse Prac titioner Referred Provider Specialty Pain Managem ent General Notes Evan Pain Managem ent , P: [phone], F: [phone], Gisella Bethea 07/09/2025 09:59:30 AM > Sent Referral Priority Routine Medications Medication SIG (Take, Route, Frequency, Duration) Notes Start Date End Date Status gabapentin 300 mg 1 cap(s) orally 3 ti mes a day; Duration: 30 days Active Vitamin C 500 mg 1 tab bid Act leila levoFLOXacin 250 mg 1 tab(s) orally ever y 24 hours Active hydrochlorothiazide-losarta n 25 mg-100 mg 1 tab(s) orally once a day Active oxyCODONE 10 mg 1 tab(s) orally every 12 hours 4 times daily Active atenolol 25 mg 1 tab(s) orally once a day Active cloNIDine 0.1 mg 1 tab(s) orally 2 ti mes a day Active Social History AUDIT-C (Standard) [...] Problem Status W/U Status Risk Notes Problem Neuropathy (555458110) Neuropathy (G62.9) Active confirmed Problem Elevated blood pressure (50608842) Elevated blood pressure (I10) Active confirmed Problem Chronic pain (79919522) Chronic pain (G89.29) Active confirmed Problem Hyperthyroidism (44982155) Hyperthyroidism (E05.90) Active confirmed Problem Brain mass (962728039) Brain mass (G93.9) Active confirmed Vital Signs Heart Rate 91 /min 07/08/2025 Temperature 98.3 degrees Fahrenheit 07/08/2025 Respiratory Rate 16 /min 07/08/2025 Oximetry 98 % 07/08/2025 Blood pressure diastolic 80 mm Hg 07/08/2025 Height 67 In 07/08/2025 Blood pressure systolic 138 mm Hg 07/08/2025 Weight 248 lbs 07/08/2025 BMI 38.84 kg/m2 07/08/2025 Encounters Encounter Location Date Provider Diagnosis [address] [address] 07/08/2025 Debbie Mcnair Screening for lipid disorders Z13.220 ; Encounter to establish care with new provider Z76.89 ; Screening for deficiency anemia Z13.0 ; Encounter for screening for other disorder Z13.89 ; Depression screen Z13.31 ; Alcohol screening Z13.39 ; Chronic pain G89.29 ; Hyperthyroidism E05.90 ; Brain mass G93.9 ; Neuropathy G62.9 and Elevated blood pressure I10 ERNIE Coni [address] [address] [place] [address] 05/08/2025 Aramis Spain [facility] Marya [address] [place] [address] 06/03/2025 Aramis Spain [facility] Marya [address] [place] [address] 07/08/2025 Aramis Spain [facility] [address] [place] [address] 07/08/2025 Aramis Spain [facility] [address] [place] [address] 07/08/2025 Aramis Damianalexandraemelyn Assessments Encounter Date Diagnosis (ICD Code) Assessment [...] f/u with lab results. Plan Of Treatment Pending Test Test Name Order Date COMPREHENSIVE METABOLIC PANEL W/EGFR *CBC (INCLUDES DIFF/PLT) 07/08/2025 *LIPID PANEL 07/08/2025 *TSH, 3RD GENERATION 07/08/2025 *URINALYSIS, COMPLETE W/REFLEX TO CULTUR E 07/08/2025 Next Appt Details Provider Name:Debbie miranda, 08/12/2025 02:00:00 PM, [address] [place] [address], [phone], Insurance Providers Payer Name Payer Address Payer Phone Subscriber Number Group Number Insured Name Patient Relationship to Insured Coverage Start Date Coverage End Date [employer] [address] [place] [address] [id number] Maylin Coppola Self - patient is the insured Medical (General) History Medical History History ICD Code Chronic pain- Back and L hip Headaches (pressure-like) Hyperthyroidism Elevated blood pressure
--- OUTSIDE RECORDS SUMMARY | 2025-07-13 13:07 | XMS_ITS | Clinical Summary ---
Author Organization [facility] Address [address] [place] [address] Care Team Providers Care Certified Surgical Technician Name Role Phone Andres Sera Martino PA-C Primary Care Provider [phone] Allergies Active Allergy Reactions Criticality Noted Date Comments Hydrocodone Rash/Dermatitis Low 06/29/2024 Ibuprofen Other (See Comments) 05/05/2024 Chest pain Latex Rash/Dermatitis Low 02/27/2025 Levofloxacin Benign arrhythmia,Palpitatio ns,Rash/Dermatitis High 03/05/2008 Nsaids Other (See Comments),Palpitation s,Unknown/Patient and Family Unable to Define Medium 05/03/2024 Red Dye #40 (Allura Red) GI Intolerance/Nausea/Vo miting Low 12/31/2024 Ketorolac Tromethamine Rash/Dermatitis Low 05/05/20 24 Medications diazepam (VALIUM) 5 MG tablet 02/25/20 21 [...] mouth daily. 30 tablet 12/30/19 25 Active aspirin 81 MG chewable tablet Chew 1 tablet (81 mg total) daily. Active ascorbic acid (VITAMIN C) 1000 MG tablet Take 1 tablet (1,000 mg total) by mouth daily. Active Iron, Ferrous Sulfate, 325 (65 Fe) MG Tab Take by mouth 3 (three) times a week. Active oxyCODONE-acetam inophen (PERCOCET) 5-325 mg per tablet Take 1 tablet by mouth. 01/14/20 25 Active oxyCODONE (ROXICODONE) 10 mg immediate [...] musculoskeletal pain). 90 tablet 1 02/21/20 25 Active cloNIDine (CATAPRES) 0.1 MG tabletIndication s:Essential hypertension Take 1 tablet (0.1 mg total) by mouth 2 (two) times a day as needed for high blood pressure (To use if BP is >150/100). 30 tablet 04/29/20 25 Active hydrOXYzine HCl (ATARAX) 25 MG tabletIndication s:Anxiety,Diffic ulty sleeping Take 1 tablet (25 mg total) by mouth 4 times daily (every 6 hours) as needed for anxiety. 9 tablet 04/28/20 25 Active Active Problems Problem Noted Date Diagnosed Date Osteoarthritis of multiple joints 03/15/2025 Overview (04/02/2025): Bilateral tricompartmental with predominantly patellofemoral osteoarthritis Other specified mononeuropathies of bilateral up per limbs 02/04/2025 Anxiety disorder 02/02/2025 Overview (02/04/2025): Diagnosis made around 2005, cannot take antidepressant meds due to high BP and weight gain. Chronic low back pain 02/02/2025 Overview (04/02/2025): Patient reports bulging lumbar disc. Has seen pain management in [place], [place] and [place] 06/2022: MRI mild degenerative change of the lumbar spine with no significant spinal canal or neuroforaminal stenosis. 09/2023: Per note from Dr. Wyatt, s/p caudal ALMAS #1 on 08/20/2023 #2 on 09/04/2023. On gabapentin. Patient has cancelled or no showed pain management in [place] 4 times Liver lesion 01/01/2025 Assessment & Plan (01/01/2025 [...] PM EDT): [place], patient is currently in [place] comfortable with establishing pcp with [facility]. Patient says also goes back and forth to [place]. Patient is going to [place] today is scheduled for follow up with neurosurgery 01/09/25 through [facility] patient says they are trying to determine [...] Encounters Date Type Department Care Team Description 07/11/2025 8:45 AM EDT Telemedicine [facility] [address] [address] Jack Shay PA-C Drug-seeking behavior (Primary Dx); Opioid dependence with opioid-induced disorder (HCC); Hospital hopping; Malingering 07/09/2025 9:30 AM EDT Telemedicine [facility] [address] [address] Erica Sethi APRN Viral upper respiratory tract infection (Primary Dx) 06/02/[address] [address] Sera Campos PA-C Appointment 05/26/2025 [address] [facility] [address] [place] [address] Ash Landry MD Cluster headache, not intractable, unspecified chronicity pattern (Primary Dx); Localized swelling, mass and lump, unspecified 05/15/2025 Telephone [facility] [address] [place] [address] Sera Campos PA-C 04/29/2025 9:45 AM EDT Ancillary Procedure [facility] Radiology [address] [place] [address] Provider, File Room 04/28/2025 5:20 PM EDT [facility]medicine [facility] [address] [address] Lyric Conde PA Anxiety (Primary Dx); Essential hypertension ; Difficulty sleeping; Intracranial mass 04/26/2025 6:00 PM EDT Telemedicine [facility] [address] [address] Helena Meeks DO Chronic bilateral low back pain, unspecified whether sciatica present (Primary Dx); Drug-seeking behavior; Chronic narcotic use 04/25/2025 [facility] [address] [address] Saima Galindo MD Essential hypertension 04/25/2025 [facility] [address] [place] [address] Saba Al DO Essential hypertension (Primary Dx) 04/14/2025 Transcribe Orders [facility] [address] [address] Chris Armando MD Nonintractable headache, unspecified chronicity pattern, unspecified headache type (Primary Dx) from Last 3 Months Family History Medical [...] drink = 0.6 oz pur e alcohol) [facility] Utilities Answer Date Recorded In the past 12 months has th e electric, gas, oil, or water company [...] any time in the past [address] [facility], were you homeless or living in a half-way (including now)? No 12/29/2024 Comments No Sex and Gender Information Value Date Recorded Sex Assigned at Female 03/10/2024 6:44 PM EDT Legal Sex Female 12:12 PM EDT Gender Identity Female 03/10/2024 6:44 PM EDT Sexual Orientation Heterosexual (straight) 03/10 6:44 PM EDT Last Filed Vital Signs Vital Sign Reading Time Taken Comments Blood Pressure 140/84 03/23/2025 7:32 PM EDT Pulse 92 03/23/2025 7:32 PM EDT Temperature 35.7 C (96.2 F) 02/27/2025 2:16 AM EDT Respiratory Rate 18 02/27/2025 2:16 AM EDT Oxygen Saturation 97% 03/23/2025 7:32 PM EDT Inhaled Oxygen Concentration - - Weight 99.8 kg (220 lb) 03/23/2025 7:32 PM EDT Height 172.7 cm (5' 8 ) 03/23/2025 7:32 PM EDT Body Mass Index 33.45 03/23/2025 7:32 PM EDT Plan of Treatment Upcoming Encounters Date Type Department Care Team (Late st Contact Info) Description 10/14/2025 1:30 PM EST Office Visit [facility] [address] [place] [phone] Mable Nair MD [address] [place] [address] Health Maintenance Due Date Last Done Comments Hepatitis C Virus Screening 1977 HIV Screening 1990 Annual Wellness Visit 1995 Physical 1995 DTaP/Tdap/Td Vaccines (1 - Tdap) 1996 Hepatitis B Vaccines (1 of 3 - 19+ 3-dose series) 1996 Pap Smear (Ages 21-65) 1998 Mammogram 2017 Colonoscopy 2022 Influenza Vaccine 04/10/2025 COVID-19 Vaccine ( season) 2025 05/12/2021, 04/08/2021 Chronic Controlled Substance User PDMP Review Discontinued 07/11/2025, 04/26/2025, 03/24/2025, Additional history exists Pneumococcal Vaccine: Pediatric (0-5 Years) and At-Risk Patients (6 to 49 Years) Aged Out No longer eligible based on patient's age to complete this topic Procedures Procedure Name Priority Date/Time Associated Diagnosis Comments CT HEAD ARCHIVE FOR REFERENCE ONLY Routine 04/29/2025 9:41 AM EDT from Last 3 Months Results * CT Head Archive for Reference Only (04/29/2025 9:41 AM EDT) Narrative PRAMOD - 04/29/2025 9:41 AM EDT This study has been auto finalized and does not contain a result. us File Room Provider IMG DIGITIZE FILMS Final Resu lt PRAMOD [phone] from Last 3 Months Insurance [facility] MEDICARE MEDICARE PART A & B [facility] MEDICARE [facility] MEDICARE Advance Directives * Full Code (Latest Code Status on File) Date Activated Date Inactivated Comments 12/28/2024 8:53 PM 12/31/2024 1:40 PM Question Answer Comments Decision Thoroughly Discussed with: Patient Care Teams Certified Surgical Technician Relationship Specialty Start Date End Date Sera Campos PA-C [facility] [place] [address] PCP - General Internal Medicine 05/25/25
--- OUTSIDE RECORDS SUMMARY | 2025-07-13 13:08 | XMS_ITS | Patient Health Record ---
Author Organization [facility] Address [address] [place] [address] Care Team Providers Care Technical Service Engineer Name Role Phone Conchita Mathis Primary Care Provider Jaylen Santiago Unavailable [phone] Reason For Referral No Information Encounters Encounter Location Date Provider Diagnosis [address] [address] 01/09/2025 Jaylen Huerta [address] [address] 01/15/2025 Jaylen Huerta [address] [address] 01/29/2025 Jaylen Huerta Assessments Encounter Date Diagnosis (ICD [...] patient was also directed to our website [email or web address] for more information regarding specific treatment options, non-opioid alternatives, opioid REMS patient counseling guide, narcan, bowel regimen, and tips for managing chronic pain. 01/15/2025 Other Diagnostics: -Imaging: -Labs: Medications: - [...] patient was also directed to our website interventionals[facility] [employer] for more information regarding specific treatment options, non-opioid alternatives, opioid REMS patient counseling guide, narcan, bowel regimen, and tips for managing chronic pain. Plan Of Treatment No Information Insurance Providers Payer Name Payer Address Payer Phone Subscriber Number Group Number Insured Name Patient Relationship to Insured Coverage Start Date Coverage End Date [employer] [address] [address] [place], [place] [id number] Maylin Coppola Self - patient is the insured 5
--- OUTSIDE RECORDS SUMMARY | 2025-07-13 13:08 | XMS_ITS | Clinical Summary ---
Author Organization [facility] Address [address] [place] [address] Care Team Providers Care Continuing Education Instructor Name Role Phone Unavailable Primary Care Provider Unavailabl e Allergies Active Allergy Reactions Criticality Noted Date Comments Hydrocodone Rash Low 06/29/2024 Ibuprofen 08/25/2023 Pt states she gets Chest Pain Levofloxacin Rash Low 11/15/2017 Ketorolac Tromethamine Hives 06/29/2024 Medications Medication Sig Dispensed Refills Start Date End Date Status atenolol (TENORMIN) tablet 50 mg 0 09/06/2017 Active diazepam (VALIUM) tablet 5 mg 0 10/18/2017 Active temazepam (RESTORIL) 15 MG capsule 0 10/18/2017 Active valsartan-hydroCHLORO thiazide (DIOVAN-HCT) 320-25 MG per tablet 0 11/04/2017 Acti ve ibuprofen (ADVIL,MOTRIN) 600 MG tablet Take 1 tablet (600 mg total) by mouth every 6 (six) hours as needed for pain. 30 tablet 0 11/15/2017 Active Additional Information Patient not taking.Reason: Side effects, Reported on 06/28/2024 ondansetron (ZOFRAN-ODT) 8 MG disintegrating tablet Take 1 tablet (8 mg total) by mouth every 8 (eight) hours as needed for nausea. 20 tablet 0 05/05/2024 Active oxyCODONE (ROXICODONE) 5 MG immediate release tablet Take 1 tablet (5 mg total) by mouth 3 (three) times a day. 0 Active gabapentin (NEURONTIN) 300 MG capsule Take 1 capsule (300 mg total) by mouth every night at bedtime as needed. 0 Active traMADol (ULTRAM) 50 MG tablet Take 50 mg by mouth every 6 (six) hours as needed for pain for up to 4 doses. 4 tablet 0 06/29/2024 Active Active Problems Problem Noted Date Diagnosed Date Opioid use 04/21/2022 06/28/2024 Overview: Last Assessment & Plan: See anxiety tab. Endometriosis 03/08/2022 06/28/2024 Overview: Last Assessment & Plan: Referral to OB. Essential hypertension 03/16/2021 Social History Tobacco Use Types Packs/Day Years Used Date Smoking Tobacco: Former Smokeless Tobacco: Never Alcohol Use Standard Drinks/Week Comments Yes 0 (1 standard drink = 0.6 oz pur e alcohol) social Sex and Gender Information Value Date Recorded Sex Assigned at Female 08/25/2023 7:24 PM EST Gender Identity Not on file Sexual Orientation Not on file Job Start Date Occupation Industry Not on file Not on file Not on file Last Filed Vital Signs Vital Sign Reading Time Taken Comments Blood Pressure 156/98 06/29/2024 12:17 AM EDT Pulse 97 06/29/2024 2:19 AM EDT Temperature 36.5 C (97.7 F) 06/29/2024 12:17 AM EDT Respiratory Rate 18 06/29/2024 2:19 AM EDT Oxygen Saturation 97% 06/29/2024 2:19 AM EDT Inhaled Oxygen Concentration - - Weight 95.3 kg (210 lb) 06/29/2024 12:17 AM EDT Height 170.2 cm (5' 7 ) 06/29/2024 12:17 AM EDT Body Mass Index 32.89 06/29/2024 12:17 AM EDT Plan of Treatment Health Maintenance Due Date Last Done Comments Hepatitis B Vaccines (1 of 3 - 3-dose series) 1977 Hepatitis C Screening 1977 Depression Screening 1989 Preventative Health Evaluation 1995 DTap / Tdap / Td (1 - Tdap) 1996 Cervical Cancer Screening (Pap Smear) 1998 Colon Cancer Screening (Colonoscopy) 2022 COVID-19 Vaccine (3 - 2024-2 6 season) 2025 05/12/2021, 04/08/2021 Influenza Vaccine (#1) 2025 Pneumococcal Vaccine Aged Out No long er eligible based on patient's age to complete this topic RSV Ped < 20 months Aged Out No longe r eligible based on patient's age to complete this topic
--- OUTSIDE RECORDS SUMMARY | 2025-07-13 13:08 | XMS_ITS | Data Portability ---
Author Organization [facility], [place] Address [address] [place] [address] Assessment Encounter Date Assessment Date Assessment LastModified [...] 3 view 2023 024 adriane 71 [facility], [address] [place] [address], [facility] [address], [place], [address], 15:13:52 Medication Orders None recorded. Patient TargetsNo targets recorded. Patient Instructions Encounter Date Encounter Id Patient Instructions Last Modified By Organization Details Last Modified Time 05/02/2024 [id number] radiology overread* - 6 years of low [...] 3 view [facility] eUID=[id number] .[id number] 7.194 [id number]. [id number] 3.4507 .06319 INTERFACE [facility] [address] [place] [address] [facility] [address], [place], [address], 05/02/2024 14:23:56 05/02/20 24 05/02/2024 XR, lumbo sacra l spine , 2 or 3 view [facility] eUID=[id number] .[id number] 7.194 [id number] 3.4507 .48952 [facility] [address] [place] [address] Ave [facility] [address], [place], [address], 05/02/2024 14:23:58 05/02/20 24 05/02/2024 XR, lumbo sacra l spine , 2 or 3 view [facility] eUID=[id number] .[id number] 7.1940 [id number]. [id number] 3.4507 .85388 [facility] [address] [place] [address] [address], [place], [address], 05/02/2024 14:54:40 05/02/20 24 05/02/2024 XR, lumbo sacra l spine , 2 or 3 [facility]1 .[id number] .12782 7.1940 [id number]. [id number] 3.4507 .62382 [facility] [address] [place] [address] Ave [facility] [address], [place], [address], 05/02/2024 14:54:42 05/05/20 24 05/02/2024 radio logy overr ead* No observ ation record ed. [email or web address] Not Available 2023 12:36:50 Result Notes Documentation Provider Name and Address Organization Details Recorded Time Xr, Lumbosacral Spine, 2 Or 3 View : StudyInstanceUID=[id number]. [id number] Not Available [facility] 05/02/2024 14:23:56 Xr, Lumbosacral Spine, 2 Or 3 View : StudyInstanceUID=[id number]. [id number] Not Available [facility] 05/02/2024 14:23:58 Xr, Lumbosacral Spine, 2 Or 3 View : StudyInstanceUID=[id number]. [id number] Not Available [facility] 05/02/2024 14:54:40 Xr, Lumbosacral Spine, 2 Or 3 View : StudyInstanceUID=[id number]. [id number] Not Available [facility] 05/02/2024 14:54:42 Problems Name Problem SNOMED Code Status Onset Date Resolution Date Notes Provider Name and Address Organization Details Recorded Time Low back pain 163507163 Active 024 Arlette Guy [facility] 05/02/2024 14:20:13 Problem Notes [...] Updated DateTime 05/02/2024 170.18 cm 40.9 kg/m2 722208.61 g Gianna [facility] 05/02/2024 14:08:25 Social History None recorded. Functional Status None recorded. Mental Status None recorded. Family History Nothing Reported. Medical History No medical history recorded. Gynecological HistoryNo gynecological history recorded. Obstetrics History GPAL:G 0 P 0 0 0 0 Past Encounters Encounter ID Performer Location Encounter Start Date Encounter Closed Date Diagnosis/Indication Diagnosis SNOMED-CT Code Diagnosis ICD10 Code Diagnosis IMO Codes Diagnosis Note [id number] Ash Jones MD [facility] [address] [place] [address] 3 05/02/2024 13:46:36 05/02/2024 15:13:52 Low back pain 641926868 M54.50 Health Concerns Section Related Observation LastModified by Organization Detai ls LastModified Time None Recorded Concern Status LastModified by Organization Details LastModified Time None Recorded Advance Directives Directive None Recorded Payers Insurance Date Sequence Insurance Name Policy Number Policy Chapa Covered Member ID Chapa Member ID Guarantor Name 11/05/2024 1 [employer] (MEDICARE REPLACEMENT/A DVANTAGE - PPO) Maylin Coppola [id number] Maylin Coppola Notes Date Note Type Note Provider Name and Address Organization Details Recorded Time 05/02/2024 text/html ROS as noted in the HPI 48-year-old female presents today complaining of atraumatic low back pain ongoing for 6 years. 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 COLLIN SEAY, KENNEDY [facility] [place], [address], [facility] 05/02/2024 15:02:36 OBGyn Episode No OBEpisode recorded.
--- OUTSIDE RECORDS SUMMARY | 2025-07-13 13:08 | XMS_ITS | Encounter Summary ---
Author Organization [facility] Address [address] [place] [address] Care Team Providers Care Preparation Department Supervisor Name Role Phone Mikaela, Saba DO Primary Care Provider [phone] Pcp, No Primary Care Provider Unavailabl e Mikaela, Saba DO Primary Care Provider [phone] Mikaela, Saba DO Primary Care Provider [phone] Noname Primary Care Provider Unavailabl Sera Dunbar PA-C Primary Care Provider [phone] Reason for Visit * Reason Onset Date Comments Other 02/24/2025 Encounter Details Date Type Department Care Team (Late st Contact Info) Description 02/24/[address] [facility] [address] [place] [address] Mikaela, Saba, DO [address] [place] [address] Other Social History Tobacco Use Types Packs/Day Years Used Date Smoking Tobacco: Former Cigarettes 0.5 4 2 011 - 2015 Smokeless Tobacco: Never Alcohol Use Standard Drinks/Week Comments Not Currently 0 (1 standard drink = 0.6 oz pur e alcohol) [facility] Utilities Answer Date Recorded In the [...] any time in the past 12 m [facility], were you homeless or living in a chcf (including now)? No 12/29/2024 Comments No Sex and Gender Information Value Date Recorded Sex Assigned at Female 03/10/2024 6:44 PM EDT Legal Sex Female 12:12 PM EDT Gender Identity Female 03/10/2024 6:44 PM EDT Sexual Orientation Heterosexual (straight) 03/10 6:44 PM EDT documented as of this encounter Miscellaneous Notes * Telephone Encounter - Shawna Maria - 02/24/2025 12:51 PM EDT This fiction and nonfiction prose writer called patient in regards to message received via [employer]. Patient explained that she isn't happy with the care she has been receiving and concerns regarding her medication not be refilled by provider. This fiction and nonfiction prose writer explained provider was adamant at last visit that she will only be prescribing enough to hold patient off until flight to [place] + that provider does not feel comfortable with prescribing oxycodone. Offered appointment to patient to be seen sooner with Dr. Al for further explanation + rational as to why she will not be prescribing medication. Pt + spouse declines appointment + questioned if there's another provider in office to establish care with + will be willing to prescribe a bridge supply. Advised patients spouse that at this time providers are going outuntil fall time for new patient visits. Nurse has relayed message provider + doc of the day declines prescribing medication. documented in this encounter Plan of Treatment Upcoming Encounters Date Type Department Care Team (Late st Contact Info) Description 10/14/2025 1:30 PM EST Office Visit [facility] [address] [place] [address] Mable Nair MD [address] [place] [address] documented as of this encounter Visit Diagnoses Not on filedocumented in this encounter Care Teams Preparation Department Supervisor Relationship Specialty Start Date End Date Saba Al DO [address] [place] [address] PCP - General Internal Medicine 02/13/25 02/26/25 Pcp, No PCP - General General Medicine 02/27/25 03/16/25 Saba Al DO [address] [place] [address] PCP - General Internal Medicine 03/17/25 04/01/25 Saba Al DO [address] [place] [address] PCP - General Internal Medicine 04/08/25 04/26/25 Noname PCP - General 04/29/25 04/29/25 Sera Campos, [place] [address] [place] [address] PCP - General Internal Medicine 05/25/25 documented as of this encounter
--- OUTSIDE RECORDS SUMMARY | 2025-07-13 13:08 | XMS_ITS | Patient Health Record ---
Author Organization [facility] Address [address] [address] Care Team Providers Care Information Receptionist Name Role Phone DENITACINDA ETHAN Unavailable [phone] Allergies Allergen (clinical drug ingredient) Drug/Non Drug Allergy documented on EMR Reaction Allergy Type Onset Date Status Levaquin Unknown Drug Allergy Active ketorolac Ketorolac Unknown Drug Allergy Active Reason For Referral Diagnosis 1 Brain mass (G93.89) Referral Organization [facility] Referring Provider First Name ETHAN Referring Provider Last Name MARIA LUZ Referring Provider Speciality Internal M edicine Referred Provider Specialty Hematology/O ncology Referral Priority Routine Referral Appointment Date 04/07/2025 Medications Medication SIG (Take, Route, Fr equency, Duration) Notes Start Date End Date Status Aspirin 81 81 MG 1 tablet Orally Once a day Active Gabapentin 300 MG 1 capsule Orally Once a day Active Atenolol 25 MG 1 tablet Orally Once a day; Duration: 90 days Active oxyCODONE ER Active Valsartan 320 MG 1 tablet Orally Once a day; Duration: 90 days Active Problems Problem Type SNOMED Code ICD Code Onset Dates Problem Status W/U Status Risk Notes Problem Hypertension (66045082) Hypertension (I10) Active confirmed Problem Chronic pain (59625796) Chronic pain (G89.29) Active confirmed Encounters Encounter Location Date Provider Diagnosis [facility] [address] [address] 04/07/2025 ETHAN BRAGA Brain mass G93.89 ; Hypertension I10 and Chronic pain G89.29 [facility] [address] [facility] [address] [place] [address] 04/06/2025 ETHAN BRAGA Assessments Encounter Date Diagnosis (ICD Code) Assessment Notes Treatment Notes Treatment Clinical Notes Section Notes 04/07/2025 Hypertension (ICD-10 - I10) DASH diet recommended low salt diet Exercise three times weekly Avoid fast food blood pressure log next visit 04/07/2025 Brain mass (ICD-10 - G93.89) recommended to follow up with oncology 04/07/2025 Chronic pain (ICD-10 - G89.29) seeing pain management recommended to follow up Plan Of Treatment No Information Insurance Providers Payer Name Payer Address Payer Phone Subscriber Number Group Number Insured Name Patient Relationship to Insured Coverage Start Date Coverage End Date [address] [address] [place] [address] [phone] [id number] Maylin Coppola Self - patient is the insured Medical (General) History Medical History History ICD Code hypertension chronic pain benign brain mass subclinical hyperthyroidism Thrombocytosis Surgical History Surgery Date(Month/Year) laparoscopic appendectomy endometriosis - lysis of adhesions left oopherectomy Hospitalization History Reason Date(Month/Year) bilateral ankle swelling 12/2024
--- OUTSIDE RECORDS SUMMARY | 2025-07-13 13:08 | XMS_ITS | Patient Health Record ---
Author Organization [facility] Address [address] [place] [address] Care Team Providers Care Board Stacker Name Role Phone Fouzia Blank Primary Care Provider HERSON Laurent Unavailable [phone] Allergies Allergen (clinical drug ingredient) Drug/Non Drug Allergy documented on EMR Reaction Allergy Type Onset Date Status ibuprofen Ibuprofen hives Drug Allergy Active Levaquin hives Drug Allergy Active ketorolac Ketorolac hives Drug Allergy Active Reason For Referral No Information Medications Medication SIG (Take, Route, Frequency, Duration) Notes Start Date End Date Status Iron (Ferrous Sulfate) 325 (65 Fe) MG Tablet 1 tablet Orally Three times a Week Active Baby Aspirin Active oxyCODONE HCl 5 MG Capsule 1 capsule as needed Orally three times a day Active methIMAzole 5 MG Tablet one half tablet Orally Once a day Active tiZANidine HCl 4 MG Capsule 1 capsule at bedtime as needed Orally Once a day Active Atenolol 25 MG Tablet 1 tablet Orally On ce a day Active Valsartan-hydroCHLOROthiazi de 320-25 MG Tablet 1 tablet Orally Once a day Active Social History Tobacco Use: Social History Observation Description Date Details (start date - stop date) Never Smoker NA - NA Social History Tobacco Use: Social Info Question Answer Notes Tobacco Control (Standard) Tobacco use: Nonsmoker Problems Problem Type SNOMED Code ICD Code Onset Dates Problem Status W/U Status Risk Notes Problem Osteoarthritis of knee (424226143) Bilateral primary osteoarthritis of knee (M17.0) Active confirmed Problem Cervical spondylosis without myelopathy (838149566) Spondylosis without myelopathy or radiculopathy, cervical region (M47.812) Active confirmed Problem Thoracic spondylosis without myelopathy (664133753) Spondylosis without myelopathy or radiculopathy, thoracic region (M47.814) Active confirmed Problem Lumbosacral spondylosis without myelopathy (63233080) Spondylosis without myelopathy or radiculopathy, lumbar region [...] 07/19/2024 Encounters Encounter Location Date Provider Diagnosis [facility] [address] [place] [address] 07/19/2024 [facility] Spondylosis without myelopathy or radiculopathy, cervical region M47.812 ; Spondylosis without myelopathy or radiculopathy, lumbar region M47.816 ; Other longterm (current) drug therapy Z79.899 ; Bilateral primary osteoarthritis of knee M17.0 ; Other specified mononeuropathies of bilateral upper limbs G56.83 and Spondylosis without myelopathy or radiculopathy, thoracic region M47.814 [facility] [address] [place] [address] 07/24/2024 [facility] [address] [place] [address] 07/25/2024 [facility] [address] [place] [address] 07/21/2024 [facility] [address] [place] [address] 07/24/2024 [facility] Assessments Encounter Date Diagnosis (ICD Code) Assessment [...] medial branch blocks with local anesthetics only. [address], 10260 bilateral If successful the patient might be eligible for radiofrequency ablation. Thank you Dr. Wyatt for your kind referral, please feel free to call me with any questions 07/19/2024 Other longterm (current) drug therapy (ICD-10 - Z79.899) 07/19/2024 Bilateral primary osteoarthritis of knee (ICD-10 - M17.0) 07/19/2024 Other specified mononeuropathies of bilateral upper limbs (ICD-10 - G56.83) 07/19/2024 Spondylosis without myelopathy or radiculopathy, thoracic region (ICD-10 - M47.814) Plan Of Treatment No Information Insurance Providers Payer Name Payer Address Payer Phone Subscriber Number Group Number Insured Name Patient Relationship to Insured Coverage Start Date Coverage End Date [employer] Medicare PPO [address] [address] [place] [address] [phone] [id number] MONIKA JOHNSON Self - patient is the insured Medical (General) History Medical History History ICD Code obesity hypertension hyperlipidemia hypothyroidism DDD osteoarthritis endometriosis Surgical History Surgery Date(Month/Year) appendectomy left side oopharectomy
--- OUTSIDE RECORDS SUMMARY | 2025-07-13 13:08 | XMS_ITS | Encounter Summary ---
Author Organization [facility] Address [address] [place] [address] Care Team Providers Care Manager Supply Chain Name Role Phone Pcp, No Primary Care Provider Unavailjarek Al, Saba DO Primary Care Provider [phone] Mikaela, Saba DO Primary Care Provider [phone] Noname Primary Care Provider UnavailSera Ham PA-C Primary Care Provider [phone] Reason for Visit * Reason Onset Date Comments Headache 03/02/2025 Brain Tumor 03/02/2025 Encounter Details Date Type Department Care Team (Late st Contact Info) Description 03/02/2025 Nurse Triage [facility] [address] [place] [address] Pcp, No Social History Tobacco Use Types Packs/Day Years Used Date Smoking Tobacco: Former Cigarettes 0.5 4 2 011 - 2014 Smokeless Tobacco: Never Alcohol Use Standard Drinks/Week Comments Not Currently 0 (1 standard drink = 0.6 oz pur e alcohol) [facility] Utilities Answer Date Recorded In the [...] any time in the past 12 m [facility], were you homeless or living in a half-way (including now)? No 12/29/2024 Comments No Sex and Gender Information Value Date Recorded Sex Assigned at Female 03/10/2024 6:44 PM EDT Legal Sex Female 12:12 PM EDT Gender Identity Female 03/10/2024 6:44 PM EDT Sexual Orientation Heterosexual (straight) 03/10 6:44 PM EDT documented as of this encounter Miscellaneous Notes * Telephone Encounter - Latasha Ambrosio LPN - 03/06/2025 9:37 AM EDT Spoke with patient and sent to MD for medication consideration on 03.02.25 * Telephone Encounter - Arlyn Plasencia RN - 03/02/2025 11:54 AM EDT Regarding: Brain tumor (12/08) + headaches + head pressure + fatigue ----- Message from Nurse Arlyn Mazariegos RN sent at 03/02/2025 11:40 AM EDT ----- .put back ----- Message from Nurse Arlyn Mazariegos RN sent at 03/02/2025 11:09 AM EDT ----- .put back * Telephone Encounter - Arlyn Plasencia RN - 03/02/2025 11:07 AM EDT Regarding: Brain tumor (12/08) + headaches + head pressure + fatigue ----- Message from [employer] Danis sent at 03/02/2025 11:00 AM EDT ----- Brain tumor (12/08) + headaches + head pressure + fatigue ----- Message from [employer] Danis sent at 03/02/2025 10:59 AM EDT ----- Brain tumor (12/08) + headaches + head pressure + fatigue documented in this encounter Plan of Treatment Upcoming Encounters Date Type Department Care Team (Late st Contact Info) Description 10/14/2025 1:30 PM EST Office Visit [facility] [address] [place] [address] Mable Nair MD [address] [place] [address] documented as of this encounter Visit Diagnoses Not on filedocumented in this encounter Care Teams Manager Supply Chain Relationship Specialty Start Date End Date Pcp, No PCP - General General Medicine 02/27/25 03/16/25 Saba Al DO [address] [place] [address] PCP - General Internal Medicine 03/17/25 04/01/25 Saba Al DO [address] [place] [address] PCP - General Internal Medicine 04/08/25 04/26/25 Noname PCP - General 04/29/25 04/29/25 Sera Campos, [place] [address] [facility] [address] PCP - General Internal Medicine 05/25/25 documented as of this encounter
--- OUTSIDE RECORDS SUMMARY | 2025-07-13 13:09 | XMS_ITS | Patient Health Record ---
Author Organization [facility] Address [address] [place] [address] Care Team Providers Care Kilnman Name Role Phone Carlos Grace Primary Care Provider Reason For Referral No Information Plan Of Treatment No Information Insurance Providers Payer Name Payer Address Payer Phone Subscriber Number Group Number Insured Name Patient Relationship to Insured Coverage Start Date Coverage End Date [facility] [address] [address] [place] [address] [id number] Maylin Coppola Self - patient is the insured
--- OUTSIDE RECORDS SUMMARY | 2025-07-13 13:09 | XMS_ITS | Encounter Summary ---
Author Organization [facility] Address [address] [place] [address] Care Team Providers Care Time Stamp Assembler Name Role Phone Pcp, No Primary Care Provider Unavailabl e Mikaela, Saba DO Primary Care Provider [phone] Pcp, No Primary Care Provider Unavailabl e Mikaela, Saba DO Primary Care Provider [phone] Mikaela, Saba DO Primary Care Provider [phone] Noname Primary Care Provider UnavailSera Ham PA-C Primary Care Provider [phone] Encounter Details Date Type Department Care Team (Late st Contact Info) Description 01/02/2025 Scanned Document [address] [place] [address] Provider, Generic Social History Tobacco Use Types Packs/Day Years Used Date Smoking Tobacco: Former Cigarettes 0.5 4 - 2014 Smokeless Tobacco: Never Alcohol Use Standard Drinks/Week Comments Not Currently 0 (1 standard drink = 0.6 oz pur e alcohol) [facility] Utilities Answer Date Recorded In the past [...] the money to buy more. Never true 04/21/20 25 Within the past 12 months, t [...] any time in the past 12 m [facility], were you homeless or living in a alf (including now)? No 12/29/2024 Comments No Sex and Gender Information Value Date Recorded Sex Assigned at Female 03/10/2024 6:44 PM EDT Legal Sex Female 12:12 PM EDT Gender Identity Female 03/10/2024 6:44 PM EDT Sexual Orientation Heterosexual (straight) 03/10 6:44 PM EDT documented as of this encounter Plan of Treatment Upcoming Encounters Date Type Department Care Team (Late st Contact Info) Description 10/14/2025 1:30 PM EST Office Visit [facility] [address] [place] [phone] Mable Nair MD [address] [place] [address] documented as of this encounter Visit Diagnoses Not on filedocumented in this encounter Care Teams Time Stamp Assembler Relationship Specialty Start Date End Date Pcp, No PCP - General General Medicine 02/17/21 02/12/25 Saba Al DO [address] [place] [address] PCP - General Internal Medicine 02/13/25 02/26/25 Pcp, No PCP - General General Medicine 02/27/25 03/16/25 Saba Al DO [address] [place] [address] PCP - General Internal Medicine 03/17/25 04/01/25 Saba Al DO [address] [place] [address] PCP - General Internal Medicine 04/08/25 04/26/25 Noname PCP - General 04/29/25 04/29/25 Sera Campos, INESSAC [address] [facility] [place] [address] PCP - General Internal Medicine 05/25/25 documented as of this encounter
--- OUTSIDE RECORDS SUMMARY | 2025-07-13 13:09 | XMS_ITS | Encounter Summary ---
Author Organization [facility] Address [address] [place] [address] Care Team Providers Care Candy Dipper Hand Name Role Phone Pcp, No Primary Care Provider Unavailabl e Mikaela, Saba DO Primary Care Provider [phone] Pcp, No Primary Care Provider Unavailabl e Mikaela, Saba DO Primary Care Provider [phone] Mikaela, Saba DO Primary Care Provider [phone] Noname Primary Care Provider UnavailSera Ham PA-C Primary Care Provider [phone] Encounter Details Date Type Department Care Team (Late st Contact Info) Description 01/20/2025 Scanned Document [address] [phone] Primary Care, Scan Social History Tobacco Use Types Packs/Day Years Used Date Smoking Tobacco: Former Cigarettes 0.5 4 011 - 2014 Smokeless Tobacco: Never Alcohol Use Standard Drinks/Week Comments Not Currently 0 (1 standard drink = 0.6 oz pur e alcohol) [facility] Utilities Answer Date Recorded In the [...] any time in the past 12 m [facility], were you homeless or living in a fci (including now)? No 12/29/2024 Comments No Sex [...] Description 10/14/2025 1:30 PM EST Office Visit [place] [phone] [place] [phone] Mable Nair MD [address] [phone] documented as of this encounter Visit Diagnoses Not on filedocumented in this encounter Care Teams Candy Dipper Hand Relationship Specialty Start Date End Date Pcp, No PCP - General General Medicine 02/17/21 02/12/25 Saba Al DO [address] [place] [id number] PCP - General Internal Medicine 02/13/25 02/26/25 Pcp, No PCP - General General Medicine 02/27/25 03/16/25 Saba Al DO [address] [place] [id number] PCP - General Internal Medicine 03/17/25 04/01/25 Saba Al DO [address] [place] [id number] PCP - General Internal Medicine 04/08/25 04/26/25 Noname PCP - General 04/29/25 04/29/25 Sera Campos, [facility] [address] [place] [address] PCP - General Internal Medicine 05/25/25 documented as of this encounter
== END 2025-07-13 12:03 | disposition home or self-care (01) ==
PROVIDERS: Emergency Provider Emergency Medicine
DX: G89.4 Chronic pain syndrome (principal); Z79.899 Other long term (current) drug therapy; Z76.0 Encounter for issue of repeat prescription
CPT/HCPCS: 99283